=== PATIENT | female | born 1945 | race Caucasian/White ===

== ENCOUNTER → 2016-08-25 | Outpatient (REF) | payer MEDICARE ==
[~2016-08-25] MED LIST: AMLO10TA2 PO; CHLO125TA PO; COUM2.5T11 PO; CYMB60CA3 PO; DRIS50002 PO; GABA-279 PO; GABA300C3 PO; IBUPOTC PO; ISOS60TA2 PO; LEVO150T7 PO; PERC5TAB6 PO; SPIR25TA2 PO; SYNT137T7 PO; SYNT175T2 PO; TRIA37.53 PO
[2016-08-25 13:54] LABS: INR 1.27
== END ==
LOC: M SHH 13:39
PROVIDERS: ATTEND Orthopaedic Surgery
DX: M17.12 Unilateral primary osteoarthritis, left knee (principal); Z79.01 Long term (current) use of anticoagulants

== ENCOUNTER → 2016-08-27 | Outpatient (REF) | payer MEDICARE ==
[2016-08-27 12:31] LABS: INR 1.05
== END ==
LOC: M SHH 11:46
PROVIDERS: ATTEND Orthopaedic Surgery
DX: Z51.81 Encounter for therapeutic drug level monitoring (principal); Z79.01 Long term (current) use of anticoagulants

== ENCOUNTER → 2016-08-31 | Outpatient (REF) | payer MEDICARE ==
[2016-08-31 13:29] LABS: INR 1.42
== END ==
LOC: M SHH 12:36
PROVIDERS: ATTEND Orthopaedic Surgery
DX: M17.12 Unilateral primary osteoarthritis, left knee (principal); Z79.01 Long term (current) use of anticoagulants

== ENCOUNTER → 2016-12-25 | Outpatient (REF) | payer MEDICARE ==
[~2016-12-25] MED LIST changes: +GABA-282 PO; -GABA300C3 PO
== END ==
LOC: M LAB REF 16:25
PROVIDERS: ATTEND Physician Assistant Medical
DX: N39.0 Urinary tract infection, site not specified (principal)

== ENCOUNTER → 2017-01-04 | Outpatient (CLI) | payer MEDICARE ==
[2017-01-04 13:26] LABS: CALCIUM LEVEL 9.5 MG/DL (8.8-10.2); CREATININE FOR GFR 1.1 MG/DL (0.55-1.02); POTASSIUM SERUM 4.9 MEQ/L (3.5-5.1)
== END ==
LOC: M SMT 10:55
PROVIDERS: ATTEND Family Medicine
DX: N17.8 Other acute kidney failure (principal)

== ENCOUNTER → 2017-01-25 | Outpatient (CLI) | payer MEDICARE ==
[2017-01-25 13:23] LABS: ALBUMIN 3.7 GM/DL (3.2-5.2); ALBUMIN/GLOBULIN RATIO 1.12 (1.00-1.93); BILIRUBIN,TOTAL 0.4 MG/DL (0.2-1.0); CALCIUM LEVEL 9.4 MG/DL (8.8-10.2); CREATININE FOR GFR 1.17 MG/DL (0.55-1.02); FREE T4 1.5 NG/DL (0.76-1.46); GLOMERULAR FILTRATION RATE 48.4 (>39); POTASSIUM SERUM 4.5 MEQ/L (3.5-5.1)
== END ==
LOC: M SMT 09:57
PROVIDERS: ATTEND Internal Medicine Cardiovascular Disease
DX: E03.9 Hypothyroidism, unspecified (principal)

== ENCOUNTER → 2017-02-09 | Outpatient (CLI) | payer MEDICARE ==
[~2017-02-09] MED LIST changes: +CALCTAB97 PO; -COUM2.5T11 PO; +COUM2.5T17 PO; +FAMO1TAB25 PO; +FUSICAP PO; +GABA-283 PO; +LISI10TA4 PO; +PERC5TAB12 PO; -PERC5TAB6 PO; +VITA500T53 PO
[2017-02-09 13:37] LABS: FREE T4 1.17 NG/DL (0.76-1.46)
== END ==
LOC: M SMT 08:54
PROVIDERS: ATTEND Family Medicine
DX: E03.9 Hypothyroidism, unspecified (principal)

== ENCOUNTER → 2017-02-09 | Outpatient (CLI) | payer MEDICARE ==
[2017-02-09 13:13] LABS: ALBUMIN 3.5 GM/DL (3.2-5.2); ALBUMIN/GLOBULIN RATIO 1.17 (1.00-1.93); ALKALINE PHOSPHATASE 78 U/L (45-117); ALT/SGPT 25 U/L (12-78); ANION GAP 8 MEQ/L (8-16); AST/SGOT 20 U/L (15-37); BILIRUBIN,TOTAL 0.5 MG/DL (0.2-1.0); BLOOD UREA NITROGEN 11 MG/DL (7-18); CALCIUM LEVEL 9.3 MG/DL (8.8-10.2); CARBON DIOXIDE LEVEL 28 MEQ/L (21-32); CHLORIDE LEVEL 106 MEQ/L (98-107); CREATININE FOR GFR 0.85 MG/DL (0.55-1.02); FERRITIN 165 NG/ML (8-252); GLOMERULAR FILTRATION RATE > 60.0 (>39); GLUCOSE, FASTING 86 MG/DL (83-110); MAGNESIUM LEVEL 2.1 MG/DL (1.8-2.4); PERCENT SATURATION 21.1 % (13.2-37.4); PHOSPHORUS LEVEL 3.6 MG/DL (2.5-4.9); POTASSIUM SERUM 4.4 MEQ/L (3.5-5.1); SODIUM LEVEL 142 MEQ/L (136-145); TOTAL IRON BINDING CAPACITY 266 UG/DL (250-450); TOTAL PROTEIN 6.5 GM/DL (6.4-8.2)
[2017-02-09 13:21] LABS: BASO % 0.5 % (0.0-1.0); EOS # 0.4 K/mm3 (0.0-0.50); EOS % 7.2 % (0.0-3.0); LARGE UNSTAINED CELL # 0.1 K/mm3 (0.0-0.4); LARGE UNSTAINED CELL % 1.4 % (0.0-4.0); LYMPH # 1.5 K/mm3 (1.5-4.5); LYMPH % 24.9 % (24.0-44.0); MEAN CORPUSCULAR HEMOGLOBIN 31.4 pg (27.0-33.0); MEAN CORPUSCULAR VOLUME 95.1 fl (80.0-96.0); MONO # 0.4 K/mm3 (0.0-0.8); MONO % 7.6 % (0.0-5.0); NEUTROPHILS # 3.3 K/mm3 (1.8-7.7); NEUTROPHILS % 58.4 % (36.0-66.0); PLATELET COUNT, AUTOMATED 252 k/mm3 (150-450); RED CELL DISTRIBUTION WIDTH 13.2 % (11.5-14.5); WHITE BLOOD COUNT 5.6 K/mm3 (4.0-10.0)
[2017-02-09 13:43] LABS: VITAMIN B12 LEVEL 570 PG/ML (247-911)
[2017-02-12 11:02] LABS: PRETREATED FOLATE FOR RBCFOL 11.3 NG/ML
== END ==
LOC: M SMT 08:57
PROVIDERS: ATTEND Surgery
DX: K91.2 Postsurgical malabsorption, not elsewhere classified (principal); Z98.84 Bariatric surgery status; E03.9 Hypothyroidism, unspecified

== ENCOUNTER → 2017-02-19 | Outpatient (CLI) | payer MEDICARE ==
[2017-02-19 16:29] LABS: BASO % 0.4 % (0.0-1.0); EOS # 0.3 K/mm3 (0.0-0.50); EOS % 4.7 % (0.0-3.0); LARGE UNSTAINED CELL # 0.2 K/mm3 (0.0-0.4); LARGE UNSTAINED CELL % 2.4 % (0.0-4.0); LYMPH % 26.6 % (24.0-44.0); MEAN CORPUSCULAR HEMOGLOBIN 31.3 pg (27.0-33.0); MEAN CORPUSCULAR HGB CONC 32.7 g/dl (32.0-36.5); MEAN CORPUSCULAR VOLUME 95.7 fl (80.0-96.0); MONO # 0.5 K/mm3 (0.0-0.8); MONO % 6.8 % (0.0-5.0); NEUTROPHILS # 4.1 K/mm3 (1.8-7.7); NEUTROPHILS % 59.1 % (36.0-66.0); PLATELET COUNT, AUTOMATED 265 k/mm3 (150-450); RED CELL DISTRIBUTION WIDTH 13.5 % (11.5-14.5); WHITE BLOOD COUNT 6.9 K/mm3 (4.0-10.0)
[2017-02-19 17:58] LABS: ERYTHROCYTE SEDIMENTATION RATE 21 mm/hr (0-30)
== END ==
LOC: M SMT 12:53
PROVIDERS: ATTEND Orthopaedic Surgery
DX: Z96.652 Presence of left artificial knee joint (principal)

== ENCOUNTER → 2017-03-31 | Outpatient (CLI) | payer MEDICARE ==
[2017-03-31 15:10] LABS: ALBUMIN 3.5 GM/DL (3.2-5.2); ALBUMIN/GLOBULIN RATIO 1.06 (1.00-1.93); ALKALINE PHOSPHATASE 94 U/L (45-117); ALT/SGPT 18 U/L (12-78); ANION GAP 7 MEQ/L (8-16); AST/SGOT 15 U/L (15-37); BILIRUBIN,TOTAL 0.5 MG/DL (0.2-1.0); BLOOD UREA NITROGEN 14 MG/DL (7-18); CALCIUM LEVEL 9.3 MG/DL (8.8-10.2); CARBON DIOXIDE LEVEL 29 MEQ/L (21-32); CHLORIDE LEVEL 104 MEQ/L (98-107); CREATININE FOR GFR 0.81 MG/DL (0.55-1.02); FREE T4 1.11 NG/DL (0.76-1.46); GLOMERULAR FILTRATION RATE > 60.0 (>39); GLUCOSE, FASTING 83 MG/DL (83-110); POTASSIUM SERUM 4.5 MEQ/L (3.5-5.1); SODIUM LEVEL 140 MEQ/L (136-145); TOTAL PROTEIN 6.8 GM/DL (6.4-8.2)
== END ==
LOC: M SMT 11:46
PROVIDERS: ATTEND Family Medicine
DX: I11.9 Hypertensive heart disease without heart failure (principal); E03.9 Hypothyroidism, unspecified

== ENCOUNTER 2017-05-25 10:18 | Outpatient (CLI) | payer MEDICARE ==
[~2017-05-25] VITALS: Ht 157.5 cm; Wt 102.1 kg
[~2017-05-25 10:18] MED LIST changes: +LIDOCAINE 2% INJ 100 MG/5 ML SDV (FOR ANES.) As Ordered ONE; +PROPOFOL 200 MG/20 ML VIAL As Ordered ONE
[2017-05-25] MEDS ORDERED: NS 1,000 ML IV ONE (10:30)
--- NOTE | 2017-05-25 11:28 | ROOR ---
Patient Name: Jesenia Padilla Procedure Date: 05/25/2017 11:10 AM Date of : 1945 Age: 71 Room: [facility] Gender: Female Note Status: Finalized Procedure: Total Colonoscopy to Cecum Indications: Screening for colorectal malignant neoplasm, Last colonoscopy: 2004 Providers: Chad Lomas MD Referring MD: Sherrell PURCELL DO Requesting Provider: Medicines: Monitored Anesthesia Care Complications: No immediate complications. Procedure: Pre-Anesthesia Assessment: - The heart rate, respiratory rate, oxygen saturations, blood pressure, adequacy of pulmonary ventilation, and response to care were monitored throughout the procedure. The Colonoscope was introduced through the anus and advanced to the cecum, identified by appendiceal orifice and ileocecal valve. The colonoscopy was performed without difficulty. The patient tolerated the procedure well. The quality of the bowel preparation was good. Findings: The perianal and digital rectal examinations were normal. Non-bleeding internal hemorrhoids were found during retroflexion. The hemorrhoids were small and Grade I (internal hemorrhoids that do not prolapse). Scattered small-mouthed diverticula were found in the recto-sigmoid colon, sigmoid colon and descending colon. The exam was otherwise without abnormality on direct and retroflexion views. Impression: - Non-bleeding internal hemorrhoids. - Diverticulosis in the recto-sigmoid colon, in the sigmoid colon and in the descending colon. - The examination was otherwise normal on direct and retroflexion views. - No specimens collected. - The exam was otherwise normal to the cecum. Recommendation: - Patient has a contact number available for emergencies. The signs and symptoms of potential delayed complications were discussed with the patient. Return to normal activities tomorrow. Written discharge instructions were provided to the patient. - High fiber diet. - Discharge patient to home. - Continue present medications. - Repeat colonoscopy in 10 years for screening purposes. - Return to referring physician. - The findings and recommendations were discussed with the patient's family. Chad Lomas MD Chad Lomas MD 05/25/2017 11:27:57 AM This report has been signed electronically. Number of Addenda: 0 Note Initiated On: 05/25/2017 11:10 AM Estimated Blood Loss: Estimated blood loss: none.
[2017-05-25 11:50] VITALS: BP 122/69
== END 2017-05-25 12:14 | disposition home or self-care (01) ==
LOC: M OPP 10:18
PROVIDERS: ATTEND Internal Medicine Gastroenterology
DX: Z12.11 Encounter for screening for malignant neoplasm of colon (principal); K64.0 First degree hemorrhoids; K57.30 Diverticulosis of large intestine without perforation or abscess without bleeding; K75.81 Nonalcoholic steatohepatitis (NASH); I10 Essential (primary) hypertension; E03.9 Hypothyroidism, unspecified; K57.92 Diverticulitis of intestine, part unspecified, without perforation or abscess without bleeding; K59.00 Constipation, unspecified; M19.90 Unspecified osteoarthritis, unspecified site; M54.5 Low back pain; M25.60 Stiffness of unspecified joint, not elsewhere classified; F41.9 Anxiety disorder, unspecified; G35 Multiple sclerosis; Z78.0 Asymptomatic menopausal state; G47.30 Sleep apnea, unspecified; R06.83 Snoring; K76.0 Fatty (change of) liver, not elsewhere classified; Z98.1 Arthrodesis status; Z96.643 Presence of artificial hip joint, bilateral; Z98.84 Bariatric surgery status; Z88.8 Allergy status to other drugs, medicaments and biological substances; Z91.048 Other nonmedicinal substance allergy status; Z79.899 Other long term (current) drug therapy; Z87.891 Personal history of nicotine dependence

== ENCOUNTER → 2017-06-14 | Outpatient (REF) | payer MEDICARE ==
[~2017-06-14] MED LIST changes: -LIDOCAINE 2% INJ 100 MG/5 ML SDV (FOR ANES.) As Ordered ONE; -PROPOFOL 200 MG/20 ML VIAL As Ordered ONE
[2017-06-14 13:45] LABS: FREE T4 1.1 NG/DL (0.76-1.46)
== END ==
LOC: M LABSMT 12:53
PROVIDERS: ATTEND Physician Assistant
DX: E03.9 Hypothyroidism, unspecified (principal)

== ENCOUNTER → 2017-06-14 | Outpatient (REF) | payer MEDICARE ==
[2017-06-14 13:23] LABS: BASO % 0.6 % (0.0-1.0); EOS # 0.3 10^3/uL (0.0-0.50); EOS % 3.6 % (0.0-3.0); IMMATURE GRANULOCYTE % 0.3 % (0-0); LYMPH # 1.7 10^3/uL (1.5-4.5); LYMPH % 24.2 % (24.0-44.0); MEAN CORPUSCULAR HEMOGLOBIN 30.9 pg (27.0-33.0); MEAN CORPUSCULAR HGB CONC 32.4 g/dl (32.0-36.5); MEAN CORPUSCULAR VOLUME 95.2 fl (80.0-96.0); MONO # 0.8 10^3/uL (0.0-0.8); MONO % 11.1 % (0.0-5.0); NEUTROPHILS # 4.1 10^3/uL (1.8-7.7); NEUTROPHILS % 60.2 % (36.0-66.0); PLATELET COUNT, AUTOMATED 267 10^3/uL (150-450); RED CELL DISTRIBUTION WIDTH 13.9 % (11.5-14.5); WHITE BLOOD COUNT 6.9 10^3/uL (4.0-10.0)
[2017-06-14 13:37] LABS: VITAMIN B12 LEVEL 738 PG/ML (247-911)
[2017-06-14 13:41] LABS: ALBUMIN 3.9 GM/DL (3.2-5.2); ALBUMIN/GLOBULIN RATIO 1.15 (1.00-1.93); ALKALINE PHOSPHATASE 125 U/L (45-117); ALT/SGPT 20 U/L (12-78); ANION GAP 6 MEQ/L (8-16); AST/SGOT 20 U/L (15-37); BILIRUBIN,TOTAL 0.7 MG/DL (0.2-1.0); BLOOD UREA NITROGEN 18 MG/DL (7-18); CALCIUM LEVEL 9.4 MG/DL (8.8-10.2); CARBON DIOXIDE LEVEL 31 MEQ/L (21-32); CHLORIDE LEVEL 100 MEQ/L (98-107); CREATININE FOR GFR 0.85 MG/DL (0.55-1.02); FERRITIN 77 NG/ML (8-252); GLOMERULAR FILTRATION RATE > 60.0 (>39); GLUCOSE, FASTING 90 MG/DL (83-110); MAGNESIUM LEVEL 2.1 MG/DL (1.8-2.4); PERCENT SATURATION 26.5 % (13.2-45.0); PHOSPHORUS LEVEL 3.8 MG/DL (2.5-4.9); POTASSIUM SERUM 4.6 MEQ/L (3.5-5.1); SODIUM LEVEL 137 MEQ/L (136-145); TOTAL IRON BINDING CAPACITY 355 UG/DL (250-450); TOTAL PROTEIN 7.3 GM/DL (6.4-8.2)
== END ==
LOC: M LABSMT 12:54
PROVIDERS: ATTEND Surgery
DX: K91.2 Postsurgical malabsorption, not elsewhere classified (principal); Z98.84 Bariatric surgery status; E03.9 Hypothyroidism, unspecified

== ENCOUNTER → 2017-08-25 | Outpatient (CLI) | payer MEDICARE ==
[2017-08-25 20:09] LABS: BASO # 0.1 10^3/uL (0.0-0.2); EOS # 0.4 10^3/uL (0.0-0.50); EOS % 7.2 % (0.0-3.0); HEMATOCRIT 41.2 % (36.0-47.0); HEMOGLOBIN 13.3 g/dl (12.0-16.0); IMMATURE GRANULOCYTE % 0.2 % (0-0); LYMPH # 1.9 10^3/uL (1.5-4.5); LYMPH % 31.6 % (24.0-44.0); MEAN CORPUSCULAR HEMOGLOBIN 30.6 pg (27.0-33.0); MEAN CORPUSCULAR HGB CONC 32.3 g/dl (32.0-36.5); MEAN CORPUSCULAR VOLUME 94.7 fl (80.0-96.0); MONO # 0.8 10^3/uL (0.0-0.8); MONO % 12.8 % (0.0-5.0); NEUTROPHILS # 2.9 10^3/uL (1.8-7.7); NEUTROPHILS % 47.2 % (36.0-66.0); PLATELET COUNT, AUTOMATED 281 10^3/uL (150-450); RED BLOOD COUNT 4.35 10^6/uL (4.00-5.40); RED CELL DISTRIBUTION WIDTH 13.7 % (11.5-14.5); WHITE BLOOD COUNT 6.1 10^3/uL (4.0-10.0)
[2017-08-25 20:10] LABS: HEMATOCRIT 41.2 % (36.0-47.0)
[2017-08-25 20:35] LABS: TOTAL 25(OH) VITAMIN D 54.8 NG/ML (30.0-100.0); VITAMIN B12 LEVEL 687 PG/ML (247-911)
[2017-08-25 20:42] LABS: ESTIMATED AVERAGE GLUCOSE 103 MG/DL (60-110); HEMOGLOBIN A1c 5.2 %
[2017-08-25 20:48] LABS: ALBUMIN 3.5 GM/DL (3.2-5.2); ALBUMIN/GLOBULIN RATIO 1.09 (1.00-1.93); ALKALINE PHOSPHATASE 111 U/L (45-117); ALT/SGPT 17 U/L (12-78); ANION GAP 4 MEQ/L (8-16); AST/SGOT 16 U/L (7-37); BILIRUBIN,TOTAL 0.4 MG/DL (0.2-1.0); BLOOD UREA NITROGEN 17 MG/DL (7-18); CARBON DIOXIDE LEVEL 32 MEQ/L (21-32); CHLORIDE LEVEL 104 MEQ/L (98-107); FERRITIN 87 NG/ML (8-252); GLOMERULAR FILTRATION RATE > 60.0 (>39); GLUCOSE, FASTING 82 MG/DL (83-110); IRON (FE) 71 UG/DL (50-170); MAGNESIUM LEVEL 2.2 MG/DL (1.8-2.4); PERCENT SATURATION 20.7 % (13.2-45.0); PHOSPHORUS LEVEL 3.9 MG/DL (2.5-4.9); POTASSIUM SERUM 4.6 MEQ/L (3.5-5.1); SODIUM LEVEL 140 MEQ/L (136-145); TOTAL IRON BINDING CAPACITY 343 UG/DL (250-450); TOTAL PROTEIN 6.7 GM/DL (6.4-8.2)
[2017-08-27 11:37] LABS: PRETREATED FOLATE FOR RBCFOL 13.6 NG/ML; RBC FOLATE 693.2 NG/ML (280-791)
== END ==
LOC: M SMT 11:35
DX: K91.2 Postsurgical malabsorption, not elsewhere classified (principal); Z98.84 Bariatric surgery status; E55.9 Vitamin D deficiency, unspecified
CPT/HCPCS: 83550

== ENCOUNTER → 2018-03-14 | Outpatient (CLI) | payer MEDICARE ==
[2018-03-14 13:50] LABS: CREATININE FOR GFR 0.91 MG/DL (0.55-1.30); GLOMERULAR FILTRATION RATE > 60.0 (>39)
[2018-03-14 13:50] LABS: BLOOD UREA NITROGEN 16 MG/DL (7-18)
== END ==
LOC: M SMT 09:06
DX: G35 Multiple sclerosis (principal)
CPT/HCPCS: 82565

== ENCOUNTER → 2018-06-01 | Outpatient (CLI) | payer MEDICARE | LOC: M SMT 11:46 | DX: E03.9 Hypothyroidism, unspecified (principal) ==

== ENCOUNTER → 2018-06-01 | Outpatient (CLI) | payer MEDICARE ==
[2018-06-01 13:13] LABS: BASO # 0.1 10^3/uL (0.0-0.2); BASO % 0.8 % (0.0-1.0); EOS # 0.4 10^3/uL (0.0-0.50); EOS % 5.8 % (0.0-3.0); HEMATOCRIT 39.8 % (36.0-47.0); IMMATURE GRANULOCYTE % 0.5 % (0-3.0); LYMPH % 33.2 % (24.0-44.0); MEAN CORPUSCULAR HEMOGLOBIN 31.4 pg (27.0-33.0); MEAN CORPUSCULAR HGB CONC 32.7 g/dl (32.0-36.5); MEAN CORPUSCULAR VOLUME 96.1 fl (80.0-96.0); MONO # 0.7 10^3/uL (0.0-0.8); MONO % 11.6 % (0.0-5.0); NEUTROPHILS # 2.9 10^3/uL (1.8-7.7); NEUTROPHILS % 48.1 % (36.0-66.0); PLATELET COUNT, AUTOMATED 278 10^3/uL (150-450); RED BLOOD COUNT 4.14 10^6/uL (4.00-5.40); RED CELL DISTRIBUTION WIDTH 12.8 % (11.5-14.5)
[2018-06-01 13:14] LABS: HEMATOCRIT 39.8 % (36.0-47.0)
[2018-06-01 13:55] LABS: ALBUMIN 3.4 GM/DL (3.2-5.2); ALKALINE PHOSPHATASE 119 U/L (45-117); ALT/SGPT 21 U/L (12-78); ANION GAP 8 MEQ/L (8-16); AST/SGOT 18 U/L (7-37); BILIRUBIN,TOTAL 0.4 MG/DL (0.2-1.0); BLOOD UREA NITROGEN 13 MG/DL (7-18); CALCIUM LEVEL 8.8 MG/DL (8.8-10.2); CARBON DIOXIDE LEVEL 27 MEQ/L (21-32); CHLORIDE LEVEL 107 MEQ/L (98-107); CREATININE FOR GFR 0.92 MG/DL (0.55-1.30); FERRITIN 110 NG/ML (8-252); GLOMERULAR FILTRATION RATE > 60.0 (>39); GLUCOSE, FASTING 86 MG/DL (70-100); IRON (FE) 48 UG/DL (50-170); PHOSPHORUS LEVEL 3.7 MG/DL (2.5-4.9); POTASSIUM SERUM 5.3 MEQ/L (3.5-5.1); SODIUM LEVEL 142 MEQ/L (136-145); TOTAL PROTEIN 6.8 GM/DL (6.4-8.2)
[2018-06-01 14:01] LABS: TOTAL 25(OH) VITAMIN D 51.2 NG/ML (30.0-100.0)
[2018-06-01 17:53] LABS: ESTIMATED AVERAGE GLUCOSE 117 MG/DL (60-110); HEMOGLOBIN A1c 5.7 %
[2018-06-03 11:29] LABS: RBC FOLATE 791.5 NG/ML (280-791)
== END ==
LOC: M SMT 11:49
DX: K91.2 Postsurgical malabsorption, not elsewhere classified (principal); E55.9 Vitamin D deficiency, unspecified; Z98.84 Bariatric surgery status; E03.9 Hypothyroidism, unspecified
CPT/HCPCS: 83540

== ENCOUNTER → 2019-09-05 | Outpatient (CLI) | payer MEDICARE ==
[~2019-09-05] MED LIST changes: -AMLO10TA2 PO; +AMLO10TA5 PO; +CETI5SOL3 PO; -DRIS50002 PO; +DRIS50003 PO; +FIBE625T22 PO; +GABA-1171 PO; -GABA-279 PO; -GABA-282 PO; -GABA-283 PO; +GABA-843 PO; +GABA-845 PO; +LEVO200T4 PO; +OMEP1CAP73 PO; +SPIR-10 PO; -SPIR25TA2 PO; +TIZA2CAP PO; +VITA500T17 PO; -VITA500T53 PO
[2019-09-05 13:53] LABS: CREATININE FOR GFR 0.99 MG/DL (0.55-1.30); GLOMERULAR FILTRATION RATE 58.4 (>39)
== END ==
LOC: M PLALAB 10:09
PROVIDERS: ATTEND Orthopaedic Surgery Orthopaedic Surgery of the Spine
DX: Z00.00 Encounter for general adult medical examination without abnormal findings (principal); M54.5 Low back pain

== ENCOUNTER → 2019-09-13 | Outpatient (CLI) | payer MEDICARE ==
--- NOTE | 2019-09-30 05:01 | ECWPNPC ---
PATIENT NAME: RUPERTO SUE : 1945 GENDER: FEMALE VISIT DATE: 09/13/2019 DISCHARGE DATE: 09/13/19 1206 VISIT LOCKED DATE TIME: PHYSICIAN: NEREYDA GRIFFIN RESOURCE: NEREYDA GRIFFIN REASON FOR APPOINTMENT 1. CHRONIC LOW BACK PX HISTORY OF PRESENT ILLNESS PAIN SCREENIN-YEAR-OLD FEMALE BEING REFERRED BY [facility], DR. RUTHERFORD TO EVALUATE PERSISTENT LOW BACK PAIN AND BILATERAL LEG PAIN. HISTORY OF LUMBAR SURGERY IN 2014, WHICH PATIENT STATES HELPED HER PAIN DRAMATICALLY IN BOTH HER LOWER BACK AND LEGS. DEVELOPED ONSET OF LOW BACK PAIN AND LEG PAIN AND WEAKNESS ABOUT ONE YEAR AGO. STATES THAT SHE IS HAVING LEFT LEG GREATER THAN RIGHT NUMBNESS. PATIENT FEELS THIS IS GETTING WORSE.HISTORY OF MULTIPLE SCLEROSIS. IS SCHEDULED FOR AN MRI APPOINTMENT IN [place] PER DR. RUTHERFORD ON 09/14/2019. RATING PAIN INTENSITY 6-8/10 VAS. DENIES NIGHTTIME AWAKENINGS DUE TO PAIN. PAIN IS AGGRAVATED BY WALKING. DENIES BOWEL OR BLADDER INCONTINENCE. DENIES RECENT FEVER, ILLNESS OR WEIGHT LOSS. PATIENT HAS A COMPLAINT OF ACUTE OR CHRONIC PAIN :YES FALL RISK SCREENING: SCREENING :NO FALLS REPORTED IN THE LAST YEAR CURRENT MEDICATIONS TAKING LEVOTHYROXINE SODIUM 175 MCG TABLET 1 TABLET ORALLY ONCE A DAY TAKING LISINOPRIL 5 MG TABLET 1 TABLET ORALLY ONCE A DAY TAKING OMEPRAZOLE 40 MG CAPSULE DELAYED RELEASE 1 CAPSULE 30 MINUTES BEFORE MORNING MEAL ORALLY ONCE A DAY TAKING TIZANIDINE HCL 2 MG TABLET 1 TABLET NEEDED ORALLY BID TAKING TYLENOL ARTHRITIS PAIN 1-2 TABLETS NEEDED ORALLY DIRECTED TAKING VITAMIN D (ERGOCALCIFEROL) 1.25 MG (41599 UT) CAPSULE 1 CAPSULE ORALLY WEEKLY TAKING FUSION PLUS - CAPSULE 2 CAPSULES ORALLY BID TAKING DULOXETINE HCL 60 MG CAPSULE DELAYED RELEASE PARTICLES 1 CAPSULE ORALLY ONCE A DAY TAKING FIBER - CAPSULE DIRECTED ORALLY DAILY NOT-TAKING D3-50 [id number] UNIT CAPSULE 1 CAP(S) ORALLY WEEKLY NOT-TAKING TRIAMTERENE-HCTZ 37.5-25 MG TABLET 1 TABLET IN THE MORNING ORALLY ONCE A DAY NOT-TAKING VITAMIN D-3 25 MCG (1000 UT) CAPSULE 1 CAPSULE ORALLY ONCE A DAY MEDICATION LIST REVIEWED AND RECONCILED WITH THE PATIENT PAST MEDICAL HISTORY SPONDYLTHESIS SPINAL STENOSIS HYPERTENSION ANXIETY GENERALIZED OSTEOARTHRITIS INFECTION IN BACK - POST SURGERY - MRSA? NEHEMIAH PRIMARY HYPOTHYROIDISM MS ALLERGIES MARCAINE: RASH/LOSS OF CONSCIOUSNESS - ALLERGY ADHESIVE TAPE: RASH - ALLERGY NICKEL: RASH/ITCHY - ALLERGY SURGICAL HISTORY LAMINECTOMY L4-5 WITH FUSION L4-5 01/15/15 TONSILS REMOVED 5 APPENDIX REMOVED L-ARGENIS 2011? R-ARGENIS 2004? REEXPLORATION I&D FOR POSSIBLE INFECTION GRAM STAIN MANY WHITE CELLS CULTURE NEGATIVE WHITE COUNT 10.8 01/31/15 LEFT KNEE REPLACEMENT 2016 GALLBLADDER REMOVAL 2016 GASTRIC BYPASS 2016 FAMILY HISTORY FATHER: 87 YRS, LUNG CANCER, CHF MOTHER: 92 YRS, HIGH BLOOD PRESSURE, ANERSYUM, PULMONARY EMBOLISM 1 BROTHER(S) , 1 SISTER(S) . 2DAUGHTER(S) - HEALTHY. 1 BROTHER - BLADDER/LUNG CANCERYOUNGER DAUGHTER - A. FIB, LUNG CANCER S/P LOBECTOMY. SOCIAL HISTORY GENERAL: TOBACCO USE ARE YOU A:FORMER SMOKER HOW LONG HAS IT BEEN SINCE YOU LAST SMOKED?> 10 YEARS ADDITIONAL FINDINGS: TOBACCO USERMODERATE CIGARETTE SMOKER (10-19 CIGS/DAY) OTHERS AT HOME: SPOUSE. HOUSING: OWNS HOME. EDUCATION LEVEL OF EDUCATION:COLLEGE DIET: REGULAR. LANGUAGE BULGARIAN. DOMESTIC VIOLENCE NONE. RECREATIONAL DRUG USE DENIES. EXERCISE: NO REGULAR EXERCISE. LEARNING BARRIERS / SPECIAL NEEDS BARRIERS TO LEARNING?NO HEARING IMPAIRED?YES STATES A LITTLE BIT OF HEARING DIFFICULTY - NO HEARING AIDS. VISION IMPAIRED?YES :CORRECTIVE LENSES COGNITIVELY IMPAIRED?NO READINESS TO LEARN?YES LEARNING PREFERENCES?NO LEARNING CAPABILITIES PRESENT?YES EMOTIONAL BARRIERS?NO SPECIAL DEVICES?YES :WALKER IF TRAVELING LONG DISTANCES. BATTERY ASSEMBLER PLASTIC NEEDED?YES PAIN CLINIC PFS, CLERGY, PUBLIC HEALTH REFERRALS HAS THE PATIENT BEEN EDUCATED REGARDING HIS/HER PLAN OF CARE?YES HAS THE PATIENT BEEN EDUCATED REGARDING PAIN, THE RISK FOR PAIN, THE IMPORTANCE OF EFFECTIVE PAIN MANAGEMENT, AND THE PAIN ASSESSMENT PROCESS?YES LATEX QUESTIONNAIRE LATEX ALLERGY : HAVE YOU EVER DEVELOPED ANY TYPE OF REACTION AFTER HANDLING LATEX PRODUCTS SUCH RUBBER GLOVES, CONDOMS, DIAPHRAGMS, BALLOONS, SOCKS, OR UNDERWEAR?NO LATEX ALLERGY : HAVE YOU EVER DEVELOPED ANY TYPE OF REACTION DURING OR AFTER DENTAL APPOINTMENT, VAGINAL/RECTAL EXAMINATION, SURGICAL PROCEDURE, OR ANY OTHER EXPOSURE?NO LATEX RISK : HAVE YOU EVER HAD ANY DIFFICULTY BREATHING OR HIVES AFTER EATING OR HANDLING ANY FRUITS, OR VEGETABLES; SUCH KIWI, BANANAS, STONE FRUITS, OR CHESTNUTSNO LATEX RISK : DO YOU HAVE A PREVIOUS PERSONAL HISTORY OF MORE THAN NINE SURGERIES, SPINA BIFIDA, OR REPEATED CATHERIZATIONS? YES - PLEASE INDICATE : > 9 SURGERIES LATEX RISK : ARE YOU FREQUENTLY EXPOSED TO LATEX PRODUCTS IN YOUR OCCUPATION?NO DATE ASKED : 09/13/2019 CAFFEINE CAFFEINE USE?YES 2 CUP DAILY OF COFFEE ADVANCE DIRECTIVE ADVANCE DIRECTIVE DISCUSSED WITH PATIENT:YES HCP - SKYLER (); ALSO HAS LIVING WILL, DNR, MOLST PROTESTANT [id number] [place] MARITAL STATUS: . ALCOHOL SCREENING DID YOU HAVE A DRINK CONTAINING ALCOHOL IN THE PAST YEAR?YES HOW OFTEN DID YOU HAVE A DRINK CONTAINING ALCOHOL IN THE PAST YEAR?FOUR OR MORE TIMES A WEEK (4 POINTS) HOW MANY DRINKS DID YOU HAVE ON A TYPICAL DAY WHEN YOU WERE DRINKING IN THE PAST YEAR?1 OR 2 (0 POINTS) HOW OFTEN DID YOU HAVE SIX OR MORE DRINKS ON ONE OCCASION IN THE PAST YEAR?NEVER (0 POINTS) POINTS4 INTERPRETATIONPOSITIVE OCCUPATION: RETIRED. REVIEWED WITH PATIENT 09/13/2019 1143 JS. HOSPITALIZATION/MAJOR DIAGNOSTIC PROCEDURE RELATED TO SURGERY INFECTION FROM BACK SURGERY 01/2015 REVIEW OF SYSTEMS REVIEWED BY: PROVIDER: NEREYDA BEATTY . CONSTITUTIONAL: ANY CHANGE IN YOUR MEDICAL CONDITION? NO . CHILLS NO . FEVER NO . INFECTION: DO YOU HAVE NEW INFECTIONS? NO . DO YOU HAVE HISTORY OF MRSA? NO . MUSCULOSKELETAL: ANY NEW PATTERNS OF PAIN OR NUMBNESS? YES, STATES PAIN WORSENING AND AT A DIFFERENT LEVEL THAN HER PAST SURGERY . SYTEMIC LUPUS NO . GASTROENTEROLOGY: ANY NEW CHANGE IN BOWEL CONTROL? NO . BARRETTS ESOPHAGUS NO . CIRRHOSIS NO . HEPATITIS NO . LIVER FAILURE NO . ACID REFLUX NO . UNEXPLAINED WEIGHT LOSS NO . GENITOURINARY: ANY NEW CHANGE IN BLADDER CONTROL? NO . IS THERE A CHANCE YOU COULD BE ? NO . HEMATOLOGY/LYMPH: DO YOU TAKE ANY BLOOD THINNERS? (FOR EXAMPLE- COUMADIN, PLAVIX, AGGRENOX, PLATEL, PRADAXA, OR XARELTO) NO . WHEN WAS YOUR LAST DOSE? DATE: TIME: . LOW PLATELET COUNT NO . SICKLE CELL DISEASE NO . VON WILLIEBRANDS NO . FACTOR V LEIDEN NO . THALLASEMIA NO . ANEMIA NO . EASY BRUISING NO . NEUROLOGY: HAVE YOU FALLEN IN THE PAST 12 MONTHS? NO . ANY NEW EXTREMITY NUMBNESS OR WEAKNESS? NO . HEAD INJURY NO . DEMENTIA NO . CEREBRAL PALSY NO . MULTIPLE SCLEROSIS YES . DIZZINESS NO . HEADACHE NO . STROKES NO . VERTIGO NO . CARDIOLOGY: DO YOU HAVE A PACEMAKER OR DEFIBRILLATOR? NO . ANGINA NO . HEART ATTACK NO . HEART SURGERY NO . CONGESTIVE HEART FAILURE/FLUID OVERLOAD NO . CHEST PAIN NO . HIGH BLOOD PRESSURE ON MEDICATION(S) . IRREGULAR HEART BEAT NO . RESPIRATORY: HAVE YOU BEEN SICK IN THE PAST WEEK? NO . FEVER NO . FLU LIKE SYMPTOMS? NO . CPAP YES . BYPAP NO . ASTHMA NO . EMPHYSEMA NO . CHRONIC LUNG DISEASES NO . SHORTNESS OF BREATH ON EXERTION NO . COUGH NO . SNORING NO . INTEGUMENTARY: DO YOU HAVE ANY RASHES OR OPEN SORES? NO . ALLERGIC/IMMUNO: ARE YOU ALLERGIC TO IV DYE? NO . ANY NEW ALLERGIES? NO . PSYCHIATRIC: DO YOU HAVE THOUGHTS OF HURTING YOURSELF OR SOMEONE ELSE? NO . ARE YOU ABUSED, NEGLECTED, OR IN AN UNSAFE ENVIRONMENT? NO . ENDOCRINOLOGY: ARE YOU DIABETIC? NO . THYROID DISORDER HYPOTHYROID . OTHER: DO YOU NEED ANY PRESCRIPTIONS? NO . IF YES, PLEASE LIST: ____ . ANY NEW PROBLEMS WITH YOUR MEDICATIONS? NO . WHEN DID YOU LAST EAT? ____ . WHEN DID YOU LAST DRINK? ____ . WHAT DID YOU LAST DRINK? ____ . NAME OF PERSON DRIVING YOU HOME? ____ . DO YOU HAVE ANY OTHER QUESTIONS OR CONCERNS NO . VITAL SIGNS WT 234 LBS, HT 5'2", BMI 42.79 INDEX, BP 138/86 MM HG, HR 63 /MIN, RR 20 /MIN, TEMP 97.2 F, OXYGEN SAT % 97%, SAFE IN ENV? (Y/N) YES, NA INITIALS AW 1117, REVIEWED BY: BRANDAN. EXAMINATION GENERAL EXAMINATION: GENERAL AWAKE,ALERT, PLEASANT. PSYCH AFFECT NORMAL . LUNGS: LUNG CADE ARE CLEAR TO AUSCULTATION BILATERALLY. GOOD MOVEMENT OF AIR . HEART: S1, S2 IN A REGULAR RATE AND RHYTHM. NO SIGNIFICANT MURMURS, RUBS OR GALLOPS NOTED . LUMBAR: PALPATION: + FOR PAIN OVER L/S SPINE. + FOR PAIN OVER L/S PARASPINALS .SPECIFIC POINT TENDERNESS OVER BILAT L3/4-L4/5 LUMBAR FACETS WITH FACET LOADING. NEUROLOGIC EXAM: NORMAL SENSATION LIGHT TOUCH BILAT. LOWER EXTREMITIES . DIAGNOSTIC TESTS REVIEWED MRI L/S SPINE-09/15/2019. ASSESSMENTS LUMBOSACRAL SPONDYLOSIS WITHOUT MYELOPATHY - M47.817 (PRIMARY) TREATMENT LUMBOSACRAL SPONDYLOSIS WITHOUT MYELOPATHY NOTES: BILATERAL L3-4, L4-5. LUMBAR FACET THERAPEUTIC BLOCKREVIEWED RECENT MRI OF THE LS-SPINE DONE ON 09/15/2019. DISCUSSED TREATMENT OPTIONS. PROCEDURE CODES FA211 ESTABILISHED PATIENT [facility] FACILITY CHARGE DISPOSITION & COMMUNICATION FOLLOW UP POST (REASON: BILAT L3/4-L4/5 THERAPEUTIC BLOCK) ELECTRONICALLY SIGNED BY ROGERIO MCGUIRE ON 09/29/2019 AT 09:47 AM EST DISCLAIMER : THIS IS A VISIT SUMMARY EXTRACTED FROM THE [facility] CHART. IT IS NOT A COPY OF THE [facility] PROGRESS NOTE. JAMIED
== END ==
LOC: M PAIN 11:00
PROVIDERS: ATTEND Nurse Practitioner Family
DX: M47.817 Spondylosis without myelopathy or radiculopathy, lumbosacral region (principal); I10 Essential (primary) hypertension; Z86.59 Personal history of other mental and behavioral disorders; G47.33 Obstructive sleep apnea (adult) (pediatric); G35 Multiple sclerosis; E03.9 Hypothyroidism, unspecified; Z96.652 Presence of left artificial knee joint; Z98.84 Bariatric surgery status; F17.210 Nicotine dependence, cigarettes, uncomplicated; Z88.6 Allergy status to analgesic agent; Z91.09 Other allergy status, other than to drugs and biological substances; E66.01 Morbid (severe) obesity due to excess calories; Z68.41 Body mass index [BMI] 40.0-44.9, adult; Z79.899 Other long term (current) drug therapy

== ENCOUNTER → 2019-09-21 | Outpatient (CLI) | payer MEDICARE ==
--- NOTE | 2019-10-04 01:20 | ECWPNPC ---
PATIENT NAME: RUPERTO SUE : 1945 GENDER: FEMALE VISIT DATE: 09/21/2019 DISCHARGE DATE: 09/21/19 1209 VISIT LOCKED DATE TIME: PHYSICIAN: NEREYDA GRIFFIN RESOURCE: NEREYDA GRIFFIN REASON FOR APPOINTMENT 1. REVIEW MRI HISTORY OF PRESENT ILLNESS GENERAL: HERE FOR FOLLOW-UP OF CHRONIC LOW BACK PAIN. MRI OF THE LS SPINE WITH AND WITHOUT CONTRAST DONE ON 09/15/2019 IS REVIEWED WITH PATIENT. THIS IS SHOWING MODERATE CENTRAL SPINAL CANAL STENOSIS AT L2-3. SHE IS STATUS POST LAMINECTOMY AT L4-5 AND L5-S1 WITH INSTRUMENTATION FUSION AT L4-5. REPORTING EPISODES OF 9/10 VAS. PAIN AND ACHING. PAIN IS MAINLY IN THE AFTERNOON AND EVENING. DISCUSSED TREATMENT OPTIONS. -. FALL RISK SCREENING: SCREENING :NO FALLS REPORTED IN THE LAST YEAR PAIN SCREENING: PATIENT HAS A COMPLAINT OF ACUTE OR CHRONIC PAIN :YES LOCATION OF PAIN:LOW BACK INTENSITY OF PAIN (SCALE OF 1 TO 10):3 PT DOES HAVE A COPY OF THE MRI REPORT IN OFFICE TODAY. NURSING NOTE: -. HISTORY OF PRESENT ILLNESS: PAIN THE PATIENT DESCRIBES THE PAIN... CURRENT MEDICATIONS TAKING LEVOTHYROXINE SODIUM 175 MCG TABLET 1 TABLET ORALLY ONCE A DAY TAKING LISINOPRIL 5 MG TABLET 1 TABLET ORALLY ONCE A DAY TAKING OMEPRAZOLE 40 MG CAPSULE DELAYED RELEASE 1 CAPSULE 30 MINUTES BEFORE MORNING MEAL ORALLY ONCE A DAY TAKING TIZANIDINE HCL 2 MG TABLET 1 TABLET NEEDED ORALLY BID TAKING TYLENOL ARTHRITIS PAIN 1-2 TABLETS NEEDED ORALLY DIRECTED TAKING VITAMIN D (ERGOCALCIFEROL) 1.25 MG (67655 UT) CAPSULE 1 CAPSULE ORALLY WEEKLY TAKING FUSION PLUS - CAPSULE 2 CAPSULES ORALLY BID TAKING DULOXETINE HCL 60 MG CAPSULE DELAYED RELEASE PARTICLES 1 CAPSULE ORALLY ONCE A DAY TAKING FIBER - CAPSULE DIRECTED ORALLY DAILY NOT-TAKING D3-50 62066 UNIT CAPSULE 1 CAP(S) ORALLY WEEKLY NOT-TAKING TRIAMTERENE-HCTZ 37.5-25 MG TABLET 1 TABLET IN THE MORNING ORALLY ONCE A DAY NOT-TAKING VITAMIN D-3 25 MCG (1000 UT) CAPSULE 1 CAPSULE ORALLY ONCE A DAY MEDICATION LIST REVIEWED AND RECONCILED WITH THE PATIENT PAST MEDICAL HISTORY SPONDYLTHESIS SPINAL STENOSIS HYPERTENSION ANXIETY GENERALIZED OSTEOARTHRITIS INFECTION IN BACK - POST SURGERY - MRSA? NEHEMIAH PRIMARY HYPOTHYROIDISM MS ALLERGIES MARCAINE: RASH/LOSS OF CONSCIOUSNESS - ALLERGY ADHESIVE TAPE: RASH - ALLERGY NICKEL: RASH/ITCHY - ALLERGY SURGICAL HISTORY LAMINECTOMY L4-5 WITH FUSION L4-5 01/15/15 TONSILS REMOVED 1949'5 APPENDIX REMOVED L-ARGENIS 2011? R-ARGENIS 2004? REEXPLORATION I&D FOR POSSIBLE INFECTION GRAM STAIN MANY WHITE CELLS CULTURE NEGATIVE WHITE COUNT 10.8 01/31/15 LEFT KNEE REPLACEMENT 2016 GALLBLADDER REMOVAL 2016 GASTRIC BYPASS 2016 FAMILY HISTORY FATHER: 87 YRS, LUNG CANCER, CHF MOTHER: 92 YRS, HIGH BLOOD PRESSURE, ANERSYUM, PULMONARY EMBOLISM 1 BROTHER(S) , 1 SISTER(S) . 2DAUGHTER(S) - HEALTHY. 1 BROTHER - BLADDER/LUNG CANCERYOUNGER DAUGHTER - A. FIB, LUNG CANCER S/P LOBECTOMY. SOCIAL HISTORY GENERAL: TOBACCO USE ARE YOU A:FORMER SMOKER HOW LONG HAS IT BEEN SINCE YOU LAST SMOKED?> 10 YEARS ADDITIONAL FINDINGS: TOBACCO USERMODERATE CIGARETTE SMOKER (10-19 CIGS/DAY) OTHERS AT HOME: SPOUSE. HOUSING: OWNS HOME. EDUCATION LEVEL OF EDUCATION:COLLEGE DIET: REGULAR. LANGUAGE TRINIDADIAN. DOMESTIC VIOLENCE NONE. RECREATIONAL DRUG USE DENIES. EXERCISE: NO REGULAR EXERCISE. LEARNING BARRIERS / SPECIAL NEEDS BARRIERS TO LEARNING?NO HEARING IMPAIRED?YES STATES A LITTLE BIT OF HEARING DIFFICULTY - NO HEARING AIDS. VISION IMPAIRED?YES COGNITIVELY IMPAIRED?NO :CORRECTIVE LENSES READINESS TO LEARN?YES LEARNING PREFERENCES?NO LEARNING CAPABILITIES PRESENT?YES EMOTIONAL BARRIERS?NO SPECIAL DEVICES?YES :WALKER IF TRAVELING LONG DISTANCES. STUDENT SERVICES DIRECTOR NEEDED?YES PAIN CLINIC PFS, CLERGY, PUBLIC HEALTH REFERRALS HAS THE PATIENT BEEN EDUCATED REGARDING HIS/HER PLAN OF CARE?YES HAS THE PATIENT BEEN EDUCATED REGARDING PAIN, THE RISK FOR PAIN, THE IMPORTANCE OF EFFECTIVE PAIN MANAGEMENT, AND THE PAIN ASSESSMENT PROCESS?YES LATEX QUESTIONNAIRE LATEX ALLERGY : HAVE YOU EVER DEVELOPED ANY TYPE OF REACTION AFTER HANDLING LATEX PRODUCTS SUCH RUBBER GLOVES, CONDOMS, DIAPHRAGMS, BALLOONS, SOCKS, OR UNDERWEAR?NO LATEX ALLERGY : HAVE YOU EVER DEVELOPED ANY TYPE OF REACTION DURING OR AFTER DENTAL APPOINTMENT, VAGINAL/RECTAL EXAMINATION, SURGICAL PROCEDURE, OR ANY OTHER EXPOSURE?NO DATE ASKED : 09/13/2019 LATEX RISK : HAVE YOU EVER HAD ANY DIFFICULTY BREATHING OR HIVES AFTER EATING OR HANDLING ANY FRUITS, OR VEGETABLES; SUCH KIWI, BANANAS, STONE FRUITS, OR CHESTNUTSNO LATEX RISK : DO YOU HAVE A PREVIOUS PERSONAL HISTORY OF MORE THAN NINE SURGERIES, SPINA BIFIDA, OR REPEATED CATHERIZATIONS? YES - PLEASE INDICATE : > 9 SURGERIES LATEX RISK : ARE YOU FREQUENTLY EXPOSED TO LATEX PRODUCTS IN YOUR OCCUPATION?NO CAFFEINE CAFFEINE USE?YES 2 CUP DAILY OF COFFEE ADVANCE DIRECTIVE ADVANCE DIRECTIVE DISCUSSED WITH PATIENT:YES HCP - SKYLER (); ALSO HAS LIVING WILL, DNR, MOLST CHEONDOISM [id number] [place]INTO MARITAL STATUS: . ALCOHOL SCREENING DID YOU HAVE A DRINK CONTAINING ALCOHOL IN THE PAST YEAR?YES HOW OFTEN DID YOU HAVE SIX OR MORE DRINKS ON ONE OCCASION IN THE PAST YEAR?NEVER (0 POINTS) HOW MANY DRINKS DID YOU HAVE ON A TYPICAL DAY WHEN YOU WERE DRINKING IN THE PAST YEAR?1 OR 2 (0 POINTS) HOW OFTEN DID YOU HAVE A DRINK CONTAINING ALCOHOL IN THE PAST YEAR?FOUR OR MORE TIMES A WEEK (4 POINTS) POINTS4 INTERPRETATIONPOSITIVE OCCUPATION: RETIRED. REVIEWED WITH PATIENT 09/13/2019 1143 JS. HOSPITALIZATION/MAJOR DIAGNOSTIC PROCEDURE RELATED TO SURGERY INFECTION FROM BACK SURGERY 01/2015 REVIEW OF SYSTEMS REVIEWED BY: PROVIDER: NEREYDA BEATTY . CONSTITUTIONAL: ANY CHANGE IN YOUR MEDICAL CONDITION? NO . CHILLS NO . FEVER NO . INFECTION: DO YOU HAVE NEW INFECTIONS? NO . DO YOU HAVE HISTORY OF MRSA? NO . MUSCULOSKELETAL: ANY NEW PATTERNS OF PAIN OR NUMBNESS? NO . GASTROENTEROLOGY: ANY NEW CHANGE IN BOWEL CONTROL? NO . GENITOURINARY: ANY NEW CHANGE IN BLADDER CONTROL? NO . IS THERE A CHANCE YOU COULD BE ? NO . HEMATOLOGY/LYMPH: DO YOU TAKE ANY BLOOD THINNERS? (FOR EXAMPLE- COUMADIN, PLAVIX, AGGRENOX, PLATEL, PRADAXA, OR XARELTO) NO . WHEN WAS YOUR LAST DOSE? DATE: TIME: . NEUROLOGY: HAVE YOU FALLEN IN THE PAST 12 MONTHS? NO . ANY NEW EXTREMITY NUMBNESS OR WEAKNESS? NO . CARDIOLOGY: DO YOU HAVE A PACEMAKER OR DEFIBRILLATOR? NO . RESPIRATORY: HAVE YOU BEEN SICK IN THE PAST WEEK? YES, SLIGHT COLD RESOLVING . FEVER NO . FLU LIKE SYMPTOMS? NO . COUGH NO . INTEGUMENTARY: DO YOU HAVE ANY RASHES OR OPEN SORES? NO . ALLERGIC/IMMUNO: ARE YOU ALLERGIC TO IV DYE? NO . ANY NEW ALLERGIES? NO . PSYCHIATRIC: DO YOU HAVE THOUGHTS OF HURTING YOURSELF OR SOMEONE ELSE? NO . ARE YOU ABUSED, NEGLECTED, OR IN AN UNSAFE ENVIRONMENT? NO . ENDOCRINOLOGY: ARE YOU DIABETIC? NO . OTHER: DO YOU NEED ANY PRESCRIPTIONS? NO . IF YES, PLEASE LIST: ____ . ANY NEW PROBLEMS WITH YOUR MEDICATIONS? NO . WHEN DID YOU LAST EAT? ____ . WHEN DID YOU LAST DRINK? ____ . WHAT DID YOU LAST DRINK? ____ . NAME OF PERSON DRIVING YOU HOME? ____ . DO YOU HAVE ANY OTHER QUESTIONS OR CONCERNS YES, LEG SPASMS AT NIGHT FROM BACK? . VITAL SIGNS WT 232.6 LBS, HT 5'2", BMI 42.54 INDEX, BP 143/70 MM HG, HR 65 /MIN, RR 20 /MIN, TEMP 98.2 F, OXYGEN SAT % 98, SAFE IN ENV? (Y/N) YES, PAIN SCALE 3A. DODIE ALCALA. EXAMINATION GENERAL EXAMINATION: GENERAL AWAKE,ALERT, PLEASANT. PSYCH AFFECT NORMAL . LUNGS: LUNG CADE ARE CLEAR TO AUSCULTATION BILATERALLY. GOOD MOVEMENT OF AIR . HEART: S1, S2 IN A REGULAR RATE AND RHYTHM. NO SIGNIFICANT MURMURS, RUBS OR GALLOPS NOTED . LUMBAR: PALPATION: + FOR PAIN OVER L/S SPINE. + FOR PAIN OVER L/S PARASPINALS .SPECIFIC POINT TENDERNESS OVER BILAT L3/4-L4/5 LUMBAR FACETS WITH FACET LOADING. NEUROLOGIC EXAM: NORMAL SENSATION LIGHT TOUCH BILAT. LOWER EXTREMITIES . DIAGNOSTIC TESTS REVIEWED MRI L/S SPINE-09/15/2019. ASSESSMENTS LUMBOSACRAL SPONDYLOSIS WITHOUT MYELOPATHY - M47.817 (PRIMARY) TREATMENT OTHERS NOTES: FACET JOINT INJECTION MATERIAL WAS PRINTEDBILATERAL L3-4, L4-5 LUMBAR FACET BLOCK, THERAPEUTIC. PROCEDURE CODES FA211 ESTABILISHED PATIENT [facility] CHARGE DISPOSITION & COMMUNICATION FOLLOW UP POST (REASON: BILATERAL L3-4, L4-5 LUMBAR FACET BLOCK, THERAPEUTIC) ELECTRONICALLY SIGNED BY ROGERIO MCGUIRE ON 10/03/2019 AT 12:53 PM EST DISCLAIMER : THIS IS A VISIT SUMMARY EXTRACTED FROM THE [facility] CHART. IT IS NOT A COPY OF THE [facility] PROGRESS NOTE. HERMILA
== END ==
LOC: M PAIN 10:45
PROVIDERS: ATTEND Nurse Practitioner Family
DX: M47.817 Spondylosis without myelopathy or radiculopathy, lumbosacral region (principal); G89.29 Other chronic pain; I10 Essential (primary) hypertension; Z86.59 Personal history of other mental and behavioral disorders; G47.33 Obstructive sleep apnea (adult) (pediatric); E03.9 Hypothyroidism, unspecified; G35 Multiple sclerosis; Z96.652 Presence of left artificial knee joint; F17.210 Nicotine dependence, cigarettes, uncomplicated; Z88.4 Allergy status to anesthetic agent; Z91.09 Other allergy status, other than to drugs and biological substances; E66.01 Morbid (severe) obesity due to excess calories; Z68.41 Body mass index [BMI] 40.0-44.9, adult; Z79.899 Other long term (current) drug therapy

== ENCOUNTER → 2019-10-31 | Outpatient (CLI) | payer MEDICARE ==
[~2019-10-31] MED LIST changes: +BUPIVACAINE HCL 0.25% 30 ML VIAL As Ordered ONE; +ISOVUE-M 300 61% 15ML VIAL (Q9967) As Ordered ONE; +LIDOCAINE 1% SDV INJ 30 ML VIAL As Ordered ONE; +TRIAMCINOLONE ACETONIDE SUSP 40 MG/ML VIAL (J3301) As Ordered ONE; +diazePAM 2 MG TAB As Ordered ONE; +diphenhydrAMINE 25 MG CAP As Ordered ONE; +oxyCODONE 5MG TAB As Ordered ONE
--- NOTE | 2019-10-31 13:52 | REP ---
Partial lumbar spine series: Two views . History: Injection procedure for pain. 17 seconds of fluoroscopy time is reported. Findings: A sequence of two fluoroscopically obtained last image hold procedural spot radiographs of the lumbar spine document needle position and contrast injection associated with injection procedure. Electronically Signed by Garcia Alevs MD 10/31/2019 01:44 P
--- NOTE | 2019-11-03 04:22 | ECWPNPC ---
PATIENT NAME: RUPERTO SUE : 1945 GENDER: FEMALE VISIT DATE: 10/31/2019 DISCHARGE DATE: 10/31/19 1123 VISIT LOCKED DATE TIME: PHYSICIAN: HALLEY HARRIS MD RESOURCE: HALLEY HARRIS MD REASON FOR APPOINTMENT 1. BILAT L3-4, L4-5 LUMBAR FACET HISTORY OF PRESENT ILLNESS HISTORY OF PRESENT ILLNESS: PAIN THE PATIENT DESCRIBES THE PAIN... FALL RISK SCREENING: SCREENING :NO FALLS REPORTED IN THE LAST YEAR CURRENT MEDICATIONS TAKING D3-50 85890 UNIT CAPSULE 1 CAP(S) ORALLY WEEKLY, NOTES: 2 WEEKS AGO TAKING TRIAMTERENE-HCTZ 37.5-25 MG TABLET 1 TABLET IN THE MORNING ORALLY ONCE A DAY, NOTES: A WEEKS AGO TAKING VITAMIN D-3 25 MCG (1000 UT) CAPSULE 1 CAPSULE ORALLY ONCE A DAY, NOTES: A WEEJ AGO TAKING LEVOTHYROXINE SODIUM 175 MCG TABLET 1 TABLET ORALLY ONCE A DAY, NOTES: A WEEK AGO TAKING LISINOPRIL 5 MG TABLET 1 TABLET ORALLY ONCE A DAY, NOTES: A WEEK AGO TAKING OMEPRAZOLE 40 MG CAPSULE DELAYED RELEASE 1 CAPSULE 30 MINUTES BEFORE MORNING MEAL ORALLY ONCE A DAY, NOTES: A WEEK AGO TAKING TIZANIDINE HCL 2 MG TABLET 1 TABLET NEEDED ORALLY BID, NOTES: A WEEK AGO TAKING TYLENOL ARTHRITIS PAIN 1-2 TABLETS NEEDED ORALLY DIRECTED, NOTES: A WEEK AGO TAKING VITAMIN D (ERGOCALCIFEROL) 1.25 MG (48447 UT) CAPSULE 1 CAPSULE ORALLY WEEKLY, NOTES: A WEEK AGO TAKING FUSION PLUS - CAPSULE 2 CAPSULES ORALLY BID, NOTES: A WEEK AGO TAKING DULOXETINE HCL 60 MG CAPSULE DELAYED RELEASE PARTICLES 1 CAPSULE ORALLY ONCE A DAY, NOTES: A WEEK AGO TAKING FIBER - CAPSULE DIRECTED ORALLY DAILY MEDICATION LIST REVIEWED AND RECONCILED WITH THE PATIENT PAST MEDICAL HISTORY SPONDYLTHESIS SPINAL STENOSIS HYPERTENSION ANXIETY GENERALIZED OSTEOARTHRITIS INFECTION IN BACK - POST SURGERY - MRSA? NEHEMIAH PRIMARY HYPOTHYROIDISM MS ALLERGIES MARCAINE: RASH/LOSS OF CONSCIOUSNESS - ALLERGY ADHESIVE TAPE: RASH - ALLERGY NICKEL: RASH/ITCHY - ALLERGY SURGICAL HISTORY LAMINECTOMY L4-5 WITH FUSION L4-5 01/15/15 TONSILS REMOVED 1950'5 APPENDIX REMOVED L-ARGNEIS 2011? R-ARGENIS 2004? REEXPLORATION I&D FOR POSSIBLE INFECTION GRAM STAIN MANY WHITE CELLS CULTURE NEGATIVE WHITE COUNT 10.8 01/31/15 LEFT KNEE REPLACEMENT 2016 GALLBLADDER REMOVAL 2017 GASTRIC BYPASS 2017 FAMILY HISTORY FATHER: 87 YRS, LUNG CANCER, CHF MOTHER: 92 YRS, HIGH BLOOD PRESSURE, ANERSYUM, PULMONARY EMBOLISM 1 BROTHER(S) , 1 SISTER(S) . 2DAUGHTER(S) - HEALTHY. 1 BROTHER - BLADDER/LUNG CANCERYOUNGER DAUGHTER - A. FIB, LUNG CANCER S/P LOBECTOMY. SOCIAL HISTORY GENERAL: TOBACCO USE ARE YOU A:FORMER SMOKER HOW LONG HAS IT BEEN SINCE YOU LAST SMOKED?> 10 YEARS ADDITIONAL FINDINGS: TOBACCO USERMODERATE CIGARETTE SMOKER (10-19 CIGS/DAY) OTHERS AT HOME: SPOUSE. HOUSING: OWNS HOME. EDUCATION LEVEL OF EDUCATION:COLLEGE DIET: REGULAR. LANGUAGE TURKISH. DOMESTIC VIOLENCE NONE. RECREATIONAL DRUG USE DENIES. EXERCISE: NO REGULAR EXERCISE. LEARNING BARRIERS / SPECIAL NEEDS BARRIERS TO LEARNING?NO HEARING IMPAIRED?YES STATES A LITTLE BIT OF HEARING DIFFICULTY - NO HEARING AIDS. VISION IMPAIRED?YES COGNITIVELY IMPAIRED?NO :CORRECTIVE LENSES READINESS TO LEARN?YES LEARNING PREFERENCES?NO LEARNING CAPABILITIES PRESENT?YES EMOTIONAL BARRIERS?NO SPECIAL DEVICES?YES :WALKER IF TRAVELING LONG DISTANCES. CCO NEEDED?YES PAIN CLINIC PFS, CLERGY, PUBLIC HEALTH REFERRALS HAS THE PATIENT BEEN EDUCATED REGARDING HIS/HER PLAN OF CARE?YES HAS THE PATIENT BEEN EDUCATED REGARDING PAIN, THE RISK FOR PAIN, THE IMPORTANCE OF EFFECTIVE PAIN MANAGEMENT, AND THE PAIN ASSESSMENT PROCESS?YES LATEX QUESTIONNAIRE LATEX ALLERGY : HAVE YOU EVER DEVELOPED ANY TYPE OF REACTION AFTER HANDLING LATEX PRODUCTS SUCH RUBBER GLOVES, CONDOMS, DIAPHRAGMS, BALLOONS, SOCKS, OR UNDERWEAR?NO LATEX ALLERGY : HAVE YOU EVER DEVELOPED ANY TYPE OF REACTION DURING OR AFTER DENTAL APPOINTMENT, VAGINAL/RECTAL EXAMINATION, SURGICAL PROCEDURE, OR ANY OTHER EXPOSURE?NO DATE ASKED : 09/13/2019 LATEX RISK : HAVE YOU EVER HAD ANY DIFFICULTY BREATHING OR HIVES AFTER EATING OR HANDLING ANY FRUITS, OR VEGETABLES; SUCH KIWI, BANANAS, STONE FRUITS, OR CHESTNUTSNO LATEX RISK : DO YOU HAVE A PREVIOUS PERSONAL HISTORY OF MORE THAN NINE SURGERIES, SPINA BIFIDA, OR REPEATED CATHERIZATIONS? YES - PLEASE INDICATE : > 9 SURGERIES LATEX RISK : ARE YOU FREQUENTLY EXPOSED TO LATEX PRODUCTS IN YOUR OCCUPATION?NO CAFFEINE CAFFEINE USE?YES 2 CUP DAILY OF COFFEE ADVANCE DIRECTIVE ADVANCE DIRECTIVE DISCUSSED WITH PATIENT:YES GAVE PAPERWORK LAST WEEK PENTECOSTALISM [id number] PENTECOSTAL MARITAL STATUS: . ALCOHOL SCREENING DID YOU HAVE A DRINK CONTAINING ALCOHOL IN THE PAST YEAR?YES HOW OFTEN DID YOU HAVE SIX OR MORE DRINKS ON ONE OCCASION IN THE PAST YEAR?NEVER (0 POINTS) HOW MANY DRINKS DID YOU HAVE ON A TYPICAL DAY WHEN YOU WERE DRINKING IN THE PAST YEAR?1 OR 2 (0 POINTS) HOW OFTEN DID YOU HAVE A DRINK CONTAINING ALCOHOL IN THE PAST YEAR?FOUR OR MORE TIMES A WEEK (4 POINTS) POINTS4 INTERPRETATIONPOSITIVE OCCUPATION: RETIRED. REVIEWED WITH PATIENT 09/13/2019 1143 JS. HOSPITALIZATION/MAJOR DIAGNOSTIC PROCEDURE RELATED TO SURGERY INFECTION FROM BACK SURGERY 01/2015 REVIEW OF SYSTEMS REVIEWED BY: PROVIDER: . CONSTITUTIONAL: ANY CHANGE IN YOUR MEDICAL CONDITION? NO . CHILLS NO . FEVER NO . INFECTION: DO YOU HAVE NEW INFECTIONS? NO . DO YOU HAVE HISTORY OF MRSA? NO . MUSCULOSKELETAL: ANY NEW PATTERNS OF PAIN OR NUMBNESS? YES INCREASE . GASTROENTEROLOGY: ANY NEW CHANGE IN BOWEL CONTROL? NO . GENITOURINARY: ANY NEW CHANGE IN BLADDER CONTROL? NO . IS THERE A CHANCE YOU COULD BE ? NO . HEMATOLOGY/LYMPH: DO YOU TAKE ANY BLOOD THINNERS? (FOR EXAMPLE- COUMADIN, PLAVIX, AGGRENOX, PLATEL, PRADAXA, OR XARELTO) NO . WHEN WAS YOUR LAST DOSE? DATE: TIME: . NEUROLOGY: HAVE YOU FALLEN IN THE PAST 12 MONTHS? NO . ANY NEW EXTREMITY NUMBNESS OR WEAKNESS? NO . CARDIOLOGY: DO YOU HAVE A PACEMAKER OR DEFIBRILLATOR? NO . RESPIRATORY: HAVE YOU BEEN SICK IN THE PAST WEEK? NO . FEVER NO . FLU LIKE SYMPTOMS? NO . COUGH NO . INTEGUMENTARY: DO YOU HAVE ANY RASHES OR OPEN SORES? NO . ALLERGIC/IMMUNO: ARE YOU ALLERGIC TO IV DYE? NO . ANY NEW ALLERGIES? NO . PSYCHIATRIC: DO YOU HAVE THOUGHTS OF HURTING YOURSELF OR SOMEONE ELSE? NO . ARE YOU ABUSED, NEGLECTED, OR IN AN UNSAFE ENVIRONMENT? NO . ENDOCRINOLOGY: ARE YOU DIABETIC? NO . OTHER: DO YOU NEED ANY PRESCRIPTIONS? NO . IF YES, PLEASE LIST: ____ . ANY NEW PROBLEMS WITH YOUR MEDICATIONS? NO . WHEN DID YOU LAST EAT? ____6 PM LAST NIGHT . WHEN DID YOU LAST DRINK? ____6 PM LAST NIGHT . WHAT DID YOU LAST DRINK? ____WATER/WINE . NAME OF PERSON DRIVING YOU HOME? _BRUNO SANDS . DO YOU HAVE ANY OTHER QUESTIONS OR CONCERNS NO . VITAL SIGNS WT 232.4 LBS, HT 5'2", BMI 42.50 INDEX, BP 134/70 MM HG, HR 62 /MIN, RR 18 /MIN, TEMP 97.9 F, OXYGEN SAT % 96%, SAFE IN ENV? (Y/N) YES, NA INITIALS TL 0938, REVIEWED BY: KG. ASSESSMENTS SPONDYLOSIS WITHOUT MYELOPATHY OR RADICULOPATHY, LUMBAR REGION - M47.816 (PRIMARY) PROCEDURES PN LUMBAR FACET BLOCK THERAPEUTIC PRE PROCEDURE DIAGNOSIS LUMBAR SPONDYLOSIS POST PROCEDURE DIAGNOSIS LUMBAR SPONDYLOSIS PROCEDURE BILATERAL L3-L4 AND L4-L5 LUMBAR FACET THERAPEUTIC BLOCK SURGEON DR. HALLEY HARRIS SKIP MINER NONE ANESTHESIA LOCAL PRE PROCEDURE NOTE THE PATIENT HAS A HISTORY OF CHRONIC LOW BACK PAIN. I EVALUATED THE PATIENT AND REVIEWED THE CHART. I WENT OVER THE RISKS, ALTERNATIVES, AND BENEFITS ASSOCIATED WITH THIS PROCEDURE. THE PATIENT WOULD LIKE TO PROCEED AND GIVES CONSENT TO PERFORM THE PROCEDURE. THE PATIENT DENIES UNEXPLAINABLE WEIGHT LOSS, FEVER, CHILLS, OR NEW CHANGES IN URINARY OR BOWEL CONTROL DESCRIPTION OF PROCEDURE THE PATIENT WAS BROUGHT TO THE PROCEDURE ROOM AND PLACED IN THE PRONE POSITION. THE LUMBOSACRAL AREA WAS CLEANED WITH CHLORAPREP SOLUTION AND DRAPED ASEPTICALLY. THE PROCEDURE WAS DONE UNDER STERILE CONDITIONS. I CHECKED LATERALITY AND THE LEVEL WHERE THE PROCEDURE WAS GOING TO BE PERFORMED WITH THE PATIENT AND THE SUPPORTING STAFF AT THE MOMENT OF THE TIME OUT IN THE PROCEDURE ROOM. UNDER FLUOROSCOPIC GUIDANCE, THE TARGET POINT WAS SELECTED AT THE RIGHT AND LEFT L3-L4 AND RIGHT AND LEFT L4-L5 FACET JOINTS. TARGET POINT WAS SELECTED AFTER LATERAL ROTATION AND TILT OF THE MAGNIFIER OF THE C-ARM. LIDOCAINE 0.5% WAS USED TO NUMB THE SKIN AND THE SUBCUTANEOUS TISSUE BELOW IT. SPINAL NEEDLES, 22-GAUGE, WERE ADVANCED UNDER FLUOROSCOPIC GUIDANCE AND FOLLOWING PATIENT FEEDBACK UNTIL THE TARGETS WERE TOUCHED. THE POSITION OF THE NEEDLES WAS VERIFIED WITH AP AND LATERAL VIEWS. AFTER PROPER POSITION OF THE NEEDLES WAS ACHIEVED, ISOVUE-M DYE 30% 0.1 ML WAS INJECTED SHOWING ADEQUATE SPREAD OF THE DYE. THEN A SOLUTION OF KENALOG 10 MG WAS INJECTED AT EACH SITE. THERE WAS NO EVIDENCE OF BLOOD, PARESTHESIA OR CEREBROSPINAL FLUID DURING THE PROCEDURE. THE PATIENT WAS SENT TO THE RECOVERY ROOM. THE PATIENT WAS MOVING THE EXTREMITIES AND DOING WELL. THERE WAS NO COMPLICATION DURING THE PROCEDURE. FLUOROSCOPY TIME WAS 17 SECONDS POST PROCEDURE NOTE THE PATIENT WILL BE SEEN IN A FOLLOW UP IN THE NEXT FEW WEEKS. I AM LOOKING FOR LONG LASTING PAIN RELIEF FOR THE PATIENT WITH THIS INTERVENTION. INSTRUCTIONS WERE GIVEN, QUESTIONS WERE ANSWERED, AND THE PATIENT EXPRESSED UNDERSTANDING AND AGREES WITH THE PLAN. I, THEO KAUFMAN, DOCUMENTED THE ABOVE INFORMATION ACTING A SCRIBE FOR DR. HARRIS. I HAVE REVIEWED THE ABOVE DOCUMENT, WRITTEN BY THEO KAUFMAN SCRIBBaldo AND I VERIFY THAT IT IS ACCURATE. DIAGNOSTIC IMAGING [facility] FACET BLOCK (PAIN)[id number] PROCEDURE CODES 29401 INJ PARAVERT F JNT L/S 1 LEV, MODIFIERS: 50 [id number] INJ PARAVERT F JNT L/S 2 LEV, MODIFIERS: 50 [id number] RADXPS IN END [id number] PXD DISPOSITION & COMMUNICATION FOLLOW UP 3 WEEKS ELECTRONICALLY SIGNED BY HALLEY HARRIS MD, MD ON 11/02/2019 AT 05:10 PM EDT DISCLAIMER : THIS IS A VISIT SUMMARY EXTRACTED FROM THE [employer] CHART. IT IS NOT A COPY OF THE [employer] PROGRESS NOTE. MTDD
== END ==
LOC: M PAIN 09:30
PROVIDERS: ATTEND Anesthesiology
DX: M47.816 Spondylosis without myelopathy or radiculopathy, lumbar region (principal); I10 Essential (primary) hypertension; Z79.899 Other long term (current) drug therapy; Z88.8 Allergy status to other drugs, medicaments and biological substances; Z91.048 Other nonmedicinal substance allergy status; Z87.891 Personal history of nicotine dependence
CPT/HCPCS: 64493; 64494; J3301; Q9967

== ENCOUNTER → 2020-01-09 | Outpatient (CLI) | payer MEDICARE ==
[~2020-01-09] MED LIST changes: -BUPIVACAINE HCL 0.25% 30 ML VIAL As Ordered ONE; -ISOVUE-M 300 61% 15ML VIAL (Q9967) As Ordered ONE; -LIDOCAINE 1% SDV INJ 30 ML VIAL As Ordered ONE; -TRIAMCINOLONE ACETONIDE SUSP 40 MG/ML VIAL (J3301) As Ordered ONE; -diazePAM 2 MG TAB As Ordered ONE; -diphenhydrAMINE 25 MG CAP As Ordered ONE; -oxyCODONE 5MG TAB As Ordered ONE
[2020-01-09 13:39] LABS: BASO # 0.1 10^3/uL (0.0-0.2); BASO % 0.9 % (0.0-1.0); EOS # 0.3 10^3/uL (0.0-0.5); EOS % 3.8 % (0.0-3.0); HEMATOCRIT 43.1 % (36.0-47.0); LYMPH # 2.4 10^3/uL (1.5-5.0); MEAN CORPUSCULAR HEMOGLOBIN 31.6 pg (27.0-33.0); MEAN CORPUSCULAR HGB CONC 32.5 g/dl (32.0-36.5); MEAN CORPUSCULAR VOLUME 97.3 fl (80.0-96.0); MONO % 11.6 % (0.0-5.0); NEUTROPHILS # 4.7 10^3/uL (1.5-8.5); NEUTROPHILS % 55.1 % (36.0-66.0); PLATELET COUNT, AUTOMATED 308 10^3/uL (150-450); RED BLOOD COUNT 4.43 10^6/uL (4.00-5.40); WHITE BLOOD COUNT 8.5 10^3/uL (4.0-10.0)
[2020-01-09 15:06] LABS: ALBUMIN 3.7 GM/DL (3.2-5.2); BILIRUBIN,TOTAL 0.5 MG/DL (0.2-1.0); CALCIUM LEVEL 9.4 MG/DL (8.8-10.2); CHOLESTEROL RISK RATIO 2.604 (<5); FREE T4 1.19 NG/DL (0.76-1.46); GLOMERULAR FILTRATION RATE 57.5 (>39); POTASSIUM SERUM 4.8 MEQ/L (3.5-5.1); THYROID STIMULATING HORMONE 4.67 uIU/ML (0.358-3.740); TOTAL PROTEIN 6.8 GM/DL (6.4-8.2)
[2020-01-09 19:55] LABS: HEMOGLOBIN A1c 5.9 %
== END ==
LOC: M PLALAB 12:17
PROVIDERS: ATTEND Family Medicine
DX: R73.01 Impaired fasting glucose (principal); I11.9 Hypertensive heart disease without heart failure; E03.9 Hypothyroidism, unspecified

== ENCOUNTER → 2020-01-19 | Outpatient (CLI) | payer MEDICARE ==
--- NOTE | 2020-01-23 05:36 | ECWPNPC ---
PATIENT NAME: RUPERTO SUE : 1945 GENDER: FEMALE VISIT DATE: 01/19/2020 DISCHARGE DATE: 01/19/20 1100 VISIT LOCKED DATE TIME: PHYSICIAN: NEREYDA GRIFFIN RESOURCE: NEREYDA GRIFFIN REASON FOR APPOINTMENT 1. LBP [email or web address] HISTORY OF PRESENT ILLNESS GENERAL: PATIENT IS AGREEABLE TO TELEMED VISIT VIA ZOOM. PAIN HAS REOCCURRED IN HER LOW BACK OVER THE PAST FEW WEEKS. WAS DOING WELL WITH THERAPEUTIC LUMBAR FACET BLOCK, BUT PAIN HAS RETURNED. RATING PAIN LEVEL AN 8/10 VAS. REPORTS INCREASE IN LOW BACK PAIN AND LEG SYMPTOMS WITH EXTENDED WALKING. DISCUSSED DIAGNOSTIC LUMBAR FACET BLOCK AND RADIOFREQUENCY. PATIENT WOULD LIKE TO PROCEED.-. FALL RISK SCREENING: SCREENING :NO FALLS REPORTED IN THE LAST YEAR PAIN SCREENING: PATIENT HAS A COMPLAINT OF ACUTE OR CHRONIC PAIN :YES LOCATION OF PAIN:LOW BACK INTENSITY OF PAIN (SCALE OF 1 TO 10):8 WHAT DOES YOUR PAIN FEEL LIKE:BURNING, INTERMITTENT, SHARP, TENDER, THROBBING, SHOOTING DURATION:INTERMITTENT PAIN IS INCREASED BY:ACTIVITIES, OTHERS GARDENING, SITTING IN HARD CHAIR, BENDING PAIN IS DECREASED BY:SITTING NURSING NOTE: -. PAIN CENTER INTAKE QUESTIONS: DO YOU HAVE A HISTORY OF MRSA? :NO DO YOU TAKE A BLOOD THINNERS? :NO DO YOU HAVE ANY BLEEDING DISORDERS? :NO ANY NEW NUMBNESS OR WEAKNESS IN YOUR LEGS OR ARMS? :YES NEW WEAKNESS IN LEGS ANY PACEMAKER,DEFIBRILLATOR, OR DORSAL COLUMN STIMULATOR? :NO DO YOU HAVE ANY RASHES OR OPEN SORES? :NO ARE YOU ALLERGIC TO IV DYE? :NO ARE YOU DIABETIC? :NO ANY NEW PROBLEMS WITH YOUR MEDICATIONS? :NO HAVE YOU RECEIVED A VACCINE IN THE PAST 30 DAYS? :NO DO YOU PLAN TO RECEIVE A VACCINE IN THE NEXT 21 DAYS? :NO DO YOU NEED ANY PRESCRIPTION? :NO DO YOU TAKE ANY IMMUNOSUPPRESSIVE MEDICATIONS? :NO CURRENT MEDICATIONS TAKING D3-50 94721 UNIT CAPSULE 1 CAP(S) ORALLY WEEKLY TAKING TRIAMTERENE-HCTZ 37.5-25 MG TABLET 1 TABLET IN THE MORNING ORALLY ONCE A DAY TAKING LEVOTHYROXINE SODIUM 175 MCG TABLET 1 TABLET ORALLY ONCE A DAY TAKING LISINOPRIL 5 MG TABLET 1 TABLET ORALLY ONCE A DAY TAKING OMEPRAZOLE 40 MG CAPSULE DELAYED RELEASE 1 CAPSULE 30 MINUTES BEFORE MORNING MEAL ORALLY ONCE A DAY TAKING TIZANIDINE HCL 2 MG TABLET 1 TABLET NEEDED ORALLY BID TAKING TYLENOL ARTHRITIS PAIN 1-2 TABLETS NEEDED ORALLY DIRECTED TAKING FUSION PLUS - CAPSULE 2 CAPSULES ORALLY BID TAKING DULOXETINE HCL 60 MG CAPSULE DELAYED RELEASE PARTICLES 1 CAPSULE ORALLY ONCE A DAY TAKING FIBER - CAPSULE DIRECTED ORALLY DAILY NOT-TAKING VITAMIN D-3 25 MCG (1000 UT) CAPSULE 1 CAPSULE ORALLY ONCE A DAY NOT-TAKING VITAMIN D (ERGOCALCIFEROL) 1.25 MG (51871 UT) CAPSULE 1 CAPSULE ORALLY WEEKLY MEDICATION LIST REVIEWED AND RECONCILED WITH THE PATIENT PAST MEDICAL HISTORY SPONDYLTHESIS SPINAL STENOSIS HYPERTENSION ANXIETY GENERALIZED OSTEOARTHRITIS INFECTION IN BACK - POST SURGERY - MRSA? NEHEMIAH PRIMARY HYPOTHYROIDISM MS ALLERGIES MARCAINE: RASH/LOSS OF CONSCIOUSNESS - ALLERGY ADHESIVE TAPE: RASH - ALLERGY NICKEL: RASH/ITCHY - ALLERGY SURGICAL HISTORY LAMINECTOMY L4-5 WITH FUSION L4-5 01/15/15 TONSILS REMOVED 5 APPENDIX REMOVED L-ARGENIS 2011? R-ARGENIS 2004? REEXPLORATION I&D FOR POSSIBLE INFECTION GRAM STAIN MANY WHITE CELLS CULTURE NEGATIVE WHITE COUNT 10.8 01/31/15 LEFT KNEE REPLACEMENT 2016 GALLBLADDER REMOVAL 2017 GASTRIC BYPASS 2016 FAMILY HISTORY FATHER: 87 YRS, LUNG CANCER, CHF MOTHER: 92 YRS, HIGH BLOOD PRESSURE, ANERSYUM, PULMONARY EMBOLISM 1 BROTHER(S) , 1 SISTER(S) . 2DAUGHTER(S) - HEALTHY. 1 BROTHER - BLADDER/LUNG CANCERYOUNGER DAUGHTER - A. FIB, LUNG CANCER S/P LOBECTOMY. SOCIAL HISTORY GENERAL: TOBACCO USE ARE YOU A:FORMER SMOKER HOW LONG HAS IT BEEN SINCE YOU LAST SMOKED?> 10 YEARS ADDITIONAL FINDINGS: TOBACCO USERMODERATE CIGARETTE SMOKER (10-19 CIGS/DAY) LATEX QUESTIONNAIRE LATEX ALLERGY : HAVE YOU EVER DEVELOPED ANY TYPE OF REACTION AFTER HANDLING LATEX PRODUCTS SUCH RUBBER GLOVES, CONDOMS, DIAPHRAGMS, BALLOONS, SOCKS, OR UNDERWEAR?NO LATEX ALLERGY : HAVE YOU EVER DEVELOPED ANY TYPE OF REACTION DURING OR AFTER DENTAL APPOINTMENT, VAGINAL/RECTAL EXAMINATION, SURGICAL PROCEDURE, OR ANY OTHER EXPOSURE?NO LATEX RISK : HAVE YOU EVER HAD ANY DIFFICULTY BREATHING OR HIVES AFTER EATING OR HANDLING ANY FRUITS, OR VEGETABLES; SUCH KIWI, BANANAS, STONE FRUITS, OR CHESTNUTSNO LATEX RISK : DO YOU HAVE A PREVIOUS PERSONAL HISTORY OF MORE THAN NINE SURGERIES, SPINA BIFIDA, OR REPEATED CATHERIZATIONS? YES - PLEASE INDICATE : > 9 SURGERIES LATEX RISK : ARE YOU FREQUENTLY EXPOSED TO LATEX PRODUCTS IN YOUR OCCUPATION?NO DATE ASKED : 01/18/2020 ALCOHOL SCREENING DID YOU HAVE A DRINK CONTAINING ALCOHOL IN THE PAST YEAR?YES HOW OFTEN DID YOU HAVE SIX OR MORE DRINKS ON ONE OCCASION IN THE PAST YEAR?NEVER (0 POINTS) HOW MANY DRINKS DID YOU HAVE ON A TYPICAL DAY WHEN YOU WERE DRINKING IN THE PAST YEAR?1 OR 2 (0 POINTS) HOW OFTEN DID YOU HAVE A DRINK CONTAINING ALCOHOL IN THE PAST YEAR?FOUR OR MORE TIMES A WEEK (4 POINTS) POINTS4 INTERPRETATIONPOSITIVE RECREATIONAL DRUG USE DENIES. CAFFEINE CAFFEINE USE?YES 2 CUP DAILY OF COFFEE ANGLICAN [id number] WORSHIP LANGUAGE PARAGUAYAN. EDUCATION LEVEL OF EDUCATION:COLLEGE LEARNING BARRIERS / SPECIAL NEEDS BARRIERS TO LEARNING?NO HEARING IMPAIRED?YES STATES A LITTLE BIT OF HEARING DIFFICULTY - NO HEARING AIDS. VISION IMPAIRED?YES COGNITIVELY IMPAIRED?NO :CORRECTIVE LENSES READINESS TO LEARN?YES LEARNING PREFERENCES?NO LEARNING CAPABILITIES PRESENT?YES EMOTIONAL BARRIERS?NO SPECIAL DEVICES?YES :WALKER IF TRAVELING LONG DISTANCES. 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 OCCUPATION: RETIRED. DIET: REGULAR. EXERCISE: NO REGULAR EXERCISE. MARITAL STATUS: . OTHERS AT HOME: SPOUSE. NEW PATIENT PAIN DIARY PATIENT DESCRIBES PAIN :ACHING, IT COMES AND GOES FROM 0-10, WHAT LEVEL IS YOUR PAIN TODAY?1 PRECIPITATING FACTORS STANDING ALLEVIATING FACTORS REST IMPACT ON FUNCTION YES PAIN CLINIC PFS, CLERGY, PUBLIC HEALTH REFERRALS HAS THE PATIENT BEEN EDUCATED REGARDING HIS/HER PLAN OF CARE?YES HAS THE PATIENT BEEN EDUCATED REGARDING PAIN, THE RISK FOR PAIN, THE IMPORTANCE OF EFFECTIVE PAIN MANAGEMENT, AND THE PAIN ASSESSMENT PROCESS?YES HOUSING: OWNS HOME. ADVANCE DIRECTIVE ADVANCE DIRECTIVE DISCUSSED WITH PATIENT:YES GAVE PAPERWORK LAST WEEK HOSPITALIZATION/MAJOR DIAGNOSTIC PROCEDURE RELATED TO SURGERY INFECTION FROM BACK SURGERY 01/2015 REVIEW OF SYSTEMS CONSTITUTIONAL: ANY RECENT FEVER OR ILLNESS NO . CHILLS NO . GASTROENTEROLOGY: BOWEL INCONTINENCE NO . ANY NEW CHANGE IN BOWEL CONTROL? NO . ABDOMINAL PAIN NO . CONSTIPATION NO . GENITOURINARY: ANY NEW CHANGE IN BLADDER CONTROL? NO . IS THERE A CHANCE YOU COULD BE ? NO . URINARY INCONTINENCE NO . CARDIOLOGY: CHEST PRESSURE NO . CHEST PAIN NO . RESPIRATORY: COUGH NO . SHORTNESS OF BREATH NO . EXAMINATION GENERAL EXAMINATION: GENERALNO ACUTE DISTRESS, WELL NOURISHED AND HYDRATED. PSYCHAPPROPRIATE MOOD AND AFFECT . FACE:UNREMARKABLE. VIRTUAL EXAM IS PERFORMED: PATIENT IS APPLYING PRESSURE OVER LUMBAR FACET REGION APPROXIMATLEY AT L3-4, L4-5 AREA. REPORTS INCREASE IN PAIN WITH EXTENSION OF SPINE. ASSESSMENTS LUMBOSACRAL SPONDYLOSIS WITHOUT MYELOPATHY - M47.817 (PRIMARY) TREATMENT LUMBOSACRAL SPONDYLOSIS WITHOUT MYELOPATHY NOTES: BILATERAL LUMBAR FACET DIAGNOSTIC L3-4, L4-5. PRE-PROCEDURE TEACHING COMPLETED WITH PT. VERBAL CONSENT GIVEN, 01/19/20@10:49AM , NA TIME SPENT DURING VIRTUAL ZOOM VISIT WAS APPROXIMATLEY 12 MINUTES. DISPOSITION & COMMUNICATION FOLLOW UP POST (REASON: BILATERAL LUMBAR FACET DIAGNOSTIC L3-4, L4-5) ELECTRONICALLY SIGNED BY ROGERIO MCGUIRE ON 01/22/2020 AT 04:36 PM EDT DISCLAIMER : THIS IS A VISIT SUMMARY EXTRACTED FROM THE [employer] CHART. IT IS NOT A COPY OF THE [employer] PROGRESS NOTE. HERMILA
== END ==
LOC: M PAIN 10:00
PROVIDERS: ATTEND Nurse Practitioner Family
DX: M47.817 Spondylosis without myelopathy or radiculopathy, lumbosacral region (principal)

== ENCOUNTER → 2020-01-28 | Outpatient (CLI) | payer MEDICARE | LOC: M LABSMTC 08:57 | PROVIDERS: ATTEND Anesthesiology | DX: Z03.818 Encounter for observation for suspected exposure to other biological agents ruled out (principal); Z11.59 Encounter for screening for other viral diseases | CPT/HCPCS: C9803; U0003 ==

== ENCOUNTER → 2020-01-31 | Outpatient (CLI) | payer MEDICARE ==
[~2020-01-31] MED LIST changes: +ISOVUE-M 300 61% 15ML VIAL As Ordered ONE; +LIDOCAINE 1% SDV 30ML VIAL As Ordered ONE
--- NOTE | 2020-01-31 15:02 | REP ---
C-ARM VIEWS LUMBAR SPINE: CLINICAL HISTORY: Pain. Multiple C-arm views lumbar spine performed during facet injection by Dr. Orellana. [place] are seen along the lumbar facet joints. 1 minutes 42 seconds of fluoroscopy time utilized. Electronically Signed by Cristian Key MD 02/01/2020 11:48 A
--- NOTE | 2020-02-01 | ECWPNPC ---
PATIENT NAME: RUPERTO SUE : 1945 GENDER: FEMALE VISIT DATE: 01/31/2020 DISCHARGE DATE: 01/31/20 1410 VISIT LOCKED DATE TIME: PHYSICIAN: HALLEY HARRIS MD RESOURCE: HALLEY HARRIS MD REASON FOR APPOINTMENT 1. BILATERAL LUMBAR FACET DIAGNOSTIC L3-4, L4-5 HISTORY OF PRESENT ILLNESS GENERAL: -. FALL RISK SCREENING: SCREENING :NO FALLS REPORTED IN THE LAST YEAR PAIN SCREENING: PATIENT HAS A COMPLAINT OF ACUTE OR CHRONIC PAIN :YES LOCATION OF PAIN:LOW BACK INTENSITY OF PAIN (SCALE OF 1 TO 10):7 WHAT DOES YOUR PAIN FEEL LIKE:ACHING, INTERMITTENT, SHOOTING DURATION:PERIODIC NURSING NOTE: -. PAIN CENTER INTAKE QUESTIONS: DO YOU HAVE A HISTORY OF MRSA? :NO DO YOU TAKE A BLOOD THINNERS? :NO DO YOU HAVE ANY BLEEDING DISORDERS? :NO ANY NEW NUMBNESS OR WEAKNESS IN YOUR LEGS OR ARMS? :YES LEFT BUTTOCK AND SHOOTING DOWN LEG ANY PACEMAKER,DEFIBRILLATOR, OR DORSAL COLUMN STIMULATOR? :NO DO YOU HAVE ANY RASHES OR OPEN SORES? :NO ARE YOU ALLERGIC TO IV DYE? :NO ARE YOU DIABETIC? :NO ANY NEW PROBLEMS WITH YOUR MEDICATIONS? :NO HAVE YOU RECEIVED A VACCINE IN THE PAST 30 DAYS? :NO DO YOU PLAN TO RECEIVE A VACCINE IN THE NEXT 21 DAYS? :NO DO YOU TAKE ANY IMMUNOSUPPRESSIVE MEDICATIONS? :NO ANY HISTORY OF SEIZURES? :NO ANY HISTORY OF CARDIAC ISSUES OR EVENTS? :NO DO YOU HAVE SLEEP APNEA? YES. ANY RECENT HEAD INJURY? :NO DO YOU HAVE ANY NEW INFECTIONS? :NO IS THERE A CHANCE YOU COULD BE ? :NO ARE YOU BREAST FEEDING? :NO WHEN DID YOU LAST EAT? : -01/30 5AM WHEN DID YOU LAST DRINK? : -01/30 5AM WHAT DID YOU LAST DRINK? : -COFFEE NAME OF PERSON DRIVING YOU HOME? : -DAUGHTER - JASON DO YOU HAVE ANY OTHER QUESTIONS OR CONCERNS? : - CURRENT MEDICATIONS TAKING D3-50 25778 UNIT CAPSULE 1 CAP(S) ORALLY WEEKLY, NOTES: WEDNESDAY TAKING TRIAMTERENE-HCTZ 37.5-25 MG TABLET 1 TABLET IN THE MORNING ORALLY ONCE A DAY, NOTES: 01/30 7AM TAKING LEVOTHYROXINE SODIUM 175 MCG TABLET 1 TABLET ORALLY ONCE A DAY, NOTES: 01/30 7AM TAKING LISINOPRIL 5 MG TABLET 1 TABLET ORALLY ONCE A DAY, NOTES: 01/30 7AM TAKING OMEPRAZOLE 40 MG CAPSULE DELAYED RELEASE 1 CAPSULE 30 MINUTES BEFORE MORNING MEAL ORALLY ONCE A DAY, NOTES: 01/30 7AM TAKING TIZANIDINE HCL 2 MG TABLET 1 TABLET NEEDED ORALLY BID, NOTES: 01/30 7AM TAKING TYLENOL ARTHRITIS PAIN 1-2 TABLETS NEEDED ORALLY DIRECTED, NOTES: 01/29 9AM TAKING FUSION PLUS - CAPSULE 2 CAPSULES ORALLY BID, NOTES: 01/29 9AM TAKING DULOXETINE HCL 60 MG CAPSULE DELAYED RELEASE PARTICLES 1 CAPSULE ORALLY ONCE A DAY, NOTES: 01/29 9P TAKING FIBER - CAPSULE DIRECTED ORALLY DAILY, NOTES: 01/29 9AM NOT-TAKING VITAMIN D-3 25 MCG (1000 UT) CAPSULE 1 CAPSULE ORALLY ONCE A DAY NOT-TAKING VITAMIN D (ERGOCALCIFEROL) 1.25 MG (86021 UT) CAPSULE 1 CAPSULE ORALLY WEEKLY MEDICATION LIST REVIEWED AND RECONCILED WITH THE PATIENT PAST MEDICAL HISTORY SPONDYLTHESIS SPINAL STENOSIS HYPERTENSION ANXIETY GENERALIZED OSTEOARTHRITIS INFECTION IN BACK - POST SURGERY - MRSA? NEHEMIAH PRIMARY HYPOTHYROIDISM MS ALLERGIES MARCAINE: RASH/LOSS OF CONSCIOUSNESS - ALLERGY ADHESIVE TAPE: RASH - ALLERGY NICKEL: RASH/ITCHY - ALLERGY SURGICAL HISTORY LAMINECTOMY L4-5 WITH FUSION L4-5 01/15/15 TONSILS REMOVED APPENDIX REMOVED L-AGRENIS 2011? R-ARGENIS 2004? REEXPLORATION I&D FOR POSSIBLE INFECTION GRAM STAIN MANY WHITE CELLS CULTURE NEGATIVE WHITE COUNT 10.8 01/31/15 LEFT KNEE REPLACEMENT 2016 GALLBLADDER REMOVAL 2017 GASTRIC BYPASS 2016 FAMILY HISTORY FATHER: 87 YRS, LUNG CANCER, CHF MOTHER: 92 YRS, HIGH BLOOD PRESSURE, ANERSYUM, PULMONARY EMBOLISM 1 BROTHER(S) , 1 SISTER(S) . 2DAUGHTER(S) - HEALTHY. 1 BROTHER - BLADDER/LUNG CANCERYOUNGER DAUGHTER - A. FIB, LUNG CANCER S/P LOBECTOMY. SOCIAL HISTORY GENERAL: TOBACCO USE ARE YOU A:FORMER SMOKER HOW LONG HAS IT BEEN SINCE YOU LAST SMOKED?> 10 YEARS ADDITIONAL FINDINGS: TOBACCO USERMODERATE CIGARETTE SMOKER (10-19 CIGS/DAY) LATEX QUESTIONNAIRE LATEX ALLERGY : HAVE YOU EVER DEVELOPED ANY TYPE OF REACTION AFTER HANDLING LATEX PRODUCTS SUCH RUBBER GLOVES, CONDOMS, DIAPHRAGMS, BALLOONS, SOCKS, OR UNDERWEAR?NO LATEX ALLERGY : HAVE YOU EVER DEVELOPED ANY TYPE OF REACTION DURING OR AFTER DENTAL APPOINTMENT, VAGINAL/RECTAL EXAMINATION, SURGICAL PROCEDURE, OR ANY OTHER EXPOSURE?NO LATEX RISK : HAVE YOU EVER HAD ANY DIFFICULTY BREATHING OR HIVES AFTER EATING OR HANDLING ANY FRUITS, OR VEGETABLES; SUCH KIWI, BANANAS, STONE FRUITS, OR CHESTNUTSNO LATEX RISK : DO YOU HAVE A PREVIOUS PERSONAL HISTORY OF MORE THAN NINE SURGERIES, SPINA BIFIDA, OR REPEATED CATHERIZATIONS? YES - PLEASE INDICATE : > 9 SURGERIES LATEX RISK : ARE YOU FREQUENTLY EXPOSED TO LATEX PRODUCTS IN YOUR OCCUPATION?NO DATE ASKED : 01/31/2020 ALCOHOL SCREENING DID YOU HAVE A DRINK CONTAINING ALCOHOL IN THE PAST YEAR?YES HOW OFTEN DID YOU HAVE SIX OR MORE DRINKS ON ONE OCCASION IN THE PAST YEAR?NEVER (0 POINTS) HOW MANY DRINKS DID YOU HAVE ON A TYPICAL DAY WHEN YOU WERE DRINKING IN THE PAST YEAR?1 OR 2 (0 POINTS) HOW OFTEN DID YOU HAVE A DRINK CONTAINING ALCOHOL IN THE PAST YEAR?FOUR OR MORE TIMES A WEEK (4 POINTS) POINTS4 INTERPRETATIONPOSITIVE RECREATIONAL DRUG USE DENIES. CAFFEINE CAFFEINE USE?YES 2 CUP DAILY OF COFFEE WORSHIP [id number] DRUZE LANGUAGE TELUGU. EDUCATION LEVEL OF EDUCATION:COLLEGE LEARNING BARRIERS / SPECIAL NEEDS BARRIERS TO LEARNING?NO HEARING IMPAIRED?YES STATES A LITTLE BIT OF HEARING DIFFICULTY - NO HEARING AIDS. VISION IMPAIRED?YES COGNITIVELY IMPAIRED?NO :CORRECTIVE LENSES READINESS TO LEARN?YES LEARNING PREFERENCES?NO LEARNING CAPABILITIES PRESENT?YES EMOTIONAL BARRIERS?NO SPECIAL DEVICES?YES :WALKER IF TRAVELING LONG DISTANCES. APPLICATIONS CHEMIST NEEDED?YES DOMESTIC VIOLENCE NONE. OCCUPATION: RETIRED. DIET: REGULAR. EXERCISE: NO REGULAR EXERCISE. MARITAL STATUS: . OTHERS AT HOME: SPOUSE. NEW PATIENT PAIN DIARY PATIENT DESCRIBES PAIN :ACHING, IT COMES AND GOES FROM 0-10, WHAT LEVEL IS YOUR PAIN TODAY?1 PRECIPITATING FACTORS STANDING ALLEVIATING FACTORS REST IMPACT ON FUNCTION YES PAIN CLINIC PFS, CLERGY, PUBLIC HEALTH REFERRALS HAS THE PATIENT BEEN EDUCATED REGARDING HIS/HER PLAN OF CARE?YES HAS THE PATIENT BEEN EDUCATED REGARDING PAIN, THE RISK FOR PAIN, THE IMPORTANCE OF EFFECTIVE PAIN MANAGEMENT, AND THE PAIN ASSESSMENT PROCESS?YES HOUSING: OWNS HOME. ADVANCE DIRECTIVE ADVANCE DIRECTIVE DISCUSSED WITH PATIENT:YES PT STATES THAT SHE DOES NOT HAVE HCP AT THIS TIME, DECLINES ASSISTANCE WITH PAPERWORK. HOSPITALIZATION/MAJOR DIAGNOSTIC PROCEDURE RELATED TO SURGERY INFECTION FROM BACK SURGERY 01/2015 VITAL SIGNS WT 224.0 LBS, HT 5'2", BMI 40.97 INDEX, BP 155/70 MM HG, HR 60 /MIN, RR 18 /MIN, TEMP 96.4 F, OXYGEN SAT % 96%, SAFE IN ENV? (Y/N) Y, NA INITIALS AW 1148, REVIEWED BY: DS. EXAMINATION GENERAL EXAMINATION: THE PATIENT IS ALERT, ORIENTED TIMES THREE AND COOPERATIVE. HEART SHOWS REGULAR RHYTHM, NO MURMURS AND NO GALLOPS. LUNGS ARE CLEAR TO AUSCULTATION. ASSESSMENTS SPONDYLOSIS WITHOUT MYELOPATHY OR RADICULOPATHY, LUMBAR REGION - M47.816 (PRIMARY) LUMBOSACRAL SPONDYLOSIS WITHOUT MYELOPATHY - M47.817 POST LAMINECTOMY SYNDROME - M96.1 TREATMENT LUMBOSACRAL SPONDYLOSIS WITHOUT MYELOPATHY SMC FACET BLOCK (PAIN)[id number] PROCEDURES PAIN NURSING RECORD PRE-PROCEDURE IV SITE N/A, PRE-PROCEDURE ORAL MEDICATIONS LUNGS CLEAR BILATERALLY, HEART SOUNDS REGULAR PROCEDURE IN ROOM 1305, PHYSICIAN IN ROOM 1318, START 1326, FINISH 1344, PHYSICIAN OUT OF ROOM 1345, OUT OF ROOM 1355, STEROID N/A, O2 RA, ECG NORMAL SINUS, PATIENT SHIELDED YES, SAFETY STRAP YES, PREP CHLOROPREP, IV INFUSED N/A, DRESSING TEGADERM LOC: 1. ALERT, ORIENTED RESP: 1. REGULAR, NO DYSPNEA COLOR: 1. PINK SKIN: 1. WARM, DRY POSITION: 1. PRONE VITALS: 1310 144/72 85-18 96% 1315 155/70 72-18 96% 1330 145/60 72 18 97% 1355 159/70 73-18 96% DISCHARGE: POST PAIN 0, DRESSING SITE DRY AND INTACT, IV N/A, GAIT STEADY, TEACHING COMPLETED, PATIENT ACKNOWLEDGES UNDERSTANDING YES, PATIENT DISCHARGED AT 1409 PN LUMBAR FACET BLOCK DIAGNOSTIC PRE PROCEDURE DIAGNOSIS LUMBAR SPONDYLOSIS, POST LAMINECTOMY PAIN SYNDROME POST PROCEDURE DIAGNOSIS LUMBAR SPONDYLOSIS, POST LAMINECTOMY PAIN SYNDROME PROCEDURE BILATERAL L3-L4 AND BILATERAL L4-L5 FACET BLOCK DIAGNOSTIC NUMBER [address] HALLEY HARRIS SENIOR PRINCIPAL PROCESS ENGINEER NONE ANESTHESIA LOCAL PRE PROCEDURE NOTE THE PATIENT WITH HISTORY OF CHRONIC LOW BACK PAIN. I EVALUATED THE PATIENT AND REVIEWED THE CHART. I WENT OVER THE RISKS, ALTERNATIVES, AND BENEFITS ASSOCIATED WITH THIS PROCEDURE. THE PATIENT WOULD LIKE TO PROCEED AND GAVE CONSENT TO PERFORM THE PROCEDURE. AGREED WITH THE PATIENT WE ARE DOING THIS PROCEDURE TO DETERMINE IF THE PATIENT IS A CANDIDATE FOR A RADIOFREQUENCY ABLATION OF THE FACETS JOINTS. THE PATIENT DENIES UNEXPLAINABLE WEIGHT LOSS, FEVER, CHILLS, OR NEW CHANGES IN URINARY OR BOWEL CONTROL. THE PATIENT IS COVID-19 NEGATIVE DESCRIPTION OF PROCEDURE THE PATIENT WAS BROUGHT TO THE PROCEDURE ROOM AND PLACED IN THE PRONE POSITION. THE LUMBOSACRAL AREA WAS CLEANED WITH CHLORAPREP SOLUTION AND DRAPED ASEPTICALLY. THE PROCEDURE WAS DONE UNDER STERILE CONDITIONS. I CHECKED LATERALITY AND THE LEVEL WHERE THE PROCEDURE WAS GOING TO BE PERFORMED WITH THE PATIENT AND THE SUPPORTING STAFF AT THE MOMENT OF THE TIME OUT IN THE PROCEDURE ROOM. UNDER FLUOROSCOPIC GUIDANCE, TARGETS WERE SELECTED AT THE INTERSECTION OF THE RIGHT AND LEFT TRANSVERSE PROCESS OF L3, L4 AND L5 WITH ITS RESPECTIVE SUPERIOR ARTICULAR PROCESS. THE LANDMARKS WERE HARD TO LOCATED DUE TO THE PATIENT'S HARDWARE AND THE VERTEBRAL BODY OF L5-S1 BEING COLLAPSED. LIDOCAINE WAS USED TO NUMB THE SKIN AND THE SUBCUTANEOUS TISSUE BELOW IT. SPINAL NEEDLE, 22-GAUGE, WAS ADVANCED UNDER FLUOROSCOPIC GUIDANCE AND FOLLOWING PATIENT FEEDBACK UNTIL THE TARGETS WERE REACHED. POSITION OF THE NEEDLES WAS VERIFIED WITH AP AND LATERAL VIEWS. AFTER PROPER POSITION OF THE NEEDLES WAS ACHIEVED, ISOVUE-M DYE 30%, 0.1 ML, WAS INJECTED AT EACH SITE SHOWING ADEQUATE SPREAD OF THE DYE. LIDOCAINE 1%, 0.5 ML, WAS INJECTED AT EACH SITE. THE PATIENT REPORTS AN ALLERGY TO BUPIVACAINE, SO NO BUPIVACAINE WAS USED. THERE WAS NO EVIDENCE OF BLOOD, PARESTHESIA OR CEREBROSPINAL FLUID DURING THE PROCEDURE. THE PATIENT WAS SENT TO THE RECOVERY ROOM. THE PATIENT WAS MOVING THE EXTREMITIES AND DOING WELL. THERE WERE NO COMPLICATIONS DURING THE PROCEDURE. EBL LESS THAN 5 ML. FLUOROSCOPY TIME WAS 1 MINUTE 42 SECONDS POST PROCEDURE NOTE I CHECKED THE PATIENT UNDER X-RAY, I WANT TO CONSIDER DOING A THERAPEUTIC FACET BLOCK OF THE LEFT SIDE OF L5-S1. THE PATIENT WILL DOCUMENT HIS PAIN LEVEL AND RESPONSE TO THIS PROCEDURE EVERY 30 MINUTES. THE PATIENT WILL BE SEEN IN A FOLLOW UP IN THE NEXT FEW WEEKS. FURTHER DETERMINATION FOR HIS CASE WILL BE DONE AT THE NEXT VISIT. INSTRUCTIONS WERE GIVEN, QUESTIONS WERE ANSWERED, AND THE PATIENT EXPRESSED UNDERSTANDING AND AGREED WITH THE PLAN. I, RAY LUNA, DOCUMENTED THE ABOVE INFORMATION ACTING A SCRIBE FOR DR. HARRIS. I HAVE REVIEWED THE ABOVE DOCUMENT, WRITTEN BY RAY LUNA, DIRECTOR OF OPERATIONS, AND I VERIFY THAT IT IS ACCURATE PROCEDURE CODES 50646 INJ PARAVERT F JNT L/S 1 LEV, MODIFIERS: 50 [id number] INJ PARAVERT F JNT L/S 2 LEV, MODIFIERS: 50 DISPOSITION & COMMUNICATION FOLLOW UP F/UP WITH PRE OWNED SALES MANAGER (REASON: POST THERESE LFBD #1 L3-L4, L4-L5) ELECTRONICALLY SIGNED BY HALLEY HARRIS MD, ON 01/31/2020 AT 04:52 PM EDT DISCLAIMER : THIS IS A VISIT SUMMARY EXTRACTED FROM THE [employer] CHART. IT IS NOT A COPY OF THE [employer] PROGRESS NOTE. MTDD
== END ==
LOC: M PAIN 11:45
PROVIDERS: ATTEND Anesthesiology
DX: M47.816 Spondylosis without myelopathy or radiculopathy, lumbar region (principal); M47.817 Spondylosis without myelopathy or radiculopathy, lumbosacral region; M96.1 Postlaminectomy syndrome, not elsewhere classified
CPT/HCPCS: 64493; 64494; Q9967

== ENCOUNTER → 2020-02-21 | Outpatient (CLI) | payer MEDICARE ==
[~2020-02-21] MED LIST changes: -ISOVUE-M 300 61% 15ML VIAL As Ordered ONE; -LIDOCAINE 1% SDV 30ML VIAL As Ordered ONE
--- NOTE | 2020-03-05 04:15 | ECWPNPC ---
PATIENT NAME: RUPERTO SUE : 1945 GENDER: FEMALE VISIT DATE: 02/21/2020 DISCHARGE DATE: 02/21/20 1130 VISIT LOCKED DATE TIME: PHYSICIAN: NEREYDA GRIFFIN RESOURCE: NEREYDA GRIFFIN REASON FOR APPOINTMENT 1. POST THERESE LFBD #1 L3-L4, L4-L5 HISTORY OF PRESENT ILLNESS GENERAL: PATIENT IS AGREEABLE TO TELEMED VISIT VIA ZOOM. THIS IS A POST PROCEDURE FOLLOW-UP. HAD BILATERAL L3-4, L4-5 DIAGNOSTIC LUMBAR FACET BLOCK USING LIDOCAINE DUE TO PATIENT'S MARCAINE ALLERGY. SHE WAS TOLD THAT SHE MIGHT HAVE A SHORTER RESPONSE TO PAIN IMPROVEMENT DUE TO USE OF LIDOCAINE. PATIENT IS REPORTING APPROXIMATELY 3 HOURS OF GREATER THAN 80% IMPROVEMENT IN PAIN AND THEN PAIN ABRUPTLY RETURNED TO BASELINE. I WILL REVIEW RESPONSE WITH DR. HARRIS TO SEE HOW HE FEELS ABOUT PROCEEDING WITH MORE DIAGNOSTIC TESTING AND RADIOFREQUENCY. -. FALL RISK SCREENING: SCREENING :NO FALLS REPORTED IN THE LAST YEAR NURSING NOTE: -. PAIN CENTER INTAKE QUESTIONS: DO YOU HAVE A HISTORY OF MRSA? :NO DO YOU TAKE A BLOOD THINNERS? :NO DO YOU HAVE ANY BLEEDING DISORDERS? :NO ANY NEW NUMBNESS OR WEAKNESS IN YOUR LEGS OR ARMS? :NO ANY PACEMAKER,DEFIBRILLATOR, OR DORSAL COLUMN STIMULATOR? :NO DO YOU HAVE ANY RASHES OR OPEN SORES? :NO ARE YOU ALLERGIC TO IV DYE? :NO ARE YOU DIABETIC? :NO ANY NEW PROBLEMS WITH YOUR MEDICATIONS? :NO HAVE YOU RECEIVED A VACCINE IN THE PAST 30 DAYS? :NO DO YOU PLAN TO RECEIVE A VACCINE IN THE NEXT 21 DAYS? :NO DO YOU NEED ANY PRESCRIPTION? :NO DO YOU TAKE ANY IMMUNOSUPPRESSIVE MEDICATIONS? :NO IS THERE A CHANCE YOU COULD BE ? :NO ARE YOU BREAST FEEDING? :NO PAIN SCREENING: PATIENT HAS A COMPLAINT OF ACUTE OR CHRONIC PAIN :YES LOCATION OF PAIN:LOW BACK INTENSITY OF PAIN (SCALE OF 1 TO 10):2 WHAT DOES YOUR PAIN FEEL LIKE:ACHING DURATION:CONTINOUS PAIN IS INCREASED BY:ACTIVITIES PAIN IS DECREASED BY:SITTING LAYING DOWN CURRENT MEDICATIONS TAKING D3-50 56789 UNIT CAPSULE 1 CAP(S) ORALLY WEEKLY, NOTES: WEDNESDAY TAKING TRIAMTERENE-HCTZ 37.5-25 MG TABLET 1 TABLET IN THE MORNING ORALLY ONCE A DAY TAKING LEVOTHYROXINE SODIUM 175 MCG TABLET 1 TABLET ORALLY ONCE A DAY TAKING LISINOPRIL 5 MG TABLET 1 TABLET ORALLY ONCE A DAY TAKING TIZANIDINE HCL 2 MG TABLET 1 TABLET NEEDED ORALLY BID TAKING OMEPRAZOLE 40 MG CAPSULE DELAYED RELEASE 1 CAPSULE 30 MINUTES BEFORE MORNING MEAL ORALLY ONCE A DAY TAKING TYLENOL ARTHRITIS PAIN 1-2 TABLETS NEEDED ORALLY DIRECTED TAKING FUSION PLUS - CAPSULE 2 CAPSULES ORALLY BID TAKING DULOXETINE HCL 60 MG CAPSULE DELAYED RELEASE PARTICLES 1 CAPSULE ORALLY ONCE A DAY TAKING FIBER - CAPSULE DIRECTED ORALLY DAILY NOT-TAKING VITAMIN D-3 25 MCG (1000 UT) CAPSULE 1 CAPSULE ORALLY ONCE A DAY NOT-TAKING VITAMIN D (ERGOCALCIFEROL) 1.25 MG (62140 UT) CAPSULE 1 CAPSULE ORALLY WEEKLY MEDICATION LIST REVIEWED AND RECONCILED WITH THE PATIENT PAST MEDICAL HISTORY SPONDYLTHESIS SPINAL STENOSIS HYPERTENSION ANXIETY GENERALIZED OSTEOARTHRITIS INFECTION IN BACK - POST SURGERY - MRSA? NEHEMIAH PRIMARY HYPOTHYROIDISM MS ALLERGIES MARCAINE: RASH/LOSS OF CONSCIOUSNESS - ALLERGY ADHESIVE TAPE: RASH - ALLERGY NICKEL: RASH/ITCHY - ALLERGY SURGICAL HISTORY LAMINECTOMY L4-5 WITH FUSION L4-5 01/15/15 TONSILS REMOVED APPENDIX REMOVED L-ARGENIS 2011? R-ARGENIS 2004? REEXPLORATION I&D FOR POSSIBLE INFECTION GRAM STAIN MANY WHITE CELLS CULTURE NEGATIVE WHITE COUNT 10.8 01/31/15 LEFT KNEE REPLACEMENT 2016 GALLBLADDER REMOVAL 2017 GASTRIC BYPASS 2016 FAMILY HISTORY FATHER: 87 YRS, LUNG CANCER, CHF MOTHER: 92 YRS, HIGH BLOOD PRESSURE, ANERSYUM, PULMONARY EMBOLISM 1 BROTHER(S) , 1 SISTER(S) . 2DAUGHTER(S) - HEALTHY. 1 BROTHER - BLADDER/LUNG CANCERYOUNGER DAUGHTER - A. FIB, LUNG CANCER S/P LOBECTOMY. SOCIAL HISTORY GENERAL: TOBACCO USE ARE YOU A:FORMER SMOKER HOW LONG HAS IT BEEN SINCE YOU LAST SMOKED?> 10 YEARS ADDITIONAL FINDINGS: TOBACCO USERMODERATE CIGARETTE SMOKER (10-19 CIGS/DAY) LATEX QUESTIONNAIRE LATEX ALLERGY : HAVE YOU EVER DEVELOPED ANY TYPE OF REACTION AFTER HANDLING LATEX PRODUCTS SUCH RUBBER GLOVES, CONDOMS, DIAPHRAGMS, BALLOONS, SOCKS, OR UNDERWEAR?NO LATEX ALLERGY : HAVE YOU EVER DEVELOPED ANY TYPE OF REACTION DURING OR AFTER DENTAL APPOINTMENT, VAGINAL/RECTAL EXAMINATION, SURGICAL PROCEDURE, OR ANY OTHER EXPOSURE?NO LATEX RISK : HAVE YOU EVER HAD ANY DIFFICULTY BREATHING OR HIVES AFTER EATING OR HANDLING ANY FRUITS, OR VEGETABLES; SUCH KIWI, BANANAS, STONE FRUITS, OR CHESTNUTSNO LATEX RISK : DO YOU HAVE A PREVIOUS PERSONAL HISTORY OF MORE THAN NINE SURGERIES, SPINA BIFIDA, OR REPEATED CATHERIZATIONS? YES - PLEASE INDICATE : > 9 SURGERIES LATEX RISK : ARE YOU FREQUENTLY EXPOSED TO LATEX PRODUCTS IN YOUR OCCUPATION?NO DATE ASKED : 02/21/2020 ALCOHOL SCREENING DID YOU HAVE A DRINK CONTAINING ALCOHOL IN THE PAST YEAR?YES HOW OFTEN DID YOU HAVE SIX OR MORE DRINKS ON ONE OCCASION IN THE PAST YEAR?NEVER (0 POINTS) HOW MANY DRINKS DID YOU HAVE ON A TYPICAL DAY WHEN YOU WERE DRINKING IN THE PAST YEAR?1 OR 2 (0 POINTS) HOW OFTEN DID YOU HAVE A DRINK CONTAINING ALCOHOL IN THE PAST YEAR?FOUR OR MORE TIMES A WEEK (4 POINTS) POINTS4 INTERPRETATIONPOSITIVE RECREATIONAL DRUG USE DENIES. CAFFEINE CAFFEINE USE?YES 2 CUP DAILY OF COFFEE JUDAISM [id number] CHRISTIAN LANGUAGE GREEK. EDUCATION LEVEL OF EDUCATION:COLLEGE LEARNING BARRIERS / SPECIAL NEEDS BARRIERS TO LEARNING?NO HEARING IMPAIRED?YES STATES A LITTLE BIT OF HEARING DIFFICULTY - NO HEARING AIDS. VISION IMPAIRED?YES COGNITIVELY IMPAIRED?NO :CORRECTIVE LENSES READINESS TO LEARN?YES LEARNING PREFERENCES?NO LEARNING CAPABILITIES PRESENT?YES EMOTIONAL BARRIERS?NO SPECIAL DEVICES?YES :WALKER IF TRAVELING LONG DISTANCES. ECHO TECHNOLOGIST NEEDED?YES DOMESTIC VIOLENCE NONE. OCCUPATION: RETIRED. DIET: REGULAR. EXERCISE: NO REGULAR EXERCISE. MARITAL STATUS: . OTHERS AT HOME: SPOUSE. NEW PATIENT PAIN DIARY PATIENT DESCRIBES PAIN :ACHING, IT COMES AND GOES FROM 0-10, WHAT LEVEL IS YOUR PAIN TODAY?1 PRECIPITATING FACTORS STANDING ALLEVIATING FACTORS REST IMPACT ON FUNCTION YES PAIN CLINIC PFS, CLERGY, PUBLIC HEALTH REFERRALS HAS THE PATIENT BEEN EDUCATED REGARDING HIS/HER PLAN OF CARE?YES HAS THE PATIENT BEEN EDUCATED REGARDING PAIN, THE RISK FOR PAIN, THE IMPORTANCE OF EFFECTIVE PAIN MANAGEMENT, AND THE PAIN ASSESSMENT PROCESS?YES HOUSING: OWNS HOME. ADVANCE DIRECTIVE ADVANCE DIRECTIVE DISCUSSED WITH PATIENT:YES PT STATES THAT SHE DOES NOT HAVE HCP AT THIS TIME, DECLINES ASSISTANCE WITH PAPERWORK. HOSPITALIZATION/MAJOR DIAGNOSTIC PROCEDURE RELATED TO SURGERY INFECTION FROM BACK SURGERY 01/2015 REVIEW OF SYSTEMS CONSTITUTIONAL: ANY RECENT FEVER NO . CHILLS NO . WEIGHT CHANGE OF UNKNOWN REASONS NO . GASTROENTEROLOGY: NEW UNEXPLAINABLE CHANGES IN BOWEL CONTROL NO . CONSTIPATION NO . GENITOURINARY: ANY NEW CHANGE IN BLADDER CONTROL? NO . NEUROLOGY: NEW ONSET DIZZINESS OR NEUROLOGICAL CHANGES NOT MENTIONED NO . NEW NUMBNESS OR PAIN PATTERNS NOT MENTIONED AND PERTINENT TO TODAY'S VISIT NO . CARDIOLOGY: NEW CHEST PRESSURE NO . NEW CHEST PAIN NO . RESPIRATORY: UNEXPLAINABLE COUGH NO . NEW SHORTNESS OF BREATH NO . ASSESSMENTS SPONDYLOSIS WITHOUT MYELOPATHY OR RADICULOPATHY, LUMBAR REGION - M47.816 (PRIMARY) TREATMENT SPONDYLOSIS WITHOUT MYELOPATHY OR RADICULOPATHY, LUMBAR REGION NOTES: I WILL HAVE PATIENT COME INTO CLINIC FOR EXAM AND DEVELOP A TREATMENT PLAN AFTER I SPEAK WITH DR. HARRIS. TOTAL TIME SPENT DURING TELEMED VISIT WAS APPROXIMATELY 12 MINUTES. DISPOSITION & COMMUNICATION FOLLOW UP IN CLINIC VISIT IN 3-4 WEEKS (REASON: DEVELOP TREATMENT PLAN AFTER TALKING WITH DR. HARRIS) ELECTRONICALLY SIGNED BY ROGERIO MCGUIRE ON 03/04/2020 AT 03:26 PM EDT DISCLAIMER : THIS IS A VISIT SUMMARY EXTRACTED FROM THE [employer] CHART. IT IS NOT A COPY OF THE [employer] PROGRESS NOTE. HERMILA
== END ==
LOC: M PAIN 10:00 → M TMPAIN 10:00
PROVIDERS: ATTEND Nurse Practitioner Family
DX: M47.816 Spondylosis without myelopathy or radiculopathy, lumbar region (principal)

== ENCOUNTER → 2020-04-04 | Outpatient (POV) | payer MEDICARE ==
[~2020-04-04] MED LIST changes: +ALPR0.5T7; -AMLO10TA5 PO; +AMLO1TAB25 PO; +DULO1CAP6; +ISOVUE-M 300 61% 15ML VIAL As Ordered ONE; +ISOVUE-M 300 61% 15ML VIAL ONE; +LIDOCAINE 1% SDV 30ML VIAL As Ordered ONE; +LIDOCAINE 1% SDV 30ML VIAL ONE; +LISI-542; +OMEP-221; +TIZA2TA; +VITA50005
--- NOTE | 2020-05-15 09:34 | REP ---
C-ARM VIEWS LOWER LUMBAR SPINE DURING FACET INJECTIONS: HISTORY: Pain. FINDINGS: Multiple C-arm views of the lumbar spine performed during facet injections performed by Dr. Orellana. Lindsay are seen along the lower lumbar facet joints. Fluoroscopy time is 1 minute 21 seconds. MTDD
== END ==
LOC: M PAIN 09:00
PROVIDERS: ATTEND Anesthesiology
DX: M47.816 Spondylosis without myelopathy or radiculopathy, lumbar region (principal)

== ENCOUNTER → 2020-04-11 | Outpatient (CLI) | payer MEDICARE ==
[~2020-04-11] MED LIST changes: -ISOVUE-M 300 61% 15ML VIAL As Ordered ONE; -ISOVUE-M 300 61% 15ML VIAL ONE; -LIDOCAINE 1% SDV 30ML VIAL As Ordered ONE; -LIDOCAINE 1% SDV 30ML VIAL ONE
[2020-04-11 16:02] LABS: ALBUMIN 3.8 GM/DL (3.2-5.2); ALT/SGPT 21 U/L (12-78); BILIRUBIN,TOTAL 0.6 MG/DL (0.2-1.0); BLOOD UREA NITROGEN 11 MG/DL (7-18); CALCIUM LEVEL 9.5 MG/DL (8.8-10.2); CARBON DIOXIDE LEVEL 30 MEQ/L (21-32); CHLORIDE LEVEL 104 MEQ/L (98-107); CHOLESTEROL LEVEL 186 MG/DL (<200); CREATININE FOR GFR 0.96 MG/DL (0.55-1.30); FREE T4 1.38 NG/DL (0.76-1.46); GLOMERULAR FILTRATION RATE > 60.0 (>39); GLUCOSE, FASTING 108 MG/DL (70-100); HDL CHOLESTEROL 62 MG/DL (>40); HEMOGLOBIN A1c 5.6 %; LDL CHOLESTEROL 102 MG/DL (<100); NON-HDL-C 124 MG/DL; POTASSIUM SERUM 4.8 MEQ/L (3.5-5.1); SODIUM LEVEL 140 MEQ/L (136-145); THYROID STIMULATING HORMONE 0.937 uIU/ML (0.358-3.740); TOTAL PROTEIN 7.1 GM/DL (6.4-8.2); TRIGLYCERIDES LEVEL 108 MG/DL (<150)
== END ==
LOC: M PLALAB 07:55
PROVIDERS: ATTEND Family Medicine
DX: R73.01 Impaired fasting glucose (principal); E03.9 Hypothyroidism, unspecified; I11.9 Hypertensive heart disease without heart failure

== ENCOUNTER → 2020-04-30 | Outpatient (CLI) | payer MEDICARE | LOC: M PAIN 11:27 | PROVIDERS: ATTEND Nurse Practitioner Family | DX: M47.816 Spondylosis without myelopathy or radiculopathy, lumbar region (principal) ==

== ENCOUNTER → 2020-05-08 | Outpatient (CLI) | payer MEDICARE | LOC: M LABSMTC 10:30 | PROVIDERS: ATTEND Anesthesiology | DX: Z20.828 Contact with and (suspected) exposure to other viral communicable diseases (principal) | CPT/HCPCS: C9803; U0003 ==

== ENCOUNTER → 2020-05-13 | Outpatient (CLI) | payer MEDICARE ==
[~2020-05-13] MED LIST changes: +LIDOCAINE 1% SDV 30ML VIAL As Ordered ONE; +dexameTHASONE 10MG/1ML VIAL PRES.FREE (J1100 PER 1MG) As Ordered ONE; +diazePAM 5 MG TAB As Ordered ONE; +oxyCODONE 5MG TAB As Ordered ONE
--- NOTE | 2020-05-22 13:48 | REP ---
PARTIAL LUMBAR SPINE SERIES: 6-VIEWS HISTORY: Right-sided radiofrequency lumbar ablation for pain. One minute 56 seconds of fluoroscopy time is reported. FINDINGS: A sequence of six [id number] fluoroscopically obtained spot radiographs of the lumbar spine document various needle positions associated with the injection procedure. HERMILA
== END ==
LOC: M PAIN 09:56
PROVIDERS: ATTEND Anesthesiology
DX: M47.816 Spondylosis without myelopathy or radiculopathy, lumbar region (principal)
CPT/HCPCS: 64635; 64636; 77003; G0463; J1100

== ENCOUNTER 2020-05-14 21:00 | Emergency (ER) | payer MEDICARE ==
[~2020-05-14] VITALS: Ht 157.5 cm; Wt 105.8 kg
[~2020-05-14 21:00] MED LIST changes: -ALPR0.5T7; -DULO1CAP6; -LIDOCAINE 1% SDV 30ML VIAL As Ordered ONE; -LISI-542; -OMEP-221; -TIZA2TA; -VITA50005; -dexameTHASONE 10MG/1ML VIAL PRES.FREE (J1100 PER 1MG) As Ordered ONE; -diazePAM 5 MG TAB As Ordered ONE; -oxyCODONE 5MG TAB As Ordered ONE
[2020-05-14] MEDS ORDERED: OMEP-221 (21:14)
[2020-05-14] MEDS ORDERED: TIZA2TA (21:14)
[2020-05-14] MEDS ORDERED: LISI-542 (21:14)
[2020-05-14] MEDS ORDERED: DULO1CAP6 (21:14)
[2020-05-14] MEDS ORDERED: ALPR0.5T7 (21:14)
[2020-05-14] MEDS ORDERED: VITA50005 (21:14)
[2020-05-14 22:58] VITALS: BP 149/81
== END 2020-05-14 22:58 | disposition home or self-care (01) ==
LOC: M ED 21:00
DX: L27.1 Localized skin eruption due to drugs and medicaments taken internally (principal); T38.0X5A Adverse effect of glucocorticoids and synthetic analogues, initial encounter; Y92.9 Unspecified place or not applicable; Y93.9 Activity, unspecified; I10 Essential (primary) hypertension; E78.5 Hyperlipidemia, unspecified; G89.29 Other chronic pain; M54.9 Dorsalgia, unspecified; Z79.899 Other long term (current) drug therapy; Z91.89 Other specified personal risk factors, not elsewhere classified; Z88.8 Allergy status to other drugs, medicaments and biological substances

== ENCOUNTER → 2020-05-30 | Outpatient (CLI) | payer MEDICARE ==
[~2020-05-30] MED LIST changes: +ALPR0.5T7; +DULO1CAP6; +LISI-542; +OMEP-221; +TIZA2TA; +VITA50005
--- NOTE | 2020-06-04 14:47 | ECWPNPC ---
PATIENT NAME: RUPERTO SUE : 1945 GENDER: FEMALE VISIT DATE: 05/30/2020 DISCHARGE DATE: 05/30/20 1049 VISIT LOCKED DATE TIME: PHYSICIAN: NEREYDA GRIFFIN RESOURCE: NEREYDA GRIFFIN REASON FOR APPOINTMENT 1. POST RIGHT L4,L5-L5-S1 COOL RF HISTORY OF PRESENT ILLNESS GENERAL: RUPERTO IS HERE FOR POST PROCEDURE FOLLOW-UP. HAD RIGHT L3/4- L4-5 COOL RADIOFREQUENCY ON 05/13/2020. REPORTING NO IMPROVEMENT IN PAIN POST PROCEDURE. STATES THAT ONE DAY POST PROCEDURE SHE BEGAN TO HAVE FACIAL SWELLING AND FLUSHING. SHE WAS SEEN IN THE ER AND WAS GIVEN BENADRYL WITH IMPROVEMENT. HISTORY OF MARCAINE AND NICKEL ALLERGY. DISCUSSED REFERRING TO COUNTY ATTORNEY TO EVALUATE FOR POSSIBLE ALLERGY TO DEXAMETHASONE VERSUS LIDOCAINE. -. FALL RISK SCREENING: SCREENING :ONE FALL WITHOUT INJURY IN THE PAST YEAR PAIN SCREENING: PATIENT HAS A COMPLAINT OF ACUTE OR CHRONIC PAIN :YES LOCATION OF PAIN:LOW BACK, OTHER: BUTTOCKS INTENSITY OF PAIN (SCALE OF 1 TO 10):1 WHAT DOES YOUR PAIN FEEL LIKE:ACHING, STABBING DURATION:CONTINOUS, AWAKENS FROM SLEEP PAIN IS INCREASED BY:ACTIVITIES, PROLONGED STANDING PAIN IS DECREASED BY:USE OF PAIN MEDICATIONS, SITTING, OTHERS LAYING, TYLENOL, HEAT NURSING NOTE: -. PAIN CENTER INTAKE QUESTIONS: DO YOU HAVE A HISTORY OF MRSA? :YES AFTER BACK SURGERY DO YOU TAKE A BLOOD THINNERS? :NO DO YOU HAVE ANY BLEEDING DISORDERS? :NO ANY NEW NUMBNESS OR WEAKNESS IN YOUR LEGS OR ARMS? :YES TINGLING IN LEFT THIGH HAS RETURNED OVER THE PAST COUPLE OF WEEKS. ANY PACEMAKER,DEFIBRILLATOR, OR DORSAL COLUMN STIMULATOR? :NO DO YOU HAVE ANY RASHES OR OPEN SORES? :NO ARE YOU ALLERGIC TO IV DYE? :NO ARE YOU DIABETIC? :NO ANY NEW PROBLEMS WITH YOUR MEDICATIONS? :YES REACTION TO DEXAMETHASONE AFTER RADIOFREQUENCY PROCEDURE. HAVE YOU RECEIVED A VACCINE IN THE PAST 30 DAYS? :YES IF SO WHAT VACCINE AND WHEN? FLU AND PNEUMONIA VACCINES PRIOR TO PROCEDURE. DO YOU PLAN TO RECEIVE A VACCINE IN THE NEXT 21 DAYS? :NO DO YOU NEED ANY PRESCRIPTION? :NO DO YOU TAKE ANY IMMUNOSUPPRESSIVE MEDICATIONS? :NO IS THERE A CHANCE YOU COULD BE ? :NO ARE YOU BREAST FEEDING? :NO CURRENT MEDICATIONS TAKING D3-50 [id number] UNIT CAPSULE 1 CAP(S) ORALLY WEEKLY, NOTES: WEDNESDAY TAKING TRIAMTERENE-HCTZ 37.5-25 MG TABLET 1 TABLET IN THE MORNING ORALLY ONCE A DAY TAKING LEVOTHYROXINE SODIUM 175 MCG TABLET 1 TABLET ORALLY ONCE A DAY TAKING LISINOPRIL 5 MG TABLET 1 TABLET ORALLY ONCE A DAY TAKING TIZANIDINE HCL 2 MG TABLET 1 TABLET NEEDED ORALLY BID TAKING OMEPRAZOLE 40 MG CAPSULE DELAYED RELEASE 1 CAPSULE 30 MINUTES BEFORE MORNING MEAL ORALLY ONCE A DAY TAKING TYLENOL ARTHRITIS PAIN 1-2 TABLETS NEEDED ORALLY DIRECTED TAKING FUSION PLUS - CAPSULE 2 CAPSULES ORALLY BID TAKING DULOXETINE HCL 60 MG CAPSULE DELAYED RELEASE PARTICLES 1 CAPSULE ORALLY ONCE A DAY TAKING FIBER - CAPSULE DIRECTED ORALLY DAILY TAKING ALPRAZOLAM 0.5 MG TABLET DISINTEGRATING 1 TABLET ON THE TONGUE AND ALLOW TO DISSOLVE ORALLY TWICE A DAY NEEDED NOT-TAKING VITAMIN D-3 25 MCG (1000 UT) CAPSULE 1 CAPSULE ORALLY ONCE A DAY NOT-TAKING VITAMIN D (ERGOCALCIFEROL) 1.25 MG (00030 UT) CAPSULE 1 CAPSULE ORALLY WEEKLY MEDICATION LIST REVIEWED AND RECONCILED WITH THE PATIENT PAST MEDICAL HISTORY SPONDYLTHESIS SPINAL STENOSIS HYPERTENSION ANXIETY GENERALIZED OSTEOARTHRITIS INFECTION IN BACK - POST SURGERY - MRSA? NEHEMIAH PRIMARY HYPOTHYROIDISM MS ALLERGIES MARCAINE: RASH/LOSS OF CONSCIOUSNESS - ALLERGY ADHESIVE TAPE: RASH - ALLERGY NICKEL: RASH/ITCHY - ALLERGY DEXAMETHASONE: FACIAL FLUSHING AND SWELLING - ALLERGY SURGICAL HISTORY LAMINECTOMY L4-5 WITH FUSION L4-5 01/15/15 TONSILS REMOVED 5 APPENDIX REMOVED L-ARGENIS 2011? R-ARGENIS 2004? REEXPLORATION I&D FOR POSSIBLE INFECTION GRAM STAIN MANY WHITE CELLS CULTURE NEGATIVE WHITE COUNT 10.8 01/31/15 LEFT KNEE REPLACEMENT 2016 GALLBLADDER REMOVAL 2017 GASTRIC BYPASS 2017 FAMILY HISTORY FATHER: 87 YRS, LUNG CANCER, CHF MOTHER: 92 YRS, HIGH BLOOD PRESSURE, ANERSYUM, PULMONARY EMBOLISM 1 BROTHER(S) , 1 SISTER(S) . 2DAUGHTER(S) - HEALTHY. 1 BROTHER - BLADDER/LUNG CANCERYOUNGER DAUGHTER - A. FIB, LUNG CANCER S/P LOBECTOMY. SOCIAL HISTORY GENERAL: TOBACCO USE ARE YOU A:FORMER SMOKER HOW LONG HAS IT BEEN SINCE YOU LAST SMOKED?> 10 YEARS ADDITIONAL FINDINGS: TOBACCO USERMODERATE CIGARETTE SMOKER (10-19 CIGS/DAY) LATEX QUESTIONNAIRE LATEX ALLERGY : HAVE YOU EVER DEVELOPED ANY TYPE OF REACTION AFTER HANDLING LATEX PRODUCTS SUCH RUBBER GLOVES, CONDOMS, DIAPHRAGMS, BALLOONS, SOCKS, OR UNDERWEAR?NO LATEX ALLERGY : HAVE YOU EVER DEVELOPED ANY TYPE OF REACTION DURING OR AFTER DENTAL APPOINTMENT, VAGINAL/RECTAL EXAMINATION, SURGICAL PROCEDURE, OR ANY OTHER EXPOSURE?NO LATEX RISK : HAVE YOU EVER HAD ANY DIFFICULTY BREATHING OR HIVES AFTER EATING OR HANDLING ANY FRUITS, OR VEGETABLES; SUCH KIWI, BANANAS, STONE FRUITS, OR CHESTNUTSNO LATEX RISK : DO YOU HAVE A PREVIOUS PERSONAL HISTORY OF MORE THAN NINE SURGERIES, SPINA BIFIDA, OR REPEATED CATHERIZATIONS? YES - PLEASE INDICATE : > 9 SURGERIES LATEX RISK : ARE YOU FREQUENTLY EXPOSED TO LATEX PRODUCTS IN YOUR OCCUPATION?NO DATE ASKED : 05/30/2020 ALCOHOL SCREENING DID YOU HAVE A DRINK CONTAINING ALCOHOL IN THE PAST YEAR?YES HOW OFTEN DID YOU HAVE SIX OR MORE DRINKS ON ONE OCCASION IN THE PAST YEAR?NEVER (0 POINTS) HOW MANY DRINKS DID YOU HAVE ON A TYPICAL DAY WHEN YOU WERE DRINKING IN THE PAST YEAR?1 OR 2 (0 POINTS) HOW OFTEN DID YOU HAVE A DRINK CONTAINING ALCOHOL IN THE PAST YEAR?FOUR OR MORE TIMES A WEEK (4 POINTS) POINTS4 INTERPRETATIONPOSITIVE RECREATIONAL DRUG USE DENIES. CAFFEINE CAFFEINE USE?YES 2 CUP DAILY OF COFFEE LATTER-DAY [id number] [employer] T[employer] AND [employer]. EDUCATION LEVEL OF EDUCATION:COLLEGE LEARNING BARRIERS / SPECIAL NEEDS CHANGE FROM LAST VISIT?NO BARRIERS TO LEARNING?NO HEARING IMPAIRED?YES STATES A LITTLE BIT OF HEARING DIFFICULTY - NO HEARING AIDS. VISION IMPAIRED?YES :CORRECTIVE LENSES COGNITIVELY IMPAIRED?NO READINESS TO LEARN?YES LEARNING PREFERENCES?NO LEARNING CAPABILITIES PRESENT?YES EMOTIONAL BARRIERS?NO SPECIAL DEVICES?YES :WALKER IF TRAVELING LONG DISTANCES. SUPERVISOR FINE GRADING NEEDED?YES DOMESTIC VIOLENCE NONE. OCCUPATION: RETIRED. DIET: REGULAR. EXERCISE: NO REGULAR EXERCISE. MARITAL STATUS: . OTHERS AT HOME: SPOUSE. NEW PATIENT PAIN DIARY PATIENT DESCRIBES PAIN :ACHING, IT COMES AND GOES FROM 0-10, WHAT LEVEL IS YOUR PAIN TODAY?1 PRECIPITATING FACTORS STANDING ALLEVIATING FACTORS REST IMPACT ON FUNCTION YES PAIN CLINIC PFS, CLERGY, PUBLIC HEALTH REFERRALS HAS THE PATIENT BEEN EDUCATED REGARDING HIS/HER PLAN OF CARE?YES HAS THE PATIENT BEEN EDUCATED REGARDING PAIN, THE RISK FOR PAIN, THE IMPORTANCE OF EFFECTIVE PAIN MANAGEMENT, AND THE PAIN ASSESSMENT PROCESS?YES HOUSING: OWNS HOME. ADVANCE DIRECTIVE ADVANCE DIRECTIVE DISCUSSED WITH PATIENT:YES PATIENT STATES NO ADVANCED DIRECTIVES AT THIS TIME. HCP PAPERWORK GIVEN TO PATIENT, DECLINED ASSISTANCE IN FILLING IT OUT. HOSPITALIZATION/MAJOR DIAGNOSTIC PROCEDURE RELATED TO SURGERY INFECTION FROM BACK SURGERY 01/2015 REVIEW OF SYSTEMS CONSTITUTIONAL: ANY RECENT FEVER NO . CHILLS NO . WEIGHT CHANGE OF UNKNOWN REASONS NO . GASTROENTEROLOGY: NEW UNEXPLAINABLE CHANGES IN BOWEL CONTROL NO . CONSTIPATION NO . GENITOURINARY: ANY NEW CHANGE IN BLADDER CONTROL? NO . NEUROLOGY: NEW ONSET DIZZINESS OR NEUROLOGICAL CHANGES NOT MENTIONED NO . NEW NUMBNESS OR PAIN PATTERNS NOT MENTIONED AND PERTINENT TO TODAY'S VISIT NO . CARDIOLOGY: NEW CHEST PRESSURE NO . NEW CHEST PAIN NO . RESPIRATORY: UNEXPLAINABLE COUGH NO . NEW SHORTNESS OF BREATH NO . VITAL SIGNS WT 238.4 LBS, HT 5'2", BMI 43.60 INDEX, BP 133/60 MM HG, HR 56 /MIN, RR 18 /MIN, TEMP 97.1 F, OXYGEN SAT % 96%, SAFE IN ENV? (Y/N) YES, NA INITIALS [place] 10:09, REVIEWED BY: BRANDAN. EXAMINATION GENERAL EXAMINATION: GENERALAWAKE,ALERT ,PLEASANT . PSYCHAFFECT NORMAL . LUNGS:LUNG CADE ARE CLEAR TO AUSCULTATION BILATERALLY. GOOD MOVEMENT OF AIR . HEART:S1, S2 IN A REGULAR RATE AND RHYTHM. NO SIGNIFICANT MURMURS, RUBS OR GALLOPS NOTED . ASSESSMENTS SPONDYLOSIS WITHOUT MYELOPATHY OR RADICULOPATHY, LUMBAR REGION - M47.816 (PRIMARY) TREATMENT SPONDYLOSIS WITHOUT MYELOPATHY OR RADICULOPATHY, LUMBAR REGION NOTES: PATIENT WILL BE REFERRED TO LOCAL COUNTY ATTORNEY IN [place]. FOLLOW-UP IN 6-8 WEEKS. REFERRAL TO:MEET GLASGOWALLERGY/IMMUNOLOGY REASON:FACIAL SWELLING AND FLUSHING ONE DAY POST PROCEDURE.QUESTION ALLERGY TO DEXAMETHASONE OR LIDOCAINE THAT WAS USED DURING RIGHT L3/4-L4/5 RADIOFREQUENCY PROCEDURE PROCEDURE CODES FA211 ESTABILISHED PATIENT [facility] FACILITY CHARGE DISPOSITION & COMMUNICATION FOLLOW UP 6-8 WEEKS POST COUNTY ATTORNEY VISIT (REASON: RADIOFREQUENCY/COUNTY ATTORNEY VISIT) ELECTRONICALLY SIGNED BY ROGERIO MCGUIRE ON 06/04/2020 AT 01:57 PM EDT DISCLAIMER : THIS IS A VISIT SUMMARY EXTRACTED FROM THE [employer] CHART. IT IS NOT A COPY OF THE [employer] PROGRESS NOTE. HERMILA
== END ==
LOC: M PAIN 10:00
PROVIDERS: ATTEND Nurse Practitioner Family
DX: M47.816 Spondylosis without myelopathy or radiculopathy, lumbar region (principal); I10 Essential (primary) hypertension; G47.33 Obstructive sleep apnea (adult) (pediatric); E03.9 Hypothyroidism, unspecified; G35 Multiple sclerosis; Z86.59 Personal history of other mental and behavioral disorders; Z96.643 Presence of artificial hip joint, bilateral; Z96.652 Presence of left artificial knee joint; Z87.891 Personal history of nicotine dependence; Z88.4 Allergy status to anesthetic agent; Z88.8 Allergy status to other drugs, medicaments and biological substances; Z91.09 Other allergy status, other than to drugs and biological substances; E66.01 Morbid (severe) obesity due to excess calories; Z68.41 Body mass index [BMI] 40.0-44.9, adult; Z79.899 Other long term (current) drug therapy

== ENCOUNTER → 2020-11-04 | Outpatient (CLI) | payer MEDICARE ==
[~2020-11-04] MED LIST changes: +GABA-282 PO; -GABA-843 PO; +ISOS1TAB36 PO; -ISOS60TA2 PO; -LISI-542; +LISI-898; +LISI10TA22 PO; -LISI10TA4 PO
--- NOTE | 2020-11-06 07:04 | ECWPNPC ---
PATIENT NAME: RUPERTO SUE : 1945 GENDER: FEMALE VISIT DATE: 11/04/2020 DISCHARGE DATE: 11/04/20 1033 VISIT LOCKED DATE TIME: PHYSICIAN: NEREYDA GRIFFIN RESOURCE: NEREYDA GRIFFIN REASON FOR APPOINTMENT 1. MEDICATION MANAGEMENT/TRAMADOL FOLLOW-UP HISTORY OF PRESENT ILLNESS DEPRESSION SCREENING: PHQ-2 (2015 EDITION) LITTLE INTEREST OR PLEASURE IN DOING THINGS?NOT AT ALL FEELING DOWN, DEPRESSED, OR HOPELESS?SEVERAL DAYS TOTAL SCORE1 GENERAL: HERE FOR FOLLOW-UP OF CHRONIC LOW BACK PAIN. HISTORY OF POSTLAMINECTOMY PAIN SYNDROME. STARTED ON TRAMADOL AT LAST VISIT. SHE DOES FIND THIS HELPFUL. CURRENTLY USING ONE TABLET MORNING AND NIGHT. DENIES ADVERSE SIDE EFFECTS. REVIEWED MRI OF THE LS-SPINE AND DISCUSSED TREATMENT OPTIONS. STATES RIGHT NOW SHE FEELS SHE IS DOING OKAY. SHE HAS NO PAIN AT REST. REPORTS EPISODES OF SEVERE PAIN IF SHE SITTING TOO LONG. -. FALL RISK SCREENING: SCREENING 1-2 FALLS DID NOT GO ER. PAIN SCREENING: PATIENT HAS A COMPLAINT OF ACUTE OR CHRONIC PAIN :YES LOCATION OF PAIN:LOW BACK LEFT BUTTOCK INTENSITY OF PAIN (SCALE OF 1 TO 10):0 WHAT DOES YOUR PAIN FEEL LIKE:ACHING, SHARP DURATION:INTERMITTENT PAIN IS INCREASED BY:ACTIVITIES PAIN IS DECREASED BY:OTHERS LAYING DOWN NURSING NOTE: -. PAIN CENTER INTAKE QUESTIONS: DO YOU HAVE A HISTORY OF MRSA? :YES 5 YEARS AGO DO YOU TAKE A BLOOD THINNERS? :NO DO YOU HAVE ANY BLEEDING DISORDERS? :NO ANY NEW NUMBNESS OR WEAKNESS IN YOUR LEGS OR ARMS? :NO ANY PACEMAKER,DEFIBRILLATOR, OR DORSAL COLUMN STIMULATOR? :NO DO YOU HAVE ANY RASHES OR OPEN SORES? :NO ARE YOU ALLERGIC TO IV DYE? :NO ARE YOU DIABETIC? :NO ANY NEW PROBLEMS WITH YOUR MEDICATIONS? :NO HAVE YOU RECEIVED A VACCINE IN THE PAST 30 DAYS? :YES IF SO WHAT VACCINE AND WHEN? 2ND COVID 10/04/2020 DO YOU PLAN TO RECEIVE A VACCINE IN THE NEXT 21 DAYS? :NO DO YOU NEED ANY PRESCRIPTION? :YES TRAMADOL DO YOU TAKE ANY IMMUNOSUPPRESSIVE MEDICATIONS? :NO IS THERE A CHANCE YOU COULD BE ? :NO ARE YOU BREAST FEEDING? :NO CURRENT MEDICATIONS TAKING D3-50 [id number] UNIT CAPSULE 1 CAP(S) ORALLY WEEKLY TAKING TRIAMTERENE-HCTZ 37.5-25 MG TABLET 1 TABLET IN THE MORNING ORALLY ONCE A DAY TAKING LEVOTHYROXINE SODIUM 175 MCG TABLET 1 TABLET ORALLY ONCE A DAY TAKING LISINOPRIL 5 MG TABLET 1 TABLET ORALLY ONCE A DAY TAKING TIZANIDINE HCL 2 MG TABLET 1 TABLET NEEDED ORALLY BID TAKING OMEPRAZOLE 40 MG CAPSULE DELAYED RELEASE 1 CAPSULE 30 MINUTES BEFORE MORNING MEAL ORALLY ONCE A DAY TAKING TYLENOL ARTHRITIS PAIN 1-2 TABLETS NEEDED ORALLY DIRECTED TAKING FUSION PLUS - CAPSULE 2 CAPSULES ORALLY BID TAKING DULOXETINE HCL 60 MG CAPSULE DELAYED RELEASE PARTICLES 1 CAPSULE ORALLY ONCE A DAY TAKING FIBER - CAPSULE DIRECTED ORALLY DAILY TAKING ALPRAZOLAM 0.5 MG TABLET DISINTEGRATING 1 TABLET ON THE TONGUE AND ALLOW TO DISSOLVE ORALLY TWICE A DAY NEEDED TAKING TRAMADOL HCL 50 MG TABLET 1 TABLET NEEDED ORALLY Q6H PRN MDD4 NOT-TAKING VITAMIN D-3 25 MCG (1000 UT) CAPSULE 1 CAPSULE ORALLY ONCE A DAY NOT-TAKING VITAMIN D (ERGOCALCIFEROL) 1.25 MG (47962 UT) CAPSULE 1 CAPSULE ORALLY WEEKLY MEDICATION LIST REVIEWED AND RECONCILED WITH THE PATIENT PAST MEDICAL HISTORY SPONDYLTHESIS SPINAL STENOSIS HYPERTENSION ANXIETY GENERALIZED OSTEOARTHRITIS INFECTION IN BACK - POST SURGERY - MRSA? NEHEMIAH PRIMARY HYPOTHYROIDISM MS ALLERGIES MARCAINE: RASH/LOSS OF CONSCIOUSNESS - ALLERGY ADHESIVE TAPE: RASH - ALLERGY NICKEL: RASH/ITCHY - ALLERGY DEXAMETHASONE: FACIAL FLUSHING AND SWELLING - ALLERGY SOCIAL HISTORY GENERAL: TOBACCO USE ARE YOU A:FORMER SMOKER HOW LONG HAS IT BEEN SINCE YOU LAST SMOKED?> 10 YEARS ADDITIONAL FINDINGS: TOBACCO USERMODERATE CIGARETTE SMOKER (10-19 CIGS/DAY) LATEX QUESTIONNAIRE LATEX ALLERGY : HAVE YOU EVER DEVELOPED ANY TYPE OF REACTION AFTER HANDLING LATEX PRODUCTS SUCH RUBBER GLOVES, CONDOMS, DIAPHRAGMS, BALLOONS, SOCKS, OR UNDERWEAR?NO LATEX ALLERGY : HAVE YOU EVER DEVELOPED ANY TYPE OF REACTION DURING OR AFTER DENTAL APPOINTMENT, VAGINAL/RECTAL EXAMINATION, SURGICAL PROCEDURE, OR ANY OTHER EXPOSURE?NO LATEX RISK : HAVE YOU EVER HAD ANY DIFFICULTY BREATHING OR HIVES AFTER EATING OR HANDLING ANY FRUITS, OR VEGETABLES; SUCH KIWI, BANANAS, STONE FRUITS, OR CHESTNUTSNO LATEX RISK : DO YOU HAVE A PREVIOUS PERSONAL HISTORY OF MORE THAN NINE SURGERIES, SPINA BIFIDA, OR REPEATED CATHERIZATIONS? YES - PLEASE INDICATE : > 9 SURGERIES LATEX RISK : ARE YOU FREQUENTLY EXPOSED TO LATEX PRODUCTS IN YOUR OCCUPATION?NO DATE ASKED : 11/04/2020 ALCOHOL USE: YES. ALCOHOL SCREENING DID YOU HAVE A DRINK CONTAINING ALCOHOL IN THE PAST YEAR?YES HOW OFTEN DID YOU HAVE SIX OR MORE DRINKS ON ONE OCCASION IN THE PAST YEAR?NEVER (0 POINTS) HOW MANY DRINKS DID YOU HAVE ON A TYPICAL DAY WHEN YOU WERE DRINKING IN THE PAST YEAR?1 OR 2 (0 POINTS) HOW OFTEN DID YOU HAVE A DRINK CONTAINING ALCOHOL IN THE PAST YEAR?FOUR OR MORE TIMES A WEEK (4 POINTS) POINTS4 INTERPRETATIONPOSITIVE RECREATIONAL DRUG USE DENIES. CAFFEINE CAFFEINE USE?YES 2 CUP DAILY OF COFFEE ISLAM [id number] [employer]. EDUCATION LEVEL OF EDUCATION:COLLEGE LEARNING BARRIERS / SPECIAL NEEDS CHANGE FROM LAST VISIT?YES BARRIERS TO LEARNING?NO HEARING IMPAIRED?YES STATES A LITTLE BIT OF HEARING DIFFICULTY - NO HEARING AIDS. VISION IMPAIRED?YES :CORRECTIVE LENSES COGNITIVELY IMPAIRED?NO READINESS TO LEARN?YES LEARNING PREFERENCES?NO LEARNING CAPABILITIES PRESENT?YES EMOTIONAL BARRIERS?NO SPECIAL DEVICES?YES :CANE, WALKER IF TRAVELING LONG DISTANCES. MILLINERY BLOCKER NEEDED?YES DOMESTIC VIOLENCE NONE. OCCUPATION: RETIRED. DIET: REGULAR. EXERCISE: NO REGULAR EXERCISE. MARITAL STATUS: . OTHERS AT HOME: SPOUSE. PATIENT DESCRIBES PAIN :ACHING, IT COMES AND GOES FROM 0-10, WHAT LEVEL IS YOUR PAIN TODAY?1 PRECIPITATING FACTORS STANDING ALLEVIATING FACTORS REST IMPACT ON FUNCTION YES - HAS THE PATIENT BEEN EDUCATED REGARDING HIS/HER PLAN OF CARE?YES HAS THE PATIENT BEEN EDUCATED REGARDING PAIN, THE RISK FOR PAIN, THE IMPORTANCE OF EFFECTIVE PAIN MANAGEMENT, AND THE PAIN ASSESSMENT PROCESS?YES HOUSING: OWNS HOME. ADVANCE DIRECTIVE ADVANCE DIRECTIVE DISCUSSED WITH PATIENT:YES PATIENT STATES NO ADVANCED DIRECTIVES AT THIS TIME. HCP PAPERWORK GIVEN TO PATIENT, DECLINED ASSISTANCE IN FILLING IT OUT. REVIEW OF SYSTEMS CONSTITUTIONAL: ANY RECENT FEVER NO . CHILLS NO . WEIGHT CHANGE OF UNKNOWN REASONS NO . GASTROENTEROLOGY: NEW UNEXPLAINABLE CHANGES IN BOWEL CONTROL NO . CONSTIPATION NO . GENITOURINARY: ANY NEW CHANGE IN BLADDER CONTROL? NO . NEUROLOGY: NEW ONSET DIZZINESS OR NEUROLOGICAL CHANGES NOT MENTIONED NO . NEW NUMBNESS OR PAIN PATTERNS NOT MENTIONED AND PERTINENT TO TODAY'S VISIT NO . CARDIOLOGY: NEW CHEST PRESSURE NO . PATIENT DENIES NO . RESPIRATORY: UNEXPLAINABLE COUGH NO . NEW SHORTNESS OF BREATH NO . VITAL SIGNS WT 237.2 LBS, HT 5'2", BMI 43.38 INDEX, BP 149/60 MM HG, HR 69 /MIN, RR 18 /MIN, TEMP 97.3 F, OXYGEN SAT % 97.3, SAFE IN ENV? (Y/N) YES, NA INITIALS [place] 09:52T.KARLA GRIJALVA. EXAMINATION GENERAL EXAMINATION: GENERAL ALERT,NO DISTRESS . PSYCH AFFECT NORMAL . LUNGS: LUNG SOUNDS ARE CLEAR . HEART: HEART RATE REGULAR . MUSCULOSKELETAL: MST 5/5 BILAT. LOWER EXTREMITIES . LUMBAR:SPECIFIC POINT TENDERNESS NOTED OVER LEFT SIJ. DIAGNOSTIC TESTS REVIEWEDI L/S SPINE 09/15/2019. ASSESSMENTS LUMBOSACRAL SPONDYLOSIS WITHOUT MYELOPATHY - M47.817 (PRIMARY) SACROILIITIS - M46.1 TREATMENT LUMBOSACRAL SPONDYLOSIS WITHOUT MYELOPATHY CONTINUE TIZANIDINE HCL TABLET, 2 MG, 1 TABLET NEEDED, ORALLY, BID CONTINUE TRAMADOL HCL TABLET, 50 MG, 1 TABLET NEEDED, ORALLY, Q6H PRN MDD4 NOTES: ADVISED PATIENT TO USE MAXIMUM DAILY DOSE OF 4 TRAMADOL PER DAY FOR SEVERE PAIN EPISODES PERIODICALLY. BRING PAIN MEDICATION TO ALL VISITS. PROCEDURE CODES FA211 ESTABILISHED PATIENT [facility] CHARGE DISPOSITION & COMMUNICATION FOLLOW UP 3 MONTHS (REASON: MEDICATION MANAGEMENT/URINE TOXICOLOGY) ELECTRONICALLY SIGNED BY ROGERIO MCGUIRE ON 11/05/2020 AT 11:17 AM EDT DISCLAIMER : THIS IS A VISIT SUMMARY EXTRACTED FROM THE [employer] CHART. IT IS NOT A COPY OF THE [employer] PROGRESS NOTE. MTDD
== END ==
LOC: M PAIN 09:45
PROVIDERS: ATTEND Nurse Practitioner Family
DX: M47.817 Spondylosis without myelopathy or radiculopathy, lumbosacral region (principal); M46.1 Sacroiliitis, not elsewhere classified; G89.29 Other chronic pain; G47.33 Obstructive sleep apnea (adult) (pediatric); G35 Multiple sclerosis; Z86.14 Personal history of Methicillin resistant Staphylococcus aureus infection; Z86.59 Personal history of other mental and behavioral disorders; Z87.891 Personal history of nicotine dependence; Z88.4 Allergy status to anesthetic agent; Z88.8 Allergy status to other drugs, medicaments and biological substances; Z91.09 Other allergy status, other than to drugs and biological substances; E66.01 Morbid (severe) obesity due to excess calories; Z68.41 Body mass index [BMI] 40.0-44.9, adult; Z79.899 Other long term (current) drug therapy

== ENCOUNTER → 2020-11-11 | Outpatient (CLI) | payer MEDICARE ==
[2020-11-11 15:30] LABS: BASO # 0.1 10^3/uL (0.0-0.2); BASO % 0.8 % (0.0-1.0); EOS # 0.4 10^3/uL (0.0-0.5); EOS % 4.7 % (0.0-3.0); HEMATOCRIT 44.7 % (36.0-47.0); LYMPH # 2.5 10^3/uL (1.5-5.0); LYMPH % 33.6 % (24.0-44.0); MEAN CORPUSCULAR HEMOGLOBIN 30.9 pg (27.0-33.0); MEAN CORPUSCULAR HGB CONC 31.3 g/dl (32.0-36.5); MEAN CORPUSCULAR VOLUME 98.7 fl (80.0-96.0); MONO # 0.9 10^3/uL (0.0-0.8); MONO % 12.1 % (2.0-8.0); NEUTROPHILS # 3.6 10^3/uL (1.5-8.5); NEUTROPHILS % 48.5 % (36.0-66.0); PLATELET COUNT, AUTOMATED 260 10^3/uL (150-450); RED BLOOD COUNT 4.53 10^6/uL (4.00-5.40); WHITE BLOOD COUNT 7.5 10^3/uL (4.0-10.0)
[2020-11-11 17:16] LABS: ALBUMIN 3.8 GM/DL (3.2-5.2); BILIRUBIN,TOTAL 0.3 MG/DL (0.2-1.0); CALCIUM LEVEL 9.7 MG/DL (8.8-10.2); CREATININE FOR GFR 1.05 MG/DL (0.55-1.30); FREE T4 0.74 NG/DL (0.76-1.46); GLOMERULAR FILTRATION RATE 54.4 (>39); PERCENT SATURATION 20.9 % (13.2-45.0); THYROID STIMULATING HORMONE 4.08 uIU/ML (0.358-3.740); TOTAL 25(OH) VITAMIN D 40.6 NG/ML (30.0-100.0)
[2020-11-11 18:06] LABS: HEMOGLOBIN A1c 5.4 %
== END ==
LOC: M PLALAB 13:39
PROVIDERS: ATTEND Family Medicine
DX: E03.9 Hypothyroidism, unspecified (principal); I11.9 Hypertensive heart disease without heart failure; R73.01 Impaired fasting glucose; Z98.84 Bariatric surgery status

== ENCOUNTER → 2021-01-06 | Outpatient (CLI) | payer MEDICARE ==
[~2021-01-06] MED LIST changes: +GABA-283 PO; -GABA-845 PO
[2021-01-06 13:35] LABS: BASO # 0.1 10^3/uL (0.0-0.2); BASO % 0.8 % (0.0-1.0); EOS # 0.3 10^3/uL (0.0-0.5); EOS % 4.6 % (0.0-3.0); HEMATOCRIT 42.1 % (36.0-47.0); HEMOGLOBIN 13.3 g/dl (12.0-15.5); LYMPH % 31.2 % (24.0-44.0); MEAN CORPUSCULAR HEMOGLOBIN 30.6 pg (27.0-33.0); MEAN CORPUSCULAR HGB CONC 31.6 g/dl (32.0-36.5); MONO # 0.9 10^3/uL (0.0-0.8); MONO % 13.9 % (2.0-8.0); NEUTROPHILS # 3.1 10^3/uL (1.5-8.5); NEUTROPHILS % 49.2 % (36.0-66.0); PLATELET COUNT, AUTOMATED 246 10^3/uL (150-450); RED BLOOD COUNT 4.34 10^6/uL (4.00-5.40); WHITE BLOOD COUNT 6.3 10^3/uL (4.0-10.0)
[2021-01-06 14:27] LABS: ALBUMIN 3.5 GM/DL (3.2-5.2); ALT/SGPT 18 U/L (12-78); BILIRUBIN,TOTAL 0.6 MG/DL (0.2-1.0); BLOOD UREA NITROGEN 13 MG/DL (7-18); CALCIUM LEVEL 9.3 MG/DL (8.8-10.2); CARBON DIOXIDE LEVEL 28 MEQ/L (21-32); CHLORIDE LEVEL 106 MEQ/L (98-107); CHOLESTEROL LEVEL 171 MG/DL (<200); CHOLESTEROL RISK RATIO 2.714 (<5); CREATININE FOR GFR 0.77 MG/DL (0.55-1.30); FREE T4 1.48 NG/DL (0.76-1.46); GLOMERULAR FILTRATION RATE > 60.0 (>39); GLUCOSE, FASTING 79 MG/DL (70-100); HDL CHOLESTEROL 63 MG/DL (>40); LDL CHOLESTEROL 86 MG/DL (<100); NON-HDL-C 108 MG/DL; POTASSIUM SERUM 4.9 MEQ/L (3.5-5.1); SODIUM LEVEL 140 MEQ/L (136-145); THYROID STIMULATING HORMONE 0.136 uIU/ML (0.358-3.740); TOTAL PROTEIN 6.7 GM/DL (6.4-8.2); TRIGLYCERIDES LEVEL 110 MG/DL (<150)
== END ==
LOC: M PLALAB 11:59
PROVIDERS: ATTEND Family Medicine
DX: I11.9 Hypertensive heart disease without heart failure (principal); E03.9 Hypothyroidism, unspecified

== ENCOUNTER → 2021-02-04 | Outpatient (CLI) | payer MEDICARE ==
--- NOTE | 2021-02-05 04:47 | ECWPNPC ---
PATIENT NAME: RUPERTO SUE : 1945 GENDER: FEMALE VISIT DATE: 02/04/2021 DISCHARGE DATE: 02/04/21 1049 VISIT LOCKED DATE TIME: PHYSICIAN: NEREYDA GRIFFIN RESOURCE: NEREYDA GRIFFIN REASON FOR APPOINTMENT 1. MEDICATION MANAGEMENT/URINE TOXICOLOGY HISTORY OF PRESENT ILLNESS GENERAL: HERE FOR FOLLOW-UP AND MEDICATION MANAGEMENT OF CHRONIC LOW BACK PAIN WITH A HISTORY OF POSTLAMINECTOMY PAIN SYNDROME. ATTENDING PHYSICAL THERAPY FOR LOW BACK PAIN PER PRIMARY CARE AND RECENTLY GOT STARTED WITH THIS. HISTORY OF ADVERSE REACTION WITH STEROID USE IN THE PAST WITH INJECTIONS. 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 FINDS HER MEDICATION SOMEWHAT HELPFUL BUT OVERALL SHE'S BEEN IN INCREASED PAIN THIS PAST SUMMER. DISCUSSED TREATMENT OPTIONS. -. FALL RISK SCREENING: SCREENING : NO FALLS REPORTED IN THE LAST YEAR. PAIN SCREENING: PATIENT HAS A COMPLAINT OF ACUTE OR CHRONIC PAIN :YES LOCATION OF PAIN:LOW BACK, LEFT HIP INTENSITY OF PAIN (SCALE OF 1 TO 10):0 PAIN AVERAGES 7 OR 8, DEPENDING UPON ACTIVITY. PATIENT DENIES PAIN AT THIS TIME. WHAT DOES YOUR PAIN FEEL LIKE:ACHING, SHARP, STABBING DURATION:CONTINOUS, AWAKENS FROM SLEEP PAIN IS INCREASED BY:ACTIVITIES, PROLONGED STANDING PAIN IS DECREASED BY:USE OF PAIN MEDICATIONS, SITTING NURSING NOTE: -. PAIN CENTER INTAKE QUESTIONS: DO YOU HAVE A HISTORY OF MRSA? :YES 5 YEARS AGO DO YOU TAKE A BLOOD THINNERS? :NO DO YOU HAVE ANY BLEEDING DISORDERS? :NO ANY NEW NUMBNESS OR WEAKNESS IN YOUR LEGS OR ARMS? :NO ANY PACEMAKER,DEFIBRILLATOR, OR DORSAL COLUMN STIMULATOR? :NO DO YOU HAVE ANY RASHES OR OPEN SORES? :NO ARE YOU ALLERGIC TO IV DYE? :NO ARE YOU DIABETIC? :NO ANY NEW PROBLEMS WITH YOUR MEDICATIONS? :NO HAVE YOU RECEIVED A VACCINE IN THE PAST 30 DAYS? :NO SECOND COVID VACCINATION 10/04/2020 DO YOU PLAN TO RECEIVE A VACCINE IN THE NEXT 21 DAYS? :NO DO YOU NEED ANY PRESCRIPTION? :YES TRAMADOL DO YOU TAKE ANY IMMUNOSUPPRESSIVE MEDICATIONS? :NO IS THERE A CHANCE YOU COULD BE ? :NO ARE YOU BREAST FEEDING? :NO CURRENT MEDICATIONS TAKING D3-50 [id number] UNIT CAPSULE 1 CAP(S) ORALLY WEEKLY TAKING TRIAMTERENE-HCTZ 37.5-25 MG TABLET 1 TABLET IN THE MORNING ORALLY ONCE A DAY TAKING LEVOTHYROXINE SODIUM 175 MCG TABLET 1 TABLET ORALLY ONCE A DAY TAKING LISINOPRIL 5 MG TABLET 1 TABLET ORALLY ONCE A DAY TAKING OMEPRAZOLE 40 MG CAPSULE DELAYED RELEASE 1 CAPSULE 30 MINUTES BEFORE MORNING MEAL ORALLY ONCE A DAY TAKING TYLENOL ARTHRITIS PAIN 1-2 TABLETS NEEDED ORALLY DIRECTED TAKING FUSION PLUS - CAPSULE 2 CAPSULES ORALLY BID TAKING DULOXETINE HCL 60 MG CAPSULE DELAYED RELEASE PARTICLES 1 CAPSULE ORALLY ONCE A DAY TAKING FIBER - CAPSULE DIRECTED ORALLY DAILY TAKING ALPRAZOLAM 0.5 MG TABLET DISINTEGRATING 1 TABLET ON THE TONGUE AND ALLOW TO DISSOLVE ORALLY TWICE A DAY NEEDED TAKING TIZANIDINE HCL 2 MG TABLET 1 TABLET NEEDED ORALLY BID TAKING TRAMADOL HCL 50 MG TABLET 1 TABLET NEEDED ORALLY Q6H PRN MDD4 NOT-TAKING VITAMIN D-3 25 MCG (1000 UT) CAPSULE 1 CAPSULE ORALLY ONCE A DAY NOT-TAKING VITAMIN D (ERGOCALCIFEROL) 1.25 MG (19313 UT) CAPSULE 1 CAPSULE ORALLY WEEKLY MEDICATION LIST REVIEWED AND RECONCILED WITH THE PATIENT PAST MEDICAL HISTORY SPONDYLTHESIS SPINAL STENOSIS HYPERTENSION ANXIETY GENERALIZED OSTEOARTHRITIS INFECTION IN BACK - POST SURGERY - MRSA? NEHEMIAH PRIMARY HYPOTHYROIDISM MS ALLERGIES MARCAINE: RASH/LOSS OF CONSCIOUSNESS - ALLERGY ADHESIVE TAPE: RASH - ALLERGY NICKEL: RASH/ITCHY - ALLERGY DEXAMETHASONE: FACIAL FLUSHING AND SWELLING - ALLERGY SOCIAL HISTORY GENERAL: TOBACCO USE ARE YOU A:FORMER SMOKER HOW LONG HAS IT BEEN SINCE YOU LAST SMOKED?> 10 YEARS ADDITIONAL FINDINGS: TOBACCO USERMODERATE CIGARETTE SMOKER (10-19 CIGS/DAY) LATEX QUESTIONNAIRE LATEX ALLERGY : HAVE YOU EVER DEVELOPED ANY TYPE OF REACTION AFTER HANDLING LATEX PRODUCTS SUCH RUBBER GLOVES, CONDOMS, DIAPHRAGMS, BALLOONS, SOCKS, OR UNDERWEAR?NO LATEX ALLERGY : HAVE YOU EVER DEVELOPED ANY TYPE OF REACTION DURING OR AFTER DENTAL APPOINTMENT, VAGINAL/RECTAL EXAMINATION, SURGICAL PROCEDURE, OR ANY OTHER EXPOSURE?NO LATEX RISK : HAVE YOU EVER HAD ANY DIFFICULTY BREATHING OR HIVES AFTER EATING OR HANDLING ANY FRUITS, OR VEGETABLES; SUCH KIWI, BANANAS, STONE FRUITS, OR CHESTNUTSNO LATEX RISK : DO YOU HAVE A PREVIOUS PERSONAL HISTORY OF MORE THAN NINE SURGERIES, SPINA BIFIDA, OR REPEATED CATHERIZATIONS? YES - PLEASE INDICATE : > 9 SURGERIES LATEX RISK : ARE YOU FREQUENTLY EXPOSED TO LATEX PRODUCTS IN YOUR OCCUPATION?NO DATE ASKED : 02/04/2021 ALCOHOL USE: YES. 2-3 GLASSES OF WINE A NIGHT.. ALCOHOL SCREENING DID YOU HAVE A DRINK CONTAINING ALCOHOL IN THE PAST YEAR?YES HOW OFTEN DID YOU HAVE SIX OR MORE DRINKS ON ONE OCCASION IN THE PAST YEAR?NEVER (0 POINTS) HOW MANY DRINKS DID YOU HAVE ON A TYPICAL DAY WHEN YOU WERE DRINKING IN THE PAST YEAR?1 OR 2 (0 POINTS) HOW OFTEN DID YOU HAVE A DRINK CONTAINING ALCOHOL IN THE PAST YEAR?FOUR OR MORE TIMES A WEEK (4 POINTS) POINTS4 INTERPRETATIONPOSITIVE RECREATIONAL DRUG USE DENIES. CAFFEINE CAFFEINE USE?YES 2 CUP DAILY OF COFFEE FAITH [id number] YAZIDI LANGUAGE ARABIC. EDUCATION LEVEL OF EDUCATION:COLLEGE LEARNING BARRIERS / SPECIAL NEEDS CHANGE FROM LAST VISIT?NO BARRIERS TO LEARNING?NO HEARING IMPAIRED?YES STATES A LITTLE BIT OF HEARING DIFFICULTY - NO HEARING AIDS. VISION IMPAIRED?YES :CORRECTIVE LENSES COGNITIVELY IMPAIRED?NO READINESS TO LEARN?YES LEARNING PREFERENCES?NO LEARNING CAPABILITIES PRESENT?YES EMOTIONAL BARRIERS?NO SPECIAL DEVICES?YES :CANE, WALKER IF TRAVELING LONG DISTANCES. 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 OCCUPATION: RETIRED. DIET: REGULAR. EXERCISE: NO REGULAR EXERCISE. MARITAL STATUS: . OTHERS AT HOME: SPOUSE. PATIENT DESCRIBES PAIN :ACHING, IT COMES AND GOES FROM 0-10, WHAT LEVEL IS YOUR PAIN TODAY?1 PRECIPITATING FACTORS STANDING ALLEVIATING FACTORS REST IMPACT ON FUNCTION YES - HAS THE PATIENT BEEN EDUCATED REGARDING HIS/HER PLAN OF CARE?YES HAS THE PATIENT BEEN EDUCATED REGARDING PAIN, THE RISK FOR PAIN, THE IMPORTANCE OF EFFECTIVE PAIN MANAGEMENT, AND THE PAIN ASSESSMENT PROCESS?YES HOUSING: OWNS HOME. ADVANCE DIRECTIVE ADVANCE DIRECTIVE DISCUSSED WITH PATIENT:YES PATIENT STATES NO ADVANCED DIRECTIVES AT THIS TIME. HCP PAPERWORK GIVEN TO PATIENT, DECLINED ASSISTANCE IN FILLING IT OUT. REVIEW OF SYSTEMS CONSTITUTIONAL: ANY RECENT FEVER NO . CHILLS NO . WEIGHT CHANGE OF UNKNOWN REASONS NO . GASTROENTEROLOGY: NEW UNEXPLAINABLE CHANGES IN BOWEL CONTROL NO . CONSTIPATION NO . GENITOURINARY: ANY NEW CHANGE IN BLADDER CONTROL? NO . NEUROLOGY: NEW ONSET DIZZINESS OR NEUROLOGICAL CHANGES NOT MENTIONED NO . NEW NUMBNESS OR PAIN PATTERNS NOT MENTIONED AND PERTINENT TO TODAY'S VISIT NO . CARDIOLOGY: NEW CHEST PRESSURE NO . PATIENT DENIES NO . RESPIRATORY: UNEXPLAINABLE COUGH NO . NEW SHORTNESS OF BREATH NO . VITAL SIGNS WT 232.8 LBS, HT 5'2", BMI 42.58 INDEX, BP 151/65 MM HG, HR 54 /MIN, RR 18 /MIN, TEMP 97.5 F, OXYGEN SAT % 97%, SAFE IN ENV? (Y/N) YES, NA INITIALS AW 1001, REVIEWED BY: WILMER ESPINOZA MA. EXAMINATION GENERAL EXAMINATION: GENERAL ALERT,NO DISTRESS . PSYCH AFFECT NORMAL . LUNGS: LUNG SOUNDS ARE CLEAR . HEART: HEART RATE REGULAR . MUSCULOSKELETAL: MST 5/5 BILAT. LOWER EXTREMITIES . LUMBAR:SPECIFIC POINT TENDERNESS NOTED OVER LEFT SIJ. DIAGNOSTIC TESTS REVIEWEDMRI L/S SPINE 09/15/2019. ASSESSMENTS CHRONIC PRESCRIPTION OPIATE USE - Z79.891 (PRIMARY) SACROILIITIS, NOT ELSEWHERE CLASSIFIED - M46.1 TREATMENT CHRONIC PRESCRIPTION OPIATE USE INCREASE TIZANIDINE HCL TABLET, 2 MG, 1 TABLET NEEDED, ORALLY, QID, 30 DAYS, 120 TABLET, REFILLS 2 REFILL TRAMADOL HCL TABLET, 50 MG, 1 TABLET NEEDED, ORALLY, Q6H PRN MDD4, 30 DAYS, 120, REFILLS 2 LAB: URINE TEST GROUP PRICILA MARKS 02/04/2021 10:38:16 AM > LAST DOSE: TRAMADOL 02/03/2021 AT 1900 NOTES: PATIENT WILL CONTINUE PHYSICAL THERAPY FOR CHRONIC LOW BACK PAIN. ADVISED HER TO ASK PHYSICAL THERAPIST ABOUT SPECIFIC EXERCISES FOR LEFT SACROILIITIS. MAY INCREASE TIZANIDINE 2 MG TABLET TO ONE TABLET TO 2 TABLETS EVERY 6-8 HOURS NEEDED FOR PAIN WITH MAXIMUM DAILY DOSE OF 4 TABLETS. RECOMMEND CONTINUING USE OF TRAMADOL 50 MG TABLET 1 EVERY 6 HOURS NEEDED FOR SEVERE PAIN WITH MAXIMUM DAILY DOSE OF 4 TABLETS. FOLLOW-UP IN 2 MONTHS TO EVALUATE FOR PROCEDURES IF NECESSARY. PROCEDURE CODES FA211 ESTABILISHED PATIENT [facility] CHARGE DISPOSITION & COMMUNICATION FOLLOW UP 2 MONTHS (REASON: UTOX REVIEW/MED MGMNT/CONSIDER LEFT SIJ/HX OF ADVERSE REACTION W STEROIDS AND LOCAL ANESTHETICS/SEE ALLERGY EVALUATION) ELECTRONICALLY SIGNED BY ROGERIO MCGUIRE ON 02/04/2021 AT 09:54 PM EDT DISCLAIMER : THIS IS A VISIT SUMMARY EXTRACTED FROM THE [employer] CHART. IT IS NOT A COPY OF THE [employer] PROGRESS NOTE. HERMILA
== END ==
LOC: M PAIN 10:00
PROVIDERS: ATTEND Nurse Practitioner Family
DX: M46.1 Sacroiliitis, not elsewhere classified (principal); I10 Essential (primary) hypertension; F41.9 Anxiety disorder, unspecified; M15.0 Primary generalized (osteo)arthritis; G47.33 Obstructive sleep apnea (adult) (pediatric); E03.9 Hypothyroidism, unspecified; Z87.891 Personal history of nicotine dependence; Z79.891 Long term (current) use of opiate analgesic; Z79.899 Other long term (current) drug therapy; Z88.8 Allergy status to other drugs, medicaments and biological substances; Z88.4 Allergy status to anesthetic agent; Z91.048 Other nonmedicinal substance allergy status

== ENCOUNTER → 2021-03-24 | Outpatient (CLI) | payer MEDICARE ==
[~2021-03-24] MED LIST changes: +ERGO500029; +FAMO10TA50 PO; -FAMO1TAB25 PO; -VITA50005
--- NOTE | 2021-03-25 02:58 | ECWPNPC ---
PATIENT NAME: URPERTO SUE : 1945 GENDER: FEMALE VISIT DATE: 03/24/2021 DISCHARGE DATE: 03/24/21 1037 VISIT LOCKED DATE TIME: PHYSICIAN: NEREYDA GRIFFIN RESOURCE: NEREYDA GRIFFIN REASON FOR APPOINTMENT 1. UTOX REVIEW/MED MGMNT/CONSIDER LEFT SIJ/HX OF ADVERSE REACTION W STEROIDS AND LOCAL ANESTHETICS/SEE ALLERGY EVALUATION HISTORY OF PRESENT ILLNESS GENERAL: HERE FOR FOLLOW-UP OF PERSISTENT LEFT-SIDED LOW BACK PAIN. ATTENDING PHYSICAL THERAPY AND IS DOING WELL. CONTINUES TO HAVE SIGNIFICANT LEFT LOW BACK DISCOMFORT. SHE WOULD LIKE TO HAVE INJECTIONS. HISTORY OF ADVERSE REACTION TO INJECTIONS THAT WAS EVALUATED BY BLIND HOOKER AND DEEMED NOT ASSOCIATED WITH LOCAL OR STEROID MEDICATION. DESPITE KNOWING THAT SHE IS AT INCREASED RISK FOR HAVING ADVERSE REACTIONS WITH THE MEDICATIONS WE USE SHE WOULD LIKE TO PROCEED WITH TRYING INJECTIONS. ALSO HAS A HISTORY OF MULTIPLE SCLEROSIS. DISCUSSED TREATMENT PLAN. -. FALL RISK SCREENING: SCREENING ONE FALLS SNICE THE LAST VISIT IN 02/04/2021 NO MAJOR INJURES, HURT HER LEFT FEET. PAIN SCREENING: PATIENT HAS A COMPLAINT OF ACUTE OR CHRONIC PAIN :YES LOCATION OF PAIN:LOW BACK INTENSITY OF PAIN (SCALE OF 1 TO 10):3 WHAT DOES YOUR PAIN FEEL LIKE:ACHING, CONTINOUS, SHOOTING DURATION:CONTINOUS, CONSTANT, ALL DAY PAIN IS INCREASED BY:ACTIVITIES PAIN IS DECREASED BY:SITTING, OTHERS LAYING DOWN NURSING NOTE: -. PAIN CENTER INTAKE QUESTIONS: DO YOU HAVE A HISTORY OF MRSA? :YES 5 YEARS AGO DO YOU TAKE A BLOOD THINNERS? :NO DO YOU HAVE ANY BLEEDING DISORDERS? :NO ANY NEW NUMBNESS OR WEAKNESS IN YOUR LEGS OR ARMS? :NO ANY PACEMAKER,DEFIBRILLATOR, OR DORSAL COLUMN STIMULATOR? :NO DO YOU HAVE ANY RASHES OR OPEN SORES? :NO ARE YOU ALLERGIC TO IV DYE? :NO ARE YOU DIABETIC? :NO ANY NEW PROBLEMS WITH YOUR MEDICATIONS? :NO HAVE YOU RECEIVED A VACCINE IN THE PAST 30 DAYS? :NO SECOND COVID VACCINATION 10/04/2020 DO YOU PLAN TO RECEIVE A VACCINE IN THE NEXT 21 DAYS? :NO DO YOU NEED ANY PRESCRIPTION? :NO DO YOU TAKE ANY IMMUNOSUPPRESSIVE MEDICATIONS? :NO IS THERE A CHANCE YOU COULD BE ? :NO ARE YOU BREAST FEEDING? :NO CURRENT MEDICATIONS TAKING D3-50 [id number] UNIT CAPSULE 1 CAP(S) ORALLY WEEKLY TAKING TRIAMTERENE-HCTZ 37.5-25 MG TABLET 1 TABLET IN THE MORNING ORALLY ONCE A DAY TAKING LEVOTHYROXINE SODIUM 175 MCG TABLET 1 TABLET ORALLY ONCE A DAY TAKING LISINOPRIL 5 MG TABLET 1 TABLET ORALLY ONCE A DAY TAKING OMEPRAZOLE 40 MG CAPSULE DELAYED RELEASE 1 CAPSULE 30 MINUTES BEFORE MORNING MEAL ORALLY ONCE A DAY TAKING TYLENOL ARTHRITIS PAIN 1-2 TABLETS NEEDED ORALLY DIRECTED TAKING FUSION PLUS - CAPSULE 2 CAPSULES ORALLY BID TAKING DULOXETINE HCL 60 MG CAPSULE DELAYED RELEASE PARTICLES 1 CAPSULE ORALLY ONCE A DAY TAKING FIBER - CAPSULE DIRECTED ORALLY DAILY TAKING ALPRAZOLAM 0.5 MG TABLET DISINTEGRATING 1 TABLET ON THE TONGUE AND ALLOW TO DISSOLVE ORALLY TWICE A DAY NEEDED TAKING TIZANIDINE HCL 2 MG TABLET 1 TABLET NEEDED ORALLY QID TAKING TRAMADOL HCL 50 MG TABLET 1 TABLET NEEDED ORALLY Q6H PRN MDD4 NOT-TAKING VITAMIN D-3 25 MCG (1000 UT) CAPSULE 1 CAPSULE ORALLY ONCE A DAY NOT-TAKING VITAMIN D (ERGOCALCIFEROL) 1.25 MG (06717 UT) CAPSULE 1 CAPSULE ORALLY WEEKLY MEDICATION LIST REVIEWED AND RECONCILED WITH THE PATIENT PAST MEDICAL HISTORY SPONDYLTHESIS SPINAL STENOSIS HYPERTENSION ANXIETY GENERALIZED OSTEOARTHRITIS INFECTION IN BACK - POST SURGERY - MRSA? NEHEMIAH PRIMARY HYPOTHYROIDISM MS ONE FALLS SNICE THE LAST VISIT IN 02/04/2021 NO MAJOR INJURES, HURT HER LEFT FEET SECOND COVID VACCINATION 10/04/2020 ALLERGIES MARCAINE: RASH/LOSS OF CONSCIOUSNESS - ALLERGY ADHESIVE TAPE: RASH - ALLERGY NICKEL: RASH/ITCHY - ALLERGY DEXAMETHASONE: FACIAL FLUSHING AND SWELLING - ALLERGY SURGICAL HISTORY LAMINECTOMY L4-5 WITH FUSION L4-5 01/15/15 TONSILS REMOVED 1949'5 APPENDIX REMOVED L-ARGENIS 2011? R-ARGENIS 2004? REEXPLORATION I&D FOR POSSIBLE INFECTION GRAM STAIN MANY WHITE CELLS CULTURE NEGATIVE WHITE COUNT 10.8 01/31/15 LEFT KNEE REPLACEMENT 2017 GALLBLADDER REMOVAL 2017 GASTRIC BYPASS 2017 FAMILY HISTORY FATHER: 87 YRS, LUNG CANCER, CHF MOTHER: 92 YRS, HIGH BLOOD PRESSURE, ANERSYUM, PULMONARY EMBOLISM 1 BROTHER(S) , 1 SISTER(S) . 2 DAUGHTER(S) - HEALTHY. 1 BROTHER - BLADDER/LUNG CANCERYOUNGER DAUGHTER - A. FIB, LUNG CANCER S/P LOBECTOMY. SOCIAL HISTORY GENERAL: TOBACCO USE ARE YOU A:FORMER SMOKER HOW LONG HAS IT BEEN SINCE YOU LAST SMOKED?> 10 YEARS ADDITIONAL FINDINGS: TOBACCO USERMODERATE CIGARETTE SMOKER (10-19 CIGS/DAY) LATEX QUESTIONNAIRE LATEX ALLERGY : HAVE YOU EVER DEVELOPED ANY TYPE OF REACTION AFTER HANDLING LATEX PRODUCTS SUCH RUBBER GLOVES, CONDOMS, DIAPHRAGMS, BALLOONS, SOCKS, OR UNDERWEAR?NO LATEX ALLERGY : HAVE YOU EVER DEVELOPED ANY TYPE OF REACTION DURING OR AFTER DENTAL APPOINTMENT, VAGINAL/RECTAL EXAMINATION, SURGICAL PROCEDURE, OR ANY OTHER EXPOSURE?NO LATEX RISK : HAVE YOU EVER HAD ANY DIFFICULTY BREATHING OR HIVES AFTER EATING OR HANDLING ANY FRUITS, OR VEGETABLES; SUCH KIWI, BANANAS, STONE FRUITS, OR CHESTNUTSNO LATEX RISK : DO YOU HAVE A PREVIOUS PERSONAL HISTORY OF MORE THAN NINE SURGERIES, SPINA BIFIDA, OR REPEATED CATHERIZATIONS? YES - PLEASE INDICATE : > 9 SURGERIES LATEX RISK : ARE YOU FREQUENTLY EXPOSED TO LATEX PRODUCTS IN YOUR OCCUPATION?NO DATE ASKED : 03/24/2021 ALCOHOL USE: YES. 2-3 GLASSES OF WINE A NIGHT.. ALCOHOL SCREENING DID YOU HAVE A DRINK CONTAINING ALCOHOL IN THE PAST YEAR?YES HOW OFTEN DID YOU HAVE A DRINK CONTAINING ALCOHOL IN THE PAST YEAR?FOUR OR MORE TIMES A WEEK (4 POINTS) HOW MANY DRINKS DID YOU HAVE ON A TYPICAL DAY WHEN YOU WERE DRINKING IN THE PAST YEAR?1 OR 2 (0 POINTS) HOW OFTEN DID YOU HAVE SIX OR MORE DRINKS ON ONE OCCASION IN THE PAST YEAR?NEVER (0 POINTS) POINTS4 INTERPRETATIONPOSITIVE RECREATIONAL DRUG USE DENIES. CAFFEINE CAFFEINE USE?YES 2 CUP DAILY OF COFFEE SCIENTOLOGY [id number] CAODAISM LANGUAGE ISRAELI. EDUCATION LEVEL OF EDUCATION:COLLEGE LEARNING BARRIERS / SPECIAL NEEDS CHANGE FROM LAST VISIT?NO BARRIERS TO LEARNING?NO HEARING IMPAIRED?YES STATES A LITTLE BIT OF HEARING DIFFICULTY - NO HEARING AIDS. VISION IMPAIRED?YES :CORRECTIVE LENSES COGNITIVELY IMPAIRED?YES READINESS TO LEARN?YES LEARNING PREFERENCES?NO LEARNING CAPABILITIES PRESENT?YES EMOTIONAL BARRIERS?NO SPECIAL DEVICES?YES :CANE, WALKER IF TRAVELING LONG DISTANCES. 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 OCCUPATION: RETIRED. DIET: REGULAR. EXERCISE: NO REGULAR EXERCISE. MARITAL STATUS: . OTHERS AT HOME: SPOUSE. PATIENT DESCRIBES PAIN :ACHING, IT COMES AND GOES FROM 0-10, WHAT LEVEL IS YOUR PAIN TODAY?1 PRECIPITATING FACTORS STANDING ALLEVIATING FACTORS REST IMPACT ON FUNCTION YES - HAS THE PATIENT BEEN EDUCATED REGARDING HIS/HER PLAN OF CARE?YES HAS THE PATIENT BEEN EDUCATED REGARDING PAIN, THE RISK FOR PAIN, THE IMPORTANCE OF EFFECTIVE PAIN MANAGEMENT, AND THE PAIN ASSESSMENT PROCESS?YES HOUSING: OWNS HOME. ADVANCE DIRECTIVE ADVANCE DIRECTIVE DISCUSSED WITH PATIENT:YES PATIENT STATES NO ADVANCED DIRECTIVES AT THIS TIME. HCP PAPERWORK GIVEN TO PATIENT, DECLINED ASSISTANCE IN FILLING IT OUT. HOSPITALIZATION/MAJOR DIAGNOSTIC PROCEDURE RELATED TO SURGERY INFECTION FROM BACK SURGERY 01/2015 REVIEW OF SYSTEMS CONSTITUTIONAL: ANY RECENT FEVER NO . CHILLS NO . WEIGHT CHANGE OF UNKNOWN REASONS NO . GASTROENTEROLOGY: NEW UNEXPLAINABLE CHANGES IN BOWEL CONTROL NO . CONSTIPATION NO . GENITOURINARY: ANY NEW CHANGE IN BLADDER CONTROL? NO . NEUROLOGY: NEW ONSET DIZZINESS OR NEUROLOGICAL CHANGES NOT MENTIONED NO . NEW NUMBNESS OR PAIN PATTERNS NOT MENTIONED AND PERTINENT TO TODAY'S VISIT NO . CARDIOLOGY: NEW CHEST PRESSURE NO . PATIENT DENIES NO . RESPIRATORY: UNEXPLAINABLE COUGH NO . NEW SHORTNESS OF BREATH NO . VITAL SIGNS WT 230 LBS, WT-KG 104.33 KG, HT 5'2", BMI 42.06 INDEX, BP 180/72 MM HG, HR 55 /MIN, RR 18 /MIN, TEMP 97.7 F, OXYGEN SAT % 96%, SAFE IN ENV? (Y/N) YES, NA INITIALS 09:52 RODDY.KARLA GRIJALVA, PATIENT STATED THAT SHE JUST TOOK HER BLOOD PRESSURE MEDICATION, AND HAVE NOT TAKEN IT IN 4 DAYS. EXAMINATION GENERAL EXAMINATION: GENERALNO ACUTE DISTRESS, WELL NOURISHED AND HYDRATED. WALKS WITH ASSIST OF A WALKER.. PSYCHAPPROPRIATE MOOD AND AFFECT . NECK:NO LYMPHADENOPATHY, SUPPLE. LUNGS:CLEAR TO AUSCULTATION BILATERALLY, NO WHEEZES, RHONCHI, RALES. HEART:NO MURMURS, REGULAR RATE AND RHYTHM. MUSCULOSKELETAL: TRIGGER POINTS: ELICITED WITH PALPATION OVER LEFT LOW BACK. ELICITED WITH PALPATION OVER LEFT BUTTOCK. RANGE OF JOINT MOTION OF THE SPINE AGGRAVATES PAIN IN THESE REGIONS.. ASSESSMENTS MYALGIA, OTHER SITE - M79.18 (PRIMARY) TREATMENT MYALGIA, OTHER SITE NOTES: TRIGGER POINT INJECTIONS LEFT LOW BACK,LEFT PRIFORMIS PRINTED AND REVIEWED PRE PROCEDURE INFORMATION DALLIN GRIJALVA. PROCEDURE CODES FA211 ESTABILISHED PATIENT [facility] CHARGE DISPOSITION & COMMUNICATION FOLLOW UP POST (REASON: TRIGGER POINT INJECTIONS LEFT LOW BACK,LEFT PRIFORMIS) ELECTRONICALLY SIGNED BY ROGERIO MCGUIRE ON 03/24/2021 AT 11:22 AM EDT DISCLAIMER : THIS IS A VISIT SUMMARY EXTRACTED FROM THE [employer] CHART. IT IS NOT A COPY OF THE [employer] PROGRESS NOTE. HERMILA
== END ==
LOC: M PAIN 09:45
PROVIDERS: ATTEND Nurse Practitioner Family
DX: M79.18 Myalgia, other site (principal); G47.33 Obstructive sleep apnea (adult) (pediatric); E03.8 Other specified hypothyroidism; G35 Multiple sclerosis; Z86.14 Personal history of Methicillin resistant Staphylococcus aureus infection; Z86.59 Personal history of other mental and behavioral disorders; Z87.891 Personal history of nicotine dependence; Z88.4 Allergy status to anesthetic agent; Z88.8 Allergy status to other drugs, medicaments and biological substances; Z91.09 Other allergy status, other than to drugs and biological substances; E66.01 Morbid (severe) obesity due to excess calories; Z68.41 Body mass index [BMI] 40.0-44.9, adult; Z79.899 Other long term (current) drug therapy

== ENCOUNTER → 2021-04-03 | Outpatient (CLI) | payer MEDICARE | LOC: M LABSMTC 12:06 | PROVIDERS: ATTEND Anesthesiology | DX: Z01.812 Encounter for preprocedural laboratory examination (principal); Z20.822 Contact with and (suspected) exposure to COVID-19 ==

== ENCOUNTER → 2021-04-08 | Outpatient (CLI) | payer MEDICARE ==
[~2021-04-08] MED LIST changes: +LIDOCAINE 1% MDV 20ML VIAL As Ordered ONE; +LIDOCAINE 1% SDV 30ML VIAL As Ordered ONE; +diazePAM 5MG TABLET As Ordered ONE; +diphenhydrAMINE 25MG CAP As Ordered ONE
== END ==
LOC: M PAIN 08:30
PROVIDERS: ATTEND Anesthesiology
DX: M79.18 Myalgia, other site (principal); G47.33 Obstructive sleep apnea (adult) (pediatric); E03.8 Other specified hypothyroidism; G35 Multiple sclerosis; F41.9 Anxiety disorder, unspecified; Z86.14 Personal history of Methicillin resistant Staphylococcus aureus infection; Z86.59 Personal history of other mental and behavioral disorders; Z87.891 Personal history of nicotine dependence; Z88.4 Allergy status to anesthetic agent; Z88.8 Allergy status to other drugs, medicaments and biological substances; Z91.09 Other allergy status, other than to drugs and biological substances; Z79.899 Other long term (current) drug therapy

== ENCOUNTER → 2021-04-24 | Outpatient (CLI) | payer MEDICARE ==
[~2021-04-24] MED LIST changes: -LIDOCAINE 1% MDV 20ML VIAL As Ordered ONE; -LIDOCAINE 1% SDV 30ML VIAL As Ordered ONE; -diazePAM 5MG TABLET As Ordered ONE; -diphenhydrAMINE 25MG CAP As Ordered ONE
[2021-04-24 14:01] LABS: BASO # 0.1 10^3/uL (0.0-0.2); BASO % 0.7 % (0.0-1.0); EOS # 0.3 10^3/uL (0.0-0.5); EOS % 3.9 % (0.0-3.0); HEMATOCRIT 44.4 % (36.0-47.0); HEMOGLOBIN 14.2 g/dl (12.0-15.5); LYMPH # 1.6 10^3/uL (1.5-5.0); LYMPH % 22.8 % (24.0-44.0); MEAN CORPUSCULAR HEMOGLOBIN 31.1 pg (27.0-33.0); MEAN CORPUSCULAR VOLUME 97.4 fl (80.0-96.0); MONO # 0.9 10^3/uL (0.0-0.8); MONO % 13.1 % (2.0-8.0); NEUTROPHILS # 4.1 10^3/uL (1.5-8.5); NEUTROPHILS % 59.1 % (36.0-66.0); PLATELET COUNT, AUTOMATED 256 10^3/uL (150-450); RED BLOOD COUNT 4.56 10^6/uL (4.00-5.40)
[2021-04-24 14:35] LABS: BLOOD UREA NITROGEN 16 MG/DL (7-18); CALCIUM LEVEL 9.6 MG/DL (8.8-10.2); CARBON DIOXIDE LEVEL 30 MEQ/L (21-32); CHLORIDE LEVEL 104 MEQ/L (98-107); FREE T4 1.27 NG/DL (0.76-1.46); GLOMERULAR FILTRATION RATE > 60.0 (>39); GLUCOSE, FASTING 81 MG/DL (70-100); POTASSIUM SERUM 5.6 MEQ/L (3.5-5.1); SODIUM LEVEL 138 MEQ/L (136-145); THYROID STIMULATING HORMONE 0.229 uIU/ML (0.358-3.740)
[2021-04-24 14:37] LABS: THYROGLOBULIN ANTIBODY 16.3 U/ML (<60.0); THYROID PEROXIDASE ANTIBODY 37.4 U/ML (<60.0); TOTAL 25(OH) VITAMIN D 39.3 NG/ML (30.0-100.0)
[2021-04-24 14:38] LABS: FOLATE 10.5 NG/ML; VITAMIN B12 LEVEL 380 PG/ML
== END ==
LOC: M PLALAB 11:52
PROVIDERS: ATTEND Family Medicine
DX: E03.9 Hypothyroidism, unspecified (principal); G35 Multiple sclerosis; Z98.84 Bariatric surgery status; Z79.899 Other long term (current) drug therapy

== ENCOUNTER → 2021-04-24 | Outpatient (CLI) | payer MEDICARE ==
[2021-04-24 14:24] LABS: BLOOD UREA NITROGEN 18 MG/DL (7-18); CALCIUM LEVEL 9.3 MG/DL (8.8-10.2); CARBON DIOXIDE LEVEL 29 MEQ/L (21-32); CHLORIDE LEVEL 103 MEQ/L (98-107); CREATININE FOR GFR 0.87 MG/DL (0.55-1.30); GLOMERULAR FILTRATION RATE > 60.0 (>39); GLUCOSE, FASTING 82 MG/DL (70-100); POTASSIUM SERUM 5.1 MEQ/L (3.5-5.1); SODIUM LEVEL 137 MEQ/L (136-145)
== END ==
LOC: M PLALAB 11:49
PROVIDERS: ATTEND Physician Assistant
DX: G35 Multiple sclerosis (principal)

== ENCOUNTER → 2021-04-30 | Outpatient (CLI) | payer MEDICARE ==
[~2021-04-30] MED LIST changes: +PROHANCE 279.3MG/ML 15ML VIAL ONE; +PROHANCE 279.3MG/ML 5ML VIAL ONE
--- NOTE | 2021-04-30 17:45 | REPVR ---
PROCEDURE INFORMATION: Exam: MR Head Without and With Contrast Exam date and time: 04/30/2021 3:18 PM Age: 75 years old Clinical indication: Condition or disease; Multiple sclerosis; Additional info: Checking progression of ms TECHNIQUE: Imaging protocol: MR of the head without and with intravenous contrast. Contrast material: PROHANCE; Contrast volume: 20 ml; Contrast route: INTRAVENOUS (IV); COMPARISON: No relevant prior studies available. FINDINGS: Brain: No evidence of acute infarct or active demyelination on the diffusion-weighted imaging. Mild cerebral volume loss appears age commensurate. The T2 weighted imaging demonstrates numerous white matter lesions, in particular confluent periventricular white matter lesions as well as scattered lesions in the obregon radiata deep white matter. There are some scattered convexity subcortical U fiber lesions, as well. Tiny foci of increased signal intensity in the gypsy as well as thalamocapsular regions on the T2 weighted imaging may reflect prior primary demyelination or chronic small vessel ischemic change. No enhancing lesions identified on the postcontrast imaging. There are choroidal fissural cysts. Cerebral ventricles: The ventricles are mildly enlarged in keeping with volume loss. Bones/joints: Unremarkable. Paranasal sinuses: Normal as visualized. No acute sinusitis. Mastoid air cells: Normal as visualized. No mastoid effusion. Orbital cavity: Unremarkable. Soft tissues: Unremarkable. IMPRESSION: No evidence of active demyelination. Electronically signed by: Moon Wagner On 04/30/2021 17:45:08 PM
--- NOTE | 2021-04-30 17:55 | REPVR ---
PROCEDURE INFORMATION: Exam: MR Cervical Spine Without and With Contrast Exam date and time: 04/30/2021 3:18 PM Age: 75 years old Clinical indication: Condition or disease; Other: Ms; Additional info: Checking progression of ms TECHNIQUE: Imaging protocol: Multiplanar magnetic resonance images of the cervical spine without and with contrast. Contrast material: PROHANCE; Contrast volume: 20 ml; Contrast route: INTRAVENOUS (IV); COMPARISON: MRI-Brain W/O FOLL BY WITH 04/30/2021 1:00 PM FINDINGS: Vertebrae: Trace 1-2 mm of degenerative anterolisthesis of C7 on T1 and T1 on T2. Slight degenerative retrolisthesis of C5 on C6. No acute fracture seen. Spinal cord: No T2 hyperintense plaques identified in the cord. No enhancing cord lesions. Disc desiccation throughout. Disc height loss and spondylosis is severe at C6-C7, moderate elsewhere from C4-C5 through T1-T2, [id number] at C3-C4. C2-C3: Moderate left facet arthropathy. No significant stenoses. C3-C4: Disc osteophyte complex does not contribute to significant central spinal canal stenosis. Uncovertebral and facet arthropathy causing mild bilateral neural foraminal stenoses. C4-C5: Disc osteophyte complex does not contribute to central spinal canal stenosis. Uncovertebral and facet arthropathy causing moderate right neural foraminal stenosis. No significant left neural foraminal narrowing. C5-C6: Slight retrolisthesis. Disc osteophyte complex and ligamentum flavum buckling. Central spinal canal stenosis is mild. Uncovertebral and facet arthropathy causing [id number] bilateral neural foraminal stenoses. C6-C7: Disc osteophyte complex and ligamentum flavum buckling causing mild central spinal canal stenosis. Uncovertebral and facet arthropathy causing severe left and mild right neural foraminal stenoses. C7-T1: Disc osteophyte complex does not contribute to central spinal canal stenosis. Uncovertebral and facet arthropathy causing moderate left neural foraminal stenosis. No significant right neural foraminal narrowing. Soft tissues: Unremarkable. Vertebral arteries: Expected flow voids in the vertebral arteries. IMPRESSION: 1. No evidence of active demyelination. 2. Degenerative changes with stenoses, as above. Electronically signed by: Moon Wagner On 04/30/2021 17:54:44 PM
== END ==
LOC: M PLAIMG 12:51
PROVIDERS: ATTEND Physician Assistant
DX: G35 Multiple sclerosis (principal); M48.02 Spinal stenosis, cervical region
CPT/HCPCS: 70553; 72156; A9576

== ENCOUNTER → 2021-05-23 | Outpatient (CLI) | payer MEDICARE ==
[~2021-05-23] MED LIST changes: -PROHANCE 279.3MG/ML 15ML VIAL ONE; -PROHANCE 279.3MG/ML 5ML VIAL ONE
== END ==
LOC: M PAIN 14:45
PROVIDERS: ATTEND Anesthesiology
DX: G89.29 Other chronic pain (principal); M51.16 Intervertebral disc disorders with radiculopathy, lumbar region; M96.1 Postlaminectomy syndrome, not elsewhere classified; I10 Essential (primary) hypertension; F41.9 Anxiety disorder, unspecified; M15.0 Primary generalized (osteo)arthritis; G47.33 Obstructive sleep apnea (adult) (pediatric); E03.9 Hypothyroidism, unspecified; Z87.891 Personal history of nicotine dependence; Z79.899 Other long term (current) drug therapy; Z88.8 Allergy status to other drugs, medicaments and biological substances; Z91.048 Other nonmedicinal substance allergy status

== ENCOUNTER 2021-07-10 10:31 | Observation (INO) | payer MEDICARE ==
[~2021-07-10] VITALS: Ht 157.5 cm; Wt 107.0 kg
[~2021-07-10 10:31] MED LIST changes: -CYMB60CA3 PO; +CYMB60CA4 PO; -DULO1CAP6; +DULO1CAP6 PO; -ERGO500029; +ERGO500029 PO; -LISI-898; +LISI-898 PO; -OMEP-221; +OMEP-221 PO; -TIZA2TA; +TIZA2TA PO
--- OUTSIDE RECORDS SUMMARY | 2021-07-10 10:39 | CCD | Continuity of Care Document ---
Author Author Jesenia YOST D.O. Organization Unknown Address [address] [place] [address] Phone [phone] Care Team Providers Care Spinning Frame Fixer Name Role Phone Lowell Eddy M.D. AUTM [phone] [facility] AUTM [phone] [facility] AUTM [phone] [facility] AUTM [phone] Problems Active Problems Provider Date Essential hypertension Sherrell Yost D.O. Onset: Hypothyroidism Sherrell Yost D.O. Onset: 2014 Morbid obesity Sherrell Yost D.O. Onset: 2014 Recurrent major depressive episodes Octavio Puentes Onset: 04/10/2015 Vitamin D deficiency Sherrell Yost D.O. Onset: 04/10 Multiple sclerosis Sherrell Yost D.O. Onset: 2014 Disorder of lumbar disc Sherrell Yost D.O. Onset: Muscle, ligament and fascia disorders Sherrell Yost D.O. Onset: 04/10/2015 Localized, primary osteoarthritis Sherrell Yost D.O. Onset: 04/10/2015 Degenerative joint disease involving multiple joints Sherrell Cervantes D.O. Onset: 05/13/2015 Neoplasm of uncertain behavior of skin Sherrell Yost D.O. Onset: 05/13/2015 Actinic keratosis Sherrell Yost D.O. Onset: 2014 Candidiasis of skin and nails Sherrell Yost D.O. Ons et: 07/24/2015 Low back pain Sherrell Yost D.O. Onset: 2015 Cervical somatic dysfunction Sherrell Yost D.O. Onse t: 09/17/2015 Somatic dysfunction of lower limb Sherrell Yost D.O. Onset: 09/17/2015 Somatic dysfunction of sacroiliac joint Sherrell Yost D.O. Onset: 09/17/2015 Somatic dysfunction of pelvic region Francoise Puentes Onset: 09/17/2015 Somatic dysfunction of thoracic region Sherrell Yost D.O. Onset: 09/17/2015 Somatic dysfunction of head region Sheryl Puentes Onset: 09/17/2015 Sacrococcygeal disorders, not elsewhere classified Sherrell Bland D.O. Onset: 09/17/2015 Somatic dysfunction of lumbar region Francoise Puentes Onset: 11/01/2015 Right side sciatica Sherrell Yost D.O. Onset: 2015 Body mass index 40+ - severely obese Francoise Puentes Onset: 02/06/2016 Encounter for other preprocedural examination Sherrell Myers D.O. Onset: 07/22/2016 Screening mammography Sherrell Yost D.O. Onset: 06/25 Generalized abdominal pain Sherrell Yost D.O. Onset: 07/27/2016 History of bypass of stomach Sherrell Yost D.O. Onse t: 02/01/2017 Generalized anxiety disorder Sherrell Yost D.O. Onse t: 01/02/2020 Gastroesophageal reflux disease Sherrell Yost D.O. O nset: 04/12/2020 Obstructive sleep apnea of adult Sherrell Yost D.O. Onset: 04/30/2021 Social History Type Date Description Comments Sex Unknown Tobacco Use Start: Unknown End: Unknown Quit Smoking Status Reviewed: 07/07/21 Quit ETOH Use Drinks 2 Alcoholic Beverages Per Day Tobacco Use Start: Unknown End: Patient is a former smoker Recreational Drug Use Denies Drug Use Exercise Type/Frequency Exercises regularly PT 3 x week Sun Exposure Uses sunscreen Seat Belt/Car Seat Always uses seat belt Allergies and adverse reactions Active Allergies Criticality Reaction | Severity Comments Date Nickel Unable to assess criticality 04/10/2015 Adhesives Unable to assess criticality 04/10/2015 Marcaine Unable to assess criticality 04/10/2015 Medications Active Medications SIG Qnty Indications Ordering Provide r Date Oxybutynin Chloride ER 10mg Tablets ER 24HR 1 by mouth every day 90tabs Octavio PuentesOBrandt 05/15/2021 Vitamin B-12 Natural 500mcg Tablets 1 by mouth every day 90tabs Sherrell Yost D.O. 04/30/2021 Levothyroxine Sodium 112mcg Tablet s take 2 tablets by mouth every morning 180tabs E03.9 Sherrell presley D.O. 11/12/2020 Tizanidine HCL 2mg Tablets take 2 tablets twice daily 360tabs Sherrell Yost D.O. 07/[address] Take One Capsule By Mouth Twice A Day 60caps Octavio MontillaOBrandt 04/12/2020 Walker Auto Glides/5 Adjustment Holes/- 08/30" 1-08/30" Misc rolling walker with seat dispense:1, duration:99 dx: m51.86 M51.86 Sherrell Yost D.O. 02/26/2020 Vitamin D (Ergocalciferol) 1.25mg (67032 Ut) Capsules 1 capsule by mouth weekly 12caps Sherrell kendrick D.O. 10/03/2019 ALL Cpap Supplies and accessories dx: sleep ap ricardo prognosis: fair duration: 99 dispense: 1 1units G47.33 Sherrell Yost D.O. 11/16 Alprazolam 0.5mg Tablets Dispers one tablet by mouth daily as needed [id number] 30tabs Octavio GrossOBrandt 01/07/2017 Cpap Machine Repair/replace Cpap machine with humidifier and supplies Pressure: 10 duration: 99 Prognosis: good 1units G47.33 Octavio MeadeOBrandt 07/13/[address] Part 1 by mouth twice a day 90caps F33.9 Octavio PuentesO. 05/13 Acetaminophen 325mg Tablets take 2 tabs by mouth every 6 hours as needed for pain or fever Unknown Fusion 94-37-17-30mg Capsules 4 capsules daily Unknown Fiber 0.52gm Capsules 1 cap by mouth daily Unknown Lisinopril 5mg Tablets take 1 tablet every day 90tabs Octavio PuentesOBrandt Tramadol HCL 50mg Tablets take one tablet by mouth every 6 hours for pain as needed Unknow n History Medications Fluconazole 150mg Tablets 1 tablet then repeat in 3 days if symptoms not improved 2tabs Octavio GrossOBrandt 05/21/2021 - 07/07/2021 Amoxicillin/Clavulanate Potassium 875-125mg Tablets 1 by mouth twice a day x 10 days 20tabs J01.00 Octavio PuentesOBrandt 05/15/2021 - 07/07/2021 Premarin 0.625mg/GM Cream apply 1/2 gram topically to vagina wednesday, wednesday and wednesday 90gm Octavio PuentesOBrandt 02/03/2021 - 04/17/2021 Medications Administered in Office Medication SIG Qnty Indications Ordering Provider Date Immunization Administration Single Or Co mbination Injection Francoise Puentes 06/22/2016 Immunizations CPT Code Status Date Vaccine Lot # [id number] Given 04/30/2021 Influenza Virus Vaccine, Quadrivalent, Slit Virus, Im Use [id number] 80811 Given 06/29/2019 Influenza Virus Vaccine, Quadrivalent, Split, Preservative Free [id number] Given 06/09/2018 Influenza Vaccin e Quadrivalent Preser/Antibiotic Free Im Use [id number] 04912 Given 05/26/2017 Influenza Vaccin e Quadrivalent Preser/Antibiotic Free Im Use [id number] Given 06/22/2016 Influenza Virus Vaccine, Quadrivalent, Split, Preservative Free [id number] 03056 Given 07/28/2015 Pneumococcal Con jugate Vaccine 13 Valent For Intramuscular Use Vital Signs Date Vital Result Comment 07/07/2021 9:55am BP Systolic 126 mmHg BP Diastolic 76 mmHg Height 62.5 inches 5'2.50" Weight 233.25 lb BMI (Body Mass Index) 42.0 kg/m2 Heart Rate 54 /min Respiratory Rate 18 /min Body Temperature 96.7 F O2 % BldC Oximetry 98 % [place] Body Weight 110 lb 05/15/2021 4:10pm Height 62.5 inches 5'2.50" Heart Rate 48 /min Respiratory Rate 20 /min Body Temperature 98.4 F O2 % BldC Oximetry 97 % [place] Body Weight 110 lb Results Test Acquired Date Facility Test Result H/L Range Note Order 07/07/2021 In House Orders EKG see report FT4&TSH Panel 04/24/2021 [facility] Outpatient Testi ng (Registration) [address] [place] [address] [phone] Thyroid Stimulating Hormone 0.229 uIU/ML Low 0. 358-3.740 Free T4 1.27 ng/dL Normal 0.76-1.46 Laboratory test finding 04/24/2021 [facility] Outpatient T esting (Registration) [address] [place] [address]67 [phone] Thyroglobulin Antibody 16.3 U/ML Normal <60.0 Thyroid Peroxidase Antibody 37.4 U/ML Normal <60.0 Total 25(Oh) Vitamin D 39.3 NG/ML Normal 30.0-100.0 Vitamin B12 & Folate 04/24/2021 [facility] Outpatient Test ing (Registration) [address] [place] [address] [phone] Vitamin B12 Level 380 pg/mL Normal 1 Folate 10.5 NG/ML Normal 2 CBC With Differential 04/24/2021 [facility] Outpatient Zaira ting (Registration) [address] [place] [address] [id number] [phone] White Blood Count 7.0 10 Normal 4.0-10.0 Red Blood Count 4.56 10 Normal 4.00-5.40 Hemoglobin 14.2 g/dL Normal 12.0-15.5 Hematocrit 44.4 % Normal 36.0-47.0 Mean Corpuscular Volume 97.4 fl High 80.0-96.0 Mean Corpuscular Hemoglobin 31.1 pg Normal 27.0-33.0 Mean Corpuscular HGB Conc 32.0 g/dL Normal 32.0-36.5 Red Cell Distribution Width 13.7 % Normal 11.5-14.5 Platelet Count, Automated 256 10 Normal 150-450 Neutrophils % 59.1 % Normal 36.0-66.0 Lymph % 22.8 % Low 24.0-44.0 Weld % 13.1 % High 2.0-8.0 Eos % 3.9 % High 0.0-3.0 Baso % 0.7 % Normal 0.0-1.0 Immature Granulocyte % 0.4 % Normal 0-3.0 Nucleated Red Blood Cell % 0.0 % Normal 0-0 Neutrophils # 4.1 10 Normal 1.5-8.5 Lymph # 1.6 10 Normal 1.5-5.0 Weld # 0.9 10 High 0.0-0.8 Eos # 0.3 10 Normal 0.0-0.5 Baso # 0.1 10 Normal 0.0-0.2 Basic Metabolic Profile 04/24/2021 [facility] Outpatient T esting (Registration) [address] [place] [address] [phone] Glucose, Fasting 81 mg/dL Normal 70-100 Blood Urea Nitrogen 16 mg/dL Normal 7-18 Creatinine For GFR 0.80 mg/dL Normal 0.55-1.30 Glomerular Filtration Rate > 60.0 Normal >39 3 Sodium Level 138 mEq/L Normal 136-145 Potassium Serum 5.6 mEq/L High 3.5-5.1 Chloride Level 104 mEq/L Normal 98-107 Carbon Dioxide Level 30 mEq/L Normal 21-32 Anion Gap 4 mEq/L Low 8-16 Calcium Level 9.6 mg/dL Normal 8.8-10.2 Basic Metabolic Profile 04/24/2021 [facility] Outpatient T esting (Registration) [address] [place] [address] [phone] Glucose, Fasting 82 mg/dL Normal 70-100 Blood Urea Nitrogen 18 mg/dL Normal 7-18 Creatinine For GFR 0.87 mg/dL Normal 0.55-1.30 Glomerular Filtration Rate > 60.0 Normal >39 4 Sodium Level 137 mEq/L Normal 136-145 Potassium Serum 5.1 mEq/L Normal 3.5-5.1 Chloride Level 103 mEq/L Normal 98-107 Carbon Dioxide Level 29 mEq/L Normal 21-32 Anion Gap 5 mEq/L Low 8-16 Calcium Level 9.3 mg/dL Normal 8.8-10.2 Comprehensive Metabolic Profil 01/06/[address] [id number] [phone] Glucose, Fasting 79 mg/dL Normal 70-100 Blood Urea Nitrogen 13 mg/dL Normal 7-18 Creatinine For GFR 0.77 mg/dL Normal 0.55-1.30 Glomerular Filtration Rate > 60.0 Normal >39 5 Sodium Level 140 mEq/L Normal 136-145 Potassium Serum 4.9 mEq/L Normal 3.5-5.1 Chloride Level 106 mEq/L Normal 98-107 Carbon Dioxide Level 28 mEq/L Normal 21-32 Anion Gap 6 mEq/L Low 8-16 Calcium Level 9.3 mg/dL Normal 8.8-10.2 Ast/Sgot 17 U/L Normal 7-37 Alt/SGPT 18 U/L Normal 12-78 Alkaline Phosphatase 110 U/L Normal 45-117 Bilirubin,Total 0.6 mg/dL Normal 0.2-1.0 Total Protein 6.7 GM/DL Normal 6.4-8.2 Albumin 3.5 GM/DL Normal 3.2-5.2 Albumin/Globulin Ratio 1.1 Low 1.2-2.2 Lipid Panel 01/06/2021 [facility] nter [address] [place] [address] [id number] [phone] Triglycerides Level 110 mg/dL Normal <150 Cholesterol Level 171 mg/dL Normal <200 HDL Cholesterol 63 mg/dL Normal >40 LDL Cholesterol 86 mg/dL Normal <100 Non-HDL-C 108 mg/dL Normal Cholesterol Risk Ratio 2.714 Normal <5 FT4&TSH Panel 01/06/2021 [facility] nter [address] [place], [place] [id number] [phone] Thyroid Stimulating Hormone 0.136 uIU/ML Low 0. 358-3.740 Free T4 1.48 ng/dL High 0.76-1.46 CBC With Differential 01/06/2021 [facility] [address] [place], [place] [id number] [phone] White Blood Count 6.3 10 Normal 4.0-10.0 Red Blood Count 4.34 10 Normal 4.00-5.40 Hemoglobin 13.3 g/dL Normal 12.0-15.5 Hematocrit 42.1 % Normal 36.0-47.0 Mean Corpuscular Volume 97.0 fl High 80.0-96.0 Mean Corpuscular Hemoglobin 30.6 pg Normal 27.0-33.0 Mean Corpuscular HGB Conc 31.6 g/dL Low 32.0-36.5 Red Cell Distribution Width 13.1 % Normal 11.5-14.5 Platelet Count, Automated 246 10 Normal 150-450 Neutrophils % 49.2 % Normal 36.0-66.0 Lymph % 31.2 % Normal 24.0-44.0 Weld % 13.9 % High 2.0-8.0 Eos % 4.6 % High 0.0-3.0 Baso % 0.8 % Normal 0.0-1.0 Immature Granulocyte % 0.3 % Normal 0-3.0 Nucleated Red Blood Cell % 0.0 % Normal 0-0 Neutrophils # 3.1 10 Normal 1.5-8.5 Lymph # 2.0 10 Normal 1.5-5.0 Weld # 0.9 10 High 0.0-0.8 Eos # 0.3 10 Normal 0.0-0.5 Baso # 0.1 10 Normal 0.0-0.2 1 VITAMIN B12 NORMAL RANGE NORMAL 247 - 911 PG/ML INDETERMINATE 211 - 246 PG/ML DEFICIENT LESS THAN 211 PG/ML 2 FOLATE NORMAL RANGE NORMAL GREATER THAN 5.4 NG/ML INDETERMINATE 3.4-5.4 NG/ML DEFICIENT LESS THAN 3.4 NG/ML 3 Units are mL/min/1.73 m2 Chronic Kidney Disease Staging per NKF: Stage I & II GFR >=60 Normal to Mildly Decreased Stage III GFR 30-59 Moderately Decreased Stage IV GFR 15-29 Severely Decreased Stage V GFR <15 Very Little GFR Left ESRD GFR <15 on CHILDCARE ADMINISTRATOR 4 Units are mL/min/1.73 m2 Chronic Kidney Disease Staging per NKF: Stage I & II GFR >=60 Normal to Mildly Decreased Stage III GFR 30-59 Moderately Decreased Stage IV GFR 15-29 Severely Decreased Stage V GFR <15 Very Little GFR Left ESRD GFR <15 on CHILDCARE ADMINISTRATOR 5 Units are mL/min/1.73 m2 Chronic Kidney Disease Staging per NKF: Stage I & II GFR >=60 Normal to Mildly Decreased Stage III GFR 30-59 Moderately Decreased Stage IV GFR 15-29 Severely Decreased Stage V GFR <15 Very Little GFR Left ESRD GFR <15 on CHILDCARE ADMINISTRATOR Procedures Date Code Description Status 07/07/2021 85768 Office/Outpatient Established Lo w MDM 20-29 Min Completed 07/07/2021 87456 Electrocardiogram Complete Compl eted 05/15/2021 71069 Office/Outpatient Established Lo w MDM 20-29 Min Completed 04/30/2021 90378 Office/Outpatient Established Mo d MDM 30-39 Min Completed 04/30/2021 94790 Wearable ECG Monitor/Report W/Vi sual Superimposition Scanning Completed 04/21/2021 57543 Office/Outpatient Established Mi nimal Problem(S) Completed 04/17/2021 14830 Office/Outpatient Established Mo d MDM 30-39 Min Completed 03/31/2021 99256 Office/Outpatient Established Lo w MDM 20-29 Min Completed 01/14/2021 40977 Office/Outpatient Established Mo d MDM 30-39 Min Completed 07/30/2016 [id number] Mammogram Completed Medical Devices Description No Information Available Encounters Type Date Location Provider Dx Diagnosis Office Visit 07/07/2021 9:40a Family Medicine [facility] Alex Yost D.O. I49.5 Sick sinus syndrome Office Visit 05/15/2021 4:00p Family Medicine [facility] Sherrell Yost D.O. J01.00 Acute maxillary sinusitis, u nspecified N39.3 Stress incontinence (female) (male) Office Visit 04/30/2021 9:30a Family Medicine [facility] Alex Yost D.O. R00.1 Bradycardia, unspecified I11.9 Hypertensive heart disease w [facility] heart failure E03.9 Hypothyroidism, unspecified G47.33 Obstructive sleep apnea (walker lt) (pediatric) Z23 Encounter for immunization Office Visit 04/21/2021 11:30a [facility] Natalie roblero I11.9 Hypertensive heart disease without heart failure R00.1 Bradycardia, unspecified Office Visit 04/17/2021 10:20a [facility] Francoise Puentes.OBrandt E03.9 Hypothyroidism, unspecified I11.9 Hypertensive heart disease w [facility] heart failure F41.1 Generalized anxiety disorder 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, lumbar region K21.9 Gastro-esophageal reflux dis ease without esophagitis G35 Multiple sclerosis R73.01 Impaired fasting glucose Z98.84 Bariatric surgery status Z91.09 Oth allergy status, oth than to drugs and biolg substances Z91.048 Other nonmedicinal substance allergy status Z79.899 Other terminal carman (current) dr yovany therapy Z88.4 Allergy status to anesthetic agent R00.1 Bradycardia, unspecified Office Visit 03/31/2021 4:00p [facility] CHARY Jose K11.21 Acute sialoadenitis Office Visit 01/14/2021 10:40a [facility] CHARY Marrero E03.9 Hypothyroidism, unspecified I11.9 Hypertensive heart disease w [facility] heart failure F41.1 Generalized anxiety disorder 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, lumbar region K21.9 Gastro-esophageal reflux dis ease without esophagitis G35 Multiple sclerosis R73.01 Impaired fasting glucose Z98.84 Bariatric surgery status Assessments Date Code Description Provider 07/07/2021 I49.5 Sick sinus syndrome Francoise De Jesus.OBrandt 05/15/2021 J01.00 Acute maxillary sinusitis, unspe cified Francoise Puentes.OBrandt 05/15/2021 N39.3 Stress incontinence (female) (pj escobar) Francoise Puentes.OBrandt 04/30/2021 R00.1 Bradycardia, unspecified Francoise Ellis.OBrandt 04/30/2021 I11.9 Hypertensive heart disease witho in heart failure Sherrell Myers, D.O. 04/30/2021 E03.9 Hypothyroidism, unspecified Sherrell Yost, D.O. 04/30/2021 G47.33 Obstructive sleep apnea (adult) (pediatric) Sherrell Myers, D.O. 04/30/2021 Z23 Encounter for immunization Sherrell Yost, D.O. 04/21/2021 I11.9 Hypertensive heart disease witho in heart failure Nurse 04/21/2021 R00.1 Bradycardia, unspecified Nurse 04/17/2021 E03.9 Hypothyroidism, unspecified Sherrell Yost, D.O. 04/17/2021 I11.9 Hypertensive heart disease witho in heart failure Sherrell Myers, D.O. 04/17/2021 F41.1 Generalized anxiety disorder Zoya Yost, D.O. 04/17/2021 M51.86 Other intervertebral disc disord ers, lumbar region Sherrell Yost, D.O. 04/17/2021 K21.9 Gastro-esophageal reflux disease without esophagitis Sherrell Yost, D.O. 04/17/2021 G35 Multiple sclerosis Sherrell Beth, D.O. 04/17/2021 R73.01 Impaired fasting glucose Sherrell Cervantes, D.O. 04/17/2021 Z98.84 Bariatric surgery status Sherrell Cervantes, D.O. 04/17/2021 Z91.09 Other allergy status, other than to drugs and biological sub Sherrell Yost, D.O. 04/17/2021 Z91.048 Other nonmedicinal substance all ergy status Sherrell Myers, D.O. 04/17/2021 Z79.899 Other terminal carman (current) drug t herapy Sherrell Yost, D.O. 04/17/2021 Z88.4 Allergy status to anesthetic age nt Sherrell Yost, D.O. 04/17/2021 R00.1 Bradycardia, unspecified Sherrell Cervantes D.O. 03/31/2021 K11.21 Acute sialoadenitis CHARY Medina 01/14/2021 E03.9 Hypothyroidism, unspecified CHARY Galan 01/14/2021 I11.9 Hypertensive heart disease witho ut heart failure CHARY Marrero 01/14/2021 F41.1 Generalized anxiety disorder CHARY Blackman 01/14/2021 M51.86 Other intervertebral disc disord ers, lumbar region CHARY Marrero 01/14/2021 K21.9 Gastro-esophageal reflux disease without esophagitis CHARY Marrero 01/14/2021 G35 Multiple sclerosis CHARY Pinedo 01/14/2021 R73.01 Impaired fasting glucose CHARY Marrero 01/14/2021 Z98.84 Bariatric surgery status CHARY Marrero Plan of Treatment Future Appointment(s):* 07/31/2021 11:20 am - Sherrell Yost D.O. at [facility] * 07/10/2021 9:20 am - Sherrell Yost D.O. at [facility] Functional Status Description No Information Available Mental Status Description No Information Available Referrals Refer to Reason for Referral Status Appt Date [facility] [place] This is a 75 year old female with hypertensive heart disease, obesity and bradycardia during sleep. Please do nocturnal oximetry to screen for sleep apnea. Without CPAP. Sent [address] [place], [place] [id number] [phone] Lowell Eddy M.D. This is a 75 year old mutual patient who is describing symptomatic bradycardia concerning for sick sinus syndrome. I did a 24 hour holter monitor and she did not have any symptomatic events. She does have a diagnosis of sleep apnea nad wears her CPAP 90% of the time, she reports. Please evaluate and treat. Sent 07/25/2021 [facility] [address] [facility] [address] [phone] [facility] [place] This is a 75 year old female with hypertensive heart disease, obesity and bradycardia during sleep. Please do nocturnal oximetry to screen for sleep apnea. Without CPAP. 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 Please eval and treat. Closed 01/27/[address] [place] [address] [phone]
--- OUTSIDE RECORDS SUMMARY | 2021-07-10 10:39 | CCD ---
Author Author [facility] [employer] Organization [facility] [employer] Address Unknown Phone Unavailable Care Team Providers Care Chief Bank Examiner Name Role Phone Marko Mo Unavailable PROBLEMS Type Condition ICD9-CM Code KWA11-YU Code Onset Dates Condition S tatus W/U Status Risk SNOMED Code Notes Problem Hypothyroidism 244.9 Active confirmed 64638 008 Problem Hypertension 401.9 Active confirmed 4685061 3 Problem Lumbosacral spondylosis without myelopathy M47.817 Active confirmed 12686614 Problem Status post laminectomy V45.89 Active confirmed 45936458 Problem Lumbar Facet arthropathy M47.816 Active confirmed 985210170 Problem Anxiety attack 300.01 Active confirmed 04695 5004 Problem Other chronic pain G89.29 Active confirmed 8 1831152 Problem Postoperative wound infection 998.59 Active confirm ed 34530152 Problem Post laminectomy syndrome M96.1 Active confirmed 44395330 Problem Chronic prescription opiate use Z79.891 Active confirmed 176032470 Problem Sacroiliitis, not elsewhere classified M46.1 A ctive confirmed 305044606 Problem Lumbar post-laminectomy syndrome M96.1 Active conf irmed 803180948 ALLERGIES Allergen (clinical drug ingredient) Drug/Non Drug Allergy do cumented on EMR Reaction Allergy Type Onset Date Status dexamethasone Dexamethasone(NDC Code:[address]-00) Fa cial Flushing and Swelling Drug Allergy Active nickel nickel rash/itchy Non Drug Allergy Active bupivacaine Marcaine(NDC Code:[address]-57) rash/loss of co nsciousness Drug Allergy Active adhesive tape rash Non Drug Allergy Activ e ENCOUNTERS from 1944 to 2021-05-25 Encounter Location Date Provider Diagnosis [facility] [address] Floor [phone] [place] [address] May, Marko Mo Other chronic pain G 89.29 ; Lumbar Facet arthropathy M47.816 ; Intervertebral disc disorders with radiculopathy, lumbar region M51.16 and Lumbar post-laminectomy syndrome M96.1 IMMUNIZATIONS No Information SOCIAL HISTORY Tobacco Use: Social History Observation Description Date Details (start date - stop date) Former Smoker Sex Assigned At : Social History Observation Description Sex Assigned At Unknown Education: Question Answer Notes Level of Education: College Confucianism: Question Answer Notes Confucianism 13 Jewish Alcohol Screening: Question Answer Notes Did you have a drink containing alcohol in the past year? Ye s Points 4 Interpretation Positive How often did you have six or more drinks on one occas ion in the past year? Never (0 points) How many drinks did you have on a typica l day when you were drinking in the past year? 1 or 2 (0 points) How often did you have a drink containing alcohol in t he past year? Four or more times a week (4 points) Tobacco Use: Question Answer Notes Are you a: former smoker Additional Findings: Tobacco User Moderate cigarette smoker (10-19 cigs/day) How long has it been since you last smoked? > 10 years REASON FOR REFERRAL No Information VITAL SIGNS Weight 229.8 lbs May, Weight-kg 104.24 kg May, Height 5'2" in May, BMI 42.03 kg/m2 May, Heart Rate 57 /min May, Respiratory Rate 18 /min May, Temperature 97.8 degrees Fahrenheit May, Oximetry 97% May, Blood pressure systolic 133 mm Hg May, Blood pressure diastolic 73 mm Hg May, MEDICATIONS Medication SIG (Take, Route, Frequency, Duration) Notes Start Da te End Date Status Fusion Plus - 2 capsules Orally bid Active traMADol HCl 50 MG 1 tablet as needed Orally q6h prn mdd4 for 30 Days Jul, Active ALPRAZolam 0.5 MG 1 tablet on the tongue and a llow to dissolve Orally Twice a day as needed Active Colace 100 MG 1 capsule as needed Orally Once a day for 30 day(s) Active tiZANidine HCl 2 MG 1 tablet as needed Orally qid for 30 Days Active Fiber - as directed Orally Daily Active Levothyroxine Sodium 112 MCG 2 tablets Orally Once a day Active Lisinopril 5 MG 1 tablet Orally Once a day for 30 day(s) Active Triamterene-HCTZ 37.5-25 MG 1 tablet in the morning Orally Once a day Not-Taking Tylenol Arthritis Pain 1-2 tablets as needed orally as directed Active D3-50 35940 UNIT 1 cap(s) Orally weekly Active Vitamin D (Ergocalciferol) 1.25 MG (28954 UT) 1 capsule Orally weekly Not-Taking DULoxetine HCl 60 MG 1 capsule Orally for pain bid for 30 days Active Vitamin D-3 25 MCG (1000 UT) 1 capsule Orally Once a day for 30 day(s ) Not-Taking Omeprazole 40 MG 1 capsule 30 minutes before morning meal Orally Once a day for 30 day(s) Active PROCEDURES from 1944 to 2021-05-25 Procedure Date Ordered Result Body Site Pain Procedure Log 2021-05-23 N/A RESULTS No Results REASON FOR VISIT POST Trigger point injections left low back,left priformis MEDICAL (GENERAL) HISTORY Type Description Date Medical History Spondylthesis Medical History Spinal stenosis Medical History Hypertension Medical History Anxiety Medical History Generalized Osteoarthritis Medical History Infection in Back - Post Surgery - MRSA? Medical History NEHEMIAH Medical History Primary Hypothyroidism Medical History MS Medical History One falls snice the last vis it in 02/04/2021 no major injures, hurt her left feet Medical History Second COVID vaccination 10/04/2020 Surgical History Laminectomy L4-5 with fusion L4-5 5 Surgical History tonsils removed 1949'5 Surgical History appendix removed Surgical History L-ARGENIS 2011? Surgical History R-ARGENIS 2004? Surgical History reexploration I&D for possib le infection Gram stain many white cells culture negative white count 10.8 01/31/15 Surgical History Left Knee Replacement 2016 Surgical History Gallbladder Removal 2017 Surgical History Gastric Bypass 2017 Hospitalization History related to surgery Hospitalization History infection from back surgery 01/2015 Goals Section No Information Health Concerns No Information MEDICAL EQUIPMENT No Information MENTAL STATUS No Information FUNCTIONAL STATUS No Information ASSESSMENTS Encounter Date Diagnosis Assessment Notes Treatment Notes Treatm ent Clinical Notes May, Other chronic pain (ICD-10 - G89.29) 05/23/21 REVIEWED INFORMATION ON DIAGNOSTIC FACET BLOCK PROCEDURE WITH PATIENT. ALSO REVIEWED PRE-PROCEDURE INSTRUCTIONS. PATIENT VERBALIZED AN UNDERSTANDING. Sofia HORTON RN I discussed alternatives with Ms. Sue. I will request authorization for a left diagnostic L3-L4, L4-L5, L5-S1 facet block with LIDOCAINE BECAUSE THE PATIENT IS ALLERGIC TO BUPIVACAINE. The patient has done procedures in the past with some reactions and there are some concerns with dexamethasone so we need to clarify if the patient can use dexamethasone or not. After the radiofrequency, she had some redness and had to go to the hospital and she was analyzed for this. We do not have the results from that test at the moment. So after we have those results, if she is not allergic to dexamethasone, we can consider a left L3-L4, L4-L5, L5-S1 transforaminal. I will need a doctor to doctor agreement. I am going to increase the Duloxetine. The patient reports understanding and agrees with the plan. I, Yamileth Pedro, documented the above information acting as a scribe for Dr. Mo. I have reviewed the above document, written by Yamileth Pedro, medical staff services manager, and I verify that it is accurate. May, Lumbar Facet arthropathy (ICD9-CM - M47.816) May, Intervertebral disc disorder s with radiculopathy, lumbar region (ICD-10 - M51.16) May, Lumbar post-laminectomy syndrome (ICD-10 - M96.1 ) PLAN OF TREATMENT Medication Medication Name Sig Start Date Stop Date DULoxetine HCl 60 MG 1 capsule Orally for pain bid for 30 days Treatment Notes Assessment Notes Clinical Notes Other chronic pain 05/23/21 REVIEWED INFORMATION ON DIAGNOSTIC FACET BLOCK PROCEDURE WITH PATIENT. ALSO REVIEWED PRE-PROCEDURE INSTRUCTIONS. PATIENT VERBALIZED AN UNDERSTANDING. Sofia HORTON RN I discussed alternatives with Ms. Sue. I will request authorization for a left diagnostic L3-L4, L4-L5, L5-S1 facet block with LIDOCAINE BECAUSE THE PATIENT IS ALLERGIC TO BUPIVACAINE. The patient has done procedures in the past with some reactions and there are some concerns with dexamethasone so we need to clarify if the patient can use dexamethasone or not. After the radiofrequency, she had some redness and had to go to the hospital and she was analyzed for this. We do not have the results from that test at the moment. So after we have those results, if she is not allergic to dexamethasone, we can consider a left L3-L4, L4-L5, L5-S1 transforaminal. I will need a doctor to doctor agreement. I am going to increase the Duloxetine. The patient reports understanding and agrees with the plan. I, Mikel Pedro, documented the above information acting as a scribe for Dr. Mo. I have reviewed the above document, written by Yamileth Pedro, medical staff services manager, and I verify that it is accurate. Next Appt Details request auth for left diagnostic lumbar facet block L3-L4, L4-L5, L5-S1, ALLERGY TO BUPIVICAINE Reason:request auth for left diagnostic lumbar facet block L3-L4, L4-L5, L5-S1, ALLERGY TO BUPIVICAINE Follow Up:request auth for left diagnostic lumbar facet block L3-L4, L4-L5, L5- S1, ALLERGY TO BUPIVICAINErequest auth for left diagnostic lumbar facet block L3-L4, L4-L5, L5-S1, ALLERGY TO BUPIVICAINE Insurance Providers Payer Name Payer Address Payer Phone Insured Name Patient Relati onship to Insured Coverage Start Date Coverage End Date [employer] [facility] CLAIM DIV [address] [facility] [id number] RUPERTO SUE MEDICARE Part A and B [address] [facility] [address] [phone] RUPERTO SUE
--- OUTSIDE RECORDS SUMMARY | 2021-07-10 10:39 | CCD | Continuity of Care Document ---
Author Author Jesenia YOST D.O. Organization Unknown Address [address] [employer] [address] [place] [address] Phone [phone] Care Team Providers Care Media Sales Representative Name Role Phone Lowell Eddy M.D. AUTM [phone] [facility] AUTM [phone] [facility] AUTM [phone] [employer] AUTM [phone] Problems Active Problems Provider Date Essential hypertension [...] Yost D.O. 02/26/2020 Vitamin D (Ergocalciferol) 1.25mg (05230 Ut) Capsules 1 capsule by mouth weekly 12caps Sherrell kendrick D.O. 10/03/2019 [employer] Cp[employer] Supplies [employer] accessories dx: sleep ap ricardo prognosis: fair duration: 99 dispense: 1 1units G47.33 Sherrell Yost D.O. 11/16 Alprazolam 0.5mg Tablets Dispers one tablet by mouth daily as needed [id number] 30tabs Octavio GrossOBrandt 01/07/2017 Cpap Machine Repair/replace Cpap machine with humidifier and supplies Pressure: 10 duration: 99 Prognosis: good 1units G47.33 Octavio MeadeOBrandt 07/13/[address] Part 1 by mouth twice a day 90caps F33.9 Octavio PuentesO. 05/13 Acetaminophen 325mg Tablets take 2 tabs by mouth every 6 hours as needed for pain or fever Unknown Fusion 99-68-38-30mg Capsules 4 capsules daily Unknown Fiber 0.52gm [...] CPT Code Status Date Vaccine Lot # [id number] Given 04/30/2021 Influenza Virus Vaccine, Quadrivalent, Slit Virus, Im Use [id number] 35585 Given 06/29/2019 Influenza Virus Vaccine, Quadrivalent, Split, Preservative Free [id number] 31117 Given 06/09/2018 Influenza Vaccin e Quadrivalent Preser/Antibiotic Free Im Use [id number] 18403 Given 05/26/2017 Influenza Vaccin e Quadrivalent Preser/Antibiotic Free Im Use [id number] 81039 Given 06/22/2016 Influenza Virus Vaccine, Quadrivalent, Split, Preservative Free [id number] 42922 Given 07/28/2015 Pneumococcal Con jugate Vaccine 13 Valent For Intramuscular Use Vital Signs Date Vital Result Comment 07/07/2021 9:55am BP Systolic 126 mmHg BP Diastolic 76 mmHg Height 62.5 inches 5'2.50" Weight 233.25 lb BMI (Body Mass Index) 42.0 kg/m2 Heart Rate 54 /min Respiratory Rate 18 /min Body Temperature 96.7 F O2 % BldC Oximetry 98 % [place] Body Weight 110 lb 05/15/2021 4:10pm Height 62.5 inches 5'2.50" Heart Rate 48 /min Respiratory Rate 20 /min Body Temperature 98.4 F O2 % BldC Oximetry 97 % [place] Body Weight 110 lb Results Test Acquired Date Facility Test Result H/L Range Note Order 07/07/2021 In House Orders EKG see report FT4&TSH Panel 04/24/2021 [facility] Outpatient Testi ng (Registration) [address] [place] [phone] Thyroid Stimulating Hormone 0.229 uIU/ML Low 0. 358-3.740 Free T4 1.27 ng/dL Normal 0.76-1.46 Laboratory test finding 04/24/2021 [facility] Outpatient T esting (Registration) [address] [place] [address] [phone] Thyroglobulin Antibody 16.3 U/ML Normal <60.0 Thyroid Peroxidase Antibody 37.4 U/ML Normal <60.0 Total 25(Oh) Vitamin D 39.3 NG/ML Normal 30.0-100.0 Vitamin B12 & Folate 04/24/2021 [facility] Outpatient Test ing (Registration) [address] [place] [address] [phone] Vitamin B12 Level 380 pg/mL Normal 1 Folate 10.5 NG/ML Normal 2 CBC With Differential 04/24/2021 [facility] Outpatient Zaira ting (Registration) [address] [place] [address] [phone] White Blood Count 7.0 10 Normal 4.0-10.0 [...] 36.0-66.0 Lymph % 22.8 % Low 24.0-44.0 Gonzales % 13.1 % High 2.0-8.0 Eos % 3.9 % High 0.0-3.0 Baso % 0.7 % Normal 0.0-1.0 Immature Granulocyte % 0.4 % Normal 0-3.0 Nucleated Red Blood Cell % 0.0 % Normal 0-0 Neutrophils # 4.1 10 Normal 1.5-8.5 Lymph # 1.6 10 Normal 1.5-5.0 Gonzales # 0.9 10 High 0.0-0.8 Eos # 0.3 10 Normal 0.0-0.5 Baso # 0.1 10 Normal 0.0-0.2 Basic Metabolic Profile 04/24/2021 [facility] Outpatient T esting (Registration) [address] [place] [address] [phone] Glucose, Fasting 81 mg/dL Normal 70-100 Blood [...] mg/dL Normal 8.8-10.2 Basic Metabolic Profile 04/24/2021 [facility] Outpatient T esting (Registration) [address] [place] [address] [phone] Glucose, Fasting 82 mg/dL Normal 70-100 Blood [...] mg/dL Normal 8.8-10.2 Comprehensive Metabolic Profil 01/06/[address] [id number] [phone] Glucose, Fasting 79 mg/dL Normal 70-100 Blood [...] Ratio 1.1 Low 1.2-2.2 Lipid Panel 01/06/2021 [facility] nter [address] [place] [address] [phone] Triglycerides Level 110 mg/dL Normal <150 Cholesterol Level 171 mg/dL Normal <200 HDL Cholesterol 63 mg/dL Normal >40 LDL Cholesterol 86 mg/dL Normal <100 Non-HDL-C 108 mg/dL Normal Cholesterol Risk Ratio 2.714 Normal <5 FT4&TSH Panel 01/06/2021 [facility] nter [address] [place], [place] [id number] [phone] Thyroid Stimulating Hormone 0.136 uIU/ML Low 0. 358-3.740 Free T4 1.48 ng/dL High 0.76-1.46 CBC With Differential 01/06/2021 [facility] [address] [place], [place] [phone] White Blood Count 6.3 10 Normal 4.0-10.0 [...] 36.0-66.0 Lymph % 31.2 % Normal 24.0-44.0 Gonzales % 13.9 % High 2.0-8.0 Eos % 4.6 % High 0.0-3.0 Baso % 0.8 % Normal 0.0-1.0 Immature Granulocyte % 0.3 % Normal 0-3.0 Nucleated Red Blood Cell % 0.0 % Normal 0-0 Neutrophils # 3.1 10 Normal 1.5-8.5 Lymph # 2.0 10 Normal 1.5-5.0 Gonzales # 0.9 10 High 0.0-0.8 Eos # [...] Little GFR Left ESRD GFR <15 on PROPERTY ECONOMIST 4 Units are mL/min/1.73 m2 Chronic Kidney Disease Staging per NKF: Stage I & II GFR >=60 Normal to Mildly Decreased Stage III GFR 30-59 Moderately Decreased Stage IV GFR 15-29 Severely Decreased Stage V GFR <15 Very Little GFR Left ESRD GFR <15 on PROPERTY ECONOMIST 5 Units are mL/min/1.73 m2 Chronic Kidney Disease Staging per NKF: Stage I & II GFR >=60 Normal to Mildly Decreased Stage III GFR 30-59 Moderately Decreased Stage IV GFR 15-29 Severely Decreased Stage V GFR <15 Very Little GFR Left ESRD GFR <15 on PROPERTY ECONOMIST Procedures Date Code Description Status 07/07/2021 84308 Office/Outpatient Established Lo w MDM 20-29 Min Completed 07/07/2021 60257 Electrocardiogram Complete Compl eted 05/15/2021 70946 Office/Outpatient Established Lo w MDM 20-29 Min Completed 04/30/2021 15848 Office/Outpatient Established Mo d MDM 30-39 Min Completed 04/30/2021 10298 Wearable ECG Monitor/Report W/Vi sual Superimposition Scanning Completed 04/21/2021 92489 Office/Outpatient Established Mi nimal Problem(S) Completed 04/17/2021 13974 Office/Outpatient Established Mo d MDM 30-39 Min Completed 03/31/2021 34148 Office/Outpatient Established Lo w MDM 20-29 Min Completed 01/14/2021 79543 Office/Outpatient Established Mo d MDM 30-39 Min Completed 07/30/2016 93963442 Mammogram Completed Medical Devices Description No Information Available Encounters Type Date Location Provider Dx Diagnosis Office Visit 07/07/2021 9:40a Family Medicine [facility] Alex Yost D.O. I49.5 Sick sinus syndrome Office Visit 05/15/2021 4:00p Family Medicine [facility] Sherrell Yost D.O. J01.00 Acute maxillary sinusitis, u nspecified N39.3 Stress incontinence (female) (male) Office Visit 04/30/2021 9:30a Family Medicine [facility] Alex Yost D.O. R00.1 Bradycardia, unspecified I11.9 Hypertensive heart disease w [facility] heart failure E03.9 Hypothyroidism, unspecified G47.33 Obstructive sleep apnea (walker lt) (pediatric) Z23 Encounter for immunization Office Visit 04/21/2021 11:30a [facility] Natalie roblero I11.9 Hypertensive heart disease without heart failure R00.1 Bradycardia, unspecified Office Visit 04/17/2021 10:20a [facility] Francoise Puentes.OBrandt E03.9 Hypothyroidism, unspecified I11.9 Hypertensive heart disease w [facility] heart failure F41.1 Generalized anxiety disorder 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, lumbar region K21.9 Gastro-esophageal reflux dis ease without esophagitis G35 Multiple sclerosis R73.01 Impaired fasting glucose Z98.84 Bariatric surgery status Z91.09 Oth allergy status, oth than to drugs and biolg substances Z91.048 Other nonmedicinal substance allergy status Z79.899 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 control 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 representative (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) dr yovany therapy Z88.4 Allergy status to anesthetic agent R00.1 Bradycardia, unspecified Office Visit 03/31/2021 4:00p [facility] CHARY Jose K11.21 Acute sialoadenitis Office Visit 01/14/2021 10:40a [facility] CHARY Marrero E03.9 Hypothyroidism, unspecified I11.9 Hypertensive heart disease w [facility] heart failure F41.1 Generalized anxiety disorder 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, lumbar region K21.9 Gastro-esophageal reflux dis ease without esophagitis G35 Multiple sclerosis R73.01 Impaired fasting glucose Z98.84 Bariatric surgery status Assessments Date Code Description Provider 07/07/2021 I49.5 Sick sinus syndrome Francoise De Jesus.OrBandt 05/15/2021 J01.00 Acute maxillary sinusitis, unspe cified Francoise Puentes.OBrandt 05/15/2021 N39.3 Stress incontinence (female) (pj escobar) Francoise Puentes.OBrandt 04/30/2021 R00.1 Bradycardia, unspecified Francoise Ellis.OBrandt 04/30/2021 I11.9 Hypertensive heart disease witho md heart failure Sherrell Myers, D.O. 04/30/2021 E03.9 Hypothyroidism, unspecified Sherrell Yost, D.O. 04/30/2021 G47.33 Obstructive sleep apnea (adult) (pediatric) Sherrell Myers, D.O. 04/30/2021 Z23 Encounter for immunization Sherrell Yost, D.O. 04/21/2021 I11.9 Hypertensive heart disease witho md heart failure Nurse 04/21/2021 R00.1 Bradycardia, unspecified Nurse 04/17/2021 E03.9 Hypothyroidism, unspecified Sherrell Yost, D.O. 04/17/2021 I11.9 Hypertensive heart disease witho md heart failure Sherrell Myers, D.O. 04/17/2021 F41.1 [...] status Sherrell Myers, D.O. 04/17/2021 Z79.899 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 control service representative (current) drug t herapy Sherrell Yost, D.O. [...] 11:20 am - Sherrell Yost D.O. at [facility] Functional Status Description No Information Available Mental Status Description No Information Available Referrals Refer to Reason for Referral Status Appt Date [facility] This is a 75 year old female with hypertensive heart disease, obesity and bradycardia during sleep. Please do nocturnal oximetry to screen for sleep apnea. Without CPAP. Sent [address] [place], [place] [id number] [phone] Lowell Eddy M.D. This is a 75 year old mutual patient who is describing symptomatic bradycardia concerning for sick sinus syndrome. I did a 24 hour holter monitor and she did not have any symptomatic events. She does have a diagnosis of sleep apnea nad wears her CPAP 90% of the time, she reports. Please evaluate and treat. Sent 07/25/2021 [facility] [address] [facility] [address] [place], [place].. [id number] [phone] [facility] This is a 75 year old female with hypertensive heart disease, obesity and bradycardia during sleep. Please do nocturnal oximetry to screen for sleep apnea. Without CPAP. Closed [address] [place] [address] [phone] [facility] 75 year old female with physician president brandie low back pain and MS, in need of therapy for pain management and strengthening. Please eval and treat. Closed 01/27/[address] [place] [address] [phone]
--- OUTSIDE RECORDS SUMMARY | 2021-07-10 10:39 | CCD | Continuity of Care Document ---
Author Author Jesenia YOST D.O. Organization Unknown Address [address] [place] [address] Phone [phone] Care Team Providers Care Air Hole Driller Name Role Phone Lowell Eddy M.D. AUTM [phone] [facility]M [phone] [facility] AUTM [phone] Problems Active Problems Provider Date Essential hypertension [...] Unknown End: Unknown Quit Smoking Status Reviewed: 04/17/21 Quit ETOH Use Drinks 2 Alcoholic Beverages Per Day Tobacco Use Start: Unknown End: Patient is a former smoker Recreational Drug Use Denies Drug Use Exercise Type/Frequency Exercises regularly PT 3 x week Sun Exposure Uses sunscreen Seat Belt/Car Seat Always uses seat belt Allergies, Adverse Reactions, Alerts Active Allergies Criticality Reaction | Severity Comments Date Nickel Unable to assess criticality 04/10/2015 Adhesives Unable to assess criticality 04/10/2015 Marcaine Unable to assess criticality 04/10/2015 Medications Active Medications SIG Qnty Indications Ordering Provide r Date Amoxicillin/Clavulanate Potassium 875-125mg Tablets 1 by mouth twice a day x 10 days 20tabs J01.00 Octavio PuentesOBrandt 05/15/2021 Oxybutynin Chloride ER 10mg Tablets ER 24HR 1 by mouth every day 90tabs Octavio PuentesOBrandt 05/15/2021 Vitamin B-12 Natural 500mcg Tablets 1 by mouth every day 90tabs Octavio PuentesOBrandt 04/30/2021 Levothyroxine Sodium 112mcg Tablet s take 2 tablets by mouth every morning 180tabs E03.9 Octavio GallowayOBrandt 11/12/2020 Tizanidine HCL 2mg Tablets take 2 tablets twice daily 360tabs Octavio PuentesOBrandt 07/[address] Take One Capsule By Mouth Twice A Day 60caps Sherrell reza, DBrandtOBrandt 04/12/2020 Walker Auto Glides/5 Adjustment Holes/- 08/30" -08/30" Misc rolling walker with seat dispense:1, duration:99 dx: m51.86 M51.86 Octavio PuentesOBrandt 02/26/2020 Vitamin D (Ergocalciferol) 1.25mg (61560 Ut) Capsules 1 capsule by mouth weekly 12caps Octavio GamingO. 10/03/2019 ALL Cpap Supplies and accessories dx: sleep ap ricardo prognosis: fair duration: 99 dispense: 1 1units G47.33 Octavio PuentesOBrandt 11/16 Alprazolam 0.5mg Tablets Dispers one tablet by mouth daily as needed [id number] 30tabs Sherrell Thakur D.O. 01/07/2017 Cpap Machine Repair/replace Cpap machine with humidifier and supplies Pressure: 10 duration: 99 Prognosis: good 1units G47.33 Octavio MeadeOBrandt 07/13/[address] Part 1 by mouth every evening 90caps F33.9 Octavio PuentesOBrandt 05/13 Acetaminophen 325mg Tablets take 2 tabs by mouth every 6 hours as needed for pain or fever Unknown Fusion 58-34-20-30mg Capsules 4 capsules daily Unknown Fiber 0.52gm Capsules 1 cap by mouth daily Unknown Lisinopril 5mg Tablets take 1 tablet every day 90tabs Francoise Puentes.O. Tramadol HCL 50mg Tablets take one tablet by mouth every 6 hours for pain as needed Unknow n History Medications Premarin 0.625mg/GM Cream apply 1/2 gram topically to vagina wednesday, wednesday and wednesday 90gm Octavio PuentesOBrandt 02/03/2021 - 04/17/2021 Medications Administered in Office Medication SIG Qnty Indications Ordering Provider Date Immunization Administration Single Or Co mbination Injection Francoise PuentesOBrandt 06/22/2016 Immunizations CPT Code Status Date Vaccine Lot # [id number] Given 04/30/2021 Influenza Virus Vaccine, Quadrivalent, Slit Virus, Im Use [id number] 09831 Given 06/29/2019 Influenza Virus Vaccine, Quadrivalent, Split, Preservative Free [id number] Given 06/09/2018 Influenza Vaccin e Quadrivalent Preser/Antibiotic Free Im Use [id number] 31350 Given 05/26/2017 Influenza Vaccin e Quadrivalent Preser/Antibiotic Free Im Use [id number] 55226 Given 06/22/2016 Influenza Virus Vaccine, Quadrivalent, Split, Preservative Free [id number] 91412 Given 07/28/2015 Pneumococcal Con jugate Vaccine 13 Valent For Intramuscular Use Vital Signs Date Vital Result Comment 05/15/2021 4:10pm Height 62.5 inches 5'2.50" Heart Rate 48 /min Respiratory Rate 20 /min Body Temperature 98.4 F O2 % BldC Oximetry 97 % [place] Body Weight 110 lb 04/30/2021 9:37am BP Systolic 130 mmHg BP Diastolic 82 mmHg Height 62.5 inches 5'2.50" Weight 227.00 lb BMI (Body Mass Index) 40.9 kg/m2 Heart Rate 56 /min Respiratory Rate 18 /min Body Temperature 97.8 F O2 % BldC Oximetry 98 % [place] Body Weight 110 lb Results Test Acquired Date Facility Test Result H/L Range Note FT4&TSH Panel 04/24/2021 [facility] Outpatient Testi ng (Registration) [address] [place] [address] [phone] Thyroid Stimulating Hormone 0.229 uIU/ML Low 0. 358-3.740 Free T4 1.27 ng/dL Normal 0.76-1.46 Laboratory test finding 04/24/2021 [facility] Outpatient T esting (Registration) [address] [place] [address] [phone] Thyroglobulin Antibody 16.3 U/ML Normal <60.0 Thyroid Peroxidase Antibody 37.4 U/ML Normal <60.0 Total 25(Oh) Vitamin D 39.3 NG/ML Normal 30.0-100.0 Vitamin B12 & Folate 04/24/2021 [facility] Outpatient Test ing (Registration) [address] [place] [address] [phone] Vitamin B12 Level 380 pg/mL Normal 1 Folate 10.5 NG/ML Normal 2 CBC With Differential 04/24/2021 [facility] Outpatient Zaira ting (Registration) [address] [place] [address] [phone] White Blood Count 7.0 10 Normal 4.0-10.0 [...] 36.0-66.0 Lymph % 22.8 % Low 24.0-44.0 [place] % 13.1 % High 2.0-8.0 Eos % 3.9 % High 0.0-3.0 Baso % 0.7 % Normal 0.0-1.0 Immature Granulocyte % 0.4 % Normal 0-3.0 Nucleated Red Blood Cell % 0.0 % Normal 0-0 Neutrophils # 4.1 10 Normal 1.5-8.5 Lymph # 1.6 10 Normal 1.5-5.0 Canadian # 0.9 10 High 0.0-0.8 Eos # 0.3 10 Normal 0.0-0.5 Baso # 0.1 10 Normal 0.0-0.2 Basic Metabolic Profile 04/24/2021 [facility] Outpatient T esting (Registration) [address] [place] [address] [phone] Glucose, Fasting 81 mg/dL Normal 70-100 Blood [...] mg/dL Normal 8.8-10.2 Basic Metabolic Profile 04/24/2021 [facility] Outpatient T esting (Registration) [address] [place] [address] [id number] [phone] Glucose, Fasting 82 mg/dL Normal 70-100 Blood [...] mg/dL Normal 8.8-10.2 Comprehensive Metabolic Profil 01/06/[address] [address] [phone] Glucose, Fasting 79 mg/dL Normal 70-100 Blood [...] Ratio 1.1 Low 1.2-2.2 Lipid Panel 01/06/2021 [facility] [address] [address] [phone] Triglycerides Level 110 mg/dL Normal <150 Cholesterol Level 171 mg/dL Normal <200 HDL Cholesterol 63 mg/dL Normal >40 LDL Cholesterol 86 mg/dL Normal <100 Non-HDL-C 108 mg/dL Normal Cholesterol Risk Ratio 2.714 Normal <5 FT4&TSH Panel 01/06/2021 [facility] [address] [address] [phone] Thyroid Stimulating Hormone 0.136 uIU/ML Low 0. 358-3.740 Free T4 1.48 ng/dL High 0.76-1.46 CBC With Differential 01/06/2021 [place] [id number] [phone] White Blood Count 6.3 10 Normal 4.0-10.0 [...] 36.0-66.0 Lymph % 31.2 % Normal 24.0-44.0 Canadian % 13.9 % High 2.0-8.0 Eos % 4.6 % High 0.0-3.0 Baso % 0.8 % Normal 0.0-1.0 Immature Granulocyte % 0.3 % Normal 0-3.0 Nucleated Red Blood Cell % 0.0 % Normal 0-0 Neutrophils # 3.1 10 Normal 1.5-8.5 Lymph # 2.0 10 Normal 1.5-5.0 Canadian # 0.9 10 High 0.0-0.8 Eos # [...] Little GFR Left ESRD GFR <15 on PURCHASING ASSOCIATE 4 Units are mL/min/1.73 m2 Chronic Kidney Disease Staging per NKF: Stage I & II GFR >=60 Normal to Mildly Decreased Stage III GFR 30-59 Moderately Decreased Stage IV GFR 15-29 Severely Decreased Stage V GFR <15 Very Little GFR Left ESRD GFR <15 on PURCHASING ASSOCIATE 5 Units are mL/min/1.73 m2 Chronic Kidney Disease Staging per NKF: Stage I & II GFR >=60 Normal to Mildly Decreased Stage III GFR 30-59 Moderately Decreased Stage IV GFR 15-29 Severely Decreased Stage V GFR <15 Very Little GFR Left ESRD GFR <15 on PURCHASING ASSOCIATE Procedures Date Code Description Status 05/15/2021 19742 Office/Outpatient Established Lo w MDM 20-29 Min Completed 04/30/2021 02925 Office/Outpatient Established Mo d MDM 30-39 Min Completed 04/30/2021 14499 Wearable ECG Monitor/Report W/Vi sual Superimposition Scanning Completed 04/21/2021 75457 Office/Outpatient Established Mi nimal Problem(S) Completed 04/17/2021 16813 Office/Outpatient Established Mo d MDM 30-39 Min Completed 03/31/2021 72808 Office/Outpatient Established Lo w MDM 20-29 Min Completed 01/14/2021 36186 Office/Outpatient Established Mo d MDM 30-39 Min Completed 07/30/2016 [id number] Mammogram Completed Medical Devices Description No Information Available Encounters Type Date Location Provider Dx Diagnosis Office Visit 05/15/2021 4:00p [facility] Alex Yost D.O. J01.00 Acute maxillary sinusitis, u nspecified N39.3 Stress incontinence (female) (male) Office Visit 04/30/2021 9:30a [facility] Alex Yost D.O. R00.1 Bradycardia, unspecified I11.9 Hypertensive heart disease w [facility] heart failure E03.9 Hypothyroidism, unspecified G47.33 Obstructive sleep apnea (walker lt) (pediatric) Z23 Encounter for immunization Office Visit 04/21/2021 11:30a [facility] Natalie roblero I11.9 Hypertensive heart disease without heart failure R00.1 Bradycardia, unspecified Office Visit 04/17/2021 10:20a [facility] Alex Yost D.O. E03.9 Hypothyroidism, unspecified I11.9 Hypertensive heart disease w [facility] heart failure F41.1 Generalized anxiety disorder 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, lumbar region K21.9 Gastro-esophageal reflux dis ease without esophagitis G35 Multiple sclerosis R73.01 Impaired fasting glucose Z98.84 Bariatric surgery status Z91.09 Oth allergy status, oth than to drugs and biolg substances Z91.048 Other nonmedicinal substance allergy status Z79.899 Other group home (current) dr yovany therapy Z88.4 Allergy status to anesthetic agent R00.1 Bradycardia, unspecified Office Visit 03/31/2021 4:00p [facility] CHARY Jose K11.21 Acute sialoadenitis Office Visit 01/14/2021 10:40a [facility] CHARY Marrero E03.9 Hypothyroidism, unspecified I11.9 Hypertensive heart disease w [facility] heart failure F41.1 Generalized anxiety disorder 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, lumbar region K21.9 Gastro-esophageal reflux dis ease without esophagitis G35 Multiple sclerosis R73.01 Impaired fasting glucose Z98.84 Bariatric surgery status Assessments Date Code Description Provider 05/15/2021 J01.00 Acute maxillary sinusitis, unspe cified Sherrell Yost D.O. 05/15/2021 N39.3 Stress incontinence (female) (ma le) Sherrell Yost D.O. 04/30/2021 R00.1 Bradycardia, unspecified Sherrell Cervantes D.O. 04/30/2021 I11.9 Hypertensive heart disease witho vt heart failure Sherrell Myers D.O. 04/30/2021 E03.9 Hypothyroidism, unspecified Sherrell Yost, D.O. 04/30/2021 G47.33 Obstructive sleep apnea (adult) (pediatric) Sherrell Myers D.O. 04/30/2021 Z23 Encounter for immunization Sherrell Yost, D.O. 04/21/2021 I11.9 Hypertensive heart disease witho vt heart failure Nurse 04/21/2021 R00.1 Bradycardia, unspecified Nurse 04/17/2021 E03.9 Hypothyroidism, unspecified Sherrell Yost D.O. 04/17/2021 I11.9 Hypertensive heart disease witho ut heart failure Sherrell Myers, D.O. 04/17/2021 F41.1 Generalized anxiety disorder Zoya perkins Ritika, D.O. 04/17/2021 M51.86 Other intervertebral disc disord ers, lumbar region Sherrell Yost, D.O. 04/17/2021 K21.9 Gastro-esophageal reflux disease without esophagitis Sherrell Yost, D.O. 04/17/2021 G35 Multiple sclerosis Sherrell Beth, D.O. 04/17/2021 R73.01 Impaired fasting glucose Sherrell Cervantes, D.O. 04/17/2021 Z98.84 Bariatric surgery status Sherrell Cervantes D.O. 04/17/2021 Z91.09 Other allergy status, other than to drugs and biological sub Sherrell Yost D.O. 04/17/2021 Z91.048 Other nonmedicinal substance all ergy status Sherrell Myers, D.O. 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 04/17/2021 Z88.4 Allergy status to anesthetic age nt Sherrell Yost, D.O. 04/17/2021 R00.1 Bradycardia, unspecified Sherrell Cervantes, D.O. 03/31/2021 K11.21 Acute sialoadenitis CHARY Medina 01/14/2021 E03.9 Hypothyroidism, unspecified CHARY Galan 01/14/2021 I11.9 Hypertensive heart disease witho vt heart failure CHARY Marrero 01/14/2021 F41.1 Generalized anxiety disorder CHARY Blackman 01/14/2021 M51.86 Other intervertebral disc disord ers, lumbar region CHARY Marrero 01/14/2021 K21.9 Gastro-esophageal reflux disease without esophagitis CHARY Marrero 01/14/2021 G35 Multiple sclerosis CHARY Pinedo 01/14/2021 R73.01 Impaired fasting glucose CHARY Marrero 01/14/2021 Z98.84 Bariatric surgery status CHARY Marrero Plan of Treatment Future Appointment(s):* 07/10/2021 9:20 am - Sherrell Yost D.O. at [facility] Functional Status Description No Information Available Mental Status Description No Information Available Referrals Refer to Reason for Referral Status Appt Date Lowell Eddy M.D. This is a 75 year old mutual patient who is describing symptomatic bradycardia concerning for sick sinus syndrome. I did a 24 hour holter monitor and she did not have any symptomatic events. She does have a diagnosis of sleep apnea nad wears her CPAP 90% of the time, she reports. Please evaluate and treat. Sent [facility] [address] [facility] [address] [phone] [facility] This is a 75 year old female with hypertensive heart disease, obesity and bradycardia during sleep. Please do nocturnal oximetry to screen for sleep apnea. 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 Please eval and treat. Closed 01/27/2021 [place] [facility] [address] [place] [address] [phone]
--- OUTSIDE RECORDS SUMMARY | 2021-07-10 10:39 | CCD | Continuity of Care Document ---
Author Author Jesenia YOST D.O. Organization Unknown Address [address] [place] [address] Phone [phone] Care Team Providers Care Mechanical Expert Name Role Phone Lowell Eddy M.D. AUTM [phone] [facility] AUTM [phone] [facility] AUTM [phone] Problems Active Problems Provider Date Essential hypertension [...] Yost D.O. 02/26/2020 Vitamin D (Ergocalciferol) 1.25mg (81470 Ut) Capsules 1 capsule by mouth weekly 12caps Sherrell kendrick D.O. 10/03/2019 ALL Cpap Supplies and accessories dx: sleep ap ricardo prognosis: fair duration: 99 dispense: 1 1units G47.33 Sherrell Yost D.O. 11/16 Alprazolam 0.5mg Tablets Dispers one tablet by mouth daily as needed [id number] 30tabs Octavio GrossOBrandt 01/07/2017 Cpap Machine Repair/replace Cpap machine with humidifier and supplies Pressure: 10 duration: 99 Prognosis: good 1units G47.33 Octavio MeadeOBrandt 07/13/[address] Part 1 by mouth twice a day 90caps F33.9 Octavio PuentesO. 05/13 Acetaminophen 325mg Tablets take 2 tabs by mouth every 6 hours as needed for pain or fever Unknown Fusion 26-50-79-30mg Capsules 4 capsules daily Unknown Fiber 0.52gm Capsules 1 cap by mouth daily Unknown Lisinopril 5mg Tablets take 1 tablet every day 90tabs Octavio PuentesOBrandt Tramadol HCL 50mg Tablets take one tablet by mouth every 6 hours for pain as needed Unknow n History Medications Fluconazole 150mg Tablets 1 tablet then repeat in 3 days if symptoms not improved 2tabs Octvaio GrossOBrandt 05/21/2021 - 07/07/2021 Amoxicillin/Clavulanate Potassium 875-125mg [...] CPT Code Status Date Vaccine Lot # [id number] Given 04/30/2021 Influenza Virus Vaccine, Quadrivalent, Slit Virus, Im Use [id number] Given 06/29/2019 Influenza Virus Vaccine, Quadrivalent, Split, Preservative Free [id number] Given 06/09/2018 Influenza Vaccin e Quadrivalent Preser/Antibiotic Free Im Use [id number] Given 05/26/2017 Influenza Vaccin e Quadrivalent Preser/Antibiotic Free Im Use [id number] 81581 Given 06/22/2016 Influenza Virus Vaccine, Quadrivalent, Split, Preservative Free [id number] Given 07/28/2015 Pneumococcal Con jugate Vaccine 13 Valent For Intramuscular Use Vital Signs Date Vital Result Comment 07/07/2021 9:55am BP Systolic 126 mmHg BP Diastolic 76 mmHg Height 62.5 inches 5'2.50" Weight 233.25 lb BMI (Body Mass Index) 42.0 kg/m2 Heart Rate 54 /min Respiratory Rate 18 /min Body Temperature 96.7 F O2 % BldC Oximetry 98 % [place] Body Weight 110 lb 05/15/2021 4:10pm Height 62.5 inches 5'2.50" Heart Rate 48 /min Respiratory Rate 20 /min Body Temperature 98.4 F O2 % BldC Oximetry 97 % [place] Body Weight 110 lb Results Test Acquired Date Facility Test Result H/L Range Note Order 07/07/2021 In House Orders EKG see report FT4&TSH Panel 04/24/2021 [facility] Outpatient Testi ng (Registration) [address] [place] [address] [phone] Thyroid Stimulating Hormone 0.229 uIU/ML Low 0. 358-3.740 Free T4 1.27 ng/dL Normal 0.76-1.46 Laboratory test finding 04/24/2021 [facility] Outpatient T esting (Registration) [address] [place] [address] [phone] Thyroglobulin Antibody 16.3 U/ML Normal <60.0 Thyroid Peroxidase Antibody 37.4 U/ML Normal <60.0 Total 25(Oh) Vitamin D 39.3 NG/ML Normal 30.0-100.0 Vitamin B12 & Folate 04/24/2021 [facility] Outpatient Test ing (Registration) [address] [place] [address] [phone] Vitamin B12 Level 380 pg/mL Normal 1 Folate 10.5 NG/ML Normal 2 CBC With Differential 04/24/2021 [facility] Outpatient Zaira ting (Registration) [address] [place] [address] [id number] [phone] White Blood Count 7.0 10 Normal 4.0-10.0 [...] 36.0-66.0 Lymph % 22.8 % Low 24.0-44.0 [place] % 13.1 % High 2.0-8.0 Eos % 3.9 % High 0.0-3.0 Baso % 0.7 % Normal 0.0-1.0 Immature Granulocyte % 0.4 % Normal 0-3.0 Nucleated Red Blood Cell % 0.0 % Normal 0-0 Neutrophils # 4.1 10 Normal 1.5-8.5 Lymph # 1.6 10 Normal 1.5-5.0 [place] # 0.9 10 High 0.0-0.8 Eos # 0.3 10 Normal 0.0-0.5 Baso # 0.1 10 Normal 0.0-0.2 Basic Metabolic Profile 04/24/2021 [facility] Outpatient T esting (Registration) [address] [place] [address] [phone] Glucose, Fasting 81 mg/dL Normal 70-100 Blood [...] Normal 8.8-10.2 Basic Metabolic Profile 04/24/2021 [facility] Outpatient T esting (Registration) [address] [place] [address] [phone] Glucose, Fasting 82 mg/dL Normal 70-100 Blood [...] mg/dL Normal 8.8-10.2 Comprehensive Metabolic Profil 01/06/[address] [id number] [phone] Glucose, Fasting 79 mg/dL Normal 70-100 Blood [...] Ratio 1.1 Low 1.2-2.2 Lipid Panel 01/06/2021 [facility] nter [address] [place] [address] [phone] Triglycerides Level 110 mg/dL Normal <150 Cholesterol Level 171 mg/dL Normal <200 HDL Cholesterol 63 mg/dL Normal >40 LDL Cholesterol 86 mg/dL Normal <100 Non-HDL-C 108 mg/dL Normal Cholesterol Risk Ratio 2.714 Normal <5 FT4&TSH Panel 01/06/2021 [facility] nter [address] [place], [place] [id number] [phone] Thyroid Stimulating Hormone 0.136 uIU/ML Low 0. 358-3.740 Free T4 1.48 ng/dL High 0.76-1.46 CBC With Differential 01/06/2021 [facility] [address] [place], [place] 7372369 [phone] White Blood Count 6.3 10 Normal 4.0-10.0 [...] 36.0-66.0 Lymph % 31.2 % Normal 24.0-44.0 [place] % 13.9 % High 2.0-8.0 Eos % 4.6 % High 0.0-3.0 Baso % 0.8 % Normal 0.0-1.0 Immature Granulocyte % 0.3 % Normal 0-3.0 Nucleated Red Blood Cell % 0.0 % Normal 0-0 Neutrophils # 3.1 10 Normal 1.5-8.5 Lymph # 2.0 10 Normal 1.5-5.0 [place] # 0.9 10 High 0.0-0.8 Eos # [...] Little GFR Left ESRD GFR <15 on UNIVERSITY ADMINISTRATOR 4 Units are mL/min/1.73 m2 Chronic Kidney Disease Staging per NKF: Stage I & II GFR >=60 Normal to Mildly Decreased Stage III GFR 30-59 Moderately Decreased Stage IV GFR 15-29 Severely Decreased Stage V GFR <15 Very Little GFR Left ESRD GFR <15 on UNIVERSITY ADMINISTRATOR 5 Units are mL/min/1.73 m2 Chronic Kidney Disease Staging per NKF: Stage I & II GFR >=60 Normal to Mildly Decreased Stage III GFR 30-59 Moderately Decreased Stage IV GFR 15-29 Severely Decreased Stage V GFR <15 Very Little GFR Left ESRD GFR <15 on UNIVERSITY ADMINISTRATOR Procedures Date Code Description Status 07/07/2021 53050 Office/Outpatient Established Lo w MDM 20-29 Min Completed 07/07/2021 81166 Electrocardiogram Complete Compl eted 05/15/2021 19442 Office/Outpatient Established Lo w MDM 20-29 Min Completed 04/30/2021 40371 Office/Outpatient Established Mo d MDM 30-39 Min Completed 04/30/2021 89174 Wearable ECG Monitor/Report W/Vi sual Superimposition Scanning Completed 04/21/2021 97106 Office/Outpatient Established Mi nimal Problem(S) Completed 04/17/2021 51077 Office/Outpatient Established Mo d MDM 30-39 Min Completed 03/31/2021 23570 Office/Outpatient Established Lo w MDM 20-29 Min Completed 01/14/2021 14959 Office/Outpatient Established Mo d MDM 30-39 Min Completed 07/30/2016 [id number] Mammogram Completed Medical Devices Description No Information Available Encounters Type Date Location Provider Dx Diagnosis Office Visit 07/07/2021 9:40a Family Medicine [facility] Alex Yost D.O. I49.5 Sick sinus syndrome Office Visit 05/15/2021 4:00p Family Medicine [facility] Sherrell Yost D.O. J01.00 Acute maxillary sinusitis, u nspecified N39.3 Stress incontinence (female) (male) Office Visit 04/30/2021 9:30a Family Medicine [facility] Alex Yost D.O. R00.1 Bradycardia, unspecified I11.9 Hypertensive heart disease w [facility] heart failure E03.9 Hypothyroidism, unspecified G47.33 Obstructive sleep apnea (walker lt) (pediatric) Z23 Encounter for immunization Office Visit 04/21/2021 11:30a [facility] Natalie roblero I11.9 Hypertensive heart disease without heart failure R00.1 Bradycardia, unspecified Office Visit 04/17/2021 10:20a [facility] Francoise Puentes.OBrandt E03.9 Hypothyroidism, unspecified I11.9 Hypertensive heart disease w [facility] heart failure F41.1 Generalized anxiety disorder 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, lumbar region K21.9 Gastro-esophageal reflux dis ease without esophagitis G35 Multiple sclerosis R73.01 Impaired fasting glucose Z98.84 Bariatric surgery status Z91.09 Oth allergy status, oth than to drugs and biolg substances Z91.048 Other nonmedicinal substance allergy status Z79.899 Other intermediate frame tender (current) dr yovany therapy Z88.4 Allergy status to anesthetic agent R00.1 Bradycardia, unspecified Office Visit 03/31/2021 4:00p [facility] CHARY Jose K11.21 Acute sialoadenitis Office Visit 01/14/2021 10:40a [facility] CHARY Marrero E03.9 Hypothyroidism, unspecified I11.9 Hypertensive heart disease w [facility] heart failure F41.1 Generalized anxiety disorder 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 04/30/2021 E03.9 Hypothyroidism, unspecified Sherrell Yost, D.O. 04/30/2021 G47.33 Obstructive sleep apnea (adult) (pediatric) Sherrell Myers, D.O. 04/30/2021 Z23 Encounter for immunization Sherrell Yost, D.O. 04/21/2021 I11.9 Hypertensive heart disease witho ms heart failure Nurse 04/21/2021 R00.1 Bradycardia, unspecified Nurse 04/17/2021 E03.9 Hypothyroidism, unspecified Sherrell Yost, D.O. 04/17/2021 I11.9 Hypertensive heart disease witho ms heart failure Sherrell Myers, D.O. 04/17/2021 F41.1 [...] status Sherrell Myers, D.O. 04/17/2021 Z79.899 Other intermediate frame tender (current) drug t herapy Sherrell Yost, D.O. [...] 11:20 am - Sherrell Yost D.O. at [facility] * 07/10/2021 9:20 am - Sherrell Yost D.O. at [facility] Functional Status Description No Information Available Mental Status Description No Information Available Referrals Refer to Reason for Referral Status Appt Date [facility] This is a 75 year old female with hypertensive heart disease, obesity and bradycardia during sleep. Please do nocturnal oximetry to screen for sleep apnea. Without CPAP. Sent [address] [place], [place] [id number] [phone] Lowell Eddy M.D. This is a 75 year old mutual patient who is describing symptomatic bradycardia concerning for sick sinus syndrome. I did a 24 hour holter monitor and she did not have any symptomatic events. She does have a diagnosis of sleep apnea nad wears her CPAP 90% of the time, she reports. Please evaluate and treat. Sent 07/25/2021 [facility] [place] [address] [facility] [address] [phone] [facility] This is a 75 year old female with hypertensive heart disease, obesity and bradycardia during sleep. Please do nocturnal oximetry to screen for sleep apnea. Without CPAP. 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 Please eval and treat. Closed 01/27/[address] [place] [address] [phone]
--- OUTSIDE RECORDS SUMMARY | 2021-07-10 10:40 | CCD ---
Continuity of Care Document (CCD) Created on: 05/15/2021 Jesenia Padilla External Reference #: [id number] : 1945 Sex: Female Author Author Jesenia YOST D.O. Organization Unknown Address [address] [place] [address] Phone [phone] Care Team Providers Care Director Of Community Life Name Role Phone Lowell Eddy M.D. AUTM [phone] [facility] AUTM [facility] AUTM [phone] [facility] AUTM [phone] Problems Active Problems Provider Date Essential hypertension [...] Octavio PuentesOBrandt 02/26/2020 Vitamin D (Ergocalciferol) 1.25mg (81244 Ut) Capsules 1 capsule by mouth weekly 12caps Octavio GamingO. 10/03/2019 ALL Cpap Supplies and accessories dx: sleep ap ricardo prognosis: fair duration: 99 dispense: 1 1units G47.33 Octavio PuentesOBrandt 11/16 Alprazolam 0.5mg Tablets Dispers one tablet by mouth daily as needed [id number] 30tabs Sherrell Thakur D.O. 01/07/2017 Cpap Machine Repair/replace Cpap machine with humidifier and supplies Pressure: 10 duration: 99 Prognosis: good 1units G47.33 Octavio MeadeOBrandt 07/13/[address] Part 1 by mouth every evening 90caps F33.9 Octavio PuentesOBrandt 05/13 Acetaminophen 325mg Tablets take 2 tabs by mouth every 6 hours as needed for pain or fever Unknown Fusion 34-11-21-30mg Capsules 4 capsules daily Unknown Fiber 0.52gm [...] CPT Code Status Date Vaccine Lot # 31183 Given 04/30/2021 Influenza Virus Vaccine, Quadrivalent, Slit Virus, Im Use [id number] 86330 Given 06/29/2019 Influenza Virus Vaccine, Quadrivalent, Split, Preservative Free [id number] Given 06/09/2018 Influenza Vaccin e Quadrivalent Preser/Antibiotic Free Im Use [id number] 60540 Given 05/26/2017 Influenza Vaccin e Quadrivalent Preser/Antibiotic Free Im Use [id number] 63496 Given 06/22/2016 Influenza Virus Vaccine, Quadrivalent, Split, Preservative Free [id number] 84720 Given 07/28/2015 Pneumococcal Con jugate Vaccine 13 Valent For Intramuscular Use Vital Signs Date Vital Result Comment 05/15/2021 4:10pm Height 62.5 inches 5'2.50" Heart Rate 48 /min Respiratory Rate 20 /min Body Temperature 98.4 F O2 % BldC Oximetry 97 % [place] Body Weight 110 lb 04/30/2021 9:37am BP Systolic 130 mmHg BP Diastolic 82 mmHg Height 62.5 inches 5'2.50" Weight 227.00 lb BMI (Body Mass Index) 40.9 kg/m2 Heart Rate 56 /min Respiratory Rate 18 /min Body Temperature 97.8 F O2 % BldC Oximetry 98 % [place] Body Weight 110 lb Results Test Acquired Date Facility Test Result H/L Range Note FT4&TSH Panel 04/24/2021 [facility] Outpatient Testi ng (Registration) [address] [place] [address] [phone] Thyroid Stimulating Hormone 0.229 uIU/ML Low 0. 358-3.740 Free T4 1.27 ng/dL Normal 0.76-1.46 Laboratory test finding 04/24/2021 [facility] Outpatient T esting (Registration) [address] [place] [address] [phone] Thyroglobulin Antibody 16.3 U/ML Normal <60.0 Thyroid Peroxidase Antibody 37.4 U/ML Normal <60.0 Total 25(Oh) Vitamin D 39.3 NG/ML Normal 30.0-100.0 Vitamin B12 & Folate 04/24/2021 [facility] Outpatient Test ing (Registration) [address] [place] [phone] Vitamin B12 Level 380 pg/mL Normal 1 Folate 10.5 NG/ML Normal 2 CBC With Differential 04/24/2021 [facility] Outpatient Zaira ting (Registration) [address] [place] [address] [phone] White Blood Count 7.0 10 Normal 4.0-10.0 [...] 36.0-66.0 Lymph % 22.8 % Low 24.0-44.0 [place] % 13.1 % High 2.0-8.0 Eos % 3.9 % High 0.0-3.0 Baso % 0.7 % Normal 0.0-1.0 Immature Granulocyte % 0.4 % Normal 0-3.0 Nucleated Red Blood Cell % 0.0 % Normal 0-0 Neutrophils # 4.1 10 Normal 1.5-8.5 Lymph # 1.6 10 Normal 1.5-5.0 [place] # 0.9 10 High 0.0-0.8 Eos # 0.3 10 Normal 0.0-0.5 Baso # 0.1 10 Normal 0.0-0.2 Basic Metabolic Profile 04/24/2021 [facility] Outpatient T esting (Registration) [address] [place] [address] [phone] Glucose, Fasting 81 mg/dL Normal 70-100 Blood [...] mg/dL Normal 8.8-10.2 Basic Metabolic Profile 04/24/2021 [facility] Outpatient T esting (Registration) [address] [place] [address] [phone] Glucose, Fasting 82 mg/dL Normal 70-100 Blood [...] mg/dL Normal 8.8-10.2 Comprehensive Metabolic Profil 01/06/[address] [address] [phone] Glucose, Fasting 79 mg/dL Normal 70-100 Blood [...] Ratio 1.1 Low 1.2-2.2 Lipid Panel 01/06/2021 [facility] [address] [address] [phone] Triglycerides Level 110 mg/dL Normal <150 Cholesterol Level 171 mg/dL Normal <200 HDL Cholesterol 63 mg/dL Normal >40 LDL Cholesterol 86 mg/dL Normal <100 Non-HDL-C 108 mg/dL Normal Cholesterol Risk Ratio 2.714 Normal <5 FT4&TSH Panel 01/06/2021 [facility] [address] [address] [phone] Thyroid Stimulating Hormone 0.136 uIU/ML Low 0. 358-3.740 Free T4 1.48 ng/dL High 0.76-1.46 CBC With Differential 01/06/2021 [place] 2745101 [phone] White Blood Count 6.3 10 Normal 4.0-10.0 [...] 36.0-66.0 Lymph % 31.2 % Normal 24.0-44.0 [place] % 13.9 % High 2.0-8.0 Eos % 4.6 % High 0.0-3.0 Baso % 0.8 % Normal 0.0-1.0 Immature Granulocyte % 0.3 % Normal 0-3.0 Nucleated Red Blood Cell % 0.0 % Normal 0-0 Neutrophils # 3.1 10 Normal 1.5-8.5 Lymph # 2.0 10 Normal 1.5-5.0 [place] # 0.9 10 High 0.0-0.8 Eos # [...] Little GFR Left ESRD GFR <15 on TRACTOR DRIVER TEAMSTER 4 Units are mL/min/1.73 m2 Chronic Kidney Disease Staging per NKF: Stage I & II GFR >=60 Normal to Mildly Decreased Stage III GFR 30-59 Moderately Decreased Stage IV GFR 15-29 Severely Decreased Stage V GFR <15 Very Little GFR Left ESRD GFR <15 on TRACTOR DRIVER TEAMSTER 5 Units are mL/min/1.73 m2 Chronic Kidney Disease Staging per NKF: Stage I & II GFR >=60 Normal to Mildly Decreased Stage III GFR 30-59 Moderately Decreased Stage IV GFR 15-29 Severely Decreased Stage V GFR <15 Very Little GFR Left ESRD GFR <15 on TRACTOR DRIVER TEAMSTER Procedures Date Code Description Status 05/15/2021 81951 Office/Outpatient Established Lo w MDM 20-29 Min Completed 04/30/2021 64731 Office/Outpatient Established Mo d MDM 30-39 Min Completed 04/30/2021 45720 Wearable ECG Monitor/Report W/Vi sual Superimposition Scanning Completed 04/21/2021 71829 Office/Outpatient Established Mi nimal Problem(S) Completed 04/17/2021 40847 Office/Outpatient Established Mo d MDM 30-39 Min Completed 03/31/2021 06813 Office/Outpatient Established Lo w MDM 20-29 Min Completed 01/14/2021 58859 Office/Outpatient Established Mo d MDM 30-39 Min Completed 07/30/2016 [id number] Mammogram Completed Medical Devices Description No Information Available Encounters Type Date Location Provider Dx Diagnosis Office Visit 05/15/2021 4:00p [facility] Alex Yost D.O. J01.00 Acute maxillary sinusitis, u nspecified N39.3 Stress incontinence (female) (male) Office Visit 04/30/2021 9:30a [facility] Alex Yost D.O. R00.1 Bradycardia, unspecified I11.9 Hypertensive heart disease w [facility] heart failure E03.9 Hypothyroidism, unspecified G47.33 Obstructive sleep apnea (walker lt) (pediatric) Z23 Encounter for immunization Office Visit 04/21/2021 11:30a [facility] Natalie roblero I11.9 Hypertensive heart disease without heart failure R00.1 Bradycardia, unspecified Office Visit 04/17/2021 10:20a [facility] Alex Yost D.O. E03.9 Hypothyroidism, unspecified I11.9 Hypertensive heart disease w [facility] heart failure F41.1 Generalized anxiety disorder 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, lumbar region K21.9 Gastro-esophageal reflux dis ease without esophagitis G35 Multiple sclerosis R73.01 Impaired fasting glucose Z98.84 Bariatric surgery status Z91.09 Oth allergy status, oth than to drugs and biolg substances Z91.048 Other nonmedicinal substance allergy status Z79.899 Other alf (current) dr yovany therapy Z88.4 Allergy status to anesthetic agent R00.1 Bradycardia, unspecified Office Visit 03/31/2021 4:00p [facility] CHARY Jose K11.21 Acute sialoadenitis Office Visit 01/14/2021 10:40a [facility] CHARY Marrero E03.9 Hypothyroidism, unspecified I11.9 Hypertensive heart disease w [facility] heart failure F41.1 Generalized anxiety [...] D.O. 04/30/2021 I11.9 Hypertensive heart disease witho md heart failure Sherrell Myers D.O. 04/30/2021 E03.9 [...] status Sherrell Myers, D.O. 04/17/2021 Z79.899 Other news production assistant (current) drug t herapy Sherrell Yost, D.O. 04/17/2021 Z88.4 Allergy status to anesthetic age nt Sherrell Yost, D.O. 04/17/2021 R00.1 Bradycardia, unspecified Sherrell Cervantes, D.O. 03/31/2021 K11.21 Acute sialoadenitis CHARY Medina 01/14/2021 E03.9 Hypothyroidism, unspecified CHARY Galan 01/14/2021 I11.9 Hypertensive heart disease witho md heart failure CHARY Marrero 01/14/2021 F41.1 Generalized [...] evaluate and treat. Sent [facility] [address] [facility] [address] [phone] [facility] This is a 75 year old female with hypertensive heart disease, obesity and bradycardia during sleep. Please do nocturnal oximetry to screen for sleep apnea. 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 Please eval and treat. Closed 01/27/2021 [place] [facility] [address] [place] [address] [phone]
--- OUTSIDE RECORDS SUMMARY | 2021-07-10 10:40 | CCD | Continuity of Care Document ---
Author Author Jesenia YOST D.O. Organization Unknown Address [address] [place] [address] Phone [phone] Care Team Providers Care Freight Rate Analyst Name Role Phone Lowell Eddy M.D. AUTM [phone] [facility] AUTM [facility] AUTM [phone] Problems Active Problems Provider Date Essential hypertension [...] Onset: 09/17/2015 Somatic dysfunction of sacroiliac joint Octavio PuentesO. Onset: 09/17/2015 Somatic dysfunction of pelvic region Francoise Puentes Onset: 09/17/2015 Somatic dysfunction of thoracic region Sherrell Yost D.O. Onset: 09/17/2015 Somatic dysfunction of head region Sherrell Yost D.O . Onset: 09/17/2015 Sacrococcygeal disorders, not elsewhere classified Sherrell Bland D.O. Onset: 09/17/2015 Somatic dysfunction of lumbar region Francoise Puentes Onset: 11/01/2015 Right side sciatica Sherrell Yost D.O. Onset: 2015 Body mass index 40+ - severely obese Francoise Puentes Onset: 02/06/2016 Encounter for other preprocedural examination Sherrell Myers D.O. Onset: 07/22/2016 Screening mammography Shrerell Yost D.O. Onset: 06/25 Generalized abdominal pain Sherrell Yost D.O. Onset: 07/27/2016 History of bypass of stomach Sherrell Yost D.O. Onse t: 02/01/2017 Gastroesophageal reflux disease Sherrell Yost D.O. O nset: 04/12/2020 Generalized anxiety disorder Sherrell Yost D.O. Onse t: 01/02/2020 Social History Type Date Description Comments Sex [...] 04/10/2015 Adhesives Unable to assess criticality 04/10/2015 Marctresa Unable to assess criticality 04/10/2015 Medications Active Medications SIG Qnty Indications Ordering Provide r Date Levothyroxine Sodium 112mcg Tablet s take 2 [...] Yost D.O. 02/26/2020 Vitamin D (Ergocalciferol) 1.25mg (86366 Ut) Capsules 1 capsule by mouth weekly 12caps Sherrell kendrick D.O. 10/03/2019 [employer] Cpap Supplies and accessories dx: sleep ap ricardo prognosis: fair duration: 99 dispense: 1 1units G47.33 Octavio PuentesOBrandt 11/16 Alprazolam 0.5mg Tablets Dispers one tablet by mouth daily as needed [id number] 30tabs Sherrell Thakur D.O. 01/07/2017 Cpap Machine Repair/replace Cpap machine with humidifier and supplies Pressure: 10 duration: 99 Prognosis: good 1units G47.33 Sherrell angel D.O. 07/13/[address] Part 1 by mouth every evening 90caps F33.9 Octavio PuentesO. 05/13 Acetaminophen 325mg Tablets take 2 tabs by mouth every 6 hours as needed for pain or fever Unknown Fusion 59-93-78-30mg Capsules 4 capsules daily Unknown Fiber 0.52gm Capsules 1 cap by mouth daily Unknown Lisinopril 5mg Tablets take 1 tablet every day 90tabs Octavio PuentesO. Tramadol HCL 50mg Tablets take one tablet by mouth every 6 hours for pain as needed Unknow n History Medications Premarin 0.625mg/GM Cream apply 1/2 gram topically to vagina wednesday, wednesday and wednesday 90gm Sherrell Yost D.O. 02/03/2021 - 04/17/2021 Medications Administered in Office Medication SIG Qnty Indications Ordering Provider Date Immunization Administration Single Or Co mbination Injection Francoise Puentes 06/22/2016 Immunizations CPT Code Status Date Vaccine Lot # 57087 Given 06/29/2019 Influenza Virus Vaccine, Quadrivalent, Split, Preservative Free [id number] Given 06/09/2018 Influenza Vaccin e Quadrivalent Preser/Antibiotic Free Im Use [id number] Given 05/26/2017 Influenza Vaccin e Quadrivalent Preser/Antibiotic Free Im Use [id number] Given 06/22/2016 Influenza Virus Vaccine, Quadrivalent, Split, Preservative Free [id number] Given 07/28/2015 Pneumococcal Con jugate Vaccine 13 Valent For Intramuscular Use Vital Signs Date Vital Result Comment 04/17/2021 10:26am BP Systolic 128 mmHg BP Diastolic 72 mmHg Height 62.5 inches 5'2.50" Weight 226.12 lb BMI (Body Mass Index) 40.7 kg/m2 Heart Rate 68 /min Respiratory Rate 18 /min Body Temperature 98.7 F O2 % BldC Oximetry 97 % [place] Body Weight 110 lb 03/31/2021 4:20pm BP Systolic 136 mmHg BP Diastolic 84 mmHg Height 62.5 inches 5'2.50" Heart Rate 60 /min Respiratory Rate 20 /min Body Temperature 98.3 F O2 % BldC Oximetry 96 % [place] Body Weight 110 lb Results Test Acquired Date Facility Test Result H/L Range Note FT4&TSH Panel 04/24/2021 [facility] Outpatient Testi ng (Registration) [address] [place] [address] [phone] Thyroid Stimulating Hormone 0.229 uIU/ML Low 0. 358-3.740 Free T4 1.27 ng/dL Normal 0.76-1.46 Laboratory test finding 04/24/2021 [facility] Outpatient T esting (Registration) [address] [place] [address] [phone] Thyroglobulin Antibody 16.3 U/ML Normal <60.0 Thyroid Peroxidase Antibody 37.4 U/ML Normal <60.0 Total 25(Oh) Vitamin D 39.3 NG/ML Normal 30.0-100.0 Vitamin B12 & Folate 04/24/2021 [facility] Outpatient Test ing (Registration) [address] [place] [address] [phone] Vitamin B12 Level 380 pg/mL Normal 1 Folate 10.5 NG/ML Normal 2 CBC With Differential 04/24/2021 [facility] Outpatient Zaira ting (Registration) [address] [place] [address] [phone] White Blood Count 7.0 10 Normal 4.0-10.0 [...] 36.0-66.0 Lymph % 22.8 % Low 24.0-44.0 [place] % 13.1 % High 2.0-8.0 Eos % 3.9 % High 0.0-3.0 Baso % 0.7 % Normal 0.0-1.0 Immature Granulocyte % 0.4 % Normal 0-3.0 Nucleated Red Blood Cell % 0.0 % Normal 0-0 Neutrophils # 4.1 10 Normal 1.5-8.5 Lymph # 1.6 10 Normal 1.5-5.0 [place] # 0.9 10 High 0.0-0.8 Eos # 0.3 10 Normal 0.0-0.5 Baso # 0.1 10 Normal 0.0-0.2 Basic Metabolic Profile 04/24/2021 [facility] Outpatient T esting (Registration) [address] [place] [address] [phone] Glucose, Fasting 81 mg/dL Normal 70-100 Blood [...] [facility] Outpatient T esting (Registration) [address] [place] [address] [phone] Glucose, Fasting 82 mg/dL Normal 70-100 Blood [...] mg/dL Normal 8.8-10.2 Comprehensive Metabolic Profil 01/06/[address] [address] [phone] Glucose, Fasting 79 mg/dL Normal 70-100 Blood [...] Ratio 1.1 Low 1.2-2.2 Lipid Panel 01/06/[address] [id number] [phone] Triglycerides Level 110 mg/dL Normal <150 Cholesterol Level 171 mg/dL Normal <200 HDL Cholesterol 63 mg/dL Normal >40 LDL Cholesterol 86 mg/dL Normal <100 Non-HDL-C 108 mg/dL Normal Cholesterol Risk Ratio 2.714 Normal <5 FT4&TSH Panel 01/06/[address] [address] [phone] Thyroid Stimulating Hormone 0.136 uIU/ML Low 0. 358-3.740 Free T4 1.48 ng/dL High 0.76-1.46 CBC With Differential 01/06/[address] [address] [phone] White Blood Count 6.3 10 Normal 4.0-10.0 [...] 36.0-66.0 Lymph % 31.2 % Normal 24.0-44.0 [place] % 13.9 % High 2.0-8.0 Eos % 4.6 % High 0.0-3.0 Baso % 0.8 % Normal 0.0-1.0 Immature Granulocyte % 0.3 % Normal 0-3.0 Nucleated Red Blood Cell % 0.0 % Normal 0-0 Neutrophils # 3.1 10 Normal 1.5-8.5 Lymph # 2.0 10 Normal 1.5-5.0 [place] # 0.9 10 High 0.0-0.8 Eos # 0.3 10 Normal 0.0-0.5 Baso # 0.1 10 Normal 0.0-0.2 FT4&TSH Panel 11/11/2020 [facility] [address] [place] [address] [phone] Thyroid Stimulating Hormone 4.080 uIU/ML High 0. 358-3.740 Free T4 0.74 ng/dL Low 0.76-1.46 Comprehensive Metabolic Profil 11/11/[address] [address] [phone] Glucose, Fasting 137 mg/dL High 70-100 Blood Urea Nitrogen 15 mg/dL Normal 7-18 Creatinine For GFR 1.05 mg/dL Normal 0.55-1.30 Glomerular Filtration Rate 54.4 Normal >39 6 Sodium Level 138 mEq/L Normal 136-145 Potassium Serum 5.0 mEq/L Normal 3.5-5.1 Chloride Level 104 mEq/L Normal 98-107 Carbon Dioxide Level 30 mEq/L Normal 21-32 Anion Gap 4 mEq/L Low 8-16 Calcium Level 9.7 mg/dL Normal 8.8-10.2 Ast/Sgot 14 U/L Normal 7-37 Alt/SGPT 21 U/L Normal 12-78 Alkaline Phosphatase 141 U/L High 45-117 Bilirubin,Total 0.3 mg/dL Normal 0.2-1.0 Total Protein 7.0 GM/DL Normal 6.4-8.2 Albumin 3.8 GM/DL Normal 3.2-5.2 Albumin/Globulin Ratio 1.2 Normal 1.2-2.2 CBC With Differential 11/11/[address] [place] [address] [phone] White Blood Count 7.5 10 Normal 4.0-10.0 Red Blood Count 4.53 10 Normal 4.00-5.40 Hemoglobin 14.0 g/dL Normal 12.0-15.5 Hematocrit 44.7 % Normal 36.0-47.0 Mean Corpuscular Volume 98.7 fl High 80.0-96.0 Mean Corpuscular Hemoglobin 30.9 pg Normal 27.0-33.0 Mean Corpuscular HGB Conc 31.3 g/dL Low 32.0-36.5 Red Cell Distribution Width 13.0 % Normal 11.5-14.5 Platelet Count, Automated 260 10 Normal 150-450 Neutrophils % 48.5 % Normal 36.0-66.0 Lymph % 33.6 % Normal 24.0-44.0 [place] % 12.1 % High 2.0-8.0 Eos % 4.7 % High 0.0-3.0 Baso % 0.8 % Normal 0.0-1.0 Immature Granulocyte % 0.3 % Normal 0-3.0 Nucleated Red Blood Cell % 0.0 % Normal 0-0 Neutrophils # 3.6 10 Normal 1.5-8.5 Lymph # 2.5 10 Normal 1.5-5.0 [place] # 0.9 10 High 0.0-0.8 Eos # 0.4 10 Normal 0.0-0.5 Baso # 0.1 10 Normal 0.0-0.2 Hemoglobin A1c 11/11/2020 [facility]ter [address] [place] [address] [phone] Hemoglobin A1c 5.4 % Normal 7 Estimated Average Glucose 108 mg/dL Normal 60-110 Total Iron Binding Capacit 11/11/[address] [address] [phone] Iron (Fe) 78 g/dL Normal 50-170 Total Iron Binding Capacity 373 g/dL Normal 250-450 Percent Saturation 20.9 % Normal 13.2-45.0 Laboratory test finding 11/11/[address] [address] [phone] Ferritin 60 NG/ML Normal 8-252 Total 25(Oh) Vitamin D 40.6 NG/ML Normal 30.0-100.0 Vitamin B12 Level 479 pg/mL Normal 247-911 8 1 VITAMIN B12 NORMAL RANGE NORMAL 247 [...] Little GFR Left ESRD GFR <15 on NETWORK CONTR[employer]ORS SUPERVISOR 4 Units are mL/min/1.73 m2 Chronic Kidney Disease Staging per NKF: Stage I & II GFR >=60 Normal to Mildly Decreased Stage III GFR 30-59 Moderately Decreased Stage IV GFR 15-29 Severely Decreased Stage V GFR <15 Very Little GFR Left ESRD GFR <15 on [employer]WORK [employer] SUPERVISOR 5 Units are mL/min/1.73 m2 Chronic Kidney Disease Staging per NKF: Stage I & II GFR >=60 Normal to Mildly Decreased Stage III GFR 30-59 Moderately Decreased Stage IV GFR 15-29 Severely Decreased Stage V GFR <15 Very Little GFR Left ESRD GFR <15 on [employer]WORK [employer] SUPERVISOR 6 Units are mL/min/1.73 m2 Chronic Kidney Disease Staging per NKF: Stage I & II GFR >=60 Normal to Mildly Decreased Stage III GFR 30-59 Moderately Decreased Stage IV GFR 15-29 Severely Decreased Stage V GFR <15 Very Little GFR Left ESRD GFR <15 on [employer] SUPERVISOR 7 REFERENCE RANGES: <=5.6% NORMAL 5.7-6.4% SUGGESTS IMPAIRED GLUCOSE META BOLISM/PREDIABETIC >= 6.5% ABNORMAL 8 VITAMIN B12 NORMAL RANGE NORMAL 247 - 911 PG/ML INDETERMINATE 211 - 246 PG/ML DEFICIENT LESS THAN 211 PG/ML Procedures Date Code Description Status 04/21/2021 69081 Office/Outpatient Established Mi nimal Problem(S) Completed 04/17/2021 84088 Office/Outpatient Established Mo d MDM 30-39 Min Completed 03/31/2021 86001 Office/Outpatient Established Lo w MDM 20-29 Min Completed 01/14/2021 47211 Office/Outpatient Established Mo d MDM 30-39 Min Completed 07/30/2016 [id number] Mammogram Completed Medical Devices Description No Information Available Encounters Type Date Location Provider Dx Diagnosis Office Visit 04/21/2021 11:30a [facility] Natalie brandijaquelin I11.9 Hypertensive heart disease without heart failure R00.1 Bradycardia, unspecified Office Visit 04/17/2021 10:20a [facility] Sherrell Yost D.OBrandt E03.9 Hypothyroidism, unspecified I11.9 Hypertensive heart disease w [facility] heart failure F41.1 Generalized anxiety disorder 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, lumbar region K21.9 Gastro-esophageal reflux dis ease without esophagitis G35 Multiple sclerosis R73.01 Impaired fasting glucose Z98.84 Bariatric surgery status Z91.09 Oth allergy status, oth than to drugs and biolg substances Z91.048 Other nonmedicinal substance allergy status Z79.899 Other rat exterminator (current) dr yovany therapy Z88.4 Allergy status to anesthetic agent R00.1 Bradycardia, unspecified Office Visit 03/31/2021 4:00p [facility] CHARY Yanecy K11.21 Acute sialoadenitis Office Visit 01/14/2021 10:40a [facility] CHARY Marrero E03.9 Hypothyroidism, unspecified I11.9 Hypertensive heart disease w [facility] heart failure F41.1 Generalized anxiety disorder 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, lumbar region K21.9 Gastro-esophageal reflux dis ease without esophagitis G35 Multiple sclerosis R73.01 Impaired fasting glucose Z98.84 Bariatric surgery status Assessments Date Code Description Provider 04/21/2021 I11.9 Hypertensive heart disease witho ma heart failure Nurse 04/21/2021 R00.1 Bradycardia, unspecified Nurse 04/17/2021 E03.9 Hypothyroidism, unspecified Francoise Puentes.OBrandt 04/17/2021 I11.9 Hypertensive heart disease witho ma heart failure Francoise Newberry.OBrandt 04/17/2021 F41.1 Generalized anxiety disorder Francoise Rios.OBrandt 04/17/2021 M51.86 Other intervertebral disc disord ers, lumbar region Sherrell Yost, D.O. 04/17/2021 K21.9 Gastro-esophageal reflux disease without esophagitis Sherrell Yost, D.O. 04/17/2021 G35 Multiple sclerosis Sherrell Beth, D.O. 04/17/2021 R73.01 Impaired fasting glucose Sherrell Cervantes D.O. 04/17/2021 Z98.84 Bariatric surgery status Sherrell Cervantes D.O. 04/17/2021 Z91.09 Other allergy status, other than to drugs and biological sub Sherrell Yost, D.O. 04/17/2021 Z91.048 Other nonmedicinal substance all ergy status Sherrell Myers D.O. 04/17/2021 Z79.899 Other rat exterminator (current) drug t herapy Sherrell Yost D.O. 04/17/2021 Z88.4 Allergy status to anesthetic [...] CHARY Marrero Plan of Treatment Future Appointment(s):* 04/30/2021 9:30 am - Sherrell Yost D.O. 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 Please eval and treat. Closed 01/27/[address] [place] [address] [phone]
--- OUTSIDE RECORDS SUMMARY | 2021-07-10 10:40 | CCD | Continuity of Care Document ---
Author Author Jesenia YOST D.O. Organization Unknown Address [address] [place] [address] Phone [phone] Care Team Providers Care Electron Microscopist Name Role Phone Lowell Eddy M.D. AUTM [phone] [facility] [phone] Problems Active Problems Provider Date Essential hypertension [...] 09/17/2015 Somatic dysfunction of pelvic region Francoise PuentesOBrandt Onset: 09/17/2015 Somatic dysfunction of thoracic region [...] SIG Qnty Indications Ordering Provide r Date Vitamin B-12 Natural 500mcg Tablets 1 by [...] Octavio PuentesOBrandt 02/26/2020 Vitamin D (Ergocalciferol) 1.25mg (08052 Ut) Capsules 1 capsule by mouth weekly 12caps Octavio GamingOBrandt 10/03/2019 [employer] Cpap Supplies and accessories dx: sleep ap ricardo prognosis: fair duration: 99 dispense: 1 1units G47.33 Octavio PuentesOBrandt 11/16 Alprazolam 0.5mg Tablets Dispers one tablet by mouth daily as needed [id number] 30tabs Sherrell Thakur D.O. 01/07/2017 Cpap Machine Repair/replace Cpap machine with humidifier and supplies Pressure: 10 duration: 99 Prognosis: good 1units G47.33 Sherrell angel D.O. 07/13/[address] Radha 1 by mouth every evening 90caps F33.9 Sherrell Yost D.O. 05/13 Acetaminophen 325mg Tablets take 2 tabs by mouth every 6 hours as needed for pain or fever Unknown Fusion 55-28-05-30mg Capsules 4 capsules daily Unknown Fiber 0.52gm Capsules 1 cap by mouth daily Unknown Lisinopril 5mg Tablets take 1 tablet every day 90tabs Sherrell Yost D.O. Tramadol HCL 50mg Tablets take one tablet [...] CPT Code Status Date Vaccine Lot # [id number] Given 04/30/2021 Influenza Virus Vaccine, Quadrivalent, Slit Virus, Im Use [id number] Given 06/29/2019 Influenza Virus Vaccine, Quadrivalent, Split, Preservative Free [id number] Given 06/09/2018 Influenza Vaccin e Quadrivalent Preser/Antibiotic Free Im Use [id number] 66728 Given 05/26/2017 Influenza Vaccin e Quadrivalent Preser/Antibiotic Free Im Use [id number] 06483 Given 06/22/2016 Influenza Virus Vaccine, Quadrivalent, Split, Preservative Free [id number] Given 07/28/2015 Pneumococcal Con jugate Vaccine 13 Valent For Intramuscular Use Vital Signs Date Vital Result Comment 04/30/2021 9:37am BP Systolic 130 mmHg BP Diastolic 82 mmHg Height 62.5 inches 5'2.50" Weight 227.00 lb BMI (Body Mass Index) 40.9 kg/m2 Heart Rate 56 /min Respiratory Rate 18 /min Body Temperature 97.8 F O2 % BldC Oximetry 98 % [place]out Body Weight 110 lb 04/17/2021 10:26am BP Systolic 128 mmHg BP Diastolic 72 mmHg Height 62.5 inches 5'2.50" Weight 226.12 lb BMI (Body Mass Index) 40.7 kg/m2 Heart Rate 68 /min Respiratory Rate 18 /min Body Temperature 98.7 F O2 % BldC Oximetry 97 % [place] Body Weight 110 lb Results Test Acquired Date Facility Test Result H/L Range Note FT4&TSH Panel 04/24/2021 [facility] Outpatient Testi ng (Registration) [address] [place] [address] [phone] Thyroid Stimulating Hormone 0.229 uIU/ML Low 0. 358-3.740 Free T4 1.27 ng/dL Normal 0.76-1.46 Laboratory test finding 04/24/2021 [facility] Outpatient T esting (Registration) [address] [place] [address] [phone] Thyroglobulin Antibody 16.3 U/ML Normal <60.0 Thyroid Peroxidase Antibody 37.4 U/ML Normal <60.0 Total 25(Oh) Vitamin D 39.3 NG/ML Normal 30.0-100.0 Vitamin B12 & Folate 04/24/2021 [facility] Outpatient Test ing (Registration) [address] [place] [address] [phone] Vitamin B12 Level 380 pg/mL Normal 1 Folate 10.5 NG/ML Normal 2 CBC With Differential 04/24/2021 [facility] Outpatient Zaira ting (Registration) [address] [place] [address] [phone] White Blood Count 7.0 10 Normal 4.0-10.0 [...] 36.0-66.0 Lymph % 22.8 % Low 24.0-44.0 Person % 13.1 % High 2.0-8.0 Eos % 3.9 % High 0.0-3.0 Baso % 0.7 % Normal 0.0-1.0 Immature Granulocyte % 0.4 % Normal 0-3.0 Nucleated Red Blood Cell % 0.0 % Normal 0-0 Neutrophils # 4.1 10 Normal 1.5-8.5 Lymph # 1.6 10 Normal 1.5-5.0 Person # 0.9 10 High 0.0-0.8 Eos # 0.3 10 Normal 0.0-0.5 Baso # 0.1 10 Normal 0.0-0.2 Basic Metabolic Profile 04/24/2021 [facility] Outpatient T esting (Registration) [address] [place] [address] [phone] Glucose, Fasting 81 mg/dL Normal 70-100 Blood [...] mg/dL Normal 8.8-10.2 Basic Metabolic Profile 04/24/2021 [facility] Outpatient T esting (Registration) [address] [place] [address] [phone] Glucose, Fasting 82 mg/dL Normal 70-100 Blood [...] mg/dL Normal 8.8-10.2 Comprehensive Metabolic Profil 01/06/[address] [address] [phone] Glucose, Fasting 79 mg/dL Normal 70-100 Blood [...] Ratio 1.1 Low 1.2-2.2 Lipid Panel 01/06/[address] [address] [phone] Triglycerides Level 110 mg/dL Normal <150 Cholesterol Level 171 mg/dL Normal <200 HDL Cholesterol 63 mg/dL Normal >40 LDL Cholesterol 86 mg/dL Normal <100 Non-HDL-C 108 mg/dL Normal Cholesterol Risk Ratio 2.714 Normal <5 FT4&TSH Panel 01/06/2021 [facility] [address] [address] [phone] Thyroid Stimulating Hormone 0.136 uIU/ML Low 0. 358-3.740 Free T4 1.48 ng/dL High 0.76-1.46 CBC With Differential 01/06/[address] [address] [phone] White Blood Count 6.3 10 Normal 4.0-10.0 [...] 36.0-66.0 Lymph % 31.2 % Normal 24.0-44.0 Person % 13.9 % High 2.0-8.0 Eos % 4.6 % High 0.0-3.0 Baso % 0.8 % Normal 0.0-1.0 Immature Granulocyte % 0.3 % Normal 0-3.0 Nucleated Red Blood Cell % 0.0 % Normal 0-0 Neutrophils # 3.1 10 Normal 1.5-8.5 Lymph # 2.0 10 Normal 1.5-5.0 Person # 0.9 10 High 0.0-0.8 Eos # 0.3 10 Normal 0.0-0.5 Baso # 0.1 10 Normal 0.0-0.2 FT4&TSH Panel 11/11/2020 [facility]ter [address] [place] [address] [phone] Thyroid Stimulating Hormone 4.080 uIU/ML High 0. 358-3.740 Free T4 0.74 ng/dL Low 0.76-1.46 Comprehensive Metabolic Profil 11/11/[address] [address] [phone] Glucose, Fasting 137 mg/dL High 70-100 Blood [...] 1.2 Normal 1.2-2.2 CBC With Differential 11/11/2020 [facility] [address] [place] [address] [phone] White Blood Count 7.5 10 Normal 4.0-10.0 [...] 36.0-66.0 Lymph % 33.6 % Normal 24.0-44.0 Person % 12.1 % High 2.0-8.0 Eos % 4.7 % High 0.0-3.0 Baso % 0.8 % Normal 0.0-1.0 Immature Granulocyte % 0.3 % Normal 0-3.0 Nucleated Red Blood Cell % 0.0 % Normal 0-0 Neutrophils # 3.6 10 Normal 1.5-8.5 Lymph # 2.5 10 Normal 1.5-5.0 Person # 0.9 10 High 0.0-0.8 Eos # 0.4 10 Normal 0.0-0.5 Baso # 0.1 10 Normal 0.0-0.2 Hemoglobin A1c 11/11/2020 [facility] [address] [place] [address] [phone] Hemoglobin A1c 5.4 % Normal 7 Estimated Average Glucose 108 mg/dL Normal 60-110 Total Iron Binding Capacit 11/11/2020 [facility] [address] [place] [address] [id number] [phone] Iron (Fe) 78 g/dL Normal 50-170 Total Iron Binding Capacity 373 g/dL Normal 250-450 Percent Saturation 20.9 % Normal 13.2-45.0 Laboratory test finding 11/11/2020 [id number] [place] [address] [phone] Ferritin 60 NG/ML Normal 8-252 Total 25(Oh) [...] Little GFR Left ESRD GFR <15 on GIFT BASKET PACKER 4 Units are mL/min/1.73 m2 Chronic Kidney Disease Staging per NKF: Stage I & II GFR >=60 Normal to Mildly Decreased Stage III GFR 30-59 Moderately Decreased Stage IV GFR 15-29 Severely Decreased Stage V GFR <15 Very Little GFR Left ESRD GFR <15 on GIFT BASKET PACKER 5 Units are mL/min/1.73 m2 Chronic Kidney Disease Staging per NKF: Stage I & II GFR >=60 Normal to Mildly Decreased Stage III GFR 30-59 Moderately Decreased Stage IV GFR 15-29 Severely Decreased Stage V GFR <15 Very Little GFR Left ESRD GFR <15 on GIFT BASKET PACKER 6 Units are mL/min/1.73 m2 Chronic Kidney Disease Staging per NKF: Stage I & II GFR >=60 Normal to Mildly Decreased Stage III GFR 30-59 Moderately Decreased Stage IV GFR 15-29 Severely Decreased Stage V GFR <15 Very Little GFR Left ESRD GFR <15 on GIFT BASKET PACKER 7 REFERENCE RANGES: <=5.6% NORMAL 5.7-6.4% SUGGESTS IMPAIRED GLUCOSE META BOLISM/PREDIABETIC >= 6.5% ABNORMAL 8 VITAMIN B12 NORMAL RANGE NORMAL 247 - 911 PG/ML INDETERMINATE 211 - 246 PG/ML DEFICIENT LESS THAN 211 PG/ML Procedures Date Code Description Status 04/30/2021 91775 Office/Outpatient Established Mo d MDM 30-39 Min Completed 04/30/2021 76411 Wearable ECG Monitor/Report W/Vi sual Superimposition Scanning Completed 04/21/2021 21908 Office/Outpatient Established Mi nimal Problem(S) Completed 04/17/2021 03831 Office/Outpatient Established Mo d MDM 30-39 Min Completed 03/31/2021 04409 Office/Outpatient Established Lo w MDM 20-29 Min Completed 01/14/2021 06906 Office/Outpatient Established Mo d MDM 30-39 Min Completed 07/30/2016 [id number] Mammogram Completed Medical Devices Description No Information Available Encounters Type Date Location Provider Dx Diagnosis Office Visit 04/30/2021 9:30a [facility] Sherrell Yost D.O. R00.1 Bradycardia, unspecified I11.9 Hypertensive heart disease w [facility] heart failure E03.9 Hypothyroidism, unspecified G47.33 Obstructive sleep apnea (walker lt) (pediatric) Z23 Encounter for immunization Office Visit 04/21/2021 11:30a [facility] N urse I11.9 Hypertensive heart disease without heart failure R00.1 Bradycardia, unspecified Office Visit 04/17/2021 10:20a [facility] Sherrell Yost D.O. 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, lumbar region K21.9 Gastro-esophageal reflux dis ease without esophagitis G35 Multiple sclerosis R73.01 Impaired fasting glucose Z98.84 Bariatric surgery status Z91.09 Oth allergy status, oth than to drugs and biolg substances Z91.048 Other nonmedicinal substance allergy status Z79.899 Other oysterman (current) dr pedroza therapy Z88.4 Allergy status to anesthetic agent R00.1 Bradycardia, unspecified Office Visit 03/31/2021 4:00p [facility] CHARY Jose K11.21 Acute sialoadenitis Office Visit 01/14/2021 10:40a [facility] CHARY Marrero E03.9 Hypothyroidism, unspecified I11.[address] [facility] heart failure F41.1 Generalized anxiety disorder 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, lumbar region K21.9 Gastro-esophageal reflux dis ease without esophagitis G35 Multiple sclerosis R73.01 Impaired fasting glucose Z98.84 Bariatric surgery status Assessments Date Code Description Provider 04/30/2021 R00.1 Bradycardia, unspecified Sherrell Cervantes, D.O. 04/30/2021 I11.9 Hypertensive heart disease witho sc heart failure Sherrell Myers, D.O. 04/30/2021 E03.9 Hypothyroidism, unspecified Sherrell Yost, D.O. 04/30/2021 G47.33 Obstructive sleep apnea (adult) (pediatric) Sherrell Myers, D.O. 04/30/2021 Z23 Encounter for immunization Sherrell Yost, D.O. 04/21/2021 I11.9 Hypertensive heart disease witho sc heart failure Nurse 04/21/2021 R00.1 Bradycardia, unspecified Nurse 04/17/2021 E03.9 Hypothyroidism, unspecified Sherrell Yost, D.O. 04/17/2021 I11.9 Hypertensive heart disease witho sc heart failure Sherrell Myers, D.O. 04/17/2021 F41.1 Generalized anxiety disorder Zoyagregorio Yost, D.O. 04/17/2021 M51.86 Other intervertebral disc [...] status Sherrell Myers D.O. 04/17/2021 Z79.899 Other oysterman (current) drug t herapy Sherrell Yost D.O. 04/17/2021 Z88.4 Allergy status to anesthetic age nt Sherrell Yost D.O. 04/17/2021 R00.1 Bradycardia, unspecified Sherrell Cervantes [...] 9:20 am - Sherrell Yost D.O. at [facility] 04/30/2021 - Sherrell Yost D.O.* R00.1 Bradycardia, unspecified* Comments:* holter did not reveal any symptoms or significant arrhythmias. I will refer to Dr. Eddy. I will also screen for sleep apnea. * Referral:* Lowell Eddy M.D., Cardiology/Phys/Osteo * I11.9 Hypertensive heart disease without heart failure* Comments:* well controlled -no changes * Referral:* Kellen, * E03.9 Hypothyroidism, unspecified* Comments:* stable * G47.33 Obstructive sleep apnea (adult) (pediatric)* Comments:* She is benefitting from CPAP * Z23 Encounter for immunization Functional Status Description No Information Available Mental [...] time, she reports. Please evaluate and treat. Created [facility] [address] [place], [facility]. [id number] [phone] [facility] This is a 75 year old female with hypertensive heart disease, obesity and bradycardia during sleep. Please do nocturnal oximetry to screen for sleep apnea. 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 Please eval and treat. Closed 01/27/2021 [facility] [address] [place] [address] [phone]
--- OUTSIDE RECORDS SUMMARY | 2021-07-10 10:40 | CCD | Continuity of Care Document ---
Author Author Jesenia KAN LA Organization Unknown Address [address] [place] [address] 6 [address] [place] [address] Phone [phone] Care Team Providers Care Patrol Sergeant Name Role Phone Lowell Eddy M.D. AUTM [phone] [facility] AUTM [phone] [facility] AUTM [phone] Problems Active Problems Provider Date Essential hypertension [...] Yost D.O. 02/26/2020 Vitamin D (Ergocalciferol) 1.25mg (13124 Ut) Capsules 1 capsule by mouth weekly 12caps Octavio GamingOBrandt 10/03/2019 ALL Cpap Supplies and accessories dx: sleep ap ricardo prognosis: fair duration: 99 dispense: 1 1units G47.33 Octavio PuentesOBrandt 11/16 Alprazolam 0.5mg Tablets Dispers one tablet by mouth daily as needed [id number] 30tabs Sherrell Thakur D.O. 01/07/2017 Cpap Machine Repair/replace Cpap machine with humidifier and supplies Pressure: 10 duration: 99 Prognosis: good 1units G47.33 Sherrell angel D.O. 07/13/[address] Part 1 by mouth every evening 90caps F33.9 Octavio PuentesO. 05/13 Acetaminophen 325mg Tablets take 2 tabs by mouth every 6 hours as needed for pain or fever Unknown Fusion 26-35-63-30mg Capsules 4 capsules daily Unknown Fiber 0.52gm [...] CPT Code Status Date Vaccine Lot # [id number] Given 06/29/2019 Influenza Virus Vaccine, Quadrivalent, Split, Preservative Free [id number] Given 06/09/2018 Influenza Vaccin e Quadrivalent Preser/Antibiotic Free Im Use [id number] Given 05/26/2017 Influenza Vaccin e Quadrivalent Preser/Antibiotic Free Im Use [id number] Given 06/22/2016 Influenza Virus Vaccine, Quadrivalent, Split, Preservative Free [id number] Given 07/28/2015 Pneumococcal Con jugate Vaccine 13 Valent For Intramuscular Use Vital Signs Date Vital Result Comment 04/17/2021 10:26am BP Systolic 128 mmHg BP Diastolic 72 mmHg Height 62.5 inches 5'2.50" Weight 226.12 lb BMI (Body Mass Index) 40.7 kg/m2 Heart Rate 68 /min Respiratory Rate 18 /min Body Temperature 98.7 F O2 % BldC Oximetry 97 % [place] Body Weight 110 lb 03/31/2021 4:20pm BP Systolic 136 mmHg BP Diastolic 84 mmHg Height 62.5 inches 5'2.50" Heart Rate 60 /min Respiratory Rate 20 /min Body Temperature 98.3 F O2 % BldC Oximetry 96 % [place] Body Weight 110 lb Results Test Acquired Date Facility Test Result H/L Range Note FT4&TSH Panel 04/24/2021 [facility] Outpatient Testi ng (Registration) [address] [place] [address] [phone] Thyroid Stimulating Hormone 0.229 uIU/ML Low 0. 358-3.740 Free T4 1.27 ng/dL Normal 0.76-1.46 Laboratory test finding 04/24/2021 [facility] Outpatient T esting (Registration) [address] [place] [address] [phone] Thyroglobulin Antibody 16.3 U/ML Normal <60.0 Thyroid Peroxidase Antibody 37.4 U/ML Normal <60.0 Total 25(Oh) Vitamin D 39.3 NG/ML Normal 30.0-100.0 Vitamin B12 & Folate 04/24/2021 [facility] Outpatient Test ing (Registration) [address] [place] [address] [phone] Vitamin B12 Level 380 pg/mL Normal 1 Folate 10.5 NG/ML Normal 2 CBC With Differential 04/24/2021 [facility] Outpatient Zaira ting (Registration) [address] [place] [address] [phone] White Blood Count 7.0 10 Normal 4.0-10.0 [...] 36.0-66.0 Lymph % 22.8 % Low 24.0-44.0 [place] % 13.1 % High 2.0-8.0 Eos % 3.9 % High 0.0-3.0 Baso % 0.7 % Normal 0.0-1.0 Immature Granulocyte % 0.4 % Normal 0-3.0 Nucleated Red Blood Cell % 0.0 % Normal 0-0 Neutrophils # 4.1 10 Normal 1.5-8.5 Lymph # 1.6 10 Normal 1.5-5.0 [place] # 0.9 10 High 0.0-0.8 Eos # 0.3 10 Normal 0.0-0.5 Baso # 0.1 10 Normal 0.0-0.2 Basic Metabolic Profile 04/24/2021 [facility] Outpatient T esting (Registration) [address] [place] [address] [phone] Glucose, Fasting 81 mg/dL Normal 70-100 Blood [...] mg/dL Normal 8.8-10.2 Basic Metabolic Profile 04/24/2021 [facility] Outpatient T esting (Registration) [address] [place] [address] [phone] Glucose, Fasting 82 mg/dL Normal 70-100 Blood [...] mg/dL Normal 8.8-10.2 Comprehensive Metabolic Profil 01/06/[address] [address] [phone] Glucose, Fasting 79 mg/dL Normal 70-100 Blood [...] Ratio 1.1 Low 1.2-2.2 Lipid Panel 01/06/[address] [address] [phone] Triglycerides Level 110 mg/dL Normal <150 Cholesterol Level 171 mg/dL Normal <200 HDL Cholesterol 63 mg/dL Normal >40 LDL Cholesterol 86 mg/dL Normal <100 Non-HDL-C 108 mg/dL Normal Cholesterol Risk Ratio 2.714 Normal <5 FT4&TSH Panel 01/06/[address] [address] [phone] Thyroid Stimulating Hormone 0.136 uIU/ML Low 0. 358-3.740 Free T4 1.48 ng/dL High 0.76-1.46 CBC With Differential 01/06/[address] [address] [phone] White Blood Count 6.3 10 Normal 4.0-10.0 [...] 36.0-66.0 Lymph % 31.2 % Normal 24.0-44.0 [place] % 13.9 % High 2.0-8.0 Eos % 4.6 % High 0.0-3.0 Baso % 0.8 % Normal 0.0-1.0 Immature Granulocyte % 0.3 % Normal 0-3.0 Nucleated Red Blood Cell % 0.0 % Normal 0-0 Neutrophils # 3.1 10 Normal 1.5-8.5 Lymph # 2.0 10 Normal 1.5-5.0 [place] # 0.9 10 High 0.0-0.8 Eos # 0.3 10 Normal 0.0-0.5 Baso # 0.1 10 Normal 0.0-0.2 FT4&TSH Panel 11/11/2020 [facility] nter [address] [place] [address] [phone] Thyroid Stimulating Hormone 4.080 uIU/ML High 0. 358-3.740 Free T4 0.74 ng/dL Low 0.76-1.46 Comprehensive Metabolic Profil 11/11/[address] [id number] [phone] Glucose, Fasting 137 mg/dL High 70-100 Blood [...] 1.2 Normal 1.2-2.2 CBC With Differential 11/11/[address] [address] [phone] White Blood Count 7.5 10 Normal 4.0-10.0 [...] 36.0-66.0 Lymph % 33.6 % Normal 24.0-44.0 [place] % 12.1 % High 2.0-8.0 Eos % 4.7 % High 0.0-3.0 Baso % 0.8 % Normal 0.0-1.0 Immature Granulocyte % 0.3 % Normal 0-3.0 Nucleated Red Blood Cell % 0.0 % Normal 0-0 Neutrophils # 3.6 10 Normal 1.5-8.5 Lymph # 2.5 10 Normal 1.5-5.0 [place] # 0.9 10 High 0.0-0.8 Eos # 0.4 10 Normal 0.0-0.5 Baso # 0.1 10 Normal 0.0-0.2 Hemoglobin A1c 11/11/2020 [facility] nter [address] [place] [address] [phone] Hemoglobin A1c 5.4 % Normal 7 Estimated Average Glucose 108 mg/dL Normal 60-110 Total Iron Binding Capacit 11/11/2020 [facility] [address] [place] [address] [phone] Iron (Fe) 78 g/dL Normal 50-170 Total Iron Binding Capacity 373 g/dL Normal 250-450 Percent Saturation 20.9 % Normal 13.2-45.0 Laboratory test finding 11/11/2020 [address] [place] [address] [phone] Ferritin 60 NG/ML Normal 8-252 Total 25(Oh) [...] Little GFR Left ESRD GFR <15 on GARAGE DOOR TECHNICIAN 4 Units are mL/min/1.73 m2 Chronic Kidney Disease Staging per NKF: Stage I & II GFR >=60 Normal to Mildly Decreased Stage III GFR 30-59 Moderately Decreased Stage IV GFR 15-29 Severely Decreased Stage V GFR <15 Very Little GFR Left ESRD GFR <15 on GARAGE DOOR TECHNICIAN 5 Units are mL/min/1.73 m2 Chronic Kidney Disease Staging per NKF: Stage I & II GFR >=60 Normal to Mildly Decreased Stage III GFR 30-59 Moderately Decreased Stage IV GFR 15-29 Severely Decreased Stage V GFR <15 Very Little GFR Left ESRD GFR <15 on GARAGE DOOR TECHNICIAN 6 Units are mL/min/1.73 m2 Chronic Kidney Disease Staging per NKF: Stage I & II GFR >=60 Normal to Mildly Decreased Stage III GFR 30-59 Moderately Decreased Stage IV GFR 15-29 Severely Decreased Stage V GFR <15 Very Little GFR Left ESRD GFR <15 on GARAGE DOOR TECHNICIAN 7 REFERENCE RANGES: <=5.6% NORMAL 5.7-6.4% SUGGESTS IMPAIRED GLUCOSE META BOLISM/PREDIABETIC >= 6.5% ABNORMAL 8 VITAMIN B12 NORMAL RANGE NORMAL 247 - 911 PG/ML INDETERMINATE 211 - 246 PG/ML DEFICIENT LESS THAN 211 PG/ML Procedures Date Code Description Status 04/21/2021 01513 Office/Outpatient Established Mi nimal Problem(S) Completed 04/17/2021 37412 Office/Outpatient Established Mo d MDM 30-39 Min Completed 03/31/2021 25321 Office/Outpatient Established Lo w MDM 20-29 Min Completed 01/14/2021 25666 Office/Outpatient Established Mo d MDM 30-39 Min Completed 07/30/2016 [id number] Mammogram Completed Medical Devices Description No Information Available Encounters Type Date Location Provider Dx Diagnosis Office Visit 04/21/2021 11:30a [facility] Natalie brandijaquelin I11.9 Hypertensive heart disease without heart failure R00.1 Bradycardia, unspecified Office Visit 04/17/2021 10:20a [facility] Sherrell Yost D.O. E03.9 Hypothyroidism, unspecified I11.9 Hypertensive heart disease w [facility] heart failure F41.1 Generalized anxiety disorder 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, lumbar region K21.9 Gastro-esophageal reflux dis ease without esophagitis G35 Multiple sclerosis R73.01 Impaired fasting glucose Z98.84 Bariatric surgery status Z91.09 Oth allergy status, oth than to drugs and biolg substances Z91.048 Other nonmedicinal substance allergy status Z79.899 Other buttermaker (current) dr ug therapy Z88.4 Allergy status to anesthetic agent R00.1 Bradycardia, unspecified Office Visit 03/31/2021 4:00p [facility] CHARY Jose K11.21 Acute sialoadenitis Office Visit 01/14/2021 10:40a [facility] CHARY Marrero E03.9 Hypothyroidism, unspecified I11.9 Hypertensive heart disease w [facility] heart failure F41.1 Generalized anxiety disorder 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, lumbar region K21.9 Gastro-esophageal reflux dis ease without esophagitis G35 Multiple sclerosis R73.01 Impaired fasting glucose Z98.84 Bariatric surgery status Assessments Date Code Description Provider 04/21/2021 I11.9 Hypertensive heart disease witho wi heart failure Nurse 04/21/2021 R00.1 Bradycardia, unspecified Nurse 04/17/2021 E03.9 Hypothyroidism, unspecified Francoise Puentes.OBrandt 04/17/2021 I11.9 Hypertensive heart disease witho wi heart failure Francoise Newberry.OBrandt 04/17/2021 F41.1 Generalized anxiety disorder Francoise Rios.OBrandt 04/17/2021 M51.86 Other intervertebral disc disord ers, lumbar region Sherrell Yost D.O. 04/17/2021 K21.9 Gastro-esophageal reflux disease without esophagitis Sherrell Yost D.O. 04/17/2021 G35 Multiple sclerosis Sherrell Beth D.O. 04/17/2021 R73.01 Impaired fasting glucose Sherrell Cervantes D.O. 04/17/2021 Z98.84 Bariatric surgery status Sherrell Cervantes D.O. 04/17/2021 Z91.09 Other allergy status, other than to drugs and biological sub Sherrell Yost D.O. 04/17/2021 Z91.048 Other nonmedicinal substance all ergy status Sherrell Myers D.O. 04/17/2021 Z79.899 Other [facility] (current) drug t herapy Sherrell Yost D.O. [...] CHARY Marrero 01/14/2021 Z98.84 Bariatric surgery status CHRAY Marrero Plan of Treatment Future Appointment(s):* 04/30/2021 9:30 am - Sherrell Yost D.O. 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 Please eval and treat. Closed 01/27/2021 [place] [address] [place] [address] [phone]
--- OUTSIDE RECORDS SUMMARY | 2021-07-10 10:40 | CCD | Continuity of Care Document ---
Author Author Nurse, Jesenia Organization Unknown Address [address] [place] [address] 6 [address] [place] [address] Phone [phone] Care Team Providers Care Battery Hand Name Role Phone Lowell Eddy M.D. AUTM [phone] [facility] AUTM [facility] AUTM [phone] Problems Active Problems Provider Date Essential hypertension [...] 04/10/2015 Adhesives Unable to assess criticality 04/10/2015 Oly Unable to assess criticality 04/10/2015 Medications Active Medications SIG Qnty Indications Ordering Provide r Date Levothyroxine Sodium 112mcg Tablet s take 2 tablets by mouth every morning 180tabs E03.9 Octavio GallowayOBrandt 11/12/2020 Tizanidine HCL 2mg Tablets take 2 tablets twice daily 360tabs Octavio PuentesOBrandt 07/[address] Take One Capsule By Mouth Twice A Day 60caps Sherrell reza DBrandtOBrandt 04/12/2020 Walker Auto Glides/5 Adjustment Holes/- 08/30" -08/30" Misc rolling walker with seat dispense:1, duration:99 dx: m51.86 M51.86 Octavio PuentesOBrandt 02/26/2020 Vitamin D (Ergocalciferol) 1.25mg (75097 Ut) Capsules 1 capsule by mouth weekly 12caps Octavio GamingOBrandt 10/03/2019 ALL Cpap Supplies and accessories dx: sleep ap ricardo prognosis: fair duration: 99 dispense: 1 1units G47.33 Octavio PuentesOBrandt 11/16 Alprazolam 0.5mg Tablets Dispers one tablet by mouth daily as needed [id number] 30tabs Octavio GrossOBrandt 01/07/2017 Cpap Machine Repair/replace Cpap machine with humidifier and supplies Pressure: 10 duration: 99 Prognosis: good 1units G47.33 Octavio MeadeOBrandt 07/13/[address] Part 1 by mouth every evening 90caps F33.9 Octavio PuentesO. 05/13 Acetaminophen 325mg Tablets take 2 tabs by mouth every 6 hours as needed for pain or fever Unknown Fusion 14-98-75-30mg Capsules 4 capsules daily Unknown Fiber 0.52gm [...] CPT Code Status Date Vaccine Lot # 54937 Given 06/29/2019 Influenza Virus Vaccine, Quadrivalent, Split, Preservative Free [id number] Given 06/09/2018 Influenza Vaccin e Quadrivalent Preser/Antibiotic Free Im Use [id number] Given 05/26/2017 Influenza Vaccin e Quadrivalent Preser/Antibiotic Free Im Use [id number] [id number] Given 06/22/2016 Influenza Virus Vaccine, Quadrivalent, Split, Preservative Free [id number] 07417 Given 07/28/2015 Pneumococcal Con jugate Vaccine 13 Valent For Intramuscular Use Vital Signs Date Vital Result Comment 04/17/2021 10:26am BP Systolic 128 mmHg BP Diastolic 72 mmHg Height 62.5 inches 5'2.50" Weight 226.12 lb BMI (Body Mass Index) 40.7 kg/m2 Heart Rate 68 /min Respiratory Rate 18 /min Body Temperature 98.7 F O2 % BldC Oximetry 97 % [place] Body Weight 110 lb 03/31/2021 4:20pm BP Systolic 136 mmHg BP Diastolic 84 mmHg Height 62.5 inches 5'2.50" Heart Rate 60 /min Respiratory Rate 20 /min Body Temperature 98.3 F O2 % BldC Oximetry 96 % [place] Body Weight 110 lb Results Test Acquired Date Facility Test Result H/L Range Note Comprehensive Metabolic Profil 01/06/[address] [address] [phone] Glucose, Fasting 79 mg/dL Normal 70-100 Blood Urea Nitrogen 13 mg/dL Normal 7-18 Creatinine For GFR 0.77 mg/dL Normal 0.55-1.30 Glomerular Filtration Rate > 60.0 Normal >39 1 Sodium Level 140 mEq/L Normal 136-145 Potassium [...] Ratio 1.1 Low 1.2-2.2 Lipid Panel 01/06/2021 [facility] [address] [address] [phone] Triglycerides Level 110 mg/dL Normal <150 Cholesterol Level 171 mg/dL Normal <200 HDL Cholesterol 63 mg/dL Normal >40 LDL Cholesterol 86 mg/dL Normal <100 Non-HDL-C 108 mg/dL Normal Cholesterol Risk Ratio 2.714 Normal <5 FT4&TSH Panel 01/06/2021 [facility] nter [address] [place] [address] [phone] Thyroid Stimulating Hormone 0.136 uIU/ML Low 0. 358-3.740 Free T4 1.48 ng/dL High 0.76-1.46 CBC With Differential 01/06/[address] [address] [phone] White Blood Count 6.3 10 Normal 4.0-10.0 [...] 36.0-66.0 Lymph % 31.2 % Normal 24.0-44.0 [place] % 13.9 % High 2.0-8.0 Eos % 4.6 % High 0.0-3.0 Baso % 0.8 % Normal 0.0-1.0 Immature Granulocyte % 0.3 % Normal 0-3.0 Nucleated Red Blood Cell % 0.0 % Normal 0-0 Neutrophils # 3.1 10 Normal 1.5-8.5 Lymph # 2.0 10 Normal 1.5-5.0 [place] # 0.9 10 High 0.0-0.8 Eos # 0.3 10 Normal 0.0-0.5 Baso # 0.1 10 Normal 0.0-0.2 FT4&TSH Panel 11/11/2020 [facility] nter [address] [place] [address] [phone] Thyroid Stimulating Hormone 4.080 uIU/ML High 0. 358-3.740 Free T4 0.74 ng/dL Low 0.76-1.46 Comprehensive Metabolic Profil 11/11/[address] [address] [phone] Glucose, Fasting 137 mg/dL High 70-100 Blood Urea Nitrogen 15 mg/dL Normal 7-18 Creatinine For GFR 1.05 mg/dL Normal 0.55-1.30 Glomerular Filtration Rate 54.4 Normal >39 2 Sodium Level 138 mEq/L Normal 136-145 Potassium [...] 1.2 Normal 1.2-2.2 CBC With Differential 11/11/2020 [address] [place] [address] [phone] White Blood Count 7.5 10 Normal 4.0-10.0 [...] 36.0-66.0 Lymph % 33.6 % Normal 24.0-44.0 [place] % 12.1 % High 2.0-8.0 Eos % 4.7 % High 0.0-3.0 Baso % 0.8 % Normal 0.0-1.0 Immature Granulocyte % 0.3 % Normal 0-3.0 Nucleated Red Blood Cell % 0.0 % Normal 0-0 Neutrophils # 3.6 10 Normal 1.5-8.5 Lymph # 2.5 10 Normal 1.5-5.0 [place] # 0.9 10 High 0.0-0.8 Eos # 0.4 10 Normal 0.0-0.5 Baso # 0.1 10 Normal 0.0-0.2 Hemoglobin A1c 11/11/2020 [facility] nter [address] [place] [address] [phone] Hemoglobin A1c 5.4 % Normal 3 Estimated Average Glucose 108 mg/dL Normal 60-110 Total Iron Binding Capacit 11/11/2020 [facility] [address] [place], [place] 2459925 [phone] Iron (Fe) 78 g/dL Normal 50-170 Total Iron Binding Capacity 373 g/dL Normal 250-450 Percent Saturation 20.9 % Normal 13.2-45.0 Laboratory test finding 11/11/2020 [facility] [address] [place] [address] [phone] Ferritin 60 NG/ML Normal 8-252 Total 25(Oh) Vitamin D 40.6 NG/ML Normal 30.0-100.0 Vitamin B12 Level 479 pg/mL Normal 247-911 4 1 Units are mL/min/1.73 m2 Chronic Kidney Disease Staging per NKF: Stage I & II GFR >=60 Normal to Mildly Decreased Stage III GFR 30-59 Moderately Decreased Stage IV GFR 15-29 Severely Decreased Stage V GFR <15 Very Little GFR Left ESRD GFR <15 on MANAGER CORPORATE RESPONSIBILITY 2 Units are mL/min/1.73 m2 Chronic Kidney Disease Staging per NKF: Stage I & II GFR >=60 Normal to Mildly Decreased Stage III GFR 30-59 Moderately Decreased Stage IV GFR 15-29 Severely Decreased Stage V GFR <15 Very Little GFR Left ESRD GFR <15 on MANAGER CORPORATE RESPONSIBILITY 3 REFERENCE RANGES: <=5.6% NORMAL 5.7-6.4% SUGGESTS IMPAIRED GLUCOSE META BOLISM/PREDIABETIC >= 6.5% ABNORMAL 4 VITAMIN B12 NORMAL RANGE NORMAL 247 - 911 PG/ML INDETERMINATE 211 - 246 PG/ML DEFICIENT LESS THAN 211 PG/ML Procedures Date Code Description Status 04/21/2021 88144 Office/Outpatient Established Mi nimal Problem(S) Completed 04/17/2021 64262 Office/Outpatient Established Mo d MDM 30-39 Min Completed 03/31/2021 99441 Office/Outpatient Established Lo w MDM 20-29 Min Completed 01/14/2021 54951 Office/Outpatient Established Mo d MDM 30-39 Min Completed 07/30/2016 [id number] Mammogram Completed Medical Devices Description No Information Available Encounters Type Date Location Provider Dx Diagnosis Office Visit 04/21/2021 11:30a [facility] Natalie roblero I11.9 Hypertensive heart disease without heart failure R00.1 Bradycardia, unspecified Office Visit 04/17/2021 10:20a [facility] Sherrell Yost D.O. 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) dr ug therapy Z88.4 Allergy status to anesthetic agent R00.1 Bradycardia, unspecified Office Visit 03/31/2021 4:00p [facility] CHARY Jose K11.21 Acute sialoadenitis Office Visit 01/14/2021 10:40a [facility] CHARY Marrero E03.9 Hypothyroidism, unspecified I11.9 Hypertensive heart disease w [facility] heart failure F41.1 Generalized anxiety disorder 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, lumbar region K21.9 Gastro-esophageal reflux dis ease without esophagitis G35 Multiple sclerosis R73.01 Impaired fasting glucose Z98.84 Bariatric surgery status Assessments Date Code Description Provider 04/21/2021 I11.9 Hypertensive heart disease witho nd heart failure Nurse 04/21/2021 R00.1 Bradycardia, unspecified Nurse 04/17/2021 E03.9 Hypothyroidism, unspecified Sherrell Yost D.O. 04/17/2021 I11.9 Hypertensive heart disease witho nd heart failure Sherrell Myers, D.O. 04/17/2021 F41.1 Generalized anxiety disorder Zoya Yost D.O. 04/17/2021 M51.86 Other intervertebral disc disord ers, lumbar region Sherrell Yost D.O. 04/17/2021 K21.9 Gastro-esophageal reflux disease without esophagitis Sherrell Yost D.O. 04/17/2021 G35 Multiple sclerosis Sherrell Beth, D.O. 04/17/2021 R73.01 Impaired fasting glucose Sherrell Cervantes D.O. 04/17/2021 Z98.84 Bariatric surgery status Sherrell Cervantes D.O. 04/17/2021 Z91.09 Other allergy status, other than to drugs and biological sub Sherrell Yost D.O. 04/17/2021 Z91.048 Other nonmedicinal substance all ergy status Sherrell Myers D.O. 04/17/2021 Z79.899 Other consulting actuary (current) drug t herapy Sherrell Yost D.O. [...] Treatment Future Appointment(s):* 04/30/2021 9:30 am - Sherrlel Yost D.O. 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 Please eval and treat. Closed 01/27/2021 [place] [address] [place] [address] [phone]
--- OUTSIDE RECORDS SUMMARY | 2021-07-10 10:40 | CCD ---
Continuity of Care Document (CCD) Created on: 04/30/2021 Jesenia Padilla External Reference #: [id number] : [id number] Sex: Female Author Author Jesenia YOST D.O. Organization Unknown Address [address] [place] [address] Phone [phone] Care Team Providers Care Retail Merchandiser Name Role Phone Lowell Eddy M.D. AUTM [phone] [facility] AUTM [phone] [facility] AUTM [phone] [facility] AUTM [phone] Problems Active Problems Provider Date Essential hypertension [...] Yost D.O. 02/26/2020 Vitamin D (Ergocalciferol) 1.25mg (98825 Ut) Capsules 1 capsule by mouth weekly 12caps Sherrell kendrick D.O. 10/03/2019 [employer] Cpap Supplies and accessories dx: sleep ap ricardo prognosis: fair duration: 99 dispense: 1 1units G47.33 Octavio PuentesOBrandt 11/16 Alprazolam 0.5mg Tablets Dispers one tablet by mouth daily as needed [id number] 30tabs Sherrell Thakur D.O. 01/07/2017 Cpap Machine Repair/replace Cpap machine with humidifier and supplies Pressure: 10 duration: 99 Prognosis: good 1units G47.33 Sherrell angel D.O. 07/13/[address] Part 1 by mouth every evening 90caps F33.9 Sherrell Yost D.O. 05/13 Acetaminophen 325mg Tablets take 2 tabs by mouth every 6 hours as needed for pain or fever Unknown Fusion [id number] Capsules 4 capsules daily Unknown Fiber 0.52gm [...] CPT Code Status Date Vaccine Lot # [id number] Given 04/30/2021 Influenza Virus Vaccine, Quadrivalent, Slit Virus, Im Use [id number] 88764 Given 06/29/2019 Influenza Virus Vaccine, Quadrivalent, Split, Preservative Free [id number] Given 06/09/2018 Influenza Vaccin e Quadrivalent Preser/Antibiotic Free Im Use [id number] 26143 Given 05/26/2017 Influenza Vaccin e Quadrivalent Preser/Antibiotic Free Im Use [id number] 60822 Given 06/22/2016 Influenza Virus Vaccine, Quadrivalent, Split, Preservative Free [id number] 60959 Given 07/28/2015 Pneumococcal Con jugate Vaccine 13 Valent For Intramuscular Use Vital Signs Date Vital Result Comment 04/30/2021 9:37am BP Systolic 130 mmHg BP Diastolic 82 mmHg Height 62.5 inches 5'2.50" Weight 227.00 lb BMI (Body Mass Index) 40.9 kg/m2 Heart Rate 56 /min Respiratory Rate 18 /min Body Temperature 97.8 F O2 % BldC Oximetry 98 % [place] Body Weight 110 lb 04/17/2021 10:26am BP Systolic 128 mmHg BP Diastolic 72 mmHg Height 62.5 inches 5'2.50" Weight 226.12 lb BMI (Body Mass Index) 40.7 kg/m2 Heart Rate 68 /min Respiratory Rate 18 /min Body Temperature 98.7 F O2 % BldC Oximetry 97 % [place] Body Weight 110 lb Results Test Acquired Date Facility Test Result H/L Range Note FT4&TSH Panel 04/24/2021 [facility] Outpatient Testi ng (Registration) [address] [place] [address] [phone] Thyroid Stimulating Hormone 0.229 uIU/ML Low 0. 358-3.740 Free T4 1.27 ng/dL Normal 0.76-1.46 Laboratory test finding 04/24/2021 [facility] Outpatient T esting (Registration) [address] [place], [place] [address] [phone] Thyroglobulin Antibody 16.3 U/ML Normal <60.0 Thyroid Peroxidase Antibody 37.4 U/ML Normal <60.0 Total 25(Oh) Vitamin D 39.3 NG/ML Normal 30.0-100.0 Vitamin B12 & Folate 04/24/2021 [facility] Outpatient Test ing (Registration) [address] [place] [address] [phone] Vitamin B12 Level 380 pg/mL Normal 1 Folate 10.5 NG/ML Normal 2 CBC With Differential 04/24/2021 [facility] Outpatient Zaira ting (Registration) [address] [place], [place] [address] [phone] White Blood Count 7.0 10 Normal 4.0-10.0 [...] 36.0-66.0 Lymph % 22.8 % Low 24.0-44.0 [place] % 13.1 % High 2.0-8.0 Eos % 3.9 % High 0.0-3.0 Baso % 0.7 % Normal 0.0-1.0 Immature Granulocyte % 0.4 % Normal 0-3.0 Nucleated Red Blood Cell % 0.0 % Normal 0-0 Neutrophils # 4.1 10 Normal 1.5-8.5 Lymph # 1.6 10 Normal 1.5-5.0 [place] # 0.9 10 High 0.0-0.8 Eos # 0.3 10 Normal 0.0-0.5 Baso # 0.1 10 Normal 0.0-0.2 Basic Metabolic Profile 04/24/2021 [facility] Outpatient T esting (Registration) [address] [place] [address] [phone] Glucose, Fasting 81 mg/dL Normal 70-100 Blood [...] mg/dL Normal 8.8-10.2 Basic Metabolic Profile 04/24/2021 [facility] Outpatient T esting (Registration) [address] [place] [address] [phone] Glucose, Fasting 82 mg/dL Normal 70-100 Blood [...] mg/dL Normal 8.8-10.2 Comprehensive Metabolic Profil 01/06/[address] [address] [phone] Glucose, Fasting 79 mg/dL Normal 70-100 Blood [...] Ratio 1.1 Low 1.2-2.2 Lipid Panel 01/06/[address] [address] [phone] Triglycerides Level 110 mg/dL Normal <150 Cholesterol Level 171 mg/dL Normal <200 HDL Cholesterol 63 mg/dL Normal >40 LDL Cholesterol 86 mg/dL Normal <100 Non-HDL-C 108 mg/dL Normal Cholesterol Risk Ratio 2.714 Normal <5 FT4&TSH Panel 01/06/2021 [facility] [address] [place] [address] [phone] Thyroid Stimulating Hormone 0.136 uIU/ML Low 0. 358-3.740 Free T4 1.48 ng/dL High 0.76-1.46 CBC With Differential 01/06/[address] [address] [phone] White Blood Count 6.3 10 Normal 4.0-10.0 [...] 36.0-66.0 Lymph % 31.2 % Normal 24.0-44.0 [place] % 13.9 % High 2.0-8.0 Eos % 4.6 % High 0.0-3.0 Baso % 0.8 % Normal 0.0-1.0 Immature Granulocyte % 0.3 % Normal 0-3.0 Nucleated Red Blood Cell % 0.0 % Normal 0-0 Neutrophils # 3.1 10 Normal 1.5-8.5 Lymph # 2.0 10 Normal 1.5-5.0 [place] # 0.9 10 High 0.0-0.8 Eos # 0.3 10 Normal 0.0-0.5 Baso # 0.1 10 Normal 0.0-0.2 FT4&TSH Panel 11/11/2020 [facility] [address] [place] [address] [phone] Thyroid Stimulating Hormone 4.080 uIU/ML High 0. 358-3.740 Free T4 0.74 ng/dL Low 0.76-1.46 Comprehensive Metabolic Profil 11/11/[address] [address] [phone] Glucose, Fasting 137 mg/dL High 70-100 Blood [...] 1.2 Normal 1.2-2.2 CBC With Differential 11/11/[address] [address] [phone] White Blood Count 7.5 10 Normal 4.0-10.0 [...] 36.0-66.0 Lymph % 33.6 % Normal 24.0-44.0 [place] % 12.1 % High 2.0-8.0 Eos % 4.7 % High 0.0-3.0 Baso % 0.8 % Normal 0.0-1.0 Immature Granulocyte % 0.3 % Normal 0-3.0 Nucleated Red Blood Cell % 0.0 % Normal 0-0 Neutrophils # 3.6 10 Normal 1.5-8.5 Lymph # 2.5 10 Normal 1.5-5.0 [place] # 0.9 10 High 0.0-0.8 Eos # 0.4 10 Normal 0.0-0.5 Baso # 0.1 10 Normal 0.0-0.2 Hemoglobin A1c 11/11/2020 [facility] [address] [place] [address] [phone] Hemoglobin A1c 5.4 % Normal 7 Estimated Average Glucose 108 mg/dL Normal 60-110 Total Iron Binding Capacit 11/11/2020 [facility] [address] [place] [address] [phone] Iron (Fe) 78 g/dL Normal 50-170 Total Iron Binding Capacity 373 g/dL Normal 250-450 Percent Saturation 20.9 % Normal 13.2-45.0 Laboratory test finding 11/11/[address] [address] [phone] Ferritin 60 NG/ML Normal 8-252 Total 25(Oh) [...] Little GFR Left ESRD GFR <15 on ZINC PLATING MACHINE OPERATOR 4 Units are mL/min/1.73 m2 Chronic Kidney Disease Staging per NKF: Stage I & II GFR >=60 Normal to Mildly Decreased Stage III GFR 30-59 Moderately Decreased Stage IV GFR 15-29 Severely Decreased Stage V GFR <15 Very Little GFR Left ESRD GFR <15 on ZINC PLATING MACHINE OPERATOR 5 Units are mL/min/1.73 m2 Chronic Kidney Disease Staging per NKF: Stage I & II GFR >=60 Normal to Mildly Decreased Stage III GFR 30-59 Moderately Decreased Stage IV GFR 15-29 Severely Decreased Stage V GFR <15 Very Little GFR Left ESRD GFR <15 on ZINC PLATING MACHINE OPERATOR 6 Units are mL/min/1.73 m2 Chronic Kidney Disease Staging per NKF: Stage I & II GFR >=60 Normal to Mildly Decreased Stage III GFR 30-59 Moderately Decreased Stage IV GFR 15-29 Severely Decreased Stage V GFR <15 Very Little GFR Left ESRD GFR <15 on ZINC PLATING MACHINE OPERATOR 7 REFERENCE RANGES: <=5.6% NORMAL 5.7-6.4% SUGGESTS IMPAIRED GLUCOSE META BOLISM/PREDIABETIC >= 6.5% ABNORMAL 8 VITAMIN B12 NORMAL RANGE NORMAL 247 - 911 PG/ML INDETERMINATE 211 - 246 PG/ML DEFICIENT LESS THAN 211 PG/ML Procedures Date Code Description Status 04/30/2021 54205 Office/Outpatient Established Mo d MDM 30-39 Min Completed 04/30/2021 76260 Wearable ECG Monitor/Report W/Vi sual Superimposition Scanning Completed 04/21/2021 96375 Office/Outpatient Established Mi nimal Problem(S) Completed 04/17/2021 67586 Office/Outpatient Established Mo d MDM 30-39 Min Completed 03/31/2021 28232 Office/Outpatient Established Lo w MDM 20-29 Min Completed 01/14/2021 38059 Office/Outpatient Established Mo d MDM 30-39 Min Completed 07/30/2016 05847055 Mammogram Completed Medical Devices Description No Information Available Encounters Type Date Location Provider Dx Diagnosis Office Visit 04/30/2021 9:30a [facility] Sherrell Yost D.O. R00.1 Bradycardia, unspecified I11.9 Hypertensive heart disease w [facility] heart failure E03.9 Hypothyroidism, unspecified G47.33 Obstructive sleep apnea (walker lt) (pediatric) Z23 Encounter for immunization Office Visit 04/21/2021 11:30a [facility] Natalie roblero I11.9 Hypertensive heart disease without heart failure R00.1 Bradycardia, unspecified Office Visit 04/17/2021 10:20a [facility] Sherrell Yost D.O. 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) dr pedroza therapy Z88.4 Allergy status to anesthetic agent R00.1 Bradycardia, unspecified Office Visit 03/31/2021 4:00p [facility] CHARY Yancey K11.21 Acute sialoadenitis Office Visit 01/14/2021 10:40a [facility] CHARY Marrero E03.9 Hypothyroidism, unspecified I11.9 Hypertensive heart disease [facility] heart failure F41.1 Generalized anxiety disorder 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, lumbar region K21.9 Gastro-esophageal reflux dis ease without esophagitis G35 Multiple sclerosis R73.01 Impaired fasting glucose Z98.84 Bariatric surgery status Assessments Date Code Description Provider 04/30/2021 R00.1 Bradycardia, unspecified Sherrell Cervantes, D.O. 04/30/2021 I11.9 Hypertensive heart disease witho oh heart failure Sherrell Myers, D.O. 04/30/2021 E03.9 Hypothyroidism, unspecified Sherrell Yost, D.O. 04/30/2021 G47.33 Obstructive sleep apnea (adult) (pediatric) Sherrell Myers, D.O. 04/30/2021 Z23 Encounter for immunization Sherrell Yost, D.O. 04/21/2021 I11.9 Hypertensive heart disease witho oh heart failure Nurse 04/21/2021 R00.1 Bradycardia, unspecified Nurse 04/17/2021 E03.9 Hypothyroidism, unspecified Sherrell Yost, D.O. 04/17/2021 I11.9 Hypertensive heart disease witho oh heart failure Sherrell Myers, D.O. 04/17/2021 F41.1 Generalized anxiety disorder Zoya gregorio Yost, D.O. 04/17/2021 M51.86 Other intervertebral disc disord ers, lumbar region Sherrell Yost, D.O. 04/17/2021 K21.9 Gastro-esophageal reflux disease without esophagitis Sherrell Yost, D.O. 04/17/2021 G35 Multiple sclerosis Sherrell Beth, D.O. 04/17/2021 R73.01 Impaired fasting glucose Sherrell Cervantes, D.O. 04/17/2021 Z98.84 Bariatric surgery status Sherrell Cervantes, D.O. 04/17/2021 Z91.09 Other allergy status, other than to drugs and biological sub Francoise Puentes.OBrandt 04/17/2021 Z91.048 Other nonmedicinal substance all ergy status Sherrell Myers D.O. 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 at [facility] Functional Status Description No Information Available [...] evaluate and treat. Sent [facility] [address] [place], [place] [address] [phone] [facility] This is a 75 year old female with hypertensive heart disease, obesity and bradycardia during sleep. Please do nocturnal oximetry to screen for sleep apnea. 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 Please eval and treat. Closed 01/27/[address] [place], [place] [address] [phone]
--- OUTSIDE RECORDS SUMMARY | 2021-07-10 10:40 | CCD ---
Author Author [facility] Organization [facility] Address Unknown Phone Unavailable Care Team Providers Care Project Intern Name Role Phone Marko Mo Unavailable PROBLEMS Type Condition ICD9-CM Code UVF85-XA Code Onset Dates Condition S tatus W/U Status Risk SNOMED Code Notes Problem Postoperative wound infection 998.59 Active confirm ed 51131308 Problem Anxiety attack 300.01 Active confirmed 28000 5004 Problem Hypothyroidism 244.9 Active confirmed 70137 008 Problem Chronic prescription opiate use Z79.891 Active confirmed 323692199 Problem Status post laminectomy V45.89 Active confirmed 40463793 Problem Sacroiliitis, not elsewhere classified M46.1 A ctive confirmed 737702893 Problem Hypertension 401.9 Active confirmed 2120009 3 Problem Lumbosacral spondylosis without myelopathy M47.817 Active confirmed 61275062 Problem Spondylosis without myelopathy or radiculopathy, lumbar region M47.816 Active confirmed 198000661 Problem Post laminectomy syndrome M96.1 Active confirmed 28813712 ALLERGIES Allergen (clinical drug ingredient) Drug/Non Drug Allergy do cumented on EMR Reaction Allergy Type Onset Date Status dexamethasone Dexamethasone(NDC Code:[address]-93) Fa cial Flushing and Swelling Drug Allergy Active nickel nickel rash/itchy Non Drug Allergy Active bupivacaine Marcaine(NDC Code:[address]-50) rash/loss of co nsciousness Drug Allergy Active adhesive tape rash Non Drug Allergy Activ e ENCOUNTERS from 1945 to 2021-04-20 Encounter Location Date Provider Diagnosis [facility] [address] Floor [phone] [place] [address] Mar, Marko Mo Myalgia, unspecified site M79.10 IMMUNIZATIONS No Information SOCIAL HISTORY Tobacco Use: Social History Observation Description Date Details (start date - stop date) Former Smoker Sex Assigned At : Social History Observation Description Sex Assigned At Unknown Education: Question Answer Notes Level of Education: College Sikhism: Question Answer Notes Sikhism 13 Quaker Alcohol Screening: Question Answer Notes Did you [...] FOR REFERRAL No Information VITAL SIGNS Weight 227 lbs Mar, Weight-kg 102.97 kg Mar, Height 5'2" in Mar, BMI 41.51 kg/m2 Mar, Heart Rate 55 /min Mar, Respiratory Rate 18 /min Mar, Temperature 97.2 degrees Fahrenheit Mar, Oximetry 98% Mar, Blood pressure systolic 148 mm Hg Mar, Blood pressure diastolic 68 mm Hg Mar, MEDICATIONS Medication SIG (Take, Route, Frequency, Duration) Notes Start Da te End Date Status traMADol HCl 50 MG 1 tablet as needed Orally q6h prn mdd4 for 30 Days Jul, Active Fusion Plus - 2 capsules Orally bid Active Omeprazole 40 MG 1 capsule 30 minutes before morning meal Orally Once a day for 30 day(s) Active DULoxetine HCl 60 MG 1 capsule Orally Once a day for 30 day(s) Active Tylenol Arthritis Pain 1-2 tablets as needed orally as directed Active Levothyroxine Sodium 175 MCG 1 tablet Orally Once a day Active Lisinopril 5 MG 1 tablet Orally Once a day for 30 day(s) Active Triamterene-HCTZ 37.5-25 MG 1 tablet in the morning Orally Once a day Active tiZANidine HCl 2 MG 1 tablet as needed Orally qid for 30 Days Active D3-50 40358 UNIT 1 cap(s) Orally weekly Active Vitamin D (Ergocalciferol) 1.25 MG (74625 UT) 1 capsule Orally weekly Not-Taking Fiber - as directed Orally Daily Active Vitamin D-3 25 MCG (1000 UT) 1 capsule Orally Once a day for 30 day(s ) Not-Taking ALPRAZolam 0.5 MG 1 tablet on the tongue and a llow to dissolve Orally Twice a day as needed Active PROCEDURES from 1945 to 2021-04-20 Procedure Date Ordered Result Body Site Completion of procedural visit when meets criteria 2021-04-08 N/A Medication: Pain Valium Tab 5mg Orally (Diazepam) 2021-04-08 N/A Med: Pain Benadryl Tab 25mg Orally Diphenhydramine 2021-04-08 N/A RESULTS No Results REASON FOR VISIT Trigger point injections left low back,left priformis [...] fusion L4-5 5 Surgical History tonsils removed Surgical History appendix removed Surgical History L-ARGENIS 2011? Surgical History R-ARGENIS 2004? Surgical History reexploration I&D for possib le infection Gram stain many white cells culture negative white count 10.8 01/31/15 Surgical History Left Knee Replacement 2016 Surgical History Gallbladder Removal 2016 Surgical History Gastric Bypass 2016 Hospitalization History related to surgery Hospitalization History infection from back surgery 01/2015 Goals Section No Information Health Concerns No Information MEDICAL EQUIPMENT No Information MENTAL STATUS No Information FUNCTIONAL STATUS No Information ASSESSMENTS Encounter Date Diagnosis Assessment Notes Treatment Notes Treatm ent Clinical Notes Mar, Myalgia, unspecified site (ICD-10 - M79.10) Press Tender [employer] 07/12/2020 said that the patient will be tested for steroids, Depo- medrol, dexamethasone. The patient is allergic to bupivacaine. PLAN OF TREATMENT Treatment Notes Assessment Notes Clinical Notes Myalgia, unspecified site Press Tender [employer] 06/24 said that the patient will be tested for steroids, Depo-medrol, dexamethasone. The patient is allergic to bupivacaine. Next Appt Details follow up with STRIPE MARKER Reason:post trigger po int injections left low back Provider Name:Marko Mo, 2021-05-23 02:45:00 PM, [address], , [place], [address], Follow Up:follow up with NPpost trigger point injections left low back Insurance Providers Payer Name Payer Address Payer Phone Insured Name Patient Relati onship to Insured Coverage Start Date Coverage End Date [facility] [employer] [facility] [address] [facility] [id number] [employer] SUE MEDICARE Part A and B [address] [facility] [phone] [employer] SUE
--- OUTSIDE RECORDS SUMMARY | 2021-07-10 10:41 | CCD | Continuity of Care Document ---
Author Author Jesenia YOST D.O. Organization Unknown Address [address] [place] [address] Phone [phone] Care Team Providers Care Ceo Ziff Davis Name Role Phone Lowell Eddy M.D. AUTM [phone] [facility] AUTM [phone] [facility]M [phone] Problems Active Problems Provider Date Essential hypertension [...] Yost D.O. 02/26/2020 Vitamin D (Ergocalciferol) 1.25mg (20231 Ut) Capsules 1 capsule by mouth weekly 12caps Sherrell kendrick D.O. 10/03/2019 [employer] Cpap Supplies and accessories dx: sleep ap ricardo prognosis: fair duration: 99 dispense: 1 1units G47.33 Octavio PuentesOBarndt 11/16 Alprazolam 0.5mg Tablets Dispers one tablet by mouth daily as needed [id number] 30tabs Sherrell Thakur D.O. 01/07/2017 Cpap Machine Repair/replace Cpap machine with humidifier and supplies Pressure: 10 duration: 99 Prognosis: good 1units G47.33 Sherrell angel D.O. 07/13/[address] Part 1 by mouth every evening 90caps F33.9 Octavio PuentesO. 05/13 Acetaminophen 325mg Tablets take 2 tabs by mouth every 6 hours as needed for pain or fever Unknown Fusion 70-55-22-30mg Capsules 4 capsules daily Unknown Fiber 0.52gm [...] CPT Code Status Date Vaccine Lot # [id number] Given 06/29/2019 Influenza Virus Vaccine, Quadrivalent, Split, Preservative Free [id number] Given 06/09/2018 Influenza Vaccin e Quadrivalent Preser/Antibiotic Free Im Use [id number] Given 05/26/2017 Influenza Vaccin e Quadrivalent Preser/Antibiotic Free Im Use [id number] 99125 Given 06/22/2016 Influenza Virus Vaccine, Quadrivalent, Split, Preservative Free [id number] Given 07/28/2015 Pneumococcal Con jugate Vaccine 13 Valent For Intramuscular Use Vital Signs Date Vital Result Comment 04/17/2021 10:26am BP Systolic 128 mmHg BP Diastolic 72 mmHg Height 62.5 inches 5'2.50" Weight 226.12 lb BMI (Body Mass Index) 40.7 kg/m2 Heart Rate 68 /min Respiratory Rate 18 /min Body Temperature 98.7 F O2 % BldC Oximetry 97 % [place] Body Weight 110 lb 03/31/2021 4:20pm BP Systolic 136 mmHg BP Diastolic 84 mmHg Height 62.5 inches 5'2.50" Heart Rate 60 /min Respiratory Rate 20 /min Body Temperature 98.3 F O2 % BldC Oximetry 96 % [place] Body Weight 110 lb Results Test Acquired Date Facility Test Result H/L Range Note Comprehensive Metabolic Profil 01/06/[address] [address] [phone] Glucose, Fasting 79 mg/dL Normal 70-100 Blood [...] Ratio 1.1 Low 1.2-2.2 Lipid Panel 01/06/2021 [facility] [address] [address] [phone] Triglycerides Level 110 mg/dL Normal <150 Cholesterol Level 171 mg/dL Normal <200 HDL Cholesterol 63 mg/dL Normal >40 LDL Cholesterol 86 mg/dL Normal <100 Non-HDL-C 108 mg/dL Normal Cholesterol Risk Ratio 2.714 Normal <5 FT4&TSH Panel 01/06/2021 [facility] [address] [place] [address] [phone] Thyroid Stimulating Hormone 0.136 uIU/ML Low 0. 358-3.740 Free T4 1.48 ng/dL High 0.76-1.46 CBC With Differential 01/06/[address] [address] [phone] White Blood Count 6.3 10 Normal 4.0-10.0 [...] 36.0-66.0 Lymph % 31.2 % Normal 24.0-44.0 [place] % 13.9 % High 2.0-8.0 Eos % 4.6 % High 0.0-3.0 Baso % 0.8 % Normal 0.0-1.0 Immature Granulocyte % 0.3 % Normal 0-3.0 Nucleated Red Blood Cell % 0.0 % Normal 0-0 Neutrophils # 3.1 10 Normal 1.5-8.5 Lymph # 2.0 10 Normal 1.5-5.0 [place] # 0.9 10 High 0.0-0.8 Eos # 0.3 10 Normal 0.0-0.5 Baso # 0.1 10 Normal 0.0-0.2 FT4&TSH Panel 11/11/2020 [facility] [address] [place] [address] [phone] Thyroid Stimulating Hormone 4.080 uIU/ML High 0. 358-3.740 Free T4 0.74 ng/dL Low 0.76-1.46 Comprehensive Metabolic Profil 11/11/[address] [address] [phone] Glucose, Fasting 137 mg/dL High 70-100 Blood [...] 1.2 Normal 1.2-2.2 CBC With Differential 11/11/[address] [address] [phone] White Blood Count 7.5 10 Normal 4.0-10.0 [...] 36.0-66.0 Lymph % 33.6 % Normal 24.0-44.0 [place] % 12.1 % High 2.0-8.0 Eos % 4.7 % High 0.0-3.0 Baso % 0.8 % Normal 0.0-1.0 Immature Granulocyte % 0.3 % Normal 0-3.0 Nucleated Red Blood Cell % 0.0 % Normal 0-0 Neutrophils # 3.6 10 Normal 1.5-8.5 Lymph # 2.5 10 Normal 1.5-5.0 [place] # 0.9 10 High 0.0-0.8 Eos # 0.4 10 Normal 0.0-0.5 Baso # 0.1 10 Normal 0.0-0.2 Hemoglobin A1c 11/11/2020 [facility] [address] [place] [address] [phone] Hemoglobin A1c 5.4 % Normal 3 Estimated Average Glucose 108 mg/dL Normal 60-110 Total Iron Binding Capacit 11/11/2020 [facility] [address] [place] [address] [id number] [phone] Iron (Fe) 78 g/dL Normal 50-170 Total Iron Binding Capacity 373 g/dL Normal 250-450 Percent Saturation 20.9 % Normal 13.2-45.0 Laboratory test finding 11/11/2020 [facility] [address], [place] [id number] [phone] Ferritin 60 NG/ML Normal 8-252 Total 25(Oh) [...] Little GFR Left ESRD GFR <15 on GYNECOLOGIST 2 Units are mL/min/1.73 m2 Chronic Kidney Disease Staging per NKF: Stage I & II GFR >=60 Normal to Mildly Decreased Stage III GFR 30-59 Moderately Decreased Stage IV GFR 15-29 Severely Decreased Stage V GFR <15 Very Little GFR Left ESRD GFR <15 on GYNECOLOGIST 3 REFERENCE RANGES: <=5.6% NORMAL 5.7-6.4% SUGGESTS IMPAIRED GLUCOSE META BOLISM/PREDIABETIC >= 6.5% ABNORMAL 4 VITAMIN B12 NORMAL RANGE NORMAL 247 - 911 PG/ML INDETERMINATE 211 - 246 PG/ML DEFICIENT LESS THAN 211 PG/ML Procedures Date Code Description Status 04/17/2021 55380 Office/Outpatient Established Mo d MDM 30-39 Min Completed 03/31/2021 09681 Office/Outpatient Established Lo w MDM 20-29 Min Completed 01/14/2021 16851 Office/Outpatient Established Mo d MDM 30-39 Min Completed 07/30/2016 [id number] Mammogram Completed Medical Devices Description No Information Available Encounters Type Date Location Provider Dx Diagnosis Office Visit 04/17/2021 10:20a [facility] Alex Yost D.O. 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 CHARY Jose K11.21 Acute sialoadenitis Office Visit 01/14/2021 10:40a [facility] CHARY Marrero E03.9 Hypothyroidism, unspecified I11.9 Hypertensive heart disease w [facility] heart failure F41.1 Generalized anxiety disorder 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, lumbar region K21.9 Gastro-esophageal reflux dis ease without esophagitis G35 Multiple sclerosis R73.01 Impaired fasting glucose Z98.84 Bariatric surgery status Assessments Date Code Description Provider 04/17/2021 E03.9 Hypothyroidism, unspecified Sherrell Yost, D.O. [...] Z91.048 Other nonmedicinal substance all ergy status Francoise Newberry.OBrandt 04/17/2021 Z79.899 Other terminal computer operator (current) drug t herapy Francoise Puentes.OBrandt 04/17/2021 [...] 9:30 am - Sherrell Yost D.O. 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 Please eval and treat. Closed 01/27/[address] [place] [address] [phone]
--- OUTSIDE RECORDS SUMMARY | 2021-07-10 10:42 | CCD ---
Author Author [facility] Organization [facility] Address Unknown Phone Unavailable Care Team Providers Care Inclusion Special Education Teacher Name Role Phone Maring, Jamie PA Unavailable Unavailable Maring, Jamie PA Unavailable Unavailable Maring, Jamie PA Unavailable Unavailable Maring, Jamie PA Unavailable Unavailable Maring, Jamie PA Unavailable Unavailable Maring, Jamie PA Unavailable Unavailable Maring, Jamie PA Unavailable Unavailable Maring, Jamie PA Unavailable Unavailable Maring, Jamie PA Unavailable Unavailable Maring, Jamie PA Unavailable Unavailable Maring, Jamie PA Unavailable Unavailable Maring, Jamie PA Unavailable Unavailable Maring, Jamie PA Unavailable Unavailable Maring, Jamie PA Unavailable Unavailable Maring, Jamie PA Unavailable Unavailable Maring, Jamie PA Unavailable Unavailable MEDENT_806, NA Unavailable Unavailable Pebbles RUTHERFORD MD Unavailable Unavailable Pebbles RUTHERFORD MD Unavailable Unavailable Pebbles RUTHERFORD MD Unavailable Unavailable Pebbles RUTHERFORD MD Unavailable Unavailable Pebbles RUTHERFORD MD Unavailable Unavailable Pebbles RUTHERFORD MD Unavailable Unavailable Pebbles RUTHERFORD MD Unavailable Unavailable Pebbles RUTHERFORD MD Unavailable Unavailable Pebbles RUTHERFORD MD Unavailable Unavailable Pebbles RUTHERFORD MD Unavailable Unavailable Pebbles RUTHERFORD MD Unavailable Unavailable Pebbles RUTHERFORD MD Unavailable Unavailable Pebbles RUTHERFORD MD Unavailable Unavailable Pebbles RUTHERFORD MD Unavailable Unavailable Pebbles RUTHERFORD MD Unavailable Unavailable ePbbles RUTHERFORD MD Unavailable Unavailable Pebbles RUTHERFORD MD Unavailable Unavailable Pebbles RUTHERFORD MD Unavailable Unavailable Pebbles RUTHERFORD MD Unavailable Unavailable Pebbles RUTHERFORD MD Unavailable Unavailable Pebbles RUTHERFORD MD Unavailable Unavailable Pebbles RUTHERFORD MD Unavailable Unavailable Pebbles RUTHERFORD MD Unavailable Unavailable Pebbles RUTHERFORD MD Unavailable Unavailable Pebbles RUTHERFORD MD Unavailable Unavailable Pebbles RUTHERFORD MD Unavailable Unavailable Pebbles RUTHERFORD MD Unavailable Unavailable Pebbles RUTHERFORD MD Unavailable Unavailable Pebbles RUTHERFORD MD Unavailable Unavailable Pebbles RUTHERFORD MD Unavailable Unavailable Pebbles RUTHERFORD MD Unavailable Unavailable Pebbles RUTHERFORD MD Unavailable Unavailable Pebbles RUTHERFORD MD Unavailable Unavailable Pebbles RUTHERFORD MD Unavailable Unavailable Pebbles RUTHERFORD MD Unavailable Unavailable Pebbles RUTHERFORD MD Unavailable Unavailable Pebbles RUTHERFORD MD Unavailable Unavailable Pebbles RUTHERFORD MD Unavailable Unavailable Pebbles RUTHERFORD MD Unavailable Unavailable Pebbles RUTHERFORD MD Unavailable Unavailable Pebbles RUTHERFORD MD Unavailable Unavailable Pebbles RUTHERFORD MD Unavailable Unavailable Pebbles RUTHERFORD MD Unavailable Unavailable Pebbles RUTHERFORD MD Unavailable Unavailable Pebbles RUTHERFORD MD Unavailable Unavailable Pebbles RUTHERFORD MD Unavailable Unavailable Pebbles RUTHERFORD MD Unavailable Unavailable Pebbles RUTHERFORD MD Unavailable Unavailable Pebbles RUTHERFORD MD Unavailable Unavailable Pebbles RUTHERFORD MD Unavailable Unavailable Pebbles RUTHERFORD MD Unavailable Unavailable Pebbles RUTHERFORD MD Unavailable Unavailable Pebbles RUTHERFORD MD Unavailable Unavailable Pebbles RUTHERFORD MD Unavailable Unavailable Pebbles RUTHERFORD MD Unavailable Unavailable Pebbles RUTHERFORD MD Unavailable Unavailable Pebbles RUTHERFORD MD Unavailable Unavailable Pebbles RUTHERFORD MD Unavailable Unavailable Pebbles RUTHERFORD MD Unavailable Unavailable Pebbles RUTHERFORD MD Unavailable Unavailable Pebbles RUTHERFORD MD Unavailable Unavailable Pebbles RUTHERFORD MD Unavailable Unavailable Pebbles RUTHERFORD MD Unavailable Unavailable Pebbles RUTHERFORD MD Unavailable Unavailable Pebbles RUTHERFORD MD Unavailable Unavailable Pebbles RUTHERFORD MD Unavailable Unavailable Pebbles RUTHERFORD MD Unavailable Unavailable Pebbles RUTHERFORD MD Unavailable Unavailable Pebbles RUTHERFORD MD Unavailable Unavailable Pebbles RUTHERFORD MD Unavailable Unavailable Pebbles RUTHERFORD MD Unavailable Unavailable Pebbles RUTHERFORD MD Unavailable Unavailable Pebbles RUTHERFORD MD Unavailable Unavailable Pebbles RUTHERFORD MD Unavailable Unavailable Pebbles RUTHERFORD MD Unavailable Unavailable Pebbles RUTHERFORD MD Unavailable Unavailable Pebbles RUTHERFORD MD Unavailable Unavailable Pebbles RUTHERFORD MD Unavailable Unavailable Pebbles RUTHERFORD MD Unavailable Unavailable Pebbles RUTHERFORD MD Unavailable Unavailable Pebbles RUTHERFROD MD Unavailable Unavailable Pebbles RUTHERFORD MD Unavailable Unavailable Pebbles RUTHERFORD MD Unavailable Unavailable Pebbles RUTHERFORD MD Unavailable Unavailable Pebbles RUTHERFORD MD Unavailable Unavailable Pebbles RUTHERFORD MD Unavailable Unavailable Pebbles RUTHERFORD MD Unavailable Unavailable Pebbles RUTHERFORD MD Unavailable Unavailable Pebbles RUTHERFORD MD Unavailable Unavailable Pebbles RUTHERFORD MD Unavailable Unavailable Pebbles RUTHERFORD MD Unavailable Unavailable Pebbles RUTHERFORD MD Unavailable Unavailable Pebbles RUTHERFORD MD Unavailable Unavailable Pebbles RUTHERFORD MD Unavailable Unavailable Pebbles RUTHERFORD MD Unavailable Unavailable MEET GLASGOW MD Unavailable Unavailable MEET GLASGOW MD Unavailable Unavailable MEET GLASGOW MD Unavailable Unavailable MEET GLASGOW MD Unavailable Unavailable MEET GLASGOW MD Unavailable Unavailable MEET GLASGOW MD Unavailable Unavailable MEET GLASGOW MD Unavailable Unavailable MEET GLASGOW MD Unavailable Unavailable MEET GLASGOW MD Unavailable Unavailable MEET GLASGOW MD Unavailable Unavailable MEET GLASGOW MD Unavailable Unavailable MEET GLASGOW MD Unavailable Unavailable MEET GLASGOW MD Unavailable Unavailable MEET GLASGOW MD Unavailable Unavailable MEET GLASGOW MD Unavailable Unavailable MEET GLASGOW MD Unavailable Unavailable MEET GLASGOW MD Unavailable Unavailable CHRMEET RM MD Unavailable Unavailable MEET GLASGOW MD Unavailable Unavailable MEET GLASGOW MD Unavailable Unavailable MEET GLASGOW MD Unavailable Unavailable MEET GLASGOW MD Unavailable Unavailable MEET GLASGOW MD Unavailable Unavailable MEET GLASGOW MD Unavailable Unavailable CHRMEET RM MD Unavailable Unavailable MEET GLASGOW MD Unavailable Unavailable MEET GLASGOW MD Unavailable Unavailable CHRMEET RM MD Unavailable Unavailable CHROSTOWSKI, MEET MD Unavailable Unavailable CHROSTOWSKI, MEET MD Unavailable Unavailable CHROSTOWSKI, MEET MD Unavailable Unavailable CHROSTOWSKI, MEET MD Unavailable Unavailable CHROSTOWSKI, MEET MD Unavailable Unavailable CHROSTOWSKI, MEET MD Unavailable Unavailable CHROSTOWSKI, MEET MD Unavailable Unavailable CHROSTOWSKI, MEET MD Unavailable Unavailable CHROSTOWSKI, MEET MD Unavailable Unavailable CHROSTOWSKI, MEET MD Unavailable Unavailable CHROSTOWSKI, MEET MD Unavailable Unavailable BRARY-KAELA, SHERRELL DO Unavailable Unavailable BARRY-KAELA, SHERRELL DO Unavailable Unavailable BARRY-KAELA, SHERRELL DO Unavailable Unavailable BARRY-KAELA, SHERRELL DO Unavailable Unavailable BARRY-KAELA, SHERRELL DO Unavailable Unavailable BARRY-KAELA, SHERRELL DO Unavailable Unavailable BARRY-KAELA, SHERRELL DO Unavailable Unavailable BARRY-KAELA, SHERRELL DO Unavailable Unavailable BARRY-KAELA, SHERRELL DO Unavailable Unavailable BARRY-KAELA, SHERRELL DO Unavailable Unavailable BARRY-KAELA, SHERRELL DO Unavailable Unavailable BARRY-KAELA, SHERRELL DO Unavailable Unavailable BARRY-KAELA, SHERRELL DO Unavailable Unavailable BARRY-KAELA, SHERRELL DO Unavailable Unavailable BARRY-KAELA, SHERRELL DO Unavailable Unavailable BARRY-KAELA, SHERRELL DO Unavailable Unavailable BARRY-KAELA, SHERRELL DO Unavailable Unavailable BARRY-KAELA, SHERRELL DO Unavailable Unavailable BARRY-KAELA, SHERRELL DO Unavailable Unavailable BARRY-KAELA, SHERRELL DO Unavailable Unavailable BARRY-KAELA, SHERRELL DO Unavailable Unavailable BARRY-KAELA, SHERRELL DO Unavailable Unavailable BARRY-KAELA, SHERRELL DO Unavailable Unavailable BARRY-KAELA, SHERRELL DO Unavailable Unavailable BARRY-KAELA, SHERRELL DO Unavailable Unavailable BARRY-KAELA, SHERRELL DO Unavailable Unavailable BARRY-KAELA, SHERRELL DO Unavailable Unavailable BARRY-KAELA, SHERRELL DO Unavailable Unavailable BARRY-KAELA, SHERRELL DO Unavailable Unavailable BARRY-KAELA, SHERRELL DO Unavailable Unavailable BARRY-KAELA, SHERRELL DO Unavailable Unavailable BARRY-KAELA, SHERRELL DO Unavailable Unavailable BARRY-KAELA, SHERRELL DO Unavailable Unavailable BARRY-KAELA, SHERRELL DO Unavailable Unavailable BARRY-KAELA, SHERRELL DO Unavailable Unavailable BARRY-KAELA, SHERRELL DO Unavailable Unavailable BARRY-KAELA, SHERRELL DO Unavailable Unavailable BARRY-KAELA, SHERRELL DO Unavailable Unavailable BARRY-KAELA, SHERRELL DO Unavailable Unavailable BARRY-KAELA, SHERRELL DO Unavailable Unavailable BARRY-KAELA, SHERRELL DO Unavailable Unavailable BARRY-KAELA, SHERRELL DO Unavailable Unavailable BARRY-KAELA, SHERRELL DO Unavailable Unavailable BARRY-KAELA, SHERRELL DO Unavailable Unavailable BARRY-KAELA, SHERRELL DO Unavailable Unavailable BARRY-KAELA, SHERRELL DO Unavailable Unavailable BARRY-KAELA, SHERRELL DO Unavailable Unavailable BARRY-KAELA, SHERRELL DO Unavailable Unavailable BARRY-KAELA, SHERRELL DO Unavailable Unavailable BARRY-KAELA, SHERRELL DO Unavailable Unavailable BARRY-KAELA, SHERRELL DO Unavailable Unavailable BARRY-KAELA, SHERRELL DO Unavailable Unavailable BARRY-KAELA, SHERRELL DO Unavailable Unavailable BARRY-KAELA, SHERRELL DO Unavailable Unavailable BARRY-KAELA, SHERRELL DO Unavailable Unavailable BARRY-KAELA, SHERRELL DO Unavailable Unavailable BARRY-KAELA, SHERRELL DO Unavailable Unavailable BARRY-KAELA, SHERRELL DO Unavailable Unavailable BARRY-KAELA, SHERRELL DO Unavailable Unavailable BARRY-KAELA, SHERRELL DO Unavailable Unavailable BARRY-KAELA, SHERRELL DO Unavailable Unavailable BARRY-KAELA, SHERRELL DO Unavailable Unavailable BARRY-KAELA, SHERRELL DO Unavailable Unavailable BARRY-KAELA, SHERRELL DO Unavailable Unavailable BARRY-KAELA, SHERRELL DO Unavailable Unavailable BARRY-KAELA, SHERRELL DO Unavailable Unavailable BARRY-KAELA, SHERRELL DO Unavailable Unavailable BARRY-KAELA, SHERRELL DO Unavailable Unavailable BARRY-KAELA, SHERRELL DO Unavailable Unavailable BARRY-KAELA, SHERRELL DO Unavailable Unavailable BARRY-KAELA, SHERRELL DO Unavailable Unavailable BRARY-KAELA, SHERRELL DO Unavailable Unavailable BARRY-KAELA, SHERRELL DO Unavailable Unavailable BARRY-KAELA, SHERRELL DO Unavailable Unavailable BARRY-KAELA, SHERRELL DO Unavailable Unavailable BARRY-KAELA, SHERRELL DO Unavailable Unavailable BARRY-KAELA, SHERRELL DO Unavailable Unavailable BARRY-KAELA, SHERRELL DO Unavailable Unavailable BARRY-KAELA, SHERRELL DO Unavailable Unavailable BARRY-KAELA, SHERRELL DO Unavailable Unavailable BARRY-KAELA, SHERRELL DO Unavailable Unavailable BARRY-KAELA, SHERRELL DO Unavailable Unavailable BARRY-KAELA, SHERRELL DO Unavailable Unavailable BARRY-KAELA, SHERRELL DO Unavailable Unavailable Lindy, Joce PA Unavailable Unavailable Lindy, Joce PA Unavailable Unavailable Lindy, Joce PA Unavailable Unavailable Lindy, Joce PA Unavailable Unavailable Lindy, Joce PA Unavailable Unavailable Lindy, Joce PA Unavailable Unavailable Lindy, Joce PA Unavailable Unavailable Lindy, Joce PA Unavailable Unavailable Lindy, Joce PA Unavailable Unavailable Lindy, Joce PA Unavailable Unavailable Lindy, Joce PA Unavailable Unavailable Lindy, Joce PA Unavailable Unavailable Lindy, Joce PA Unavailable Unavailable Lindy, Joce PA Unavailable Unavailable Lindy, Joce PA Unavailable Unavailable Lindy, Joce PA Unavailable Unavailable Lindy, Joce PA Unavailable Unavailable Lindy, Joce PA Unavailable Unavailable Lindy, Joce PA Unavailable Unavailable Lindy, Joce PA Unavailable Unavailable Lindy, Joce PA Unavailable Unavailable Lindy, Joce PA Unavailable Unavailable Lindy, Joce PA Unavailable Unavailable Lindy, Joce PA Unavailable Unavailable Lindy, Joce PA Unavailable Unavailable Lindy, Joce PA Unavailable Unavailable Lindy, Joce PA Unavailable Unavailable Lindy, Joce PA Unavailable Unavailable Lindy, Joce PA Unavailable Unavailable Lindy, Joce PA Unavailable Unavailable Lindy, Joce PA Unavailable Unavailable Lindy, Joce PA Unavailable Unavailable Lindy, Joce PA Unavailable Unavailable Lindy, Joce PA Unavailable Unavailable Lindy, Joce PA Unavailable Unavailable Lindy, Joce PA Unavailable Unavailable Lindy, Joce PA Unavailable Unavailable Lindy, Joce PA Unavailable Unavailable Lindy, Joce PA Unavailable Unavailable Lindy, Joce PA Unavailable Unavailable Lindy, Joce PA Unavailable Unavailable Lindy, Joce PA Unavailable Unavailable Lindy, Joce PA Unavailable Unavailable Lindy, Joce PA Unavailable Unavailable Lindy, Joce PA Unavailable Unavailable Lindy, Joce PA Unavailable Unavailable Lindy, Joce PA Unavailable Unavailable Lindy, Joce PA Unavailable Unavailable Lindy, Joce PA Unavailable Unavailable Lindy, Joce PA Unavailable Unavailable Lindy, Joce PA Unavailable Unavailable Lindy, Joce PA Unavailable Unavailable Lindy, Joce PA Unavailable Unavailable Lindy, Joce PA Unavailable Unavailable O'pedrito, A Jase PA Unavailable Unavailable O'pedrito, A Jase PA Unavailable Unavailable O'pedrito, A Jase PA Unavailable Unavailable O'pedrito, A Jase PA Unavailable Unavailable O'pedrito, A Jase PA Unavailable Unavailable O'pedrito, A Jase PA Unavailable Unavailable O'pedrito, A Jase PA Unavailable Unavailable O'pedrito, A Jase PA Unavailable Unavailable O'pedrito, A Jase PA Unavailable Unavailable O'pedrito, A Jase PA Unavailable Unavailable O'pedrito, A Jase PA Unavailable Unavailable O'pedrito, A Jase PA Unavailable Unavailable O'pedrito, A Jase PA Unavailable Unavailable O'pedrito, A Jase PA Unavailable Unavailable O'pedrito, A Jase PA Unavailable Unavailable O'pedrito, A Jase PA Unavailable Unavailable O'pedrito, A Jase PA Unavailable Unavailable O'pedrito, A Jase PA Unavailable Unavailable O'pedrito, A Jase PA Unavailable Unavailable O'pedrito, A Jase PA Unavailable Unavailable O'pedrito, A Jase PA Unavailable Unavailable O'pedrito, A Jase PA Unavailable Unavailable O'pedrito, A Jase PA Unavailable Unavailable O'pedrito, A Jase PA Unavailable Unavailable O'pedrito, A Jase PA Unavailable Unavailable O'pedrito, A Jase PA Unavailable Unavailable O'pedrito, A Jase PA Unavailable Unavailable O'pedrito, A Jase PA Unavailable Unavailable O'pedrito, A Jase PA Unavailable Unavailable O'pedrito, A Jase PA Unavailable Unavailable O'pedrito, A Jase PA Unavailable Unavailable O'pedrito, A Jase PA Unavailable Unavailable O'pedrito, A Jase PA Unavailable Unavailable PARHAM, E Gita PA Unavailable Unavailable PARHAM, E Gita PA Unavailable Unavailable PARHAM, E Gita PA Unavailable Unavailable PARHAM, E Gita PA Unavailable Unavailable PARHAM, E Gita PA Unavailable Unavailable PARHAM, E Gita PA Unavailable Unavailable PARHAM, E Gita PA Unavailable Unavailable PARHAM, E Gita PA Unavailable Unavailable PARHAM, E Gita PA Unavailable Unavailable PARHAM, E Gita PA Unavailable Unavailable PARHAM, E Gita PA Unavailable Unavailable PARHAM, E Gita PA Unavailable Unavailable PARHAM, E Gita PA Unavailable Unavailable PARHAM, E Gita PA Unavailable Unavailable PARHAM, E Gita PA Unavailable Unavailable PARHAM, E Gita PA Unavailable Unavailable PARHAM, E Gita PA Unavailable Unavailable PARHAM, E Gita PA Unavailable Unavailable PARHAM, E Gita PA Unavailable Unavailable PARHAM, E Gita PA Unavailable Unavailable PARHAM, E Gita PA Unavailable Unavailable PARHAM, E Gita PA Unavailable Unavailable PARHAM, E Gita PA Unavailable Unavailable PARHAM, E Gita PA Unavailable Unavailable PARHAM, E Gita PA Unavailable Unavailable PARHAM, E Gita PA Unavailable Unavailable PARHAM, E Gita PA Unavailable Unavailable PARHAM, E Gita PA Unavailable Unavailable PARHAM, E Gita PA Unavailable Unavailable PARHAM, E Gita PA Unavailable Unavailable PARHAM, E Gita PA Unavailable Unavailable PARHAM, E Gita PA Unavailable Unavailable PARHAM, E Gita PA Unavailable Unavailable PARHAM, E Gita PA Unavailable Unavailable PARHAM, E Gita PA Unavailable Unavailable PARHAM, E Gita PA Unavailable Unavailable PARHAM, E Gita PA Unavailable Unavailable PARHAM, E Gita PA Unavailable Unavailable PARHAM, E Gita PA Unavailable Unavailable PARHAM, E Gita PA Unavailable Unavailable PARHAM, E Gita PA Unavailable Unavailable PARHAM, E Gita PA Unavailable Unavailable PARHAM, E Gita PA Unavailable Unavailable PARHAM, E Gita PA Unavailable Unavailable PARHAM, E Gita PA Unavailable Unavailable PARHAM, E Gita PA Unavailable Unavailable PARHAM, E Gita PA Unavailable Unavailable PARHAM, E Gita PA Unavailable Unavailable Re-disclosure Warning The records that you are about to access may contain information from federally-assisted alcohol or drug abuse programs. If such information is present, then the following federally mandated warning applies: This information has been disclosed to you from records protected by federal confidentiality rules (42 CFR part 2). The federal rules prohibit you from making any further disclosure of this information unless further disclosure is expressly permitted by the written consent of the person to whom it pertains or as otherwise permitted by 42 CFR part 2. A general authorization for the release of medical or other information is NOT sufficient for this purpose. The Federal rules restrict any use of the information to criminally investigate or prosecute any alcohol or drug abuse patient.The records that you are about to access may contain highly sensitive health information, the redisclosure of which is protected by Article 27-F of the [facility] Public Health law. If you continue you may have access to information: Regarding HIV / AIDS; Provided by facilities licensed or operated by the [facility] Office of Mental Health; or Provided by the [facility] Office for People With Developmental Disabilities. If such information is present, then the following [facility] mandated warning applies: This information has been disclosed to you from confidential records which are protected by state law. State law prohibits you from making any further disclosure of this information without the specific written consent of the person to whom it pertains, or as otherwise permitted by law. Any unauthorized further disclosure in violation of state law may result in a fine or halfway sentence or both. A general authorization for the release of medical or other information is NOT sufficient authorization for further disc losure. Allergies and Adverse Reactions Type Description Substance Reaction Status Data Source(s ) Propensity to adverse reactions Propensity to adverse reactions NKDA [facility] ([facility]) Family History Family Member Name Family Member Gender Family Member Status Date o f Status Description Data Source(s) Unknown Unknown Problem [facility] ([facility] [employer] [facility]) Encounters Encounter Providers Location Date Indications Data Source(s ) Outpatient Attender: Gita DIEZ 09/19/2021 12:00:00 AM [facility] Outpatient Attender: SHERRELL PURCELL DO [facility] 07/07/2021 08:40:00 AM EST [facility] ([facility]) Outpatient Attender: JUSTINO RUTHERFORD MDReferrer: SHERRELL MORENO DO 07/05/2021 06:29:03 PM EST [facility] Recurring Patient Referrer: SHERRELL PURCELL DO 07/04/2021 01:34:56 PM EST [facility] Recurring Patient Referrer: SHERRELL PURCELL DO 06/23/2021 08:43:16 AM EDT [facility] Out[facility] [address] [facility] [id number] 05/23/2021 12:00:00 AM EDT eCW1 ([facility]) Outpatient Attender: SHERRELL PURCELL [facility] 05/15/2021 04:00:00 PM EDT [facility] ([facility]) Outpatient Attender: Jamie DIEZ 05/06/20 09:09:50 AM EDT - 05/06/2021 11:01:23 AM EDT [facility] ([facility] ) Outpatient Attender: SHERRELL PURCELL DO [facility] 04/30/2021 09:30:00 AM EDT [facility] ([facility]) Outpatient Attender: SOL [id number] [facility] 04/21/2021 11:30:00 AM EDT [facility] ([facility]) Outpatient Attender: SHERRELL PURCELL DO [facility] 04/17/2021 10:20:00 AM EDT [facility] ([facility]) Outpatient [address] [facility] [id number] 04/08/2021 12:00:00 AM EDT eCW1 ([facility]) Outpatient Attender: Jase DIEZ [facility] 03/31/2021 04:00:00 PM EDT [facility] ([facility]) Outpatient [address] [facility], [facility] [id number] 03/24/2021 12:00:00 AM EDT eCW1 ([facility]) Outpatient Attender: Gita DIEZ [id number] 03/17 12:00:00 AM EDT - 03/17/2021 02:11:08 PM [facility] Outpatient [address] [facility], [facility] [id number] 02/04/2021 12:00:00 AM EDT eCW1 ([facility]) Outpatient Attender: Joce DIEZ [facility] 01/14/2021 10:40:00 AM EDT [facility] ([facility]) Outpatient [address] [facility] [address] 11/04/2020 12:00:00 AM EDT eCW1 ([facility]) Outpatient Attender: SHERRELL PURCELL DO [facility] 10/17/2020 09:20:00 AM EST [facility] ([facility]) Outpatient Attender: Gita DIEZ [id number] 09/13 12:00:00 AM EST - 09/13/2020 12:29:41 PM EST [facility] Multiple sclerosis Outpatient Attender: Gita DIEZ 09/02/2020 12:00:00 AM EST [facility] [address] [facility] [id number] 08/06/2020 12:00:00 AM EST eCW1 ([facility]) Outpatient Attender: MEET GLASGOW MD Main Office 08/02/2020 10:00:00 AM EST [facility] ([facility]) Outpatient Attender: MEET GLASGOW MD Main Office 07/31/2020 08:45:00 AM EST [facility] ([facility] Outpatient Attender: MEET GLASGOW MD Main Office 07/29/2020 08:45:00 AM EST [facility] ([facility] Unknown [address] [facility] [id number] 07/20/2020 12:00:00 AM EST eCW1 ([facility]) Office Visit Attender: Joce DIEZ [facility] 07/16/2020 08:20:00 AM EST [facility] ([facility]) Unknown [address] [facility], [facility] [id number] 07/12/2020 12:00:00 AM EST eCW1 ([facility]) Outpatient [address] [facility] [place] [id number] 05/30/2020 12:00:00 AM EDT eCW1 ([facility]) Outpatient 05/20/2020 12:00:00 AM [facility] Immunizations Vaccine Date Status Description Data Source(s) COVID-19 VACCINE Moderna 06/16/2021 12:00:00 AM EDT completed [facility] Vaccine Series Complete: YESThis Data wa s Submitted to [facility] Via [employer]. New in 2013. IIV4 04/30/2021 10:00:00 AM EDT completed [facility] ([facility]) COVID-19 VACCINE Moderna 10/04/2020 12:00:00 AM EST completed [facility] Vaccine Series Complete: YESThis Data wa s Submitted to [facility] Via [employer]. COVID-19 VACCINE, [id number], LNP-S (MODERNA)/PF 10/04/2020 1 2:00:00 AM EST completed [facility] COVID-19 VACCINE, MRNA-[id number], LNP-S (MODERNA)/PF 09/06/2020 1 2:00:00 AM EST completed [facility] COVID-19 VACCINE Moderna 09/06/2020 12:00:00 AM EST completed [facility] Vaccine Series Complete: NOThis Data was Submitted to [facility] Via [employer]. Medications Medication Brand Name Start Date Product Form Dose Route Admi nistrative Instructions Pharmacy Instructions Status Indications Reaction Description Data Source(s) 500 mg 07/02/2021 12:00:00 AM EST capsule 12 TAKE FOUR CAPSULES BY MOUTH 1 HOUR PRIOR TO DENTAL PROCEDURE TAKE FOUR CAPSULES BY MOUTH 1 HOUR PRIOR TO DENTAL PROCEDURE SOLD: 07/02/2021 [facility] 100 mcg/0.5 mL 06/16/2021 12:00:00 AM EDT suspension 0 BOOSTER BOOSTER SOLD: 06/16/2021 [facility] 60 mg 05/24/2021 12:00:00 AM EDT capsule,delayed release (DR/EC) 60 TAKE ONE CAPSULE BY MOUTH TWICE A DAY FOR PAIN TAKE ONE CAPSULE BY MOUTH TWICE A DAY FO R PAIN SOLD: 05/28/2021 [facility] 150 mg 05/21/2021 12:00:00 AM EDT tablet 2 TAKE 1 TABLET BY MOUTH NOW, REPEAT IN 3 DAYS IF SYMPTOMS NOT IMPROVED TAKE 1 TABLET BY MOUTH NOW, REPEAT IN 3 DAYS IF SYMPTOMS NOT IMPROVED SOLD: 05/21/2021 [facility] Fluconazole 150 MG Oral Tablet Fluconazole 05/21/2021 12:00:00 AM EDT completed [facility] ([facility]) 10 mg 05/15/2021 12:00:00 AM EDT tablet extended release 24hr 90 TAKE ONE TABLET BY MOUTH EVERY DAY TAKE ONE TABLET BY MOUTH EVERY DAY SOLD: 05/16/2021 [facility] Amoxicillin 875 MG / Clavulanate 125 MG Oral Tablet 87 5-125 mg AMOXICILLIN/POTASSIUM CLAV 05/15/2021 12:00:00 AM EDT tablet 20 TAKE ONE TABLET BY MOUTH TWICE A DAY FOR 10 DAYS TAKE ONE TABLET BY MOUTH TWICE A DAY FOR 10 DAYS SOLD: 05/16/2021 [facility] 24 HR Oxybutynin chloride 10 MG Extended Release Oral Tablet Oxybutynin Chloride ER 05/15/2021 12:00:00 AM EDT ORAL active MEDENT ([facility]) Amoxicillin 875 MG / Clavulanate 125 MG Oral Tablet Am oxicillin/Clavulanate Potassium 05/15/2021 12:00:00 AM EDT ORAL completed MEDENT ([facility]) 112 mcg 04/30/2021 12:00:00 AM EDT tablet 180 TAKE TWO TABLETS BY MOUTH EVERY MORNING TAKE TWO TABLETS BY MOUTH EVERY MORNING SOLD: 05/06/2021 [facility] Vitamin B 12 0.5 MG Oral Tablet Vitamin B-12 Hortensia ural 04/30/2021 12:00:00 AM EDT ORAL active M EDENT ([facility]) 60 mg 04/18/2021 12:00:00 AM EDT capsule,delayed release (DR/EC) 90 TAKE ONE CAPSULE BY MOUTH EVERY EVENING TAKE ONE CAPSULE BY MOUTH EVERY EVENING SOLD: 04/21/2021 [facility] 5 mg 03/31/2021 12:00:00 AM EDT tablet 90 TAKE ONE TABLET BY MOUTH EVERY DAY TAKE ONE TABLET BY MOUTH EVERY DAY SOLD: 04/03/2021 [facility] Estrogens, Conjugated ([facility]) 0.625 MG/ML Vaginal Cream [Keeley rin] Premarin 02/03/2021 12:00:00 AM EDT completed MED[facility] ([facility]) tizanidine 2 MG Oral Tablet TIZANIDINE HCL 01/03/2021 12:00:00 AM E DT tablet 360 TAKE TWO TABLETS BY MOUTH TWICE A DAY TAKE TWO T ABLETS BY MOUTH TWICE A DAY SOLD: 01/09/2021 [facility] 1,250 mcg (50,000 unit) 01/03/2021 12:00:00 AM EDT capsule 12 TAKE 1 CAPSULE BY MOUTH ONCE A WEEK TAKE 1 CAPSULE BY MOUTH ONCE A WEEK SOLD: 01/09/2021 [facility] 0.5 mg 01/03/2021 12:00:00 AM EDT tablet,disintegrating 3 0 TAKE ONE TABLET BY MOUTH EVERY DAY NEEDED MAXIMUM DAILY DOSE = 1 TABLET TAKE ONE TABLET BY MOUTH EVERY DAY NEEDED MAXIMUM DAILY DOSE = 1 TABLET SOLD: 01/09/2021 [facility] 112 mcg 11/12/2020 12:00:00 AM EDT tablet 180 TAKE TWO TABLETS BY MOUTH EVERY DAY IN THE MORNING TAKE TWO TABLETS BY MOUTH EVERY DAY IN THE MORNING SOLD: 11/14/2020 [facility] 112 mcg 11/12/2020 12:00:00 AM EDT tablet 28 TAKE TWO TABLETS BY MOUTH EVERY DAY IN THE MORNING TAKE TWO TABLETS BY MOUTH EVERY DAY IN THE MORNING [facility] Levothyroxine Sodium 0.112 MG Oral Tablet Levothyroxine Sodi um 11/12/2020 12:00:00 AM EDT ORAL active M EDENT ([facility]) Levothyroxine Sodium 0.112 MG Oral Table t Levothyroxine Sodium 112 MCG Oral Tablet (SYNTHROID) Levothyroxine Sodium 112 MCG Oral Tablet (SYNTHROID) 11/12/2020 12:00:00 AM EDT active TAKE TWO TABLETS BY MOUTH EVERY DAY IN THE MORNING [facility] 50 mg 08/07/2020 12:00:00 AM EST tablet 28 TAKE ONE TABLET BY MOUTH EVERY 6 HOURS NEEDED MAXIMUM DAILY DOSE = 4 TAKE ONE TABLET BY MOUTH EVERY 6 HOURS A S NEEDED MAXIMUM DAILY DOSE = 4 SOLD: 08/30/2020 [facility] 50 mg 08/07/2020 12:00:00 AM EST tablet 120 TAKE ONE TABLET BY MOUTH EVERY 6 HOURS NEEDED MAXIMUM DAILY DOSE = 4 TAKE ONE TABLET BY MOUTH EVERY 6 HOURS NEEDED MAXIMUM DAILY DOSE = 4 SOLD: 10/04/2020 [facility] 50 mg 08/07/2020 12:00:00 AM EST tablet 28 TAKE ONE TABLET BY MOUTH EVERY 6 HOURS NEEDED MAXIMUM DAILY DOSE = 4 TAKE ONE TABLET BY MOUTH EVERY 6 HOURS A S NEEDED MAXIMUM DAILY DOSE = 4 SOLD: 08/07/2020 [facility] 50 mg 08/07/2020 12:00:00 AM EST tablet 120 TAKE ONE TABLET BY MOUTH EVERY 6 HOURS NEEDED MAXIMUM DAILY DOSE = 4 TAKE ONE TABLET BY MOUTH EVERY 6 HOURS NEEDED MAXIMUM DAILY DOSE = 4 SOLD: 01/13/2021 [facility] tramadol hydrochloride 50 MG Oral Tablet traMADol HCl 50 MG traMADol HCl 50 MG 08/06/2020 12:00:00 AM EST 1.0 {tablet_as_needed} active traMADol HCl 50 MG eCW1 ([facility]) tramadol hydrochloride 50 MG Oral Tablet traMADol HCl 50 MG traMADol HCl 50 MG 08/06/2020 12:00:00 AM EST 1.0 {tablet_as_needed} active traMADol HCl 50 MG eCW1 ([facility]) tramadol hydrochloride 50 MG Oral Tablet Tramadol HCl 50 MG Tramadol HCl 50 MG 08/06/2020 12:00:00 AM EST 1.0 {tablet_as_needed} active Tramadol HCl 50 MG eCW1 ([facility]) tramadol hydrochloride 50 MG Oral Tablet traMADol HCl 50 MG traMADol HCl 50 MG 08/06/2020 12:00:00 AM EST 1.0 {tablet_as_needed} ac tive eCW1 ([facility]) tramadol hydrochloride 50 MG Oral Tablet traMADol HCl 50 MG traMADol HCl 50 MG 08/06/2020 12:00:00 AM EST 1.0 {tablet_as_needed} active traMADol HCl 50 MG eCW1 ([facility]) tramadol hydrochloride 50 MG Oral Tablet Tramadol HCl 50 MG Tramadol HCl 50 MG 08/06/2020 12:00:00 AM EST 1.0 {tablet_as_needed} active Tramadol HCl 50 MG eCW1 ([facility]) tizanidine 2 MG Oral Tablet TIZANIDINE HCL 07/19/2020 12:00:[address] tablet 360 TAKE TWO TABLETS BY MOUTH TWICE A DAY TAKE TWO T ABLETS BY MOUTH TWICE A DAY SOLD: 07/20/2020 [facility] 1,250 mcg (50,000 unit) 07/16/2020 12:00:00 AM EST capsule 12 TAKE ONE CAPSULE BY MOUTH ONCE WEEKLY TAKE ONE CAPSULE BY MOUTH ONCE WEEKLY SOLD: 07/20/2020 [facility] tizanidine 2 MG Oral Tablet Tizanidine HCL 07/16/2020 12:00:00 AM EST active [facility] ([facility]) 2 mg 07/03/2020 12:00:00 AM EST tablet 5 BRING FOR TESTING, DON'T USE AT HOME BRING FOR TESTING, DON'T USE AT HOME SOLD: 07/07/2020 [facility] Dexamethasone 2 MG Oral Tablet Dexamethasone 07/03/2020 12:00:00 AM EST active [facility] ([facility] 0.5 mg 06/29/2020 12:00:00 AM EST tablet,disintegrating 3 0 TAKE ONE TABLET BY MOUTH EVERY DAY NEEDED MAXIMUM DAILY DOSE = 1 TABLET TAKE ONE TABLET BY MOUTH EVERY DAY NEEDED MAXIMUM DAILY DOSE = 1 TABLET SOLD: 07/01/2020 [facility] Diphenhydramine Hydrochloride 25 MG Oral Tablet Diphenhydram ine HCL 06/26/2020 12:00:00 AM EST active M [facility] ([facility]) 40 mg 04/12/2020 12:00:00 AM EDT capsule,delayed release (DR/EC) 60 TAKE ONE CAPSULE BY MOUTH TWICE A DAY TAKE ONE CAPSULE BY MOUTH TWICE A DAY SOLD: 08/30/2020 [facility] 40 mg 04/12/2020 12:00:00 AM EDT capsule,delayed release (DR/EC) 60 TAKE ONE CAPSULE BY MOUTH TWICE A DAY TAKE ONE CAPSULE BY MOUTH TWICE A DAY SOLD: 07/07/2020 [facility] 200 mcg 04/12/2020 12:00:00 AM EDT tablet 90 TAKE ONE TABLET BY MOUTH EVERY DAY TAKE ONE TABLET BY MOUTH EVERY DAY SOLD: 11/11/2020 [facility] 40 mg 04/12/2020 12:00:00 AM EDT capsule,delayed release (DR/EC) 60 TAKE ONE CAPSULE BY MOUTH TWICE A DAY TAKE ONE CAPSULE BY MOUTH TWICE A DAY SOLD: 11/11/2020 [facility] 5 mg 04/12/2020 12:00:00 AM EDT tablet 90 TAKE ONE TABLET BY MOUTH EVERY DAY TAKE ONE TABLET BY MOUTH EVERY DAY SOLD: 10/21/2020 [facility] 40 mg 04/12/2020 12:00:00 AM EDT capsule,delayed release (DR/EC) 60 TAKE ONE CAPSULE BY MOUTH TWICE A DAY TAKE ONE CAPSULE BY MOUTH TWICE A DAY SOLD: 01/13/2021 [facility] 40 mg 04/12/2020 12:00:00 AM EDT capsule,delayed release (DR/EC) 60 TAKE ONE CAPSULE BY MOUTH TWICE A DAY TAKE ONE CAPSULE BY MOUTH TWICE A DAY SOLD: 04/03/2021 [facility] Cephalexin 500 MG Oral Capsule CEPHALEXIN 02/27/2020 12:00:00 AM EDT capsule 4 TAKE 4 CAPSULES 1 HOUR PRIOR TO DENTAL PROCEDURE, MAXI MUM DAILY DOSE = 4 TAKE 4 CAPSULES 1 HOUR PRIOR TO DENTAL PROCEDURE, MAXIMUM DAILY DOSE = 4 SOLD: 12/12/2020 [facility] Cephalexin 500 MG Oral Capsule CEPHALEXIN 02/27/2020 12:00:00 AM EDT capsule 4 TAKE 4 CAPSULES 1 HOUR PRIOR TO DENTAL PROCEDURE, MAXI MUM DAILY DOSE = 4 TAKE 4 CAPSULES 1 HOUR PRIOR TO DENTAL PROCEDURE, MAXIMUM DAILY DOSE = 4 SOLD: 01/13/2021 [facility] 60 mg 01/11/2020 12:00:00 AM EDT capsule,delayed release (DR/EC) 90 TAKE ONE CAPSULE BY MOUTH EVERY EVENING TAKE ONE CAPSULE BY MOUTH EVERY EVENING SOLD: 08/30/2020 [facility] 12 HR dalfampridine 10 MG Extended Relea se Oral Tablet Dalfampridine (AMPYRA) 10 MG TB12 Dalfampridine (AMPYRA) 10 MG TB12 11/09/2013 12:00:00 AM EDT 10 mg Oral aborted Multiple sclerosis Take 1 0 mg by mouth every 12 (twelve) hours. [facility] Multiple sclerosis Calcium Carbonate 1250 MG / Cholecalcife rol 0.01 MG Oral Tablet Calcium Carb- Cholecalciferol (CALCIUM-VITAMIN D3) 500-400 MG-UNIT TABS Calcium Carb- Cholecalciferol (CALCIUM-VITAMIN D3) 500-400 MG-UNIT TABS 1 {tbl} Oral aborted Take 1 tablet by mouth daily Ups [facility] Biotin 1 MG Oral Capsule Biotin 1 MG CAPS Biotin 1 MG CAPS 1 {tbl} Oral aborted Take 1 tablet by mouth every mor mason [facility] Ibuprofen 600 MG Oral Tablet ibuprofen (ADVIL,MOTRIN) 600 MG tablet ibuprofen (ADVIL,MOTRIN) 600 MG tablet 600 mg Oral aborted Take 600 mg by mouth every 6 (six) hours as needed. [facility] gabapentin 300 MG Oral Capsule gabapentin (NEURONTIN) 300 MG capsule gabapentin (NEURONTIN) 300 MG capsule 300 mg Oral aborted Take 300 mg by mouth Two Times Daily [facility] Levothyroxine Sodium 0.175 MG Oral Table t levothyroxine (SYNTHROID, LEVOTHROID) 175 MCG tablet levothyroxine (SYNTHROID, LEVOTHROID) 175 MCG tablet 200 ug Oral aborted Take 200 mcg by motodd enriquez daily [facility] Insurance Providers Payer name Policy type / Coverage type Policy ID Covered alliance party ID Covered alliance party's relationship to hammonds Policy Hammonds Plan Information [place] [id number] Self 08 [id number] MEDICARE A [id number] Self [id number] A [place] Primary [id number] Self 08 [id number] [place] [id number] Self Medicare [place] Medicare Primary [id number] Self 08 [id number] [place] Medicare Primary [id number] Self 08 [id number] [place] Medicare Primary [id number] Self 08 [id number] Medicare C [id number] SELF [id number] A [place] Primary [id number] Self 08 [id number] MEDICARE A [id number] Self [id number] [place] Medicare Primary [id number] Self 08 [id number] MEDICARE [id number] SP [id number] A [place] Medicare Primary [id number] Self 08 [id number] MEDICARE [id number] [place] [id number] A [place] Medicare Primary [id number] Self 08 [id number] [place] Primary [id number] Self [id number] MEDICARE [id number] SP [id number] [place] Primary [id number] Self 08 [id number] [place] Medicare Primary [id number] Self 08 [id number] AARP U [id number] Self [id number] Medicare [place] Medicare Primary [id number] Self 0 [id number] [employer] [facility] Medigap Part B [id number] Self [id number] [place] Medicare Primary [id number] [id number] Self [id number] [employer] [facility] Medigap Part B [id number] Self [id number] Medicare [place] Medicare Primary [id number] Self 0 [id number] [facility] [facility] Medigap Part B [id number] Self 3 [id number] [facility] [facility] Medigap Part B [id number] Self Medicare [place] Medicare Primary [id number] Self [facility] [facility] Medigap Part B [id number] Self 3 [id number] Medicare [place] Medicare Primary [id number] Self 0 [id number] AARP U [id number] Self [id number] AARP [facility] Supplemental F [id number] SELF [id number] [facility] AARP Supplemental F [id number] SELF [id number] A[employer] C[employer] OPTIONS [id number] SP [id number] [facility] [id number] Yanet [id number] [facility] [id number] [place] [id number] [id number] Medicare C [id number] SELF [id number] [id number] DME Jurisdiction A NHIC C [id number] SELF [id number] DME Jurisdiction A NHIC C [id number] SELF [id number] Medicare C [id number] SELF [id number] DME A [place] C [id number] SELF [id number] [place] Medicare Part B [id number] Self [id number] [employer] [id number] Self [id number] MEDICARE P UNAVAILABLE S UNAVAILA BLE AARP HE[employer] C[employer] OPTIONS [id number] SP [id number] MEDICARE C [id number] S [id number] AARP O [id number] S [id number] MEDICARE [id number] SP [id number] A MEDICARE C [id number] S [id number] A [employer] [facility] Part B [id number] Self [id number] [employer]arp Commercial [id number]. 0 [id number] [employer] Commercial [id number] 2.16.840.1.551457.3.227.99.806.1116. 0 [id number] [employer] Commercial [id number] 2.16.840.1.622674.3.227.99.806.1116. 0 [id number] [employer] Commercial [id number] 2.16.840.1.591095.3.227.99.806.1116. 0 [id number] [employer] Commercial [id number] 2.16.840.1.086031.3.227.99.806.1116. 0 [id number] [employer] Commercial [id number] 2.16.840.1.851009.3.227.99.806.1116. 0 [id number] [employer] [facility] Part B [id number] Self 3 [id number] Medicare (Part B) Medicare Primary [id number] Self 0 [id number] [facility] PI PI MEDICARE PI PI [employer] Commercial [id number] 2.16.840.1.048842.3.227.99.806.1116. 0 [id number] [employer] Commercial [id number] 2.16.840.1.358774.3.227.99.806.1116. 0 [id number] [employer] Commercial [id number] 2.16.840.1.732412.3.227.99.806.1116. 0 [id number] [employer] Commercial [id number] 2.16.840.1.315459.3.227.99.806.1116. 0 [id number] [facility] Part B [id number] [id number] Self 3 [id number] Medicare [place] Medicare Primary [id number] [id number] Self 0 [id number] [employer] [id number] 2.16.840.1.089355.3.227.99.806.1116. 0 [id number] [facility] [facility] Part B [id number] Self 3 [id number] Medicare (Part B) Medicare Primary [id number] [id number] Self 0 [id number] [employer] [id number] [facility] [facility] Medigap Part B [id number] Self Medicare (Part B) Medicare Primary [id number] Self AARP HE[employer] CARE O [id number] S [id number] MEDICARE PART A M [id number] S [id number] AARP HEALTH CARE O [id number] S 3 [id number] AARP HEALTH CARE O [id number] S [id number] MEDICARE M [id number] S [id number] A MEDICARE OUTPATIENT M [id number] S [id number] AARP O [id number] S [id number] AARP S UNAVAILABLE S UNAVAILA BLE MEDICARE [id number] SP [id number] Problems, Conditions, and Diagnoses Code Display Name Description Problem Type Effective Dates Data Source(s) M47.816 [id number] Lumbar Facet arthropathy Problem 05/23/2021 12:00:00 AM EDT eCW1 ([facility]) M96.1 [id number] Lumbar post-laminectomy syndrome Problem 05/23/2021 12:00:00 AM EDT eCW1 ([facility]) G89.29 [id number] Other chronic pain Problem 05/21/2021 12:00: 00 AM EDT eCW1 ([facility]) [id number] Obstructive sleep apnea of adult Obstructive sle ep apnea of adult Problem 04/30/2021 12:00:00 AM EDT SWAPNIL ([facility]) Z79.891 High risk drug monitoring status Chronic prescri ption opiate use Problem 02/04/2021 12:00:00 AM EDT eCW1 ([facility]) M46.1 Solitary sacroiliitis Sacroiliitis, not elsewhere clas sified Problem 02/04/2021 12:00:00 AM EDT eCW1 ([facility]) M46.1 [id number] Sacroiliitis Problem 11/04/2020 12:00:00 AM EDT eCW1 ([facility]) Adverse effect of glucocorticoids and sy nthetic analogues, initial encounter Adverse effect of glucocorticoids and synthetic analogues, initial encounter Problem 07/03/2020 12:00:00 AM EST MEDENT ([facility] [id number] Essential hypertension Essential hypertension Problem 07/03/2020 12:00:00 AM EST MED[facility] ([facility] ) Surgeries/Procedures Procedure Description Date Indications Data Source(s) Electrocardiogram Complete 07/07/2021 12:00:00 AM EST MEDENT ([facility]) OFFICE OUTPATIENT VISIT 15 MINUTES 07/07/2021 12:00:00 AM EST MED[facility] ([facility]) Pain Procedure Log 05/23/2021 12:00:00 AM EDT eCW1 ([facility]) OFFICE OUTPATIENT VISIT 15 MINUTES 05/15/2021 12:00:00 AM EDT MEDENT ([facility]) XTRNL ECG < 48 HR RECORD SCAN STOR W/PHY R&I 12:00:00 AM EDT MEDENT ([facility]) OFFICE OUTPATIENT VISIT 25 MINUTES 04/30/2021 12:00:00 AM EDT MEDENT ([facility]) OFFICE OUTPATIENT VISIT 5 MINUTES 04/21/2021 12:00:00 AM EDT MEDENT ([facility]) OFFICE OUTPATIENT VISIT 25 MINUTES 04/17/2021 12:00:00 AM EDT MEDENT ([facility]) Unclassified drugs 04/08/2021 12:00:00 AM EDT eCW1 ([facility]) Completion of procedural visit when meets criteria 04/08/2021 12:00:00 AM EDT eCW1 ([facility]) OFFICE OUTPATIENT VISIT 15 MINUTES 03/31/2021 12:00:00 AM EDT MEDENT ([facility]) OFFICE OUTPATIENT VISIT 25 MINUTES 01/14/2021 12:00:00 AM EDT MEDENT ([facility]) OFFICE OUTPATIENT VISIT 25 MINUTES 10/17/2020 12:00:00 AM EST MEDENT ([facility]) X-Ray Hips Bilateral With Pelvis 3-4 Views 09/25/2020 12:00:00 AM EST MEDENT ([facility] ) RADIOLOGIC EXAMINATION KNEE 3 VIEWS 09/25/2020 12:00:0 0 AM EST MEDENT ([facility]) PATCH/APPLICATION TEST SPECIFY NUMBER TESTS 07/29/2020 12:00:00 AM EST MEDENT ([facility]) Brief Emotional/Behav Assessment W/ Scoring Doc Per Standard Inst 07/16/2020 12:00:00 AM EST MEDENT ([facility]) Results ID Date Data Source [id number] 07/07/2021 12:59:00 PM EST MEDENT ([facility]) Name Value Range Interpretation Code Description Data Poly rce(s) Supporting Document(s) EKG Laboratory test result MEDENT ([facility]) ID Date Data Source [id number] 07/05/2021 06:29:03 PM EST [facility], PCName: Ruperto YamilethB: 1945Provider: Fabiola Rutherford: 07/04/2021 Reason For VisitRuperto Sue is here today for Lumbar spine. Ruperto received a Covid booster shot on 05/2021. Ruperto Sue is an established patient here for follow up and Ruperto Sue is here for evaluation of MRI results. Patient would like to discuss treatment options. <OBX.5.1><OBX.5.1.1>Surgery DOS: 01/15/2015 and 01/31/2015. Surgery Description: Wide multilevel dcmp lumbar laminectomy of L3,4,5; dcmp of nerve roots; posterior spinal fusion with instrumentation at L4,L5; posterior lateral fusion of L3,4,5 using autologous bone graft; as well as Vitoss; I </OBX.5.1.1><OBX.5.1.2> D. Patient states she is having gradual increase of pain. NKI. </OBX.5.1.2></OBX.5.1>Patient is retired. History of Present IllnessNo new significant clinical changes compared to last office visitSamaritan pain clinicInjections not helpfulChronic low back painPrevious L3 L5 laminectomy and L4-5 fusion-Dr. Felder 01/15/15<OBX.5.1><OBX.5.1.1>Superficial wound I</OBX.5.1.1><OBX.5.1.2>D, Dr. Felder 01/31/15</OBX.5.1.2></OBX.5.1> The patient complains of pain in the lumbar spine . The pain radiates to the left, lateral, buttock(s) and thigh(s) . The patient denies signs of bladder dysfunction, bowel dysfunction, cancer/metastasis, infection and myelopathy . The pain is achy . The pain severity is rated 0-7 out of 10. Pain is aggravated by standing and walking . She states that the pain is relieved by sitting. There is numbness involving both and anterior thigh(s). The numbness is intermittent. Results/DataXRays were ordered, obtained and interpreted today in the office. Indication: pain/dysfunction. Site: Lumbar Spine Views: 2 Views, AP/Lateral Standing Findings:. Good position of implants and healed fusion. Grade 1 spondylolisthesis at L3-4. Results/Data OtherMRI lumbar SOS 09/15/19: Multilevel DDD. Postop changes. L2-3 moderate stenosis.Reviewed in detail the results of the diagnostic testing. Reviewed the pertinent applicable clinical implications relating to the patient. Also provided a copy of the results for their personal records. Assessment 1. Degenerative spondylolisthesis (738.4) (M43.10) 2. Lower back pain (724.2) (M54.50) 3. Spinal stenosis of lumbar region with neurogenic claudication (724.03) (M48.062) condition: Chronicetiology: age-related spine/joint degenerationlevels: L2-3 Plan BUN ( Blood Urea Nitrogen ); Status:Active; Requested for:04Jul2021; Perform:Outside Facility; Order Comments:Complete 5 days prior to MRI; Due:14Jul2021; Last Updated By:Maricarmen Subramanian; 07/04/2021 2:29:55 PM;Ordered; For:Lower back pain; Ordered By:Justino Rutherford; Creatinine (CREATININE, GFR, GFR ( AMER), GFR INTERPRETATION);Status:Active; Requested for:04Jul2021; Perform:Outside Facility; Due:14Jul2021; Last Updated By:Maricarmen Subramanian; 07/04/2021 2:29:56 PM;Ordered; For:Lower back pain; Ordered By:Justino Rutherford; X-Ray I Lumbosacral - 2 views (XRays were ordered, obtained and interpreted today inthe office. Indication: pain/dysfunction.); Status:Complete; Done: 04Jul2021 Perform:SOS22; Due:18Jul2021; Last Updated By:Sneha Vo; 07/04/2021 2:08:12 PM;Ordered; For:Lower back pain; Ordered By:Justino Rutherford; MRI ([facility]OS) Referral Diagnostic Diagnostic Status: Need Information - FinancialAuthorization Requested for: 04Jul2021 Ordered;For: Lower back pain; Ordered By: Justino Rutherford Performed: Order Comments: SAME DAY FOLLOW UP Due: 18Jul2021; Last Updated By: Maricarmen Subramanian; 07/04/2021 2:35:53 PMWide borePatient will follow up with: : RJDMRI Ordered Contrast : 02: without and with Gado IVLaterality: : _Not Applicable Plan, Assessment and Recommendation(s) Schedule appointment: After further diagnostic testing is completed and available for review. Discussion reviewing the different treatment conservative options(observation, medication(s), physical therapy, care manager cna, acupuncture, pain clinic, home exercise program, etc.)--- with pros and cons, potential risks/potential benefits of each option, as well as the chances of successes/failures of each option.At this time, they wish to proceed with:Additional testing-MRI lumbar spine with gadoliniumMRI lumbar with gadolinium requested to further delineate/clarify the etiology of the patient's complaints and to further assist in delineating future treatment algorithm. This document was dictated and electronically signed using [employer] software. A reasonable attempt at proof reading has been made to minimize errors. Please call with any questions. Chief ComplaintRuperto Sue presents for pain/dysfunction in the lumbar spine. Signatures Electronically signed by : Justino Rutherford M.D.; Jul 05 2021 6:29PM EST (Author) Name Value Range Interpretation Code Description Data Poly rce(s) Supporting Document(s) ID Date Data Source [id number] 05/06/2021 09:45:00 AM EDT [facility] Name Value Range Interpretation Code Description Data Poly rce(s) Supporting Document(s) SARS-CoV-2 RNA Resp Ql CLIFF+probe NOT DETECTED [facility] This lab was ordered by NAOMI mercado and reported by NAOMI Velázquez. ID Date Data Source [id number] 04/24/2021 12:08:00 PM EDT [facility] ([facility]) Name Value Range Interpretation Code Description Data Poly rce(s) Supporting Document(s) Blood Urea Nitrogen 16 mg/dL 7-18 Normal (applies to non-nume aayush results) [facility] ([facility]) Glucose, Fasting 81 mg/dL 70-100 Normal (applies to non-numeric results) [facility] ([facility]) Creatinine For GFR 0.80 mg/dL 0.55-1.30 Normal (applies to non -numeric results) [facility] ([facility]) Glomerular Filtration Rate Laboratory test result Normal (applies to non- numeric results) [facility] ([facility]) <content>Units are mL/min/1.73 m2</content>
<content></content>
<content>Chronic Kidney Disease Staging per NKF:</content>
<content></content>
<content>Stage I & II GFR >=60 Normal to Mildly Decreased</content>
<content>Stage III GFR 30- 59 Moderately Decreased</content>
<content>Stage IV GFR 15-29 Severely Decreased</content>
<content>Stage V GFR <15 Very Little GFR Left</content>
<content>ESRD GFR <15 on FRUIT ROOM HAND</content>
<content></content> Sodium Level 138 meq/L 136-145 Normal (applies to non-numeric res ults) [facility] ([facility]) Potassium Serum 5.6 meq/L 3.5-5.1 Above high normal [facility] ([facility]) Carbon Dioxide Level 30 meq/L 21-32 Normal (applies to non-num jon results) [facility] ([facility]) Chloride Level 104 meq/L 98-107 Normal (applies to non-numeric r esults) [facility] ([facility]) Anion Gap 4 meq/L 8-16 [facility] Calcium Level 9.6 mg/dL 8.8-10.2 Normal (applies to non-numeric re sults) [facility] ([facility]) ID Date Data Source [id number] 04/24/2021 12:08:00 PM EDT [facility] ([facility]) Name Value Range Interpretation Code Description Data Poly rce(s) Supporting Document(s) White Blood Count 7.0 10 4.0-10.0 Normal (applies to non-numeri c results) [facility] ([facility]) Red Blood Count 4.56 10 4.00-5.40 Normal (applies to non-numeric results) [facility] ([facility]) Hemoglobin 14.2 g/dL 12.0-15.5 Normal (applies to non-numeric resul ts) [facility] ([facility]) Hematocrit 44.4 % 36.0-47.0 Normal (applies to non-numeric resul ts) [facility] ([facility]) Mean Corpuscular Hemoglobin 31.1 pg 27.0-33.0 Norm al (applies to non-numeric results) [facility] ([facility]) Mean Corpuscular Volume 97.4 fl 80.0-96.0 Above high normal [facility] ([facility]) Red Cell Distribution Width 13.7 % 11.5-14.5 Norm al (applies to non-numeric results) [facility] ([facility]) Mean Corpuscular HGB Conc 32.0 g/dL 32.0-36.5 Normal (applies to non-numeric results) [facility] ([facility]) Neutrophils % 59.1 % 36.0-66.0 Normal (applies to non-numeric re sults) [facility] ([facility]) Platelet Count, Automated 256 10 150-450 Normal (applies to non-numeric results) [facility] ([facility]) Lymph % 22.8 % 24.0-44.0 Below low normal [facility] ( [facility]) Eos % 3.9 % 0.0-3.0 Above high normal [facility] ([facility]) [place] % 13.1 % 2.0-8.0 Above high normal [facility] ([facility]) Immature Granulocyte % 0.4 % 0-3.0 Normal (applies to non-n umeric results) [facility] ([facility]) Baso % 0.7 % 0.0-1.0 Normal (applies to non-numeric resul ts) [facility] ([facility]) Nucleated Red Blood Cell % 0.0 % 0-0 Normal (applies to n on-numeric results) [facility] ([facility]) Neutrophils # 4.1 10 1.5-8.5 Normal (applies to non-numeric re sults) [facility] ([facility]) Eos # 0.3 10 0.0-0.5 Normal (applies to non-numeric resul ts) [facility] ([facility]) Lymph # 1.6 10 1.5-5.0 Normal (applies to non-numeric resul ts) [facility] ([facility]) [place] # 0.9 10 0.0-0.8 Above high normal [facility] ([facility]) Baso # 0.1 10 0.0-0.2 Normal (applies to non-numeric resul ts) [facility] ([facility]) ID Date Data Source [id number] 04/24/2021 12:08:00 PM EDT [facility] ([facility]) Name Value Range Interpretation Code Description Data Poly rce(s) Supporting Document(s) Vitamin B12 Level 380 pg/mL Normal (applies to non-numeri c results) [facility] ([facility]) VITAMIN B12 NORMAL RANGE NORMAL 247 - 911 PG/ML INDETERMINATE 211 - 246 PG/ML DEFICIENT LESS THAN 211 PG/ML Folate 10.5 ng/mL Normal (applies to non-numeric resul ts) [facility] ([facility]) FOLATE NORMAL RANGE NORMAL GREATER THAN 5.4 NG/ML INDETERMINATE 3.4-5.4 NG/ML DEFICIENT LESS THAN 3.4 NG/ML ID Date Data Source [id number] 04/24/2021 12:08:00 PM EDT [facility] ([facility]) Name Value Range Interpretation Code Description Data Poly rce(s) Supporting Document(s) Thyroglobulin Ab [Units/volume] in Serum or Plasma 16.3 U/ML Normal (applies to non-numeric results) [facility] ([facility]) Calcidiol [Mass/volume] in Serum or Plasma 39.3 ng/mL 30.0- 100.0 Normal (applies to non-numeric results) [facility] ([facility]) Thyroperoxidase Ab [Units/volume] in Serum or Plasma 37.4 U/ML Normal (applies to non-numeric results) [facility] ([facility]) ID Date Data Source [id number] 04/24/2021 12:08:00 PM EDT [facility] ([facility]) Name Value Range Interpretation Code Description Data Poly rce(s) Supporting Document(s) Thyroid Stimulating Hormone 0.229 uIU/ML 0.358-3.740 Below low normal [facility] ([facility]) Free T4 1.27 ng/dL 0.76-1.46 Normal (applies to non-numeric resul ts) [facility] ([facility]) ID Date Data Source [id number] 04/24/2021 12:07:00 PM EDT [facility] ([facility]) Name Value Range Interpretation Code Description Data Poly rce(s) Supporting Document(s) Glucose, Fasting 82 mg/dL 70-100 Normal (applies to non-numeric results) [facility] ([facility]) Blood Urea Nitrogen 18 mg/dL 7-18 Normal (applies to non-nume aayush results) [facility] ([facility]) Creatinine For GFR 0.87 mg/dL 0.55-1.30 Normal (applies to non -numeric results) [facility] ([facility]) Sodium Level 137 meq/L 136-145 Normal (applies to non-numeric res ults) [facility] ([facility]) Glomerular Filtration Rate Laboratory test result Normal (applies to non- numeric results) [facility] ([facility]) <content>Units are mL/min/1.73 m2</content>
<content></content>
<content>Chronic Kidney Disease Staging per NKF:</content>
<content></content>
<content>Stage I & II GFR >=60 Normal to Mildly Decreased</content>
<content>Stage III GFR 30- 59 Moderately Decreased</content>
<content>Stage IV GFR 15-29 Severely Decreased</content>
<content>Stage V GFR <15 Very Little GFR Left</content>
<content>ESRD GFR <15 on FRUIT ROOM HAND</content>
<content></content> Potassium Serum 5.1 meq/L 3.5-5.1 Normal (applies to non-numeric results) [facility] ([facility]) Chloride Level 103 meq/L 98-107 Normal (applies to non-numeric r esults) [facility] ([facility]) Anion Gap 5 meq/L 8-16 Below low normal [facility] ( [facility]) Carbon Dioxide Level 29 meq/L 21-32 Normal (applies to non-num jon results) [facility] ([facility]) Calcium Level 9.3 mg/dL 8.8-10.2 Normal (applies to non-numeric re sults) [facility] ([facility]) ID Date Data Source [id number] 04/03/2021 12:20:00 PM EDT [facility] Name Value Range Interpretation Code Description Data Poly rce(s) Supporting Document(s) SARS-CoV-2 (COVID-19) RNA [Presence] in Respiratory specimen by CLIFF with probe detection Not Detected [facility] This lab was ordered by [facility] and reported by [employer] ID Date Data Source [id number] 03/17/2021 02:12:41 PM EDT [facility] Name Value Range Interpretation Code Description Data Poly rce(s) Supporting Document(s) Progress Note [facility] [id number] [file] [id number] ID Date Data Source [id number] 01/06/2021 01:54:00 PM EDT [facility] ([facility]) Name Value Range Interpretation Code Description Data Poly rce(s) Supporting Document(s) Red Blood Count 4.34 10 4.00-5.40 Normal (applies to non-numeric results) [facility] ([facility]) White Blood Count 6.3 10 4.0-10.0 Normal (applies to non-numeri c results) [facility] ([facility]) Hematocrit 42.1 % 36.0-47.0 Normal (applies to non-numeric resul ts) [facility] ([facility]) Hemoglobin 13.3 g/dL 12.0-15.5 Normal (applies to non-numeric resul ts) [facility] ([facility]) Mean Corpuscular HGB Conc 31.6 g/dL 32.0-36.5 Below low normal [facility] ([facility]) Mean Corpuscular Hemoglobin 30.6 pg 27.0-33.0 Norm al (applies to non-numeric results) [facility] ([facility]) Mean Corpuscular Volume 97.0 fl 80.0-96.0 Above high normal [facility] ([facility]) Red Cell Distribution Width 13.1 % 11.5-14.5 Norm al (applies to non-numeric results) [facility] ([facility]) Platelet Count, Automated 246 10 150-450 Normal (applies to non-numeric results) [facility] ([facility]) Neutrophils % 49.2 % 36.0-66.0 Normal (applies to non-numeric re sults) [facility] ([facility]) Lymph % 31.2 % 24.0-44.0 Normal (applies to non-numeric resul ts) [facility] ([facility]) [place] % 13.9 % 2.0-8.0 Above high normal [facility] ([facility]) Eos % 4.6 % 0.0-3.0 Above high normal [facility] ([facility]) Baso % 0.8 % 0.0-1.0 Normal (applies to non-numeric resul ts) [facility] ([facility]) Immature Granulocyte % 0.3 % 0-3.0 Normal (applies to non-n umeric results) [facility] ([facility]) Nucleated Red Blood Cell % 0.0 % 0-0 Normal (applies to n on-numeric results) [facility] ([facility]) Neutrophils # 3.1 10 1.5-8.5 Normal (applies to non-numeric re sults) [facility] ([facility]) Lymph # 2.0 10 1.5-5.0 Normal (applies to non-numeric resul ts) [facility] ([facility]) [place] # 0.9 10 0.0-0.8 Above high normal [facility] ([facility]) Eos # 0.3 10 0.0-0.5 Normal (applies to non-numeric resul ts) [facility] ([facility]) Baso # 0.1 10 0.0-0.2 Normal (applies to non-numeric resul ts) [facility] ([facility]) ID Date Data Source [id number] 01/06/2021 01:54:00 PM EDT [facility] ([facility]) Name Value Range Interpretation Code Description Data Poly rce(s) Supporting Document(s) Thyroid Stimulating Hormone 0.136 uIU/ML 0.358-3.740 Below low normal [facility] ([facility]) Free T4 1.48 ng/dL 0.76-1.46 Above high normal [facility] ([facility]) ID Date Data Source [id number] 01/06/2021 01:54:00 PM EDT [facility] ([facility]) Name Value Range Interpretation Code Description Data Poly rce(s) Supporting Document(s) Cholesterol Level 171 mg/dL Normal (applies to non-numeri c results) [facility] ([facility]) HDL Cholesterol 63 mg/dL Normal (applies to non-numeric results) [facility] ([facility]) Triglycerides Level 110 mg/dL Normal (applies to non-nume aayush results) [facility] ([facility]) LDL Cholesterol 86 mg/dL Normal (applies to non-numeric results) [facility] ([facility]) Non-HDL-C 108 mg/dL Normal (applies to non-numeric resul ts) [facility] ([facility]) Cholesterol Risk Ratio 2.714 Normal (applies to non-n umeric results) [facility] ([facility]) ID Date Data Source [id number] 01/06/2021 01:54:00 PM EDT [facility] ([facility]) Name Value Range Interpretation Code Description Data Poly rce(s) Supporting Document(s) Blood Urea Nitrogen 13 mg/dL 7-18 Normal (applies to non-nume aayush results) [facility] ([facility]) Glucose, Fasting 79 mg/dL 70-100 Normal (applies to non-numeric results) [facility] ([facility]) Glomerular Filtration Rate Laboratory test result Normal (applies to non- numeric results) [facility] ([facility]) <content>Units are mL/min/1.73 m2</content>
<content></content>
<content>Chronic Kidney Disease Staging per NKF:</content>
<content></content>
<content>Stage I & II GFR >=60 Normal to Mildly Decreased</content>
<content>Stage III GFR 30- 59 Moderately Decreased</content>
<content>Stage IV GFR 15-29 Severely Decreased</content>
<content>Stage V GFR <15 Very Little GFR Left</content>
<content>ESRD GFR <15 on FRUIT ROOM HAND</content>
<content></content> Creatinine For GFR 0.77 mg/dL 0.55-1.30 Normal (applies to non -numeric results) [facility] ([facility]) Potassium Serum 4.9 meq/L 3.5-5.1 Normal (applies to non-numeric results) [facility] ([facility]) Sodium Level 140 meq/L 136-145 Normal (applies to non-numeric res ults) [facility] ([facility]) Carbon Dioxide Level 28 meq/L 21-32 Normal (applies to non-num jon results) [facility] ([facility]) Chloride Level 106 meq/L 98-107 Normal (applies to non-numeric r esults) [facility] ([facility]) Anion Gap 6 meq/L 8-16 Below low normal [facility] Ast/Sgot 17 U/L 7-37 Normal (applies to non-numeric resul ts) [facility] ([facility]) Calcium Level 9.3 mg/dL 8.8-10.2 Normal (applies to non-numeric re sults) [facility] ([facility]) Alt/SGPT 18 U/L 12-78 Normal (applies to non-numeric resul ts) [facility] ([facility]) Alkaline Phosphatase 110 U/L 45-117 Normal (applies to non-num jon results) [facility] ([facility]) Albumin 3.5 GM/DL 3.2-5.2 Normal (applies to non-numeric resul ts) [facility] ([facility]) Bilirubin,Total 0.6 mg/dL 0.2-1.0 Normal (applies to non-numeric results) [facility] ([facility]) Total Protein 6.7 GM/DL 6.4-8.2 Normal (applies to non-numeric re sults) [facility] ([facility]) Albumin/Globulin Ratio 1.1 1.2-2.2 Below low normal [facility] ([facility]) ID Date Data Source [id number] 11/11/2020 01:44:00 PM EDT [facility] ([facility]) Name Value Range Interpretation Code Description Data Poly rce(s) Supporting Document(s) Ferritin [Mass/volume] in Serum or Plasma 60 ng/mL 8-252 Normal (applies to non- numeric results) [facility] ([facility]) Calcidiol [Mass/volume] in Serum or Plasma 40.6 ng/mL 30.0- 100.0 Normal (applies to non-numeric results) [facility] ([facility]) Cobalamin (Vitamin B12) [Mass/volume] in Serum or Plasma 479 pg/ mL 247-911 Normal (applies to non-numeric results) [facility] ([facility]) VITAMIN B12 NORMAL RANGE NORMAL 247 - 911 PG/ML INDETERMINATE 211 - 246 PG/ML DEFICIENT LESS THAN 211 PG/ML ID Date Data Source [id number] 11/11/2020 01:44:00 PM EDT [facility] ([facility]) Name Value Range Interpretation Code Description Data Poly rce(s) Supporting Document(s) Iron (Fe) 78 ug/dL 50-170 Normal (applies to non-numeric resul ts) [facility] ([facility]) Total Iron Binding Capacity 373 ug/dL 250-450 Norm al (applies to non-numeric results) [facility] ([facility]) Percent Saturation 20.9 % 13.2-45.0 Normal (applies to non-numer ic results) [facility] ([facility]) ID Date Data Source [id number] 11/11/2020 01:44:00 PM EDT [facility] ([facility]) Name Value Range Interpretation Code Description Data Poly rce(s) Supporting Document(s) Hemoglobin A1c 5.4 % Normal (applies to non-numeric r esults) [facility] ([facility]) <content>REFERENCE RANGES:</content><br/ ><content></content>
<content><=5.6% NORMAL</content>
<content>5.7-6.4% SUGGESTS IMPAIRED GLUCOSE METABOLISM/PREDIABETIC</content>
<content>>= 6.5% ABNORMAL</content>
<content></content> Estimated Average Glucose 108 mg/dL 60-110 Normal (applies to non-numeric results) [facility] ([facility]) ID Date Data Source [id number] 11/11/2020 01:44:00 PM EDT [facility] ([facility]) Name Value Range Interpretation Code Description Data Poly rce(s) Supporting Document(s) White Blood Count 7.5 10 4.0-10.0 Normal (applies to non-numeri c results) [facility] ([facility]) Red Blood Count 4.53 10 4.00-5.40 Normal (applies to non-numeric results) [facility] ([facility]) Hemoglobin 14.0 g/dL 12.0-15.5 Normal (applies to non-numeric resul ts) [facility] ([facility]) Hematocrit 44.7 % 36.0-47.0 Normal (applies to non-numeric resul ts) [facility] ([facility]) Mean Corpuscular Volume 98.7 fl 80.0-96.0 Above high normal [facility] ([facility]) Mean Corpuscular Hemoglobin 30.9 pg 27.0-33.0 Norm al (applies to non-numeric results) [facility] ([facility]) Red Cell Distribution Width 13.0 % 11.5-14.5 Norm al (applies to non-numeric results) [facility] ([facility]) Mean Corpuscular HGB Conc 31.3 g/dL 32.0-36.5 Below low normal [facility] ([facility]) Platelet Count, Automated 260 10 150-450 Normal (applies to non-numeric results) [facility] ([facility]) Neutrophils % 48.5 % 36.0-66.0 Normal (applies to non-numeric re sults) [facility] ([facility]) Lymph % 33.6 % 24.0-44.0 Normal (applies to non-numeric resul ts) [facility] ([facility]) Eos % 4.7 % 0.0-3.0 Above high normal [facility] ([facility]) [place] % 12.1 % 2.0-8.0 Above high normal [facility] ([facility]) Immature Granulocyte % 0.3 % 0-3.0 Normal (applies to non-n umeric results) [facility] ([facility]) Baso % 0.8 % 0.0-1.0 Normal (applies to non-numeric resul ts) [facility] ([facility]) Neutrophils # 3.6 10 1.5-8.5 Normal (applies to non-numeric re sults) [facility] ([facility]) Lymph # 2.5 10 1.5-5.0 Normal (applies to non-numeric resul ts) [facility] ([facility]) Nucleated Red Blood Cell % 0.0 % 0-0 Normal (applies to n on-numeric results) [facility] ([facility]) [place] # 0.9 10 0.0-0.8 Above high normal [facility] ([facility]) Eos # 0.4 10 0.0-0.5 Normal (applies to non-numeric resul ts) [facility] ([facility]) Baso # 0.1 10 0.0-0.2 Normal (applies to non-numeric resul ts) [facility] ([facility]) ID Date Data Source [id number] 11/11/2020 01:44:00 PM EDT [facility] ([facility]) Name Value Range Interpretation Code Description Data Poly rce(s) Supporting Document(s) Blood Urea Nitrogen 15 mg/dL 7-18 Normal (applies to non-nume aayush results) [facility] ([facility]) Glucose, Fasting 137 mg/dL 70-100 Above high normal [facility] Creatinine For GFR 1.05 mg/dL 0.55-1.30 Normal (applies to non -numeric results) [facility] ([facility]) Glomerular Filtration Rate 54.4 Normal (applies to n on-numeric results) [facility] ([facility]) <content>Units are mL/min/1.73 m2</content>
<content></content>
<content>Chronic Kidney Disease Staging per NKF:</content>
<content></content>
<content>Stage I & II GFR >=60 Normal to Mildly Decreased</content>
<content>Stage III GFR 30- 59 Moderately Decreased</content>
<content>Stage IV GFR 15-29 Severely Decreased</content>
<content>Stage V GFR <15 Very Little GFR Left</content>
<content>ESRD GFR <15 on FRUIT ROOM HAND</content>
<content></content> Potassium Serum 5.0 meq/L 3.5-5.1 Normal (applies to non-numeric results) [facility] ([facility]) Sodium Level 138 meq/L 136-145 Normal (applies to non-numeric res ults) [facility] ([facility]) Carbon Dioxide Level 30 meq/L 21-32 Normal (applies to non-num jon results) [facility] ([facility]) Chloride Level 104 meq/L 98-107 Normal (applies to non-numeric r esults) [facility] ([facility]) Anion Gap 4 meq/L 8-16 Below low normal [facility] ( [facility]) Calcium Level 9.7 mg/dL 8.8-10.2 Normal (applies to non-numeric re sults) [facility] ([facility]) Alt/SGPT 21 U/L 12-78 Normal (applies to non-numeric resul ts) [facility] ([facility]) Ast/Sgot 14 U/L 7-37 Normal (applies to non-numeric resul ts) [facility] ([facility]) Total Protein 7.0 GM/DL 6.4-8.2 Normal (applies to non-numeric re sults) [facility] [facility] Bilirubin,Total 0.3 mg/dL 0.2-1.0 Normal (applies to non-numeric results) [facility] ([facility]) Alkaline Phosphatase 141 U/L 45-117 Above high normal [facility] ([facility]) Albumin 3.8 GM/DL 3.2-5.2 Normal (applies to non-numeric resul ts) [facility] ([facility]) Albumin/Globulin Ratio 1.2 1.2-2.2 Normal (applies to non-n umeric results) [facility] ([facility]) ID Date Data Source [id number] 11/11/2020 01:44:00 PM EDT [facility] ([facility]) Name Value Range Interpretation Code Description Data Poly rce(s) Supporting Document(s) Thyroid Stimulating Hormone 4.080 uIU/ML 0.358-3.740 Above high chay l [facility] ([facility]) Free T4 0.74 ng/dL 0.76-1.46 Below low normal [facility] ( [facility]) ID Date Data Source [id number] 09/13/2020 10:41:42 AM EST [facility] Name Value Range Interpretation Code Description Data Poly rce(s) Supporting Document(s) Progress Note [facility] [id number] [file] [id number] ID Date Data Source [id number] 09/06/2020 12:00:00 AM EST [facility] Sherrell Myers DO Patient Name: MARTHA [id number] Date of : 1945 1 Date of Exam:09/06/2020NAOMI Leon [id number]#: Fax: [phone] EXAM: MAMMO SCREENING WITH CADCLINICAL INFORMATION: Screening.Based on the personal and family history information your patient suppliedat the time of imaging, her lifetime risk of breast cancer estimated by theTyrer-Cuzick model is 4.3%. Given that this patient has less than 20% TCrisk score, no further medical management is currently recommended at thistime.Your patient's personal and/or family history of cancer submitted at thetime of imaging is suggestive of a hereditary cancer syndrome. She meetsthe criteria for genetic testing established by [facility] and [place] [employer] guidelines. She should pursue arisk assessment with a hereditary cancer specialist which may includetesting based on these criteria. The benefits and limitations of genetictesting would be discussed, including potential changes to medicalmanagement based on the results. Your patient declined [facility] genetictesting at this time.Digital screening (2D) mammography was performed bilaterally in the CC andMLO projections. Additionally, breast tomosynthesis (3D mammography) wasperformed bilaterally in the CC and MLO projections. Today's exam wascompared to the prior exam(s).By history, the patient has no complaints of a palpable breast abnormalityor other significant breast complaints.The patient states that a clinical breast exam was not performed.The breasts are unchanged in size and shape. There are no pascale-soft tissuedensities or spiculated masses. There is no internal architecturaldistortion. There are no suspicious pascale-calcific clusters. Skinthickening or nipple retraction is not present.The Volpara volumetric breast density category is B, there are scatteredareas of fibroglandular density.IMPRESSION:BI-RADS Category 1 - Negative Mammogram. Stable mammogram. There is noevidence of malignant al teration of the breasts. Followup examinationrecommended in one year.This mammogram was read with the assistance of [employer], an FDAapproved computer aided detection system for mammography.Negative x-ray reports should not delay surgical consultation if a dominantor clinically suspicious mass is present.Not all breast cancers can be identified by mammography. Therefore, werecommend that you continue to perform regular breast self-examination andphysical examination and then promptly contact your physician of anyconcerns or changes.Adenosis and dense breasts may obscure an underlying neoplasm.TAMMY Mendez/Sam you for referring RUPERTO SUE to our office. Electronically Signed - EDYTA TAYLOR DO 09/09/20 16:54 Name Value Range Interpretation Code Description Data Poly rce(s) Supporting Document(s) Procedure Social History Code Duration Value Status Description Data Source(s ) Smoking 07/07/2021 12:00:00 AM EST Quit completed Quit [facility] ([facility]) Smoking 05/23/2021 12:00:00 AM EDT Former Smoker completed Former Smoker eCW1 ([facility]) Smoking 04/08/2021 12:00:00 AM EDT Former Smoker completed Former Smoker eCW1 ([facility]) Smoking 03/24/2021 12:00:00 AM EDT Former Smoker completed Former Smoker eCW1 ([facility]) Alcohol intake 03/17/2021 12:00:00 AM EDT Current drinker of al cohol (finding) completed Current drinker of alcohol (finding) [facility] Tobacco use and exposure 03/17/2021 12:00:00 AM EDT Never used co mpleted Never used [facility] Smoking 03/17/2021 12:00:00 AM EDT Former smoker completed Former smoker [facility] Smoking 02/04/2021 12:00:00 AM EDT Former Smoker completed Former Smoker eCW1 ([facility]) Smoking 11/04/2020 12:00:00 AM EDT Former Smoker completed Former Smoker eCW1 ([facility]) Smoking 08/06/2020 12:00:00 AM EST Former Smoker completed Former Smoker eCW1 ([facility]) Smoking 07/03/2020 12:00:00 AM EST Patient is a former smoker completed Patient is a former smoker [facility] ([facility] ) Smoking 05/30/2020 12:00:00 AM EDT Former Smoker completed Former Smoker eCW1 ([facility]) Smoking 05/30/2020 12:00:00 AM EDT Former Smoker completed Former Smoker eCW1 ([facility]) Smoking 05/30/2020 12:00:00 AM EDT Former Smoker completed Former Smoker eCW1 ([facility]) Vital Signs ID Date Data Source UNK Name Value Range Interpretation Code Description Data Source(s) Diastolic blood pressure 76 mm[Hg] 76 mm[Hg] [facility] ([facility]) Body height 62.5 [in_i] 62.5 [in_i] [facility] ([facility]) 5'2.50" Heart rate 54 /min 54 /min [facility] ([facility]) Respiratory rate 18 /min 18 /min [facility] ( [facility]) Body temperature 96.7 [degF] 96.7 [degF] [facility] ([facility]) Oxygen saturation in Arterial blood by Pulse oximetry 98 % 98 % [facility] ([facility]) [place] body weight 110 [lb_av] 110 [lb_av] MEDEN T ([facility]) Systolic blood pressure 126 mm[Hg] 126 mm[Hg] M EDENT ([facility]) Body weight 233.25 [lb_av] 233.25 [lb_av] MEDEN T ([facility]) Body mass index (BMI) [Ratio] 42.0 kg/m2 42.0 k g/m2 [facility] Body weight 229.8 [lb_av] 229.8 [lb_av] eCW1 ([facility]) Body weight 104.24 kg 104.24 kg W1 ([facility]) Body height [in_i] eCW1 ([facility]) Body mass index (BMI) [Ratio] 42.03 kg/m2 42.03 kg/m2 W1 ([facility]) Heart rate 57 /min 57 /min eCW1 ([facility]) Respiratory rate 18 /min 18 /min eCW1 ([facility]) Body temperature 97.8 [degF] 97.8 [degF] eCW1 ( [facility]) Systolic blood pressure 133 mm[Hg] 133 mm[Hg] e CW1 ([facility]) Diastolic blood pressure 73 mm[Hg] 73 mm[Hg] eCW1 ([facility]) Heart rate 48 /min 48 /min [facility] [place] body weight 110 [lb_av] 110 [lb_av] MEDEN T ([facility]) Body height 62.5 [in_i] 62.5 [in_i] MED[facility] ([facility]) 5'2.50" Respiratory rate 20 /min 20 /min [facility] Body temperature 98.4 [degF] 98.4 [degF] [facility] Oxygen saturation in Arterial blood by Pulse oximetry 97 % 97 % [facility] ([facility]) Systolic blood pressure 130 mm[Hg] 130 mm[Hg] M EDENT ([facility]) Diastolic blood pressure 82 mm[Hg] 82 mm[Hg] [facility] ([facility]) Body height 62.5 [in_i] 62.5 [in_i] MEDENT ([facility]) 5'2.50" Body weight 227.00 [lb_av] 227.00 [lb_av] MEDEN T ([facility]) Body mass index (BMI) [Ratio] 40.9 kg/m2 40.9 k g/m2 [facility] ([facility]) Heart rate 56 /min 56 /min [facility] ([facility]) Respiratory rate 18 /min 18 /min [facility] ( [facility]) Body temperature 97.8 [degF] 97.8 [degF] [facility] ([facility]) Oxygen saturation in Arterial blood by Pulse oximetry 98 % 98 % [facility] ([facility]) [place] body weight 110 [lb_av] 110 [lb_av] MEDEN T ([facility]) Body temperature 98.7 [degF] 98.7 [degF] [facility] ([facility]) [place] body weight 110 [lb_av] 110 [lb_av] MEDEN T ([facility]) Systolic blood pressure 128 mm[Hg] 128 mm[Hg] M EDENT ([facility]) Diastolic blood pressure 72 mm[Hg] 72 mm[Hg] [facility] ([facility]) Body height 62.5 [in_i] 62.5 [in_i] MED[facility] ([facility]) 5'2.50" Body weight 226.12 [lb_av] 226.12 [lb_av] MEDEN T ([facility]) Body mass index (BMI) [Ratio] 40.7 kg/m2 40.7 k g/m2 [facility] ([facility]) Heart rate 68 /min 68 /min [facility] ([facility]) Respiratory rate 18 /min 18 /min [facility] ( [facility]) Oxygen saturation in Arterial blood by Pulse oximetry 97 % 97 % [facility] ([facility]) Body weight 227 [lb_av] 227 [lb_av] eCW1 ([facility]) Body weight 102.97 kg 102.97 kg eCW1 ([facility]) Body height [in_i] eCW1 ([facility]) Body mass index (BMI) [Ratio] 41.51 kg/m2 41.51 kg/m2 eCW1 ([facility]) Heart rate 55 /min 55 /min eCW1 ([facility]) Respiratory rate 18 /min 18 /min eCW1 ([facility]) Body temperature 97.2 [degF] 97.2 [degF] eCW1 ( [facility]) Systolic blood pressure 148 mm[Hg] 148 mm[Hg] e CW1 ([facility]) Diastolic blood pressure 68 mm[Hg] 68 mm[Hg] eCW1 ([facility]) Systolic blood pressure 136 mm[Hg] 136 mm[Hg] M EDENT ([facility]) Body height 62.5 [in_i] 62.5 [in_i] MEDENT ([facility]) 5'2.50" Diastolic blood pressure 84 mm[Hg] 84 mm[Hg] [facility] ([facility]) Heart rate 60 /min 60 /min [facility] ([facility]) Respiratory rate 20 /min 20 /min MED[facility] ( [facility]) Oxygen saturation in Arterial blood by Pulse oximetry 96 % 96 % [facility] ([facility]) Body temperature 98.3 [degF] 98.3 [degF] [facility] ([facility]) [place] body weight 110 [lb_av] 110 [lb_av] MEDEN T ([facility]) Body weight 230 [lb_av] 230 [lb_av] eCW1 ([facility]) Body weight 104.33 kg 104.33 kg eCW1 ([facility]) Body height [in_i] eCW1 ([facility]) Body mass index (BMI) [Ratio] 42.06 kg/m2 42.06 kg/m2 eCW1 ([facility]) Heart rate 55 /min 55 /min eCW1 ([facility]) Respiratory rate 18 /min 18 /min eCW1 ([facility]) Body temperature 97.7 [degF] 97.7 [degF] eCW1 ( [facility]) Systolic blood pressure 180 mm[Hg] 180 mm[Hg] e CW1 ([facility]) Diastolic blood pressure 72 mm[Hg] 72 mm[Hg] eCW1 ([facility]) Body weight 232.8 [lb_av] 232.8 [lb_av] eCW1 ([facility]) Body height [in_i] eCW1 ([facility]) Body mass index (BMI) [Ratio] 42.58 kg/m2 42.58 kg/m2 eCW1 ([facility]) Heart rate 54 /min 54 /min eCW1 ([facility]) Respiratory rate 18 /min 18 /min eCW1 ([facility]) Body temperature 97.5 [degF] 97.5 [degF] eCW1 ( [facility]) Systolic blood pressure 151 mm[Hg] 151 mm[Hg] e CW1 ([facility]) Diastolic blood pressure 65 mm[Hg] 65 mm[Hg] eCW1 ([facility]) Systolic blood pressure 132 mm[Hg] 132 mm[Hg] M EDENT ([facility]) Diastolic blood pressure 78 mm[Hg] 78 mm[Hg] [facility] ([facility]) Body height 62.5 [in_i] 62.5 [in_i] MEDENT ([facility]) 5'2.50" Body weight 232.00 [lb_av] 232.00 [lb_av] MEDEN T ([facility]) Body mass index (BMI) [Ratio] 41.8 kg/m2 41.8 k g/m2 [facility] ([facility]) Heart rate 86 /min 86 /min [facility] ([facility]) Respiratory rate 18 /min 18 /min [facility] ( [facility]) Body temperature 98.7 [degF] 98.7 [degF] [facility] ([facility]) Oxygen saturation in Arterial blood by Pulse oximetry 97 % 97 % [facility] ([facility]) [place] body weight 110 [lb_av] 110 [lb_av] MEDEN T ([facility]) Body weight 237.2 [lb_av] 237.2 [lb_av] eCW1 ([facility]) Body height [in_i] eCW1 ([facility]) Body mass index (BMI) [Ratio] 43.38 kg/m2 43.38 kg/m2 eCW1 ([facility]) Heart rate 69 /min 69 /min eCW1 ([facility]) Respiratory rate 18 /min 18 /min eCW1 ([facility]) Body temperature 97.3 [degF] 97.3 [degF] eCW1 ( [facility]) Systolic blood pressure 149 mm[Hg] 149 mm[Hg] e CW1 ([facility]) Diastolic blood pressure 60 mm[Hg] 60 mm[Hg] eCW1 ([facility]) Body height 62.5 [in_i] 62.5 [in_i] MEDENT ([facility]) 5'2.50" Body weight 238.00 [lb_av] 238.00 [lb_av] MEDEN T ([facility]) Body mass index (BMI) [Ratio] 42.8 kg/m2 42.8 k g/m2 [facility] ([facility]) Diastolic blood pressure 84 mm[Hg] 84 mm[Hg] [facility] ([facility]) Heart rate 62 /min 62 /min [facility] ([facility]) Respiratory rate 20 /min 20 /min [facility] ( [facility]) Body temperature 97.1 [degF] 97.1 [degF] [facility] ([facility]) Oxygen saturation in Arterial blood by Pulse oximetry 98 % 98 % [facility] ([facility]) [place] body weight 110 [lb_av] 110 [lb_av] MEDEN T ([facility]) Systolic blood pressure 130 mm[Hg] 130 mm[Hg] M EDENT ([facility]) Body weight 240.8 [lb_av] 240.8 [lb_av] eCW1 ([facility]) Body height [in_i] eCW1 ([facility]) Body mass index (BMI) [Ratio] 44.04 kg/m2 44.04 kg/m2 eCW1 ([facility]) Heart rate 61 /min 61 /min eCW1 ([facility]) Respiratory rate 18 /min 18 /min eCW1 ([facility]) Body temperature 97.5 [degF] 97.5 [degF] eCW1 ( [facility]) Systolic blood pressure 145 mm[Hg] 145 mm[Hg] e CW1 ([facility]) Diastolic blood pressure 65 mm[Hg] 65 mm[Hg] eCW1 ([facility]) Body weight 240.00 [lb_av] 240.00 [lb_av] MEDEN T ([facility]) Body height 62 [in_i] 62 [in_i] MEDENT ([facility] 5'2" Heart rate 65 /min 65 /min [facility] ([facility]) Respiratory rate 18 /min 18 /min MED[facility] ( [facility]) Systolic blood pressure 144 mm[Hg] 144 mm[Hg] M EDENT ([facility]) Diastolic blood pressure 81 mm[Hg] 81 mm[Hg] [facility] ([facility]) Body mass index (BMI) [Ratio] 43.9 kg/m2 43.9 k g/m2 [facility] ([facility]) Body weight 242.12 [lb_av] 242.12 [lb_av] MEDEN T ([facility]) Body height 62 [in_i] 62 [in_i] MED[facility] ([facility]) 5'2" Heart rate 50 /min 50 /min [facility] ([facility] Respiratory rate 18 /min 18 /min MED[facility] ( [facility]) Systolic blood pressure 135 mm[Hg] 135 mm[Hg] M EDENT ([facility]) Diastolic blood pressure 61 mm[Hg] 61 mm[Hg] MEDENT ([facility]) Body mass index (BMI) [Ratio] 44.3 kg/m2 44.3 k g/m2 MED[facility] ([facility]) Body weight 240.25 [lb_av] 240.25 [lb_av] MEDEN T ([facility]) Body height 62 [in_i] 62 [in_i] MEDENT ([facility]) 5'2" Heart rate 56 /min 56 /min [facility] ([facility]) Respiratory rate 18 /min 18 /min MED[facility] ( [facility]) Systolic blood pressure 142 mm[Hg] 142 mm[Hg] M EDENT ([facility]) Diastolic blood pressure 84 mm[Hg] 84 mm[Hg] MED[facility] ([facility]) Body mass index (BMI) [Ratio] 43.9 kg/m2 43.9 k g/m2 MED[facility] ([facility]) Body weight 238.00 [lb_av] 238.00 [lb_av] MEDEN T ([facility]) Body temperature 97.1 [degF] 97.1 [degF] [facility] ([facility]) Oxygen saturation in Arterial blood by Pulse oximetry 97 % 97 % [facility] ([facility]) [place] body weight 110 [lb_av] 110 [lb_av] MEDEN T ([facility]) Heart rate 55 /min 55 /min [facility] ([facility]) Systolic blood pressure 144 mm[Hg] 144 mm[Hg] M EDENT ([facility]) Diastolic blood pressure 76 mm[Hg] 76 mm[Hg] [facility] ([facility]) Body height 62.5 [in_i] 62.5 [in_i] MEDENT ([facility]) 5'2.50" Body mass index (BMI) [Ratio] 42.8 kg/m2 42.8 k g/m2 MEDENT ([facility]) Respiratory rate 18 /min 18 /min MED[facility] ( [facility]) Diastolic blood pressure 69 mm[Hg] 69 mm[Hg] MED[facility] ([facility]) Body weight 240.00 [lb_av] 240.00 [lb_av] MEDEN T ([facility]) Body height 62.5 [in_i] 62.5 [in_i] [facility] 5'2.50" Heart rate 55 /min 55 /min [facility] Respiratory rate 18 /min 18 /min [facility] ( [facility]) Systolic blood pressure 137 mm[Hg] 137 mm[Hg] M EDENT ([facility]) Body mass index (BMI) [Ratio] 43.2 kg/m2 43.2 k g/m2 [facility] Body weight 238.4 [lb_av] 238.4 [lb_av] eCW1 ([facility]) Body height [in_i] eCW1 ([facility]) Body mass index (BMI) [Ratio] 43.60 kg/m2 43.60 kg/m2 eCW1 ([facility]) Heart rate 56 /min 56 /min eCW1 ([facility]) Respiratory rate 18 /min 18 /min eCW1 ([facility]) Body temperature 97.1 [degF] 97.1 [degF] eCW1 ( [facility]) Systolic blood pressure 133 mm[Hg] 133 mm[Hg] e CW1 ([facility]) Diastolic blood pressure 60 mm[Hg] 60 mm[Hg] eCW1 ([facility]) ID Date Data Source [id number] 05/20/2021 01:35:[address] [facility] Name Value Range Interpretation Code Description Data Source(s) PREFERRED NAME [facility] ID Date Data Source [id number] 09/13/2020 12:30:[address] [facility] Name Value Range Interpretation Code Description Data Source(s) PREFERRED NAME [facility] PREFERRED NAME [facility] ID Date Data Source [id number] 09/02/2020 07:34:[address] [facility] Name Value Range Interpretation Code Description Data Source(s) PREFERRED NAME [facility] Patient Treatment Plan of Care Planned Activity Planned Date Details Description Data Source (s) Levothyroxine Sodium 0.112 MG Oral Tablet 11/12/2020 12:00:00 AM ED T [facility] tramadol hydrochloride 50 MG Oral Tablet 08/06/2020 12:00:00 AM EST eCW1 ([facility]) tramadol hydrochloride 50 MG Oral Tablet 08/06/2020 12:00:00 AM EST eCW1 ([facility]) tramadol hydrochloride 50 MG Oral Tablet 08/06/2020 12:00:00 AM EST eCW1 ([facility]) 12 HR dalfampridine 10 MG Extended Release Oral Tablet 11/09/2013 12:00:00 AM EDT [facility] ospital Biotin 1 MG Oral Capsule Ups [facility] Calcium Carbonate 1250 MG / Cholecalciferol 0.01 MG Oral Tablet [facility] gabapentin 300 MG Oral Capsule [facility] Ibuprofen 600 MG Oral Tablet [facility] Levothyroxine Sodium 0.175 MG Oral Tablet [facility]
--- NOTE | 2021-07-10 11:18 | REP ---
INDICATION: CHEST PAIN COMPARISON: 07/20/2016 TECHNIQUE: Portable AP view of the chest FINDINGS: The mediastinum and cardiac silhouette are stable and within normal limits for portable technique. The lung bowling are clear without acute consolidation, effusion, or pneumothorax. Skeletal structures are intact. IMPRESSION: No acute cardiopulmonary process appreciated. <Electronically signed by Bulmaro Parker > 07/10/21 [id number]
[2021-07-10 11:21] LABS: VENOUS HCO3 22.2 MEQ/L (23.0-27.0); VENOUS O2 SATURATION 73.2 % (60.0-80.0); VENOUS PARTIAL PRESSURE CO2 44.4 mmHg (38.0-50.0); VENOUS PARTIAL PRESSURE O2 40.4 mmHg (30.0-50.0); VENOUS PH 7.316 UNITS (7.330-7.430); VENOUS STANDARD HCO3 20.6 MEQ/L; VENOUS TOTAL CO2 23.5 MEQ/L (24.0-28.0)
[2021-07-10 11:28] LABS: BASO # 0.1 10^3/uL (0.0-0.2); BASO % 0.7 % (0.0-1.0); EOS # 0.3 10^3/uL (0.0-0.5); EOS % 4.7 % (0.0-3.0); HEMOGLOBIN 14.3 g/dl (12.0-15.5); LYMPH # 1.5 10^3/uL (1.5-5.0); LYMPH % 21.1 % (24.0-44.0); MEAN CORPUSCULAR HEMOGLOBIN 32.1 pg (27.0-33.0); MEAN CORPUSCULAR HGB CONC 32.5 g/dl (32.0-36.5); MEAN CORPUSCULAR VOLUME 98.9 fl (80.0-96.0); MONO # 0.6 10^3/uL (0.0-0.8); MONO % 8.9 % (2.0-8.0); NEUTROPHILS # 4.7 10^3/uL (1.5-8.5); NEUTROPHILS % 64.3 % (36.0-66.0); PLATELET COUNT, AUTOMATED 279 10^3/uL (150-450); RED BLOOD COUNT 4.45 10^6/uL (4.00-5.40); WHITE BLOOD COUNT 7.2 10^3/uL (4.0-10.0)
[2021-07-10] MEDS ORDERED: NS 500 ML IV ONE (11:30)
[2021-07-10 11:48] LABS: INR 0.96; PROTHROMBIN TIME 13.1 SECONDS (12.7-14.5)
--- OUTSIDE RECORDS SUMMARY | 2021-07-10 11:56 | CCD ---
Author Author [facility] Organization [facility] Address Unknown Phone Unavailable Care Team Providers Care Bingo Cashier Name Role Phone Maring, Jamie PA Unavailable [...] Unavailable Unavailable CHROSTOWSKI, MEET MD Unavailable Unavailable BARRY-KAELA, SHERRELL DO Unavailable Unavailable [...] Unavailable PARHAM, E Gita PA Unavailable Unavailable PARAHM, E Gita PA Unavailable Unavailable PARHAM, E [...] Unavailable PARHAM, E Gita PA Unavailable Unavailable BARRY-KAELA, SHERRELL DO Unavailable Unavailable BARRY-KAELA, SHERRELL DO Unavailable Unavailable BARRY-KAELA, SHERRELL DO Unavailable Unavailable BARRY-KAELA, SHERRELL DO Unavailable Unavailable BARRY-KAELA, SHERRELL DO Unavailable Unavailable BARRY-KAELA, SHERRELL DO Unavailable Unavailable BARRY-KAELA, SHERRELL DO Unavailable Unavailable BARYR-KAELA, SHERRELL DO Unavailable Unavailable BARRY-KAELA, SHERRELL DO [...] Unavailable Unavailable BARRY-KAELA, SHERRELL DO Unavailable Unavailable BARRY-AKELA, SHERRELL DO Unavailable Unavailable BARRY-KAELA, SHERRELL DO [...] Unavailable Unavailable BARRY-KAELA, SHERRELL DO Unavailable Unavailable Re-disclosure Warning The records that [...] is protected by Article 27-F of the [facility] Public Health law. If you continue you may have access to information: Regarding HIV / AIDS; Provided by facilities licensed or operated by the [facility] Office of Mental Health; or Provided by the [facility] Office for People With Developmental Disabilities. If such information is present, then the following [facility] mandated warning applies: This information has been [...] law may result in a fine or long term sentence or both. A general authorization for [...] Source(s) Unknown Unknown Problem MEDENT ([facility]) Encounters Encounter Providers Location Date Indications Data Source(s ) Outpatient Attender: Gita DIEZ 09/19/2021 12:00:00 AM [facility] Outpatient Attender: SHERRELL PURCELL DO [facility] 07/07/2021 08:40:00 AM EST [facility] ([facility]) Outpatient Attender: JUSTINO RUTHERFORD MDReferrer: SHERRELL MORENO DO 07/05/2021 06:29:03 PM EST [facility] Recurring Patient Referrer: SHERRELL PURCELL DO 07/04/2021 01:34:56 PM EST [facility] Recurring Patient Referrer: SHERRELL PURCELL DO 06/23/2021 08:43:16 AM EDT [facility] [place] [address] [facility] [facility] [address] 05/23/2021 12:00:00 AM EDT eCW1 ([facility]) Outpatient Attender: SHERRELL PURCELL [facility] 05/15/2021 04:00:00 PM EDT MED[facility] ([facility]) Outpatient Attender: Jamie DIEZ 05/06/20 09:09:50 AM EDT - 05/06/2021 11:01:23 AM EDT [facility] ([facility] ) Outpatient Attender: SHERRELL PURCELL DO [facility] 04/30/2021 09:30:00 AM EDT MED[facility] ([facility]) Outpatient Attender: SOL KRAFT_[address] [facility] 04/21/2021 11:30:00 AM EDT MED[facility] ([facility]) Outpatient Attender: SHERRELL PURCELL DO [facility] 04/17/2021 10:20:00 AM EDT MEDENT ([facility]) Outpatient [address] [facility], [facility] [address] 04/08/2021 12:00:00 AM EDT eCW1 ([facility]) Outpatient Attender: Jase DIEZ [facility] 03/31/2021 04:00:00 PM EDT MEDENT ([facility]) Outpatient [address] [facility], [facility] [address] 03/24/2021 12:00:00 AM EDT eCW1 ([facility]) Outpatient Attender: Gita DIEZ [id number] 03/17 12:00:00 AM EDT - 03/17/2021 02:11:08 PM T [facility] Outpatient [address] [facility], [facility] [address] 02/04/2021 12:00:00 AM EDT eCW1 ([facility]) Outpatient Attender: Joce DEIZ [facility] 01/14/2021 10:40:00 AM EDT MED[facility] ([facility]) Outpatient [address] [facility] [address] 11/04/2020 12:00:00 AM EDT eCW1 ([facility]) Outpatient Attender: SHERRELL PURCELL DO [facility] 10/17/2020 09:20:00 AM EST MEDENT ([facility]) Outpatient Attender: Gita DIEZ [id number] 09/13 12:00:00 AM EST - 09/13/2020 12:29:41 PM EST Multiple sclerosis [facility] Multiple sclerosis Outpatient Attender: Gita DIEZ 09/02/2020 12:00:00 AM EST [facility] [place] [address] [facility] [facility] [address] 08/06/2020 12:00:00 AM EST eCW1 ([facility]) Outpatient Attender: MEET GLASGOW MD Main Office 08/02/2020 10:00:00 AM EST [facility] ([facility] Outpatient Attender: MEET GLASGOW MD Main Office 07/31/2020 08:45:00 AM EST [facility] ([facility]) Outpatient Attender: MEET GLASGOW MD Main Office 07/29/2020 08:45:00 AM EST [facility] ([facility] Unknown [address] [facility] [facility] [address] 07/20/2020 12:00:00 AM EST eCW1 ([facility]) Office Visit Attender: Joce DIEZ [facility] 07/16/2020 08:20:00 AM EST MED[facility] ([facility]) Unknown [address] [facility] [facility] [address] 07/12/2020 12:00:00 AM EST eCW1 ([facility]) Outpatient [address] [facility] [place] [address] 05/30/2020 12:00:00 AM EDT eCW1 ([facility]) Outpatient 05/20/2020 12:00:00 AM T [facility] Immunizations Vaccine Date Status Description Data Source(s) COVID-19 VACCINE Moderna 06/16/2021 12:00:00 AM EDT completed [facility] Vaccine Series Complete: YESThis Data wa s Submitted to [facility] Via [employer]. New in 2013. IIV4 04/30/2021 10:00:00 AM EDT completed MEDENT ([facility]) COVID-19 VACCINE Moderna 10/04/2020 12:00:00 AM EST completed [facility] Vaccine Series Complete: YESThis Data wa s Submitted to [facility] Via [employer]. COVID-19 VACCINE, MRNA-1273, LNP-S (MODERNA)/PF 10/04/2020 1 2:00:00 AM EST completed [facility] COVID-19 VACCINE, MRNA-1273, LNP-S (MODERNA)/PF 09/06/2020 1 2:00:00 AM EST completed [facility] COVID-19 VACCINE Moderna 09/06/2020 12:00:00 AM EST completed [facility] Vaccine Series Complete: NOThis Data was Submitted to [facility] Via [employer]. Medications Medication Brand Name Start Date Product [...] Fluconazole 05/21/2021 12:00:00 AM EDT completed MEDENT ([facility]) 10 mg 05/15/2021 12:00:00 AM EDT tablet extended release 24hr 90 TAKE ONE TABLET BY MOUTH EVERY DAY TAKE ONE TABLET BY MOUTH EVERY DAY SOLD: 05/16/2021 [facility] Amoxicillin 875 MG / Clavulanate 125 MG [...] 05/15/2021 12:00:00 AM EDT ORAL active MEDENT ([facility]) Amoxicillin 875 MG / Clavulanate 125 MG Oral Tablet Am oxicillin/Clavulanate Potassium 05/15/2021 12:00:00 AM EDT ORAL completed MEDENT ([facility]) 112 mcg 04/30/2021 12:00:00 AM EDT tablet 180 TAKE TWO TABLETS BY MOUTH EVERY MORNING TAKE TWO TABLETS BY MOUTH EVERY MORNING SOLD: 05/06/2021 [facility] B 12 0.5 MG Oral Tablet Vitamin B-12 Hortensia ural 04/30/2021 12:00:00 AM EDT ORAL active M EDENT ([facility]) 60 mg 04/18/2021 12:00:00 AM EDT capsule,delayed release (DR/EC) 90 TAKE ONE CAPSULE BY MOUTH EVERY EVENING TAKE ONE CAPSULE BY MOUTH EVERY EVENING SOLD: 04/21/2021 [facility] 5 mg 03/31/2021 12:00:00 AM EDT tablet 90 TAKE ONE TABLET BY MOUTH EVERY DAY TAKE ONE TABLET BY MOUTH EVERY DAY SOLD: 04/03/2021 [facility] Estrogens, Conjugated (PENITENTIARY) 0.625 MG/ML Vaginal Cream [Keeley rin] Premarin 02/03/2021 12:00:00 AM EDT completed MEDENT ([facility]) tizanidine 2 MG Oral Tablet TIZANIDINE [...] um 11/12/2020 12:00:00 AM EDT ORAL active Mitch FOSTER ([facility]) Levothyroxine Sodium 0.112 MG Oral Table t Levothyroxine Sodium 112 MCG Oral Tablet (SYNTHROID) Levothyroxine Sodium 112 MCG Oral Tablet (SYNTHROID) 11/12/2020 12:00:00 AM EDT active TAKE TWO TABLETS BY MOUTH EVERY DAY IN THE MORNING [facility] 50 mg 08/07/2020 12:00:00 AM EST tablet [...] {tablet_as_needed} active traMADol HCl 50 MG eCW1 ([facility]) tramadol hydrochloride 50 MG Oral Tablet traMADol HCl 50 MG traMADol HCl 50 MG 08/06/2020 12:00:00 AM EST 1.0 {tablet_as_needed} active traMADol HCl 50 MG eCW1 ([facility]) tramadol hydrochloride 50 MG Oral Tablet Tramadol HCl 50 MG Tramadol HCl 50 MG 08/06/2020 12:00:00 AM EST 1.0 {tablet_as_needed} active Tramadol HCl 50 MG eCW1 ([facility]) tramadol hydrochloride 50 MG Oral Tablet traMADol HCl 50 MG traMADol HCl 50 MG 08/06/2020 12:00:00 AM EST 1.0 {tablet_as_needed} ac tive eCW1 ([facility]) tramadol hydrochloride 50 MG Oral Tablet traMADol HCl 50 MG traMADol HCl 50 MG 08/06/2020 12:00:00 AM EST 1.0 {tablet_as_needed} active traMADol HCl 50 MG eCW1 ([facility]) tramadol hydrochloride 50 MG Oral Tablet Tramadol HCl 50 MG Tramadol HCl 50 MG 08/06/2020 12:00:00 AM EST 1.0 {tablet_as_needed} active Tramadol HCl 50 MG eCW1 ([facility]) tizanidine 2 MG Oral Tablet TIZANIDINE HCL [...] HCL 07/16/2020 12:00:00 AM EST active [facility] ([facility]) 2 mg 07/03/2020 12:00:00 AM EST tablet 5 BRING FOR TESTING, DON'T USE AT HOME BRING FOR TESTING, DON'T USE AT HOME SOLD: 07/07/2020 [facility] Dexamethasone 2 MG Oral Tablet Dexamethasone 07/03/2020 12:00:00 AM EST active [facility] ([facility] 0.5 mg 06/29/2020 12:00:00 AM EST tablet,disintegrating 3 0 TAKE ONE TABLET BY MOUTH EVERY DAY NEEDED MAXIMUM DAILY DOSE = 1 TABLET TAKE ONE TABLET BY MOUTH EVERY DAY NEEDED MAXIMUM DAILY DOSE = 1 TABLET SOLD: 07/01/2020 [facility] Diphenhydramine Hydrochloride 25 MG Oral Tablet Diphenhydram ine HCL 06/26/2020 12:00:00 AM EST active M EDENT ([facility]) 40 mg 04/12/2020 12:00:00 AM EDT capsule,delayed [...] BY MOUTH TWICE A DAY SOLD: 04/03/2021 [facility] Cephalexin 500 MG Oral Capsule CEPHALEXIN [...] MAXIMUM DAILY DOSE = 4 SOLD: 01/13/2021 [facility] 60 mg 01/11/2020 12:00:00 AM EDT capsule,delayed release (DR/EC) 90 TAKE ONE CAPSULE BY MOUTH EVERY EVENING TAKE ONE CAPSULE BY MOUTH EVERY EVENING SOLD: 08/30/2020 [facility] 12 HR dalfampridine 10 MG Extended Relea se Oral Tablet Dalfampridine (AMPYRA) 10 MG TB12 Dalfampridine (AMPYRA) 10 MG TB12 11/09/2013 12:00:00 AM EDT 10 mg Oral aborted Multiple sclerosis Take 1 0 mg by mouth every 12 (twelve) hours. [facility] Multiple sclerosis Calcium Carbonate 1250 MG / Cholecalcife rol 0.01 MG Oral Tablet Calcium Carb- Cholecalciferol (CALCIUM-VITAMIN D3) 500-400 MG-UNIT TABS Calcium Carb- Cholecalciferol (CALCIUM-VITAMIN D3) 500-400 MG-UNIT TABS 1 {tbl} Oral aborted Take 1 tablet by mouth daily Ups [facility] Biotin 1 MG Oral Capsule Biotin 1 MG CAPS Biotin 1 MG CAPS 1 {tbl} Oral aborted Take 1 tablet by mouth every mor mason [facility] Ibuprofen 600 MG Oral Tablet ibuprofen (ADVIL,MOTRIN) 600 MG tablet ibuprofen (ADVIL,MOTRIN) 600 MG tablet 600 mg Oral aborted Take 600 mg by mouth every 6 (six) hours as needed. [facility] gabapentin 300 MG Oral Capsule gabapentin (NEURONTIN) 300 MG capsule gabapentin (NEURONTIN) 300 MG capsule 300 mg Oral aborted Take 300 mg by mouth Two Times Daily [facility] Levothyroxine Sodium 0.175 MG Oral Table t levothyroxine (SYNTHROID, LEVOTHROID) 175 MCG tablet levothyroxine (SYNTHROID, LEVOTHROID) 175 MCG tablet 200 ug Oral aborted Take 200 mcg by brennan logan [facility] Insurance Providers Payer name Policy type / Coverage type Policy ID Covered democrat ID Covered democrat's relationship to hammonds Policy Hammonds Plan Information [place] [id number] Self 08 [id number] MEDICARE A [id number] Self [id number] A [place] Primary [id number] Self 08 [id number] [place] Primary [id number] Self Medicare [place] Medicare Primary [id number] Self 08 [id number] [place] Medicare Primary [id number] Self 08 [id number] [place] Medicare Primary [id number] Self 08 [id number] Medicare C [id number] SELF [id number] A [place] Medicare Primary [id number] Self 08 [id number] MEDICARE A [id number] Self [id number] Medicare [place] Medicare Primary [id number] Self 08 [id number] MEDICARE [id number] SP [id number] A [place] Medicare Primary [id number] Self 08 [id number] MEDICARE [id number] Yan[place] [id number] A [place] Medicare Primary [id number] [id number] Self 08 [id number] [place] Primary [id number] Self [id number] MEDICARE [id number] SP [id number] Medicare [place] Medicare Primary [id number] Self 08 [id number] [place] Medicare Primary [id number] Self 08 [id number] AARP U [id number] Self [id number] Medicare [place] Medicare Primary [id number] Self 0 [id number] A[employer] Options Medigap Part B [id number] Self 3 [id number] Medicare [place] Medicare Primary [id number] [id number] Self 6 [id number] [employer] Options Medigap Part B [id number] Self 3 [id number] Medicare [place] Medicare Primary [id number] Self 0 [id number] [employer] Options Medigap Part B [id number] Self 3 [id number] [employer] Options Medigap Part B [id number] Self Medicare [place] Medicare Primary [id number] Self [employer] Options Medigap Part B [id number] Self 3 [id number] Medicare [place] Medicare Primary [id number] Self 0 [id number] AARP U [id number] Self [id number] AARP [facility] Supplemental F [id number] SELF [id number] [facility] AAR Supplemental F [id number] SELF [id number] AARP HEALTH CARE OPTIONS [id number] SP [id number] [facility] [id number] Yanet [id number] [id number] [facility] [id number] Yanet [id number] [id number] Medicare C [id number] SELF [id number] DME Jurisdiction A NHIC C [id number] SELF [id number] DME Jurisdiction A NH C [id number] SELF [id number] Medicare C [id number] SELF [id number] K16 DME A [place] C [id number] SELF [id number] [place] Medicare Medicare Part B [id number] Self [id number] AAR Commercial [employer] Co. [id number] Self [id number] MEDICARE P UNAVAILABLE S UNAVAILA BLE AAR HEALTH CARE OPTIONS [id number] SP [id number] MEDICARE C [id number] S [id number] AARP O [id number] S [id number] MEDICARE [id number] SP [id number] A MEDICARE C [id number] S [id number] A [facility] Healthcare Options [facility] Part B [id number] Self [id number] Aarp Commercial [id number]. 0 [id number] Aarp Commercial [id number]. 0 [id number] Aarp Commercial [id number]. 0 [id number] Aarp Commercial [id number] 2.16.840.1.631884.3.227.99.806.1116. 0 [id number] [employer] Commercial [id number] 2.16.840.1.877287.3.227.99.806.1116. 0 [id number] Aarp Commercial [id number] 2.16.840.1.351422.3.227.99.806.1116. 0 [id number] Aarp Healthcare Options [facility] Part B [id number] Self 3 [id number] Medicare (Part B) Medicare Primary [id number] Self 0 [id number] [facility] PI PI MEDICARE PI PI Aarp Commercial [id number] 2.16.840.1.411516.3.227.99.806.1116. 0 [id number] Aarp Commercial [id number] 2.16.840.1.552447.3.227.99.806.1116. 0 [id number] Aarp Commercial [id number] 2.16.840.1.413983.3.227.99.806.1116. 0 [id number] Aarp Commercial [id number] 2.16.840.1.427602.3.227.99.806.1116. 0 [id number] [employer] Health Care Options [facility] Part B [id number] Self 3 [id number] Medicare [place] Medicare Primary [id number] Self 0 [id number] [employer] Commercial [id number]. 0 [id number] [employer] Healthcare Options [facility] Part B [id number] Self 3 [id number] Medicare (Part B) Medicare Primary [id number] Self 0 [id number] [employer] Commercial [id number] [employer] Healthcare Options Medigap Part B [id number] Self Medicare (Part B) Medicare Primary [id number] Self AARP HEALTH CARE O [id number] S [id number] MEDICARE PART A M [id number] S [id number] AARP HEALTH CARE O [id number] S 3 [id number] AARP HEALTH CARE O [id number] S [id number] MEDICARE M [id number] S [id number] A MEDICARE OUTPATIENT M [id number] S [id number] AARP O [id number] S [id number] AARP S UNAVAILABLE S UNAVAILA BLE MEDICARE [id number] SP [id number] Problems, Conditions, and Diagnoses Code Display Name Description Problem Type Effective Dates Data Source(s) M47.816 805843235 Lumbar Facet arthropathy Problem 05/23/2021 12:00:00 AM EDT eCW1 ([facility]) M96.1 487449290 Lumbar post-laminectomy syndrome Problem 05/23/2021 12:00:00 AM EDT eCW1 ([facility]) G89.29 [id number] Other chronic pain Problem 05/21/2021 12:00: 00 AM EDT eCW1 ([facility]) [id number] Obstructive sleep apnea of adult Obstructive sle ep apnea of adult Problem 04/30/2021 12:00:00 AM EDT SWAPNIL ([facility]) Z79.891 High risk drug monitoring status Chronic prescri ption opiate use Problem 02/04/2021 12:00:00 AM EDT eCW1 ([facility]) M46.1 Solitary sacroiliitis Sacroiliitis, not elsewhere clas sified Problem 02/04/2021 12:00:00 AM EDT eCW1 ([facility]) M46.1 67275373 Sacroiliitis Problem 11/04/2020 12:00:00 AM EDT eCW1 ([facility]) Adverse effect of glucocorticoids and sy nthetic analogues, initial encounter Adverse effect of glucocorticoids and synthetic analogues, initial encounter Problem 07/03/2020 12:00:00 AM EST MEDENT ([facility] [id number] Essential hypertension Essential hypertension Problem 07/03/2020 12:00:00 AM EST MEDENT ([facility] ) Surgeries/Procedures Procedure Description Date Indications Data Source(s) Electrocardiogram Complete 07/07/2021 12:00:00 AM EST MEDENT ([facility]) OFFICE OUTPATIENT VISIT 15 MINUTES 07/07/2021 12:00:00 AM EST MEDENT ([facility]) Pain Procedure Log 05/23/2021 12:00:00 AM EDT eCW1 ([facility]) OFFICE OUTPATIENT VISIT 15 MINUTES 05/15/2021 12:00:00 AM EDT MEDENT ([facility]) XTRNL ECG < 48 HR RECORD SCAN STOR W/PHY R&I 12:00:00 AM EDT MEDENT ([facility]) OFFICE OUTPATIENT VISIT 25 MINUTES 04/30/2021 12:00:00 AM EDT MEDENT ([facility]) OFFICE OUTPATIENT VISIT 5 MINUTES 04/21/2021 12:00:00 AM EDT MEDENT ([facility]) OFFICE OUTPATIENT VISIT 25 MINUTES 04/17/2021 12:00:00 AM EDT MEDENT ([facility]) Unclassified drugs 04/08/2021 12:00:00 AM EDT eCW1 ([facility]) Completion of procedural visit when meets criteria 04/08/2021 12:00:00 AM EDT eCW1 ([facility]) OFFICE OUTPATIENT VISIT 15 MINUTES 03/31/2021 12:00:00 AM EDT MEDENT ([facility]) OFFICE OUTPATIENT VISIT 25 MINUTES 01/14/2021 12:00:00 AM EDT MEDENT ([facility]) OFFICE OUTPATIENT VISIT 25 MINUTES 10/17/2020 12:00:00 AM EST MEDENT ([facility]) X-Ray Hips Bilateral With Pelvis 3-4 Views 09/25/2020 12:00:00 AM EST MEDENT ([facility]) RADIOLOGIC EXAMINATION KNEE 3 VIEWS 09/25/2020 12:00:0 0 AM EST MEDENT ([facility]) PATCH/APPLICATION TEST SPECIFY NUMBER TESTS 07/29/2020 12:00:00 AM EST MEDENT ([facility]) Brief Emotional/Behav Assessment W/ Scoring Doc Per Standard Inst 07/16/2020 12:00:00 AM EST MEDENT ([facility]) Results ID Date Data Source [id number] 07/07/2021 12:59:00 PM EST MEDENT ([facility]) Name Value Range Interpretation Code Description Data Poly rce(s) Supporting Document(s) EKG Laboratory test result MEDENT ([facility]) ID Date Data Source [id number] 07/05/2021 06:29:03 PM EST [facility], PCName: Ruperto YamilethB: 1945Provider: Fabiola [...] different treatment conservative options(observation, medication(s), physical therapy, health care consultant, acupuncture, pain clinic, home exercise program, etc.)--- [...] document was dictated and electronically signed using Egenera software. A reasonable attempt at proof reading has been made to minimize errors. Please call with any questions. Chief ComplaintRuperto Sue presents for pain/dysfunction in the lumbar spine. Signatures Electronically signed by : Justino Rutherford M.D.; Jul 05 2021 6:29PM EST (Author) Name Value Range Interpretation Code Description Data Poly rce(s) Supporting Document(s) ID Date Data Source [id number] 05/06/2021 09:45:00 AM EDT [facility] Name Value Range Interpretation Code Description Data Poly rce(s) Supporting Document(s) SARS-CoV-2 RNA Resp Ql CLIFF+probe NOT DETECTED [facility] This lab was ordered by NAOMI mercado and reported by NAOMI Velázquez. ID Date Data Source [id number] 04/24/2021 12:08:00 PM EDT [facility] Name Value Range Interpretation Code Description Data Poly rce(s) Supporting Document(s) Blood Urea Nitrogen 16 mg/dL 7-18 Normal (applies to non-nume aayush results) [facility] Glucose, Fasting 81 mg/dL 70-100 Normal (applies to non-numeric results) [facility] Creatinine For GFR 0.80 mg/dL 0.55-1.30 Normal (applies to non -numeric results) [facility] ([facility]) Glomerular Filtration Rate Laboratory test result Normal (applies to non- numeric results) [facility] ([facility]) <content>Units are mL/min/1.73 m2</content>
<content></content>
<content>Chronic Kidney Disease Staging per NKF:</content>
<content></content>
<content>Stage I & II GFR >=60 Normal to Mildly Decreased</content>
<content>Stage III GFR 30- 59 Moderately Decreased</content>
<content>Stage IV GFR 15-29 Severely Decreased</content>
<content>Stage V GFR <15 Very Little GFR Left</content>
<content>ESRD GFR <15 on COMMUNITY CASE MANAGER</content>
<content></content> Sodium Level 138 meq/L 136-145 Normal (applies to non-numeric res ults) [facility] ([facility]) Potassium Serum 5.6 meq/L 3.5-5.1 Above high normal [facility] ([facility]) Carbon Dioxide Level 30 meq/L 21-32 Normal (applies to non-num jon results) [facility] ([facility]) Chloride Level 104 meq/L 98-107 Normal (applies to non-numeric r esults) [facility] ([facility]) Anion Gap 4 meq/L 8-16 Below low normal [facility] Calcium Level 9.6 mg/dL 8.8-10.2 Normal (applies to non-numeric re sults) [facility] ID Date Data Source [id number] 04/24/2021 12:08:00 PM EDT [facility] Name Value Range Interpretation Code Description Data Poly rce(s) Supporting Document(s) White Blood Count 7.0 10 4.0-10.0 Normal (applies to non-numeri c results) [facility] Red Blood Count 4.56 10 4.00-5.40 Normal (applies to non-numeric results) [facility] Hemoglobin 14.2 g/dL 12.0-15.5 Normal (applies to non-numeric resul ts) [facility] Hematocrit 44.4 % 36.0-47.0 Normal (applies to non-numeric resul ts) [facility] Mean Corpuscular Hemoglobin 31.1 pg 27.0-33.0 Norm al (applies to non-numeric results) [facility] ([facility]) Mean Corpuscular Volume 97.4 fl 80.0-96.0 Above high normal [facility] ([facility]) Red Cell Distribution Width 13.7 % 11.5-14.5 Norm al (applies to non-numeric results) [facility] Mean Corpuscular HGB Conc 32.0 g/dL 32.0-36.5 Normal (applies to non-numeric results) [facility] ([facility]) Neutrophils % 59.1 % 36.0-66.0 Normal (applies to non-numeric re sults) [facility] ([facility]) Platelet Count, Automated 256 10 150-450 Normal (applies to non-numeric results) [facility] ([facility]) Lymph % 22.8 % 24.0-44.0 Below low normal [facility] ( [facility]) Eos % 3.9 % 0.0-3.0 Above high normal [facility] ([facility]) [place] % 13.1 % 2.0-8.0 Above high normal [facility] ([facility]) Immature Granulocyte % 0.4 % 0-3.0 Normal (applies to non-n umeric results) [facility] ([facility]) Baso % 0.7 % 0.0-1.0 Normal (applies to non-numeric resul ts) [facility] ([facility]) Nucleated Red Blood Cell % 0.0 % 0-0 Normal (applies to n on-numeric results) [facility] ([facility]) Neutrophils # 4.1 10 1.5-8.5 Normal (applies to non-numeric re sults) [facility] ([facility]) Eos # 0.3 10 0.0-0.5 Normal (applies to non-numeric resul ts) [facility] ([facility]) Lymph # 1.6 10 1.5-5.0 Normal (applies to non-numeric resul ts) [facility] ([facility]) [place] # 0.9 10 0.0-0.8 Above high normal [facility] ([facility]) Baso # 0.1 10 0.0-0.2 Normal (applies to non-numeric resul ts) [facility] ([facility]) ID Date Data Source [id number] 04/24/2021 12:08:00 PM EDT [facility] ([facility]) Name Value Range Interpretation Code Description Data Poly rce(s) Supporting Document(s) Vitamin B12 Level 380 pg/mL Normal (applies to non-numeri c results) [facility] ([facility]) VITAMIN B12 NORMAL RANGE NORMAL 247 - 911 PG/ML INDETERMINATE 211 - 246 PG/ML DEFICIENT LESS THAN 211 PG/ML Folate 10.5 ng/mL Normal (applies to non-numeric resul ts) [facility] FOLATE NORMAL RANGE NORMAL GREATER THAN 5.4 NG/ML INDETERMINATE 3.4-5.4 NG/ML DEFICIENT LESS THAN 3.4 NG/ML ID Date Data Source [id number] 04/24/2021 12:08:00 PM EDT [facility] Name Value Range Interpretation Code Description Data Poly rce(s) Supporting Document(s) Thyroglobulin Ab [Units/volume] in Serum or Plasma 16.3 U/ML Normal (applies to non-numeric results) [facility] ([facility]) Calcidiol [Mass/volume] in Serum or Plasma 39.3 ng/mL 30.0- 100.0 Normal (applies to non-numeric results) [facility] ([facility]) Thyroperoxidase Ab [Units/volume] in Serum or Plasma 37.4 U/ML Normal (applies to non-numeric results) [facility] ([facility]) ID Date Data Source [id number] 04/24/2021 12:08:00 PM EDT [facility] ([facility]) Name Value Range Interpretation Code Description Data Poly rce(s) Supporting Document(s) Thyroid Stimulating Hormone 0.229 uIU/ML 0.358-3.740 Below low normal [facility] ([facility]) Free T4 1.27 ng/dL 0.76-1.46 Normal (applies to non-numeric resul ts) [facility] ID Date Data Source [id number] 04/24/2021 12:07:00 PM EDT [facility]) Name Value Range Interpretation Code Description Data Poly rce(s) Supporting Document(s) Glucose, Fasting 82 mg/dL 70-100 Normal (applies to non-numeric results) [facility] ([facility]) Blood Urea Nitrogen 18 mg/dL 7-18 Normal (applies to non-nume aayush results) [facility] ([facility]) Creatinine For GFR 0.87 mg/dL 0.55-1.30 Normal (applies to non -numeric results) [facility] ([facility]) Sodium Level 137 meq/L 136-145 Normal (applies to non-numeric res ults) [facility] ([facility]) Glomerular Filtration Rate Laboratory test result Normal (applies to non- numeric results) [facility] ([facility]) <content>Units are mL/min/1.73 m2</content>
<content></content>
<content>Chronic Kidney Disease Staging per NKF:</content>
<content></content>
<content>Stage I & II GFR >=60 Normal to Mildly Decreased</content>
<content>Stage III GFR 30- 59 Moderately Decreased</content>
<content>Stage IV GFR 15-29 Severely Decreased</content>
<content>Stage V GFR <15 Very Little GFR Left</content>
<content>ESRD GFR <15 on COMMUNITY CASE MANAGER</content>
<content></content> Potassium Serum 5.1 meq/L 3.5-5.1 Normal (applies to non-numeric results) [facility] ([facility]) Chloride Level 103 meq/L 98-107 Normal (applies to non-numeric r esults) [facility] ([facility]) Anion Gap 5 meq/L 8-16 Below low normal [facility] ( [facility]) Carbon Dioxide Level 29 meq/L 21-32 Normal (applies to non-num jon results) [facility] ([facility]) Calcium Level 9.3 mg/dL 8.8-10.2 Normal (applies to non-numeric re sults) [facility] ([facility]) ID Date Data Source [id number] 04/03/2021 12:20:00 PM EDT [facility] Name Value Range Interpretation Code Description Data Poly rce(s) Supporting Document(s) SARS-CoV-2 (COVID-19) RNA [Presence] in Respiratory specimen by CLIFF with probe detection Not Detected [facility] This lab was ordered by [facility] and reported by [facility]. ID Date Data Source [id number] 03/17/2021 02:12:[address] [facility] Name Value Range Interpretation Code Description Data Poly rce(s) Supporting Document(s) Progress Note [facility] [id number] lbm [file] [id number] ID Date Data Source [id number] 01/06/2021 01:54:00 PM EDT [facility] ([facility]) Name Value Range Interpretation Code Description Data Poly rce(s) Supporting Document(s) Red Blood Count 4.34 10 4.00-5.40 Normal (applies to non-numeric results) [facility] ([facility]) White Blood Count 6.3 10 4.0-10.0 Normal (applies to non-numeri c results) [facility] ([facility]) Hematocrit 42.1 % 36.0-47.0 Normal (applies to non-numeric resul ts) [facility] ([facility]) Hemoglobin 13.3 g/dL 12.0-15.5 Normal (applies to non-numeric resul ts) [facility] ([facility]) Mean Corpuscular HGB Conc 31.6 g/dL 32.0-36.5 Below low normal [facility] ([facility]) Mean Corpuscular Hemoglobin 30.6 pg 27.0-33.0 Norm al (applies to non-numeric results) [facility] ([facility]) Mean Corpuscular Volume 97.0 fl 80.0-96.0 Above high normal [facility] ([facility]) Red Cell Distribution Width 13.1 % 11.5-14.5 Norm al (applies to non-numeric results) [facility] ([facility]) Platelet Count, Automated 246 10 150-450 Normal (applies to non-numeric results) [facility] ([facility]) Neutrophils % 49.2 % 36.0-66.0 Normal (applies to non-numeric re sults) [facility] ([facility]) Lymph % 31.2 % 24.0-44.0 Normal (applies to non-numeric resul ts) [facility] ([facility]) [place] % 13.9 % 2.0-8.0 Above high normal [facility] ([facility]) Eos % 4.6 % 0.0-3.0 Above high normal [facility] ([facility]) Baso % 0.8 % 0.0-1.0 Normal (applies to non-numeric resul ts) [facility] ([facility]) Immature Granulocyte % 0.3 % 0-3.0 Normal (applies to non-n umeric results) [facility] ([facility]) Nucleated Red Blood Cell % 0.0 % 0-0 Normal (applies to n on-numeric results) [facility] ([facility]) Neutrophils # 3.1 10 1.5-8.5 Normal (applies to non-numeric re sults) [facility] ([facility]) Lymph # 2.0 10 1.5-5.0 Normal (applies to non-numeric resul ts) [facility] ([facility]) [place] # 0.9 10 0.0-0.8 Above high normal [facility] ([facility]) Eos # 0.3 10 0.0-0.5 Normal (applies to non-numeric resul ts) [facility] ([facility]) Baso # 0.1 10 0.0-0.2 Normal (applies to non-numeric resul ts) [facility] ([facility]) ID Date Data Source [id number] 01/06/2021 01:54:00 PM EDT [facility] ([facility]) Name Value Range Interpretation Code Description Data Poly rce(s) Supporting Document(s) Thyroid Stimulating Hormone 0.136 uIU/ML 0.358-3.740 Below low normal [facility] ([facility]) Free T4 1.48 ng/dL 0.76-1.46 Above high normal [facility] ([facility]) ID Date Data Source [id number] 01/06/2021 01:54:00 PM EDT [facility] ([facility]) Name Value Range Interpretation Code Description Data Poly rce(s) Supporting Document(s) Cholesterol Level 171 mg/dL Normal (applies to non-numeri c results) [facility] ([facility]) HDL Cholesterol 63 mg/dL Normal (applies to non-numeric results) [facility] ([facility]) Triglycerides Level 110 mg/dL Normal (applies to non-nume aayush results) [facility] LDL Cholesterol 86 mg/dL Normal (applies to non-numeric results) [facility] Non-HDL-C 108 mg/dL Normal (applies to non-numeric resul ts) [facility] Cholesterol Risk Ratio 2.714 Normal (applies to non-n umeric results) [facility] ([facility]) ID Date Data Source [id number] 01/06/2021 01:54:00 PM EDT [facility] ([facility]) Name Value Range Interpretation Code Description Data Poly rce(s) Supporting Document(s) Blood Urea Nitrogen 13 mg/dL 7-18 Normal (applies to non-nume aaysuh results) [facility] ([facility]) Glucose, Fasting 79 mg/dL 70-100 Normal (applies to non-numeric results) [facility] Glomerular Filtration Rate Laboratory test result Normal (applies to non- numeric results) [facility] ([facility]) <content>Units are mL/min/1.73 m2</content>
<content></content>
<content>Chronic Kidney Disease Staging per NKF:</content>
<content></content>
<content>Stage I & II GFR >=60 Normal to Mildly Decreased</content>
<content>Stage III GFR 30- 59 Moderately Decreased</content>
<content>Stage IV GFR 15-29 Severely Decreased</content>
<content>Stage V GFR <15 Very Little GFR Left</content>
<content>ESRD GFR <15 on COMMUNITY CASE MANAGER</content>
<content></content> Creatinine For GFR 0.77 mg/dL 0.55-1.30 Normal (applies to non -numeric results) [facility] Potassium Serum 4.9 meq/L 3.5-5.1 Normal (applies to non-numeric results) [facility] Sodium Level 140 meq/L 136-145 Normal (applies to non-numeric res ults) [facility] ([facility]) Carbon Dioxide Level 28 meq/L 21-32 Normal (applies to non-num jon results) [facility] ([facility]) Chloride Level 106 meq/L 98-107 Normal (applies to non-numeric r esults) [facility] ([facility]) Anion Gap 6 meq/L 8-16 Below low normal [facility] ( [facility]) Ast/Sgot 17 U/L 7-37 Normal (applies to non-numeric resul ts) [facility] ([facility]) Calcium Level 9.3 mg/dL 8.8-10.2 Normal (applies to non-numeric re sults) [facility] ([facility]) Alt/SGPT 18 U/L 12-78 Normal (applies to non-numeric resul ts) [facility] ([facility]) Alkaline Phosphatase 110 U/L 45-117 Normal (applies to non-num jon results) [facility] Albumin 3.5 GM/DL 3.2-5.2 Normal (applies to non-numeric resul ts) [facility] ([facility]) Bilirubin,Total 0.6 mg/dL 0.2-1.0 Normal (applies to non-numeric results) [facility] ([facility]) Total Protein 6.7 GM/DL 6.4-8.2 Normal (applies to non-numeric re sults) [facility] ([facility]) Albumin/Globulin Ratio 1.1 1.2-2.2 Below low normal [facility] ([facility]) ID Date Data Source [id number] 11/11/2020 01:44:00 PM EDT [facility] ([facility]) Name Value Range Interpretation Code Description Data Poly rce(s) Supporting Document(s) Ferritin [Mass/volume] in Serum or Plasma 60 ng/mL 8-252 Normal (applies to non- numeric results) [facility] ([facility]) Calcidiol [Mass/volume] in Serum or Plasma 40.6 ng/mL 30.0- 100.0 Normal (applies to non-numeric results) [facility] Cobalamin (Vitamin B12) [Mass/volume] in Serum or Plasma 479 pg/ mL 247-911 Normal (applies to non-numeric results) [facility] ([facility]) VITAMIN B12 NORMAL RANGE NORMAL 247 - 911 PG/ML INDETERMINATE 211 - 246 PG/ML DEFICIENT LESS THAN 211 PG/ML ID Date Data Source [id number] 11/11/2020 01:44:00 PM EDT [facility]) Name Value Range Interpretation Code Description Data Poly rce(s) Supporting Document(s) Iron (Fe) 78 ug/dL 50-170 Normal (applies to non-numeric resul ts) [facility] ([facility]) Total Iron Binding Capacity 373 ug/dL 250-450 Norm al (applies to non-numeric results) [facility] ([facility]) Percent Saturation 20.9 % 13.2-45.0 Normal (applies to non-numer ic results) [facility] ID Date Data Source [id number] 11/11/2020 01:44:00 PM EDT [facility] Name Value Range Interpretation Code Description Data Poly rce(s) Supporting Document(s) Hemoglobin A1c 5.4 % Normal (applies to non-numeric r esults) [facility]) <content>REFERENCE RANGES:</content><br/ ><content></content>
<content><=5.6% NORMAL</content>
<content>5.7-6.4% SUGGESTS IMPAIRED GLUCOSE METABOLISM/PREDIABETIC</content>
<content>>= 6.5% ABNORMAL</content>
<content></content> Estimated Average Glucose 108 mg/dL 60-110 Normal (applies to non-numeric results) [facility] ([facility]) ID Date Data Source [id number] 11/11/2020 01:44:00 PM EDT [facility] Name Value Range Interpretation Code Description Data Poly rce(s) Supporting Document(s) White Blood Count 7.5 10 4.0-10.0 Normal (applies to non-numeri c results) [facility] ([facility]) Red Blood Count 4.53 10 4.00-5.40 Normal (applies to non-numeric results) [facility] ([facility]) Hemoglobin 14.0 g/dL 12.0-15.5 Normal (applies to non-numeric resul ts) [facility] ([facility]) Hematocrit 44.7 % 36.0-47.0 Normal (applies to non-numeric resul ts) [facility] ([facility]) Mean Corpuscular Volume 98.7 fl 80.0-96.0 Above high normal [facility] ([facility]) Mean Corpuscular Hemoglobin 30.9 pg 27.0-33.0 Norm al (applies to non-numeric results) [facility] ([facility]) Red Cell Distribution Width 13.0 % 11.5-14.5 Norm al (applies to non-numeric results) [facility] ([facility]) Mean Corpuscular HGB Conc 31.3 g/dL 32.0-36.5 Below low normal [facility] ([facility]) Platelet Count, Automated 260 10 150-450 Normal (applies to non-numeric results) [facility] ([facility]) Neutrophils % 48.5 % 36.0-66.0 Normal (applies to non-numeric re sults) [facility] ([facility]) Lymph % 33.6 % 24.0-44.0 Normal (applies to non-numeric resul ts) [facility] ([facility]) Eos % 4.7 % 0.0-3.0 Above high normal [facility] ([facility]) [place] % 12.1 % 2.0-8.0 Above high normal [facility] ([facility]) Immature Granulocyte % 0.3 % 0-3.0 Normal (applies to non-n umeric results) [facility] ([facility]) Baso % 0.8 % 0.0-1.0 Normal (applies to non-numeric resul ts) [facility] ([facility]) Neutrophils # 3.6 10 1.5-8.5 Normal (applies to non-numeric re sults) [facility] ([facility]) Lymph # 2.5 10 1.5-5.0 Normal (applies to non-numeric resul ts) [facility] ([facility]) Nucleated Red Blood Cell % 0.0 % 0-0 Normal (applies to n on-numeric results) [facility] ([facility]) [place] # 0.9 10 0.0-0.8 Above high normal [facility] ([facility]) Eos # 0.4 10 0.0-0.5 Normal (applies to non-numeric resul ts) [facility] ([facility]) Baso # 0.1 10 0.0-0.2 Normal (applies to non-numeric resul ts) [facility] ([facility]) ID Date Data Source [id number] 11/11/2020 01:44:00 PM EDT [facility] ([facility]) Name Value Range Interpretation Code Description Data Poly rce(s) Supporting Document(s) Blood Urea Nitrogen 15 mg/dL 7-18 Normal (applies to non-nume aayush results) [facility] Glucose, Fasting 137 mg/dL 70-100 Above high normal [facility] ([facility]) Creatinine For GFR 1.05 mg/dL 0.55-1.30 Normal (applies to non -numeric results) [facility] ([facility]) Glomerular Filtration Rate 54.4 Normal (applies to n on-numeric results) [facility] ([facility]) <content>Units are mL/min/1.73 m2</content>
<content></content>
<content>Chronic Kidney Disease Staging per NKF:</content>
<content></content>
<content>Stage I & II GFR >=60 Normal to Mildly Decreased</content>
<content>Stage III GFR 30- 59 Moderately Decreased</content>
<content>Stage IV GFR 15-29 Severely Decreased</content>
<content>Stage V GFR <15 Very Little GFR Left</content>
<content>ESRD GFR <15 on COMMUNITY CASE MANAGER</content>
<content></content> Potassium Serum 5.0 meq/L 3.5-5.1 Normal (applies to non-numeric results) [facility] ([facility]) Sodium Level 138 meq/L 136-145 Normal (applies to non-numeric res ults) [facility] ([facility]) Carbon Dioxide Level 30 meq/L 21-32 Normal (applies to non-num jon results) [facility] ([facility]) Chloride Level 104 meq/L 98-107 Normal (applies to non-numeric r esults) [facility] ([facility]) Anion Gap 4 meq/L 8-16 Below low normal [facility] ( [facility]) Calcium Level 9.7 mg/dL 8.8-10.2 Normal (applies to non-numeric re sults) [facility] ([facility]) Alt/SGPT 21 U/L 12-78 Normal (applies to non-numeric resul ts) [facility] ([facility]) Ast/Sgot 14 U/L 7-37 Normal (applies to non-numeric resul ts) [facility] ([facility]) Total Protein 7.0 GM/DL 6.4-8.2 Normal (applies to non-numeric re sults) [facility] ([facility]) Bilirubin,Total 0.3 mg/dL 0.2-1.0 Normal (applies to non-numeric results) [facility] ([facility]) Alkaline Phosphatase 141 U/L 45-117 Above high normal [facility] ([facility]) Albumin 3.8 GM/DL 3.2-5.2 Normal (applies to non-numeric resul ts) [facility] ([facility]) Albumin/Globulin Ratio 1.2 1.2-2.2 Normal (applies to non-n umeric results) [facility] ID Date Data Source [id number] 11/11/2020 01:44:00 PM EDT [facility] ([facility]) Name Value Range Interpretation Code Description Data Poly rce(s) Supporting Document(s) Thyroid Stimulating Hormone 4.080 uIU/ML 0.358-3.740 Above high chay l [facility] ([facility]) Free T4 0.74 ng/dL 0.76-1.46 Below low normal [facility] ID Date Data Source [id number] 09/13/2020 10:41:[address] [facility] Name Value Range Interpretation Code Description Data Poly rce(s) Supporting Document(s) Progress Note [facility] [id number] lbm [file] [id number] ID Date Data Source [id number] 09/06/2020 12:00:00 AM EST [facility] Sherrell Myers DO Patient Name: MARTHA [id number] Date of : 1945 1 Date of Exam:09/06/2020NAOMI Leon [id number]#: Fax: [phone] EXAM: MAMMO SCREENING WITH CADCLINICAL [...] criteria for genetic testing established by [facility] and [place] [employer] guidelines. She should pursue arisk assessment with a hereditary cancer specialist which may includetesting based on these criteria. The benefits and limitations of genetictesting would be discussed, including potential changes to medicalmanagement based on the results. Your patient declined myRisk genetictesting at this time.Digital screening (2D) mammography [...] mammogram was read with the assistance of [employer], an FDAapproved computer aided detection system for [...] 12:00:00 AM EST Quit completed Quit [facility] ([facility]) Smoking 05/23/2021 12:00:00 AM EDT Former Smoker completed Former Smoker eCW1 ([facility]) Smoking 04/08/2021 12:00:00 AM EDT Former Smoker completed Former Smoker eCW1 ([facility]) Smoking 03/24/2021 12:00:00 AM EDT Former Smoker completed Former Smoker eCW1 ([facility]) Alcohol intake 03/17/2021 12:00:00 AM EDT Current drinker of al cohol (finding) completed Current drinker of alcohol (finding) [facility] Tobacco use and exposure 03/17/2021 12:00:00 AM EDT Never used co mpleted Never used [facility] Smoking 03/17/2021 12:00:00 AM EDT Former smoker completed Former smoker [facility] Smoking 02/04/2021 12:00:00 AM EDT Former Smoker completed Former Smoker eCW1 ([facility]) Smoking 11/04/2020 12:00:00 AM EDT Former Smoker completed Former Smoker eCW1 ([facility]) Smoking 08/06/2020 12:00:00 AM EST Former Smoker completed Former Smoker eCW1 ([facility]) Smoking 07/03/2020 12:00:00 AM EST Patient is a former smoker completed Patient is a former smoker [facility] ([facility] Smoking 05/30/2020 12:00:00 AM EDT Former Smoker completed Former Smoker eCW1 ([facility]) Smoking 05/30/2020 12:00:00 AM EDT Former Smoker completed Former Smoker eCW1 ([facility]) Smoking 05/30/2020 12:00:00 AM EDT Former Smoker completed Former Smoker eCW1 ([facility]) Vital Signs ID Date Data Source [id number] Name Value Range Interpretation Code Description Data Source(s) Diastolic blood pressure 76 mm[Hg] 76 mm[Hg] [facility] ([facility]) Body height 62.5 [in_i] 62.5 [in_i] [facility] ([facility]) 5'2.50" Heart rate 54 /min 54 /min [facility] ([facility]) Respiratory rate 18 /min 18 /min [facility] ( [facility]) Body temperature 96.7 [degF] 96.7 [degF] [facility] ([facility]) Oxygen saturation in Arterial blood by Pulse oximetry 98 % 98 % [facility] ([facility]) [place] body weight 110 [lb_av] 110 [lb_av] [facility] T ([facility]) Systolic blood pressure 126 mm[Hg] 126 mm[Hg] M [facility] ([facility]) Body weight 233.25 [lb_av] 233.25 [lb_av] [facility] T ([facility]) Body mass index (BMI) [Ratio] 42.0 kg/m2 42.0 k g/m2 [facility] ([facility]) Body weight 229.8 [lb_av] 229.8 [lb_av] eCW1 [facility] Body weight 104.24 kg 104.24 kg W1 ([facility]) Body height [in_i] eCW1 ([facility]) Body mass index (BMI) [Ratio] 42.03 kg/m2 42.03 kg/m2 eCW1 ([facility]) Heart rate 57 /min 57 /min eCW1 ([facility]) Respiratory rate 18 /min 18 /min eCW1 ([facility]) Body temperature 97.8 [degF] 97.8 [degF] eCW1 ( [facility]) Systolic blood pressure 133 mm[Hg] 133 mm[Hg] e CW1 ([facility]) Diastolic blood pressure 73 mm[Hg] 73 mm[Hg] eCW1 ([facility]) Heart rate 48 /min 48 /min MEDENT ([facility]) [place] body weight 110 [lb_av] 110 [lb_av] MEDEN T ([facility]) Body height 62.5 [in_i] 62.5 [in_i] MEDENT ([facility]) 5'2.50" Respiratory rate 20 /min 20 /min MEDENT ( [facility]) Body temperature 98.4 [degF] 98.4 [degF] MEDENT ([facility]) Oxygen saturation in Arterial blood by Pulse oximetry 97 % 97 % MEDENT ([facility]) Systolic blood pressure 130 mm[Hg] 130 mm[Hg] M EDENT ([facility]) Diastolic blood pressure 82 mm[Hg] 82 mm[Hg] MEDENT ([facility]) Body height 62.5 [in_i] 62.5 [in_i] MEDENT ([facility]) 5'2.50" Body weight 227.00 [lb_av] 227.00 [lb_av] MEDEN T ([facility]) Body mass index (BMI) [Ratio] 40.9 kg/m2 40.9 k g/m2 MEDENT ([facility]) Heart rate 56 /min 56 /min MEDENT ([facility]) Respiratory rate 18 /min 18 /min MEDENT ( [facility]) Body temperature 97.8 [degF] 97.8 [degF] MEDENT ([facility]) Oxygen saturation in Arterial blood by Pulse oximetry 98 % 98 % MEDENT ([facility]) [place] body weight 110 [lb_av] 110 [lb_av] MEDEN T ([facility]) Body temperature 98.7 [degF] 98.7 [degF] MEDENT ([facility]) [place] body weight 110 [lb_av] 110 [lb_av] MEDEN T ([facility]) Systolic blood pressure 128 mm[Hg] 128 mm[Hg] M EDENT ([facility]) Diastolic blood pressure 72 mm[Hg] 72 mm[Hg] MEDENT ([facility]) Body height 62.5 [in_i] 62.5 [in_i] MEDENT ([facility]) 5'2.50" Body weight 226.12 [lb_av] 226.12 [lb_av] MEDEN T ([facility]) Body mass index (BMI) [Ratio] 40.7 kg/m2 40.7 k g/m2 MEDENT ([facility]) Heart rate 68 /min 68 /min MEDENT ([facility]) Respiratory rate 18 /min 18 /min MEDENT ( [facility]) Oxygen saturation in Arterial blood by Pulse oximetry 97 % 97 % MEDENT ([facility]) Body weight 227 [lb_av] 227 [lb_av] eCW1 ([facility] to [facility]) Body weight 102.97 kg 102.97 kg eCW1 ([facility]) Body height [in_i] eCW1 ([facility]) Body mass index (BMI) [Ratio] 41.51 kg/m2 41.51 kg/m2 eCW1 ([facility]) Heart rate 55 /min 55 /min eCW1 ([facility]) Respiratory rate 18 /min 18 /min eCW1 ([facility]) Body temperature 97.2 [degF] 97.2 [degF] eCW1 ( [facility]) Systolic blood pressure 148 mm[Hg] 148 mm[Hg] e CW1 ([facility]) Diastolic blood pressure 68 mm[Hg] 68 mm[Hg] eCW1 ([facility]) Systolic blood pressure 136 mm[Hg] 136 mm[Hg] M EDENT ([facility]) Body height 62.5 [in_i] 62.5 [in_i] MEDENT ([facility]) 5'2.50" Diastolic blood pressure 84 mm[Hg] 84 mm[Hg] MEDENT ([facility]) Heart rate 60 /min 60 /min MEDENT ([facility]) Respiratory rate 20 /min 20 /min MEDENT ( [facility]) Oxygen saturation in Arterial blood by Pulse oximetry 96 % 96 % MEDENT ([facility]) Body temperature 98.3 [degF] 98.3 [degF] MEDENT ([facility]) [place] body weight 110 [lb_av] 110 [lb_av] MEDEN T ([facility]) Body weight 230 [lb_av] 230 [lb_av] eCW1 (Pending sale to [facility]) Body weight 104.33 kg 104.33 kg eCW1 ([facility]) Body height [in_i] eCW1 ([facility]) Body mass index (BMI) [Ratio] 42.06 kg/m2 42.06 kg/m2 eCW1 ([facility]) Heart rate 55 /min 55 /min eCW1 ([facility]) Respiratory rate 18 /min 18 /min eCW1 ([facility]) Body temperature 97.7 [degF] 97.7 [degF] eCW1 ( [facility]) Systolic blood pressure 180 mm[Hg] 180 mm[Hg] e CW1 ([facility]) Diastolic blood pressure 72 mm[Hg] 72 mm[Hg] eCW1 ([facility]) Body weight 232.8 [lb_av] 232.8 [lb_av] eCW1 ([facility] Body height [in_i] eCW1 ([facility]) Body mass index (BMI) [Ratio] 42.58 kg/m2 42.58 kg/m2 eCW1 ([facility]) Heart rate 54 /min 54 /min eCW1 ([facility]) Respiratory rate 18 /min 18 /min eCW1 ([facility]) Body temperature 97.5 [degF] 97.5 [degF] eCW1 ( [facility]) Systolic blood pressure 151 mm[Hg] 151 mm[Hg] e CW1 ([facility]) Diastolic blood pressure 65 mm[Hg] 65 mm[Hg] eCW1 ([facility]) Systolic blood pressure 132 mm[Hg] 132 mm[Hg] M EDENT ([facility]) Diastolic blood pressure 78 mm[Hg] 78 mm[Hg] MEDENT ([facility]) Body height 62.5 [in_i] 62.5 [in_i] MEDENT ([facility]) 5'2.50" Body weight 232.00 [lb_av] 232.00 [lb_av] MEDEN T ([facility]) Body mass index (BMI) [Ratio] 41.8 kg/m2 41.8 k g/m2 MEDENT ([facility]) Heart rate 86 /min 86 /min MEDENT ([facility]) Respiratory rate 18 /min 18 /min MEDENT ( [facility]) Body temperature 98.7 [degF] 98.7 [degF] MEDENT ([facility]) Oxygen saturation in Arterial blood by Pulse oximetry 97 % 97 % MEDENT ([facility]) [place] body weight 110 [lb_av] 110 [lb_av] MEDEN T ([facility]) Body weight 237.2 [lb_av] 237.2 [lb_av] eCW1 ([facility]) Body height [in_i] eCW1 ([facility]) Body mass index (BMI) [Ratio] 43.38 kg/m2 43.38 kg/m2 eCW1 ([facility]) Heart rate 69 /min 69 /min eCW1 ([facility]) Respiratory rate 18 /min 18 /min eCW1 ([facility]) Body temperature 97.3 [degF] 97.3 [degF] eCW1 ( [facility]) Systolic blood pressure 149 mm[Hg] 149 mm[Hg] e CW1 ([facility]) Diastolic blood pressure 60 mm[Hg] 60 mm[Hg] eCW1 ([facility]) Body height 62.5 [in_i] 62.5 [in_i] MEDENT ([facility]) 5'2.50" Body weight 238.00 [lb_av] 238.00 [lb_av] MEDEN T ([facility]) Body mass index (BMI) [Ratio] 42.8 kg/m2 42.8 k g/m2 MEDENT ([facility]) Diastolic blood pressure 84 mm[Hg] 84 mm[Hg] MEDENT ([facility]) Heart rate 62 /min 62 /min MEDENT ([facility]) Respiratory rate 20 /min 20 /min MEDENT ( [facility]) Body temperature 97.1 [degF] 97.1 [degF] MEDENT ([facility]) Oxygen saturation in Arterial blood by Pulse oximetry 98 % 98 % MEDENT ([facility]) [place] body weight 110 [lb_av] 110 [lb_av] MEDEN T ([facility]) Systolic blood pressure 130 mm[Hg] 130 mm[Hg] M EDENT ([facility]) Body weight 240.8 [lb_av] 240.8 [lb_av] eCW1 ([facility] Body height [in_i] eCW1 ([facility]) Body mass index (BMI) [Ratio] 44.04 kg/m2 44.04 kg/m2 eCW1 ([facility]) Heart rate 61 /min 61 /min eCW1 ([facility]) Respiratory rate 18 /min 18 /min eCW1 ([facility]) Body temperature 97.5 [degF] 97.5 [degF] eCW1 ( [facility]) Systolic blood pressure 145 mm[Hg] 145 mm[Hg] e CW1 ([facility]) Diastolic blood pressure 65 mm[Hg] 65 mm[Hg] eCW1 ([facility]) Body weight 240.00 [lb_av] 240.00 [lb_av] MEDEN [...] MEDENT ( [facility]) Systolic blood pressure 135 mm[Hg] 135 mm[Hg] M EDENT ([facility]) Diastolic blood pressure 61 mm[Hg] 61 mm[Hg] MEDENT ([facility]) Body mass index (BMI) [Ratio] 44.3 kg/m2 44.3 k g/m2 MEDENT ([facility]) Body weight 240.25 [lb_av] 240.25 [lb_av] MEDEN T ([facility]) Body height 62 [in_i] 62 [in_i] MEDENT ([facility] 5'2" Heart rate 56 /min 56 /min MEDENT ([facility] Respiratory rate 18 /min 18 /min MEDENT ( [facility]) Systolic blood pressure 142 mm[Hg] 142 mm[Hg] M EDENT ([facility]) Diastolic blood pressure 84 mm[Hg] 84 mm[Hg] MEDENT ([facility]) Body mass index (BMI) [Ratio] 43.9 kg/m2 43.9 k g/m2 MEDENT ([facility]) Body weight 238.00 [lb_av] 238.00 [lb_av] MEDEN T ([facility]) Body temperature 97.1 [degF] 97.1 [degF] MEDENT ([facility]) Oxygen saturation in Arterial blood by Pulse oximetry 97 % 97 % MEDENT ([facility]) [place] body weight 110 [lb_av] 110 [lb_av] MEDEN T ([facility]) Heart rate 55 /min 55 /min MEDENT ([facility]) Systolic blood pressure 144 mm[Hg] 144 mm[Hg] M EDENT ([facility]) Diastolic blood pressure 76 mm[Hg] 76 mm[Hg] MEDENT ([facility]) Body height 62.5 [in_i] 62.5 [in_i] MEDENT ([facility]) 5'2.50" Body mass index (BMI) [Ratio] 42.8 kg/m2 42.8 k g/m2 MEDENT ([facility]) Respiratory rate 18 /min 18 /min MEDENT ( [facility]) Diastolic blood pressure 69 mm[Hg] 69 [...] MEDENT ( [facility]) Systolic blood pressure 137 mm[Hg] 137 mm[Hg] M EDENT ([facility]) Body mass index (BMI) [Ratio] 43.2 kg/m2 43.2 k g/m2 MEDENT ([facility]) Body weight 238.4 [lb_av] 238.4 [lb_av] eCW1 ([facility]) Body height [in_i] eCW1 ([facility]) Body mass index (BMI) [Ratio] 43.60 kg/m2 43.60 kg/m2 eCW1 ([facility]) Heart rate 56 /min 56 /min eCW1 ([facility]) Respiratory rate 18 /min 18 /min eCW1 ([facility]) Body temperature 97.1 [degF] 97.1 [degF] eCW1 ( [facility]) Systolic blood pressure 133 mm[Hg] 133 mm[Hg] e CW1 ([facility]) Diastolic blood pressure 60 mm[Hg] 60 mm[Hg] eCW1 ([facility]) ID Date Data Source [id number] 05/20/2021 01:35:08 PM [facility] Name Value Range Interpretation Code Description Data Source(s) PREFERRED NAME [facility] ID Date Data Source [id number] 09/13/2020 12:30:[address] [facility] Name Value Range Interpretation Code Description Data Source(s) PREFERRED NAME [facility] PREFERRED NAME [facility] ID Date Data Source [id number] 09/02/2020 07:34:[address] [facility] Name Value Range Interpretation Code Description Data Source(s) PREFERRED NAME [facility] Patient Treatment Plan of Care Planned Activity Planned Date Details Description Data Source (s) Levothyroxine Sodium 0.112 MG Oral Tablet 11/12/2020 12:00:00 AM ED T [facility] tramadol hydrochloride 50 MG Oral Tablet 08/06/2020 12:00:00 AM EST eCW1 ([facility]) tramadol hydrochloride 50 MG Oral Tablet 08/06/2020 12:00:00 AM EST [facility] ([facility]) tramadol hydrochloride 50 MG Oral Tablet 08/06/2020 12:00:00 AM EST [facility] ([facility]) 12 HR dalfampridine 10 MG Extended Release Oral Tablet 11/09/2013 12:00:00 AM EDT [facility] ospital Biotin 1 MG Oral Capsule [facility] Calcium Carbonate 1250 MG / Cholecalciferol 0.01 MG Oral Tablet [facility] gabapentin 300 MG Oral Capsule [facility] Ibuprofen 600 MG Oral Tablet [facility] Levothyroxine Sodium 0.175 MG Oral Tablet [facility]
[2021-07-10 12:02] LABS: CK-MB VALUE MASS 1.8 NG/ML (<3.6); CPK CREATINE PHOSPHOKINASE 143 U/L (26-192); MB/CK RELATIVE INDEX 1.26 (< OR =4); TROPONIN I < 0.02 NG/ML (< 0.10)
[2021-07-10 12:35] LABS: ALBUMIN 3.4 GM/DL (3.2-5.2); BILIRUBIN,DIRECT 0.1 MG/DL (0.0-0.2); BILIRUBIN,TOTAL 0.5 MG/DL (0.2-1.0); CALCIUM LEVEL 9.2 MG/DL (8.8-10.2); CREATININE FOR GFR 1.45 MG/DL (0.55-1.30); GLOMERULAR FILTRATION RATE 37.4 (>39); TOTAL PROTEIN 6.8 GM/DL (6.4-8.2)
[2021-07-10 13:23] LABS: RSV AMPLIFICATION NEGATIVE (NEGATIVE)
[2021-07-10] MEDS ORDERED: MOM 30ML SUSPENSION UDC PO PRN (14:55)
[2021-07-10] MEDS ORDERED: ACETAMINOPHEN TAB 650MG DOSE (2X325MG) PO PRN (14:55)
[2021-07-10] MEDS ORDERED: MULTIVITAMINS/MINERALS THERAP 1 TAB PO ONE (15:00)
--- OUTSIDE RECORDS SUMMARY | 2021-07-10 15:03 | CCD ---
Author Author [facility] Organization [facility] Address Unknown Phone Unavailable Care Team Providers Care Electronic Component Processor Name Role Phone Maring, Jamie PA Unavailable [...] Unavailable Pebbles RUTHERFORD MD Unavailable Unavailable Pebbles RUTEHRFORD MD Unavailable Unavailable Pebbles RUTHERFORD MD Unavailable [...] Unavailable MEET GLASGOW MD Unavailable Unavailable MEET LGASGOW MD Unavailable Unavailable MEET GLASGOW MD Unavailable [...] Unavailable Unavailable CHRMEET RM MD Unavailable Unavailable CHRMEET RM MD Unavailable Unavailable MEET GLASGOW MD Unavailable Unavailable MEET GLASGOW MD Unavailable Unavailable CHRMEET RM MD Unavailable Unavailable CHRMEET RM MD Unavailable Unavailable MEET GLASGOW MD Unavailable Unavailable CHROSTMEET BERMUDEZ MD Unavailable Unavailable CHROSTOWSKI, MEET MD Unavailable [...] is protected by Article 27-F of the [facility] Public Health law. If you continue you may have access to information: Regarding HIV / AIDS; Provided by facilities licensed or operated by the [facility] Office of Mental Health; or Provided by the [facility] Office for People With Developmental Disabilities. If such information is present, then the following [facility] mandated warning applies: This information has been [...] law may result in a fine or half-way sentence or both. A general authorization for [...] Source(s) Unknown Unknown Problem MEDENT ([facility]) Encounters Encounter Providers Location Date Indications Data Source(s ) Outpatient Attender: Gita DIEZ 09/19/2021 12:00:00 AM [facility] Outpatient Attender: SHERRELL PURCELL DO [facility] 07/07/2021 08:40:00 AM EST [facility] ([facility]) Outpatient Attender: JUSTINO RUTHERFORD MDReferrer: SHERRELL MORENO DO 07/05/2021 06:29:03 PM EST [facility] Recurring Patient Referrer: SHERRELL PURCELL DO 07/04/2021 01:34:56 PM EST [facility] Recurring Patient Referrer: SHERRELL PURCELL DO 06/23/2021 08:43:16 AM EDT [facility] Out[place] [address] [address] 05/23/2021 12:00:00 AM EDT eCW1 ([facility]) Outpatient Attender: SHERRELL PURCELL DO [facility] 05/15/2021 04:00:00 PM EDT [facility] ([facility]) Outpatient Attender: Jamie DIEZ 05/06/20 09:09:50 AM EDT - 05/06/2021 11:01:23 AM EDT [facility] ([facility] ) Outpatient Attender: SHERRELL PURCELL DO [facility] 04/30/2021 09:30:00 AM EDT [facility] ([facility]) Outpatient Attender: SOL KRAFT_806 [facility] 04/21/2021 11:30:00 AM EDT [facility] ([facility]) Outpatient Attender: SHERRELL PURCELL DO [facility] 04/17/2021 10:20:00 AM EDT [facility] ([facility]) Outpatient [address] [facility], [facility] [address] 04/08/2021 12:00:00 AM EDT eCW1 ([facility]) Outpatient Attender: Jase DIEZ [facility] 03/31/2021 04:00:00 PM EDT MED[facility] ([facility]) Outpatient [address] [address] 03/24/2021 12:00:00 AM EDT eCW1 ([facility]) Outpatient Attender: Gita DIEZ [id number] 03/17 12:00:00 AM EDT - 03/17/2021 02:11:08 PM [facility]patient [address] [facility] [facility] [address] 02/04/2021 12:00:00 AM EDT eCW1 ([facility]) Outpatient Attender: Joce DIEZ [facility] 01/14/2021 10:40:00 AM EDT MED[facility] ([facility]) Outpatient [address], [facility] [address] 11/04/2020 12:00:00 AM EDT eCW1 ([facility]) Outpatient Attender: SHERRELL PURCELL DO [facility] 10/17/2020 09:20:00 AM EST MEDENT ([facility]) Outpatient Attender: Gita DIEZ [id number] 09/13 12:00:00 AM EST - 09/13/2020 12:29:41 PM EST [facility] sclerosis [facility] Multiple sclerosis Outpatient Attender: Gita DIEZ 09/02/2020 12:00:00 AM EST [facility] Outpatient [address] [address] 08/06/2020 12:00:00 AM EST eCW1 ([facility]) Outpatient Attender: MEET GLASGOW MD Main Office 08/02/2020 10:00:00 AM EST [facility] ([facility] Outpatient Attender: MEET GLASGOW MD Main Office 07/31/2020 08:45:00 AM EST [facility] ([facility]) Outpatient Attender: MEET GLASGOW MD Main Office 07/29/2020 08:45:00 AM EST [facility] ([facility] Unknown [address] [address] 07/20/2020 12:00:00 AM EST eCW1 ([facility]) Office Visit Attender: Joec DIEZ [facility] 07/16/2020 08:20:00 AM EST [facility] ([facility]) Unknown [address] [address] 07/12/2020 12:00:00 AM EST eCW1 ([facility]) Outpatient [address] [address] 05/30/2020 12:00:00 AM EDT eCW1 ([facility]) Outpatient 05/20/2020 12:00:00 AM [facility] Immunizations Vaccine Date Status Description Data Source(s) COVID-19 VACCINE Moderna 06/16/2021 12:00:00 AM EDT completed [facility] Vaccine Series Complete: YESThis Data wa s Submitted to [facility] [employer]. New in 2013. IIV4 04/30/2021 10:00:00 AM EDT completed MEDENT ([facility]) COVID-19 VACCINE Moderna 10/04/2020 12:00:00 AM EST completed [facility] Vaccine Series Complete: YESThis Data wa s Submitted to [facility] [employer]. COVID-19 VACCINE, MRNA-1273, LNP-S (MODERNA)/PF 10/04/2020 1 2:00:00 AM EST completed [facility] COVID-19 VACCINE, MRNA-1273, LNP-S (MODERNA)/PF 09/06/2020 1 2:00:00 AM EST completed [facility] COVID-19 VACCINE Moderna 09/06/2020 12:00:00 AM EST completed [facility] Vaccine Series Complete: NOThis Data was Submitted to [facility] [employer]. Medications Medication Brand Name Start Date Product [...] Fluconazole 05/21/2021 12:00:00 AM EDT completed MEDENT ([facility]) 10 mg 05/15/2021 12:00:00 AM EDT tablet [...] 05/15/2021 12:00:00 AM EDT ORAL active MEDENT ([facility]) Amoxicillin 875 MG / Clavulanate 125 MG Oral Tablet Am oxicillin/Clavulanate Potassium 05/15/2021 12:00:00 AM EDT ORAL completed MEDENT ([facility]) 112 mcg 04/30/2021 12:00:00 AM EDT tablet 180 TAKE TWO TABLETS BY MOUTH EVERY MORNING TAKE TWO TABLETS BY MOUTH EVERY MORNING SOLD: 05/06/2021 [facility] Vitamin B 12 0.5 MG Oral Tablet Vitamin B-12 Hortensia ural 04/30/2021 12:00:00 AM EDT ORAL active M EDENT ([facility]) 60 mg 04/18/2021 12:00:00 AM EDT capsule,delayed release (DR/EC) 90 TAKE ONE CAPSULE BY MOUTH EVERY EVENING TAKE ONE CAPSULE BY MOUTH EVERY EVENING SOLD: 04/21/2021 [facility] 5 mg 03/31/2021 12:00:00 AM EDT tablet 90 TAKE ONE TABLET BY MOUTH EVERY DAY TAKE ONE TABLET BY MOUTH EVERY DAY SOLD: 04/03/2021 [facility] Estrogens, Conjugated (NURSING HOME) 0.625 MG/ML Vaginal Cream [Keeley rin] Premarin 02/03/2021 12:00:00 AM EDT completed MEDENT ([facility]) tizanidine 2 MG Oral Tablet TIZANIDINE HCL [...] 11/12/2020 12:00:00 AM EDT ORAL active M KRISTIN ([facility]) Levothyroxine Sodium 0.112 MG Oral Table t Levothyroxine Sodium 112 MCG Oral Tablet (SYNTHROID) Levothyroxine Sodium 112 MCG Oral Tablet (SYNTHROID) 11/12/2020 12:00:00 AM EDT active TAKE TWO TABLETS BY MOUTH EVERY DAY IN THE MORNING [facility] 50 mg 08/07/2020 12:00:00 AM [...] {tablet_as_needed} active traMADol HCl 50 MG eCW1 ([facility]) tramadol hydrochloride 50 MG Oral Tablet traMADol HCl 50 MG traMADol HCl 50 MG 08/06/2020 12:00:00 AM EST 1.0 {tablet_as_needed} active traMADol HCl 50 MG eCW1 ([facility]) tramadol hydrochloride 50 MG Oral Tablet Tramadol HCl 50 MG Tramadol HCl 50 MG 08/06/2020 12:00:00 AM EST 1.0 {tablet_as_needed} active Tramadol HCl 50 MG eCW1 ([facility]) tramadol hydrochloride 50 MG Oral Tablet traMADol HCl 50 MG traMADol HCl 50 MG 08/06/2020 12:00:00 AM EST 1.0 {tablet_as_needed} ac tive eCW1 ([facility]) tramadol hydrochloride 50 MG Oral Tablet traMADol HCl 50 MG traMADol HCl 50 MG 08/06/2020 12:00:00 AM EST 1.0 {tablet_as_needed} active traMADol HCl 50 MG eCW1 ([facility]) tramadol hydrochloride 50 MG Oral Tablet Tramadol HCl 50 MG Tramadol HCl 50 MG 08/06/2020 12:00:00 AM EST 1.0 {tablet_as_needed} active Tramadol HCl 50 MG eCW1 ([facility]) tizanidine 2 MG Oral Tablet TIZANIDINE [...] HCL 07/16/2020 12:00:00 AM EST active [facility] ([facility]) 2 mg 07/03/2020 12:00:00 AM EST tablet 5 BRING FOR TESTING, DON'T USE AT HOME BRING FOR TESTING, DON'T USE AT HOME SOLD: 07/07/2020 [facility] Dexamethasone 2 MG Oral Tablet Dexamethasone 07/03/2020 12:00:00 AM EST active [facility] ([facility] 0.5 mg 06/29/2020 12:00:00 AM EST tablet,disintegrating 3 0 TAKE ONE TABLET BY MOUTH EVERY DAY NEEDED MAXIMUM DAILY DOSE = 1 TABLET TAKE ONE TABLET BY MOUTH EVERY DAY NEEDED MAXIMUM DAILY DOSE = 1 TABLET SOLD: 07/01/2020 [facility] Diphenhydramine Hydrochloride 25 MG Oral Tablet Diphenhydram ine HCL 06/26/2020 12:00:00 AM EST active M EDENT ([facility]) 40 mg 04/12/2020 12:00:00 AM EDT capsule,delayed [...] BY MOUTH TWICE A DAY SOLD: 04/03/2021 [facility] Cephalexin 500 MG Oral Capsule [...] CAPSULE BY MOUTH EVERY EVENING SOLD: 08/30/2020 [facility] 12 HR dalfampridine 10 MG Extended Relea se Oral Tablet Dalfampridine (AMPYRA) 10 MG TB12 Dalfampridine (AMPYRA) 10 MG TB12 11/09/2013 12:00:00 AM EDT 10 mg Oral aborted Multiple sclerosis Take 1 0 mg by mouth every 12 (twelve) hours. [facility] Multiple sclerosis Calcium Carbonate 1250 MG / Cholecalcife rol 0.01 MG Oral Tablet Calcium Carb- Cholecalciferol (CALCIUM-VITAMIN D3) 500-400 MG-UNIT TABS Calcium Carb- Cholecalciferol (CALCIUM-VITAMIN D3) 500-400 MG-UNIT TABS 1 {tbl} Oral aborted Take 1 tablet by mouth daily [facility] Biotin 1 MG Oral Capsule Biotin 1 MG CAPS Biotin 1 MG CAPS 1 {tbl} Oral aborted Take 1 tablet [facility] 600 MG Oral Tablet ibuprofen (ADVIL,MOTRIN) 600 MG tablet ibuprofen (ADVIL,MOTRIN) 600 MG tablet 600 mg Oral aborted Take 600 mg by mouth every 6 (six) hours as needed. [facility] gabapentin 300 MG Oral Capsule gabapentin (NEURONTIN) 300 MG capsule gabapentin (NEURONTIN) 300 MG capsule 300 mg Oral aborted Take 300 mg by mouth Two Times Daily [facility] Levothyroxine Sodium 0.175 MG Oral Table t levothyroxine (SYNTHROID, LEVOTHROID) 175 MCG tablet levothyroxine (SYNTHROID, LEVOTHROID) 175 MCG tablet 200 ug Oral aborted Take 200 mcg by mout h daily [facility] Insurance Providers Payer name Policy type / Coverage type Policy ID Covered green party ID Covered green party's relationship to hammonds Policy Hammonds Plan Information [place] [id number] Self 08 [id number] MEDICARE A [id number] Self [id number] A [place] Medicare Primary [id number] Self 08 [id number] [place] Medicare Primary [id number] Self Medicare [place] Medicare Primary [id number] Self 08 [id number] [place] Medicare Primary [id number] Self 08 [id number] [place] Medicare Primary [id number] Self 08 [id number] Medicare C [id number] SELF [id number] A Medicare [place] Medicare Primary [id number] Self 08 [id number] MEDICARE A [id number] Self [id number] Medicare [place] Medicare Primary [id number] Self 08 [id number] MEDICARE [id number] SP [id number] A Medicare [place] Medicare Primary [id number] Self 08 [id number] MEDICARE [id number] Yanet [id number] A Medicare [place] Medicare Primary [id number] Self 08 [id number] [place] Primary [id number] Self [id number] MEDICARE [id number] SP [id number] Medicare [place] Medicare Primary [id number] Self 08 [id number] [place] Medicare Primary [id number] Self 08 [id number] AARP U [id number] Self [id number] Medicare [place] Medicare Primary [id number] Self 0 [id number] [employer] Options Medigap Part B [id number] Self 3 [id number] Medicare [place] Medicare Primary [id number] Self 6 [id number] [employer] Medigap Part B [id number] Self 3 [id number] Medicare [place] Medicare Primary [id number] Self 0 [id number] [employer] Medigap Part B [id number] Self [id number] [employer] Medigap Part B [id number] Self Medicare [place] Medicare Primary [id number] Self [employer] Medigap Part B [id number] Self 3 [id number] Medicare [place] Medicare Primary [id number] Self 0 [id number] AARP U [id number] Self [id number] AARP [facility] Supplemental F [id number] SELF [id number] [facility] AAR Supplemental F [id number] SELF [id number] AARP [facility] CARE OPTIONS [id number] SP [id number] [facility] [id number] Yanet [id number] [facility] [id number] Yanet [id number] [id number] Medicare C [id number] SELF [id number] DME Jurisdiction A NHIC C [id number] SELF [id number] DME Jurisdiction A NHIC C [id number] SELF [id number] Medicare C [id number] SELF [id number] DME A Noridan C [id number] SELF [id number] [place] Medicare Medicare Part B [id number] Self [id number] AAR [employer] [id number] Self [id number] MEDICARE P UNAVAILABLE S UNAVAILA BLE AARP HEALTH CARE OPTIONS [id number] SP [id number] MEDICARE C [id number] S [id number] AARP O [id number] S [id number] MEDICARE [id number] SP [id number] A MEDICARE C [id number] S [id number] A Aar [facility] Part B [id number] Self [id number] Aarp Commercial [id number]. 0 [id number] Aarp Commercial [id number]. 0 [id number] [employer] Commercial [id number] [id number]. 0 [id number] [employer]arp Commercial [id number] 2.16.840.1.126214.3.227.99.806.1116. 0 [id number] [employer] Commercial [id number] 2.16.840.1.689195.3.227.99.806.1116. 0 [id number] [employer] Commercial [id number] [id number]06.1116. 0 [id number] [facility] Part B [id number] Self 3 [id number] Medicare (Part B) Medicare Primary [id number] Self 0 [id number] [facility] PI PI MEDICARE PI PI [employer] Commercial [id number] [id number]06.1116. 0 [id number] Aarp Commercial [id number] 2.16.840.1.026977.3.227.99.806.1116. 0 [id number] [employer] Commercial [id number] 2.16.840.1.751762.3.227.99.806.1116. 0 [id number] Aarp Commercial [id number] 2.16.840.1.984461.3.227.99.806.1116. 0 [id number] [facility] Part B [id number] Self 3 [id number] Medicare [place] Medicare Primary [id number] Self 0 [id number] [employer] Commercial [id number] [id number]. 0 [id number] [facility] Part B [id number] Self 3 [id number] Medicare (Part B) Medicare Primary [id number] Self 0 [id number] [employer] [id number] [employer] [facility] Options Medigap Part B [id number] Self Medicare (Part B) Medicare Primary [id number] Self AARP HEALTH CARE O [id number] S [id number] MEDICARE PART A M [id number] S [id number] AARP HEALTH CARE O [id number] S [id number] AARP HEALTH CARE O [id number] S [id number] MEDICARE M [id number] S [id number] A MEDICARE OUTPATIENT M [id number] S [id number] AARP O [id number] S [id number] AARP S UNAVAILABLE S UNAVAILA BLE MEDICARE [id number] SP [id number] Problems, Conditions, and Diagnoses Code Display Name Description Problem Type Effective Dates Data Source(s) M47.816 169947912 Lumbar Facet arthropathy Problem 05/23/2021 12:00:00 AM EDT eCW1 ([facility]) M96.1 937769765 Lumbar post-laminectomy syndrome Problem 05/23/2021 12:00:00 AM EDT eCW1 ([facility]) G89.29 56239092 Other chronic pain Problem 05/21/2021 12:00: 00 AM EDT eCW1 ([facility]) [id number] Obstructive sleep apnea of adult Obstructive sle ep apnea of adult Problem 04/30/2021 12:00:00 AM EDT SWAPNIL ([facility]) Z79.891 High risk drug monitoring status Chronic prescri ption opiate use Problem 02/04/2021 12:00:00 AM EDT eCW1 ([facility]) M46.1 Solitary sacroiliitis Sacroiliitis, not elsewhere clas sified Problem 02/04/2021 12:00:00 AM EDT eCW1 ([facility]) M46.1 [id number] Sacroiliitis Problem 11/04/2020 12:00:00 AM EDT eCW1 ([facility]) Adverse effect of glucocorticoids and sy nthetic analogues, initial encounter Adverse effect of glucocorticoids and synthetic analogues, initial encounter Problem 07/03/2020 12:00:00 AM EST MEDENT ([facility] 52833803 Essential hypertension Essential hypertension Problem 07/03/2020 12:00:00 AM EST MEDENT ([facility] ) Surgeries/Procedures Procedure Description Date Indications Data Source(s) Electrocardiogram Complete 07/07/2021 12:00:00 AM EST MEDENT ([facility]) OFFICE OUTPATIENT VISIT 15 MINUTES 07/07/2021 12:00:00 AM EST MEDENT ([facility]) Pain Procedure Log 05/23/2021 12:00:00 AM EDT eCW1 ([facility]) OFFICE OUTPATIENT VISIT 15 MINUTES 05/15/2021 12:00:00 AM EDT MEDENT ([facility]) XTRNL ECG < 48 HR RECORD SCAN STOR W/PHY R&I 12:00:00 AM EDT MEDENT ([facility]) OFFICE OUTPATIENT VISIT 25 MINUTES 04/30/2021 12:00:00 AM EDT MEDENT ([facility]) OFFICE OUTPATIENT VISIT 5 MINUTES 04/21/2021 12:00:00 AM EDT MEDENT ([facility]) OFFICE OUTPATIENT VISIT 25 MINUTES 04/17/2021 12:00:00 AM EDT MEDENT ([facility]) Unclassified drugs 04/08/2021 12:00:00 AM EDT eCW1 ([facility]) Completion of procedural visit when meets criteria 04/08/2021 12:00:00 AM EDT eCW1 ([facility]) OFFICE OUTPATIENT VISIT 15 MINUTES 03/31/2021 12:00:00 AM EDT MEDENT ([facility]) OFFICE OUTPATIENT VISIT 25 MINUTES 01/14/2021 12:00:00 AM EDT MEDENT ([facility]) OFFICE OUTPATIENT VISIT 25 MINUTES 10/17/2020 12:00:00 AM EST MEDENT ([facility]) X-Ray Hips Bilateral With Pelvis 3-4 Views 09/25/2020 12:00:00 AM EST MEDENT ([facility] ) RADIOLOGIC EXAMINATION KNEE 3 VIEWS 09/25/2020 12:00:0 0 AM EST MEDENT ([facility]) PATCH/APPLICATION TEST SPECIFY NUMBER TESTS 07/29/2020 12:00:00 AM EST MEDENT ([facility]) Brief Emotional/Behav Assessment W/ Scoring Doc Per Standard Inst 07/16/2020 12:00:00 AM EST MEDENT ([facility]) Results ID Date Data Source [id number] 07/07/2021 12:59:00 PM EST MEDENT ([facility]) Name Value Range Interpretation Code Description Data Poly rce(s) Supporting Document(s) EKG Laboratory test result MEDENT ([facility]) ID Date Data Source [id number] 07/05/2021 06:29:03 PM EST [facility], PCName: Ruperto CarsonB: 1945Provider: Fabiola Rutherford: 07/04/2021 Reason For VisitRuperto [...] PMWide borePatient will follow up with: : CUONG Ordered Contrast : 02: without and with Gado IVLaterality: : _Not Applicable Plan, Assessment and Recommendation(s) Schedule appointment: After further diagnostic testing is completed and available for review. Discussion reviewing the different treatment conservative options(observation, medication(s), physical therapy, customer care coordinator, acupuncture, pain clinic, home exercise program, etc.)--- [...] document was dictated and electronically signed using Runscope software. A reasonable attempt at proof reading has been made to minimize errors. Please call with any questions. Chief ComplaintRuperto Seu presents for pain/dysfunction in the lumbar spine. Signatures Electronically signed by : Justino Rutherford M.D.; Jul 05 2021 6:29PM EST (Author) Name Value Range Interpretation Code Description Data Poly rce(s) Supporting Document(s) ID Date Data Source [id number] 05/06/2021 09:45:00 AM EDT [facility] Name Value Range Interpretation Code Description Data Poly rce(s) Supporting Document(s) SARS-CoV-2 RNA Resp Ql CLIFF+probe NOT DETECTED [facility] This lab was ordered by NAOMI mercado and reported by NAOMI Velázquez. ID Date Data Source [id number] 04/24/2021 12:08:00 PM EDT [facility] ([facility]) Name Value Range Interpretation Code Description Data Poly rce(s) Supporting Document(s) Blood Urea Nitrogen 16 mg/dL 7-18 Normal (applies to non-nume ayaush results) [facility] ([facility]) Glucose, Fasting 81 mg/dL 70-100 Normal (applies to non-numeric results) [facility] ([facility]) Creatinine For GFR 0.80 mg/dL 0.55-1.30 Normal (applies to non -numeric results) [facility] ([facility]) Glomerular Filtration Rate Laboratory test result Normal (applies to non- numeric results) [facility] ([facility]) <content>Units are mL/min/1.73 m2</content>
<content></content>
<content>Chronic Kidney Disease Staging per NKF:</content>
<content></content>
<content>Stage I & II GFR >=60 Normal to Mildly Decreased</content>
<content>Stage III GFR 30- 59 Moderately Decreased</content>
<content>Stage IV GFR 15-29 Severely Decreased</content>
<content>Stage V GFR <15 Very Little GFR Left</content>
<content>ESRD GFR <15 on LEACH RUNNER</content>
<content></content> Sodium Level 138 meq/L 136-145 Normal (applies to non-numeric res ults) [facility] ([facility]) Potassium Serum 5.6 meq/L 3.5-5.1 Above high normal [facility] ([facility]) Carbon Dioxide Level 30 meq/L 21-32 Normal (applies to non-num jon results) [facility] ([facility]) Chloride Level 104 meq/L 98-107 Normal (applies to non-numeric r esults) [facility] ([facility]) Anion Gap 4 meq/L 8-16 Below low normal [facility] ( [facility]) Calcium Level 9.6 mg/dL 8.8-10.2 Normal (applies to non-numeric re sults) [facility] ([facility]) ID Date Data Source [id number] 04/24/2021 12:08:00 PM EDT [facility] ([facility]) Name Value Range Interpretation Code Description Data Poly rce(s) Supporting Document(s) White Blood Count 7.0 10 4.0-10.0 Normal (applies to non-numeri c results) [facility] [facility] Red Blood Count 4.56 10 4.00-5.40 Normal (applies to non-numeric results) [facility] ([facility]) Hemoglobin 14.2 g/dL 12.0-15.5 Normal (applies to non-numeric resul ts) [facility] ([facility]) Hematocrit 44.4 % 36.0-47.0 Normal (applies to non-numeric resul ts) [facility] ([facility]) Mean Corpuscular Hemoglobin 31.1 pg 27.0-33.0 Norm al (applies to non-numeric results) [facility] ([facility]) Mean Corpuscular Volume 97.4 fl 80.0-96.0 Above high normal [facility] ([facility]) Red Cell Distribution Width 13.7 % 11.5-14.5 Norm al (applies to non-numeric results) [facility] ([facility]) Mean Corpuscular HGB Conc 32.0 g/dL 32.0-36.5 Normal (applies to non-numeric results) [facility] ([facility]) Neutrophils % 59.1 % 36.0-66.0 Normal (applies to non-numeric re sults) [facility] ([facility]) Platelet Count, Automated 256 10 150-450 Normal (applies to non-numeric results) [facility] ([facility]) Lymph % 22.8 % 24.0-44.0 Below low normal [facility] ( [facility]) Eos % 3.9 % 0.0-3.0 Above high normal [facility] ([facility]) [place] % 13.1 % 2.0-8.0 Above high normal [facility] ([facility]) Immature Granulocyte % 0.4 % 0-3.0 Normal (applies to non-n umeric results) [facility] ([facility]) Baso % 0.7 % 0.0-1.0 Normal (applies to non-numeric resul ts) [facility] ([facility]) Nucleated Red Blood Cell % 0.0 % 0-0 Normal (applies to n on-numeric results) [facility] ([facility]) Neutrophils # 4.1 10 1.5-8.5 Normal (applies to non-numeric re sults) [facility] ([facility]) Eos # 0.3 10 0.0-0.5 Normal (applies to non-numeric resul ts) [facility] ([facility]) Lymph # 1.6 10 1.5-5.0 Normal (applies to non-numeric resul ts) [facility] ([facility]) [place] # 0.9 10 0.0-0.8 Above high normal [facility] ([facility]) Baso # 0.1 10 0.0-0.2 Normal (applies to non-numeric resul ts) [facility] ([facility]) ID Date Data Source [id number] 04/24/2021 12:08:00 PM EDT [facility] ([facility]) Name Value Range Interpretation Code Description Data Poly rce(s) Supporting Document(s) Vitamin B12 Level 380 pg/mL Normal (applies to non-numeri c results) [facility] ([facility]) VITAMIN B12 NORMAL RANGE NORMAL 247 - 911 PG/ML INDETERMINATE 211 - 246 PG/ML DEFICIENT LESS THAN 211 PG/ML Folate 10.5 ng/mL Normal (applies to non-numeric resul ts) [facility] ([facility]) FOLATE NORMAL RANGE NORMAL GREATER THAN 5.4 NG/ML INDETERMINATE 3.4-5.4 NG/ML DEFICIENT LESS THAN 3.4 NG/ML ID Date Data Source [id number] 04/24/2021 12:08:00 PM EDT [facility] Name Value Range Interpretation Code Description Data Poly rce(s) Supporting Document(s) Thyroglobulin Ab [Units/volume] in Serum or Plasma 16.3 U/ML Normal (applies to non-numeric results) [facility] ([facility]) Calcidiol [Mass/volume] in Serum or Plasma 39.3 ng/mL 30.0- 100.0 Normal (applies to non-numeric results) [facility] ([facility]) Thyroperoxidase Ab [Units/volume] in Serum or Plasma 37.4 U/ML Normal (applies to non-numeric results) [facility] ([facility]) ID Date Data Source [id number] 04/24/2021 12:08:00 PM EDT [facility]) Name Value Range Interpretation Code Description Data Poly rce(s) Supporting Document(s) Thyroid Stimulating Hormone 0.229 uIU/ML 0.358-3.740 Below low normal [facility] ([facility]) Free T4 1.27 ng/dL 0.76-1.46 Normal (applies to non-numeric resul ts) [facility] ([facility]) ID Date Data Source [id number] 04/24/2021 12:07:00 PM EDT [facility] Name Value Range Interpretation Code Description Data Poly rce(s) Supporting Document(s) Glucose, Fasting 82 mg/dL 70-100 Normal (applies to non-numeric results) [facility] ([facility]) Blood Urea Nitrogen 18 mg/dL 7-18 Normal (applies to non-nume aayush results) [facility] ([facility]) Creatinine For GFR 0.87 mg/dL 0.55-1.30 Normal (applies to non -numeric results) [facility] ([facility]) Sodium Level 137 meq/L 136-145 Normal (applies to non-numeric res ults) [facility] ([facility]) Glomerular Filtration Rate Laboratory test result Normal (applies to non- numeric results) [facility] ([facility]) <content>Units are mL/min/1.73 m2</content>
<content></content>
<content>Chronic Kidney Disease Staging per NKF:</content>
<content></content>
<content>Stage I & II GFR >=60 Normal to Mildly Decreased</content>
<content>Stage III GFR 30- 59 Moderately Decreased</content>
<content>Stage IV GFR 15-29 Severely Decreased</content>
<content>Stage V GFR <15 Very Little GFR Left</content>
<content>ESRD GFR <15 on LEACH RUNNER</content>
<content></content> Potassium Serum 5.1 meq/L 3.5-5.1 Normal (applies to non-numeric results) [facility] ([facility]) Chloride Level 103 meq/L 98-107 Normal (applies to non-numeric r esults) [facility] ([facility]) Anion Gap 5 meq/L 8-16 Below low normal [facility] ( [facility]) Carbon Dioxide Level 29 meq/L 21-32 Normal (applies to non-num jon results) [facility] ([facility]) Calcium Level 9.3 mg/dL 8.8-10.2 Normal (applies to non-numeric re sults) [facility] ([facility]) ID Date Data Source [id number] 04/03/2021 12:20:00 PM EDT [facility] Name Value Range Interpretation Code Description Data Poly rce(s) Supporting Document(s) SARS-CoV-2 (COVID-19) RNA [Presence] in Respiratory specimen by [facility]IFF with probe detection Not Detected [facility] This lab was ordered by [facility] and reported by [employer]. ID Date Data Source [id number] 03/17/2021 02:12:41 PM EDT [facility] Name Value Range Interpretation Code Description Data Poly rce(s) Supporting Document(s) Progress Note [facility] [id number] lbm [file] [id number] ID Date Data Source [id number] 01/06/2021 01:54:00 PM EDT [facility] ([facility]) Name Value Range Interpretation Code Description Data Poly rce(s) Supporting Document(s) Red Blood Count 4.34 10 4.00-5.40 Normal (applies to non-numeric results) [facility] ([facility]) White Blood Count 6.3 10 4.0-10.0 Normal (applies to non-numeri c results) [facility] ([facility]) Hematocrit 42.1 % 36.0-47.0 Normal (applies to non-numeric resul ts) [facility] ([facility]) Hemoglobin 13.3 g/dL 12.0-15.5 Normal (applies to non-numeric resul ts) [facility] ([facility]) Mean Corpuscular HGB Conc 31.6 g/dL 32.0-36.5 Below low [facility] Mean Corpuscular Hemoglobin 30.6 pg 27.0-33.0 Norm al (applies to non-numeric results) [facility] ([facility]) Mean Corpuscular Volume 97.0 fl 80.0-96.0 Above high normal [facility] Red Cell Distribution Width 13.1 % 11.5-14.5 Norm al (applies to non-numeric results) [facility] ([facility]) Platelet Count, Automated 246 10 150-450 Normal (applies to non-numeric results) [facility] ([facility]) Neutrophils % 49.2 % 36.0-66.0 Normal (applies to non-numeric re sults) [facility] ([facility]) Lymph % 31.2 % 24.0-44.0 Normal (applies to non-numeric resul ts) [facility] ([facility]) [place] % 13.9 % 2.0-8.0 Above high normal [facility] ([facility]) Eos % 4.6 % 0.0-3.0 Above high normal [facility] ([facility]) Baso % 0.8 % 0.0-1.0 Normal (applies to non-numeric resul ts) [facility] ([facility]) Immature Granulocyte % 0.3 % 0-3.0 Normal (applies to non-n umeric results) [facility] ([facility]) Nucleated Red Blood Cell % 0.0 % 0-0 Normal (applies to n on-numeric results) [facility] ([facility]) Neutrophils # 3.1 10 1.5-8.5 Normal (applies to non-numeric re sults) [facility] ([facility]) Lymph # 2.0 10 1.5-5.0 Normal (applies to non-numeric resul ts) [facility] ([facility]) [place] # 0.9 10 0.0-0.8 Above high normal [facility] ([facility]) Eos # 0.3 10 0.0-0.5 Normal (applies to non-numeric resul ts) [facility] ([facility]) Baso # 0.1 10 0.0-0.2 Normal (applies to non-numeric resul ts) [facility] ([facility]) ID Date Data Source [id number] 01/06/2021 01:54:00 PM EDT [facility] ([facility]) Name Value Range Interpretation Code Description Data Poly rce(s) Supporting Document(s) Thyroid Stimulating Hormone 0.136 uIU/ML 0.358-3.740 Below low normal [facility] ([facility]) Free T4 1.48 ng/dL 0.76-1.46 Above high normal [facility] ([facility]) ID Date Data Source [id number] 01/06/2021 01:54:00 PM EDT [facility] ([facility]) Name Value Range Interpretation Code Description Data Poly rce(s) Supporting Document(s) Cholesterol Level 171 mg/dL Normal (applies to non-numeri c results) [facility] ([facility]) HDL Cholesterol 63 mg/dL Normal (applies to non-numeric results) [facility] ([facility]) Triglycerides Level 110 mg/dL Normal (applies to non-nume aayush results) [facility] ([facility]) LDL Cholesterol 86 mg/dL Normal (applies to non-numeric results) [facility] ([facility]) Non-HDL-C 108 mg/dL Normal (applies to non-numeric resul ts) [facility] ([facility]) Cholesterol Risk Ratio 2.714 Normal (applies to non-n umeric results) [facility] ([facility]) ID Date Data Source [id number] 01/06/2021 01:54:00 PM EDT [facility] ([facility]) Name Value Range Interpretation Code Description Data Poly rce(s) Supporting Document(s) Blood Urea Nitrogen 13 mg/dL 7-18 Normal (applies to non-nume aayush results) [facility] ([facility]) Glucose, Fasting 79 mg/dL 70-100 Normal (applies to non-numeric results) [facility] ([facility]) Glomerular Filtration Rate Laboratory test result Normal (applies to non- numeric results) [facility] ([facility]) <content>Units are mL/min/1.73 m2</content>
<content></content>
<content>Chronic Kidney Disease Staging per NKF:</content>
<content></content>
<content>Stage I & II GFR >=60 Normal to Mildly Decreased</content>
<content>Stage III GFR 30- 59 Moderately Decreased</content>
<content>Stage IV GFR 15-29 Severely Decreased</content>
<content>Stage V GFR <15 Very Little GFR Left</content>
<content>ESRD GFR <15 on LEACH RUNNER</content>
<content></content> Creatinine For GFR 0.77 mg/dL 0.55-1.30 Normal (applies to non -numeric results) [facility] ([facility]) Potassium Serum 4.9 meq/L 3.5-5.1 Normal (applies to non-numeric results) [facility] ([facility]) Sodium Level 140 meq/L 136-145 Normal (applies to non-numeric res ults) [facility] ([facility]) Carbon Dioxide Level 28 meq/L 21-32 Normal (applies to non-num jon results) [facility] ([facility]) Chloride Level 106 meq/L 98-107 Normal (applies to non-numeric r esults) [facility] ([facility]) Anion Gap 6 meq/L 8-16 Below low normal [facility] ( [facility]) Ast/Sgot 17 U/L 7-37 Normal (applies to non-numeric resul ts) [facility] ([facility]) Calcium Level 9.3 mg/dL 8.8-10.2 Normal (applies to non-numeric re sults) [facility] ([facility]) Alt/SGPT 18 U/L 12-78 Normal (applies to non-numeric resul ts) [facility] ([facility]) Alkaline Phosphatase 110 U/L 45-117 Normal (applies to non-num jon results) [facility] ([facility]) Albumin 3.5 GM/DL 3.2-5.2 Normal (applies to non-numeric resul ts) [facility] ([facility]) Bilirubin,Total 0.6 mg/dL 0.2-1.0 Normal (applies to non-numeric results) [facility] ([facility]) Total Protein 6.7 GM/DL 6.4-8.2 Normal (applies to non-numeric re sults) [facility] ([facility]) Albumin/Globulin Ratio 1.1 1.2-2.2 Below low normal [facility] ([facility]) ID Date Data Source [id number] 11/11/2020 01:44:00 PM EDT [facility] ([facility]) Name Value Range Interpretation Code Description Data Poly rce(s) Supporting Document(s) Ferritin [Mass/volume] in Serum or Plasma 60 ng/mL 8-252 Normal (applies to non- numeric results) [facility] ([facility]) Calcidiol [Mass/volume] in Serum or Plasma 40.6 ng/mL 30.0- 100.0 Normal (applies to non-numeric results) [facility] ([facility]) Cobalamin (Vitamin B12) [Mass/volume] in Serum or Plasma 479 pg/ mL 247-911 Normal (applies to non-numeric results) [facility] ([facility]) VITAMIN B12 NORMAL RANGE NORMAL 247 - 911 PG/ML INDETERMINATE 211 - 246 PG/ML DEFICIENT LESS THAN 211 PG/ML ID Date Data Source [id number] 11/11/2020 01:44:00 PM EDT [facility] ([facility]) Name Value Range Interpretation Code Description Data Poly rce(s) Supporting Document(s) Iron (Fe) 78 ug/dL 50-170 Normal (applies to non-numeric resul ts) [facility] ([facility]) Total Iron Binding Capacity 373 ug/dL 250-450 Norm al (applies to non-numeric results) [facility] ([facility]) Percent Saturation 20.9 % 13.2-45.0 Normal (applies to non-numer ic results) [facility] ([facility]) ID Date Data Source [id number] 11/11/2020 01:44:00 PM EDT [facility] ([facility]) Name Value Range Interpretation Code Description Data Poly rce(s) Supporting Document(s) Hemoglobin A1c 5.4 % Normal (applies to non-numeric r esults) [facility] ([facility]) <content>REFERENCE RANGES:</content><br/ ><content></content>
<content><=5.6% NORMAL</content>
<content>5.7-6.4% SUGGESTS IMPAIRED GLUCOSE METABOLISM/PREDIABETIC</content>
<content>>= 6.5% ABNORMAL</content>
<content></content> Estimated Average Glucose 108 mg/dL 60-110 Normal (applies to non-numeric results) [facility] ([facility]) ID Date Data Source [id number] 11/11/2020 01:44:00 PM EDT [facility] ([facility]) Name Value Range Interpretation Code Description Data Poly rce(s) Supporting Document(s) White Blood Count 7.5 10 4.0-10.0 Normal (applies to non-numeri c results) [facility] ([facility]) Red Blood Count 4.53 10 4.00-5.40 Normal (applies to non-numeric results) [facility] ([facility]) Hemoglobin 14.0 g/dL 12.0-15.5 Normal (applies to non-numeric resul ts) [facility] ([facility]) Hematocrit 44.7 % 36.0-47.0 Normal (applies to non-numeric resul ts) [facility] ([facility]) Mean Corpuscular Volume 98.7 fl 80.0-96.0 Above high normal [facility] ([facility]) Mean Corpuscular Hemoglobin 30.9 pg 27.0-33.0 Norm al (applies to non-numeric results) [facility] ([facility]) Red Cell Distribution Width 13.0 % 11.5-14.5 Norm al (applies to non-numeric results) [facility] ([facility]) Mean Corpuscular HGB Conc 31.3 g/dL 32.0-36.5 Below low normal [facility] ([facility]) Platelet Count, Automated 260 10 150-450 Normal (applies to non-numeric results) [facility] ([facility]) Neutrophils % 48.5 % 36.0-66.0 Normal (applies to non-numeric re sults) [facility] ([facility]) Lymph % 33.6 % 24.0-44.0 Normal (applies to non-numeric resul ts) [facility] ([facility]) Eos % 4.7 % 0.0-3.0 Above high normal [facility] ([facility]) [place] % 12.1 % 2.0-8.0 Above high normal [facility] ([facility]) Immature Granulocyte % 0.3 % 0-3.0 Normal (applies to non-n umeric results) [facility] ([facility]) Baso % 0.8 % 0.0-1.0 Normal (applies to non-numeric resul ts) [facility] ([facility]) Neutrophils # 3.6 10 1.5-8.5 Normal (applies to non-numeric re sults) [facility] ([facility]) Lymph # 2.5 10 1.5-5.0 Normal (applies to non-numeric resul ts) [facility] ([facility]) Nucleated Red Blood Cell % 0.0 % 0-0 Normal (applies to n on-numeric results) [facility] ([facility]) [place] # 0.9 10 0.0-0.8 Above high normal [facility] ([facility]) Eos # 0.4 10 0.0-0.5 Normal (applies to non-numeric resul ts) [facility] ([facility]) Baso # 0.1 10 0.0-0.2 Normal (applies to non-numeric resul ts) [facility] ([facility]) ID Date Data Source [id number] 11/11/2020 01:44:00 PM EDT [facility] ([facility]) Name Value Range Interpretation Code Description Data Poly rce(s) Supporting Document(s) Blood Urea Nitrogen 15 mg/dL 7-18 Normal (applies to non-nume aayush results) [facility] ([facility]) Glucose, Fasting 137 mg/dL 70-100 Above high normal [facility] ([facility]) Creatinine For GFR 1.05 mg/dL 0.55-1.30 Normal (applies to non -numeric results) [facility] ([facility]) Glomerular Filtration Rate 54.4 Normal (applies to n on-numeric results) [facility] ([facility]) <content>Units are mL/min/1.73 m2</content>
<content></content>
<content>Chronic Kidney Disease Staging per NKF:</content>
<content></content>
<content>Stage I & II GFR >=60 Normal to Mildly Decreased</content>
<content>Stage III GFR 30- 59 Moderately Decreased</content>
<content>Stage IV GFR 15-29 Severely Decreased</content>
<content>Stage V GFR <15 Very Little GFR Left</content>
<content>ESRD GFR <15 on LEACH RUNNER</content>
<content></content> Potassium Serum 5.0 meq/L 3.5-5.1 Normal (applies to non-numeric results) [facility] ([facility]) Sodium Level 138 meq/L 136-145 Normal (applies to non-numeric res ults) [facility] ([facility]) Carbon Dioxide Level 30 meq/L 21-32 Normal (applies to non-num jon results) [facility] ([facility]) Chloride Level 104 meq/L 98-107 Normal (applies to non-numeric r esults) [facility] ([facility]) Anion Gap 4 meq/L 8-16 Below low normal [facility] ( [facility]) Calcium Level 9.7 mg/dL 8.8-10.2 Normal (applies to non-numeric re sults) [facility] ([facility]) Alt/SGPT 21 U/L 12-78 Normal (applies to non-numeric resul ts) [facility] ([facility]) Ast/Sgot 14 U/L 7-37 Normal (applies to non-numeric resul ts) [facility] ([facility]) Total Protein 7.0 GM/DL 6.4-8.2 Normal (applies to non-numeric re sults) [facility] ([facility]) Bilirubin,Total 0.3 mg/dL 0.2-1.0 Normal (applies to non-numeric results) [facility] ([facility]) Alkaline Phosphatase 141 U/L 45-117 Above high normal [facility] ([facility]) Albumin 3.8 GM/DL 3.2-5.2 Normal (applies to non-numeric resul ts) [facility] ([facility]) Albumin/Globulin Ratio 1.2 1.2-2.2 Normal (applies to non-n umeric results) [facility] ([facility]) ID Date Data Source [id number] 11/11/2020 01:44:00 PM EDT [facility] ([facility]) Name Value Range Interpretation Code Description Data Poly rce(s) Supporting Document(s) Thyroid Stimulating Hormone 4.080 uIU/ML 0.358-3.740 Above high chay l [facility] ([facility]) Free T4 0.74 ng/dL 0.76-1.46 Below low normal [facility] ( [facility]) ID Date Data Source [id number] 09/13/2020 10:41:42 AM EST [facility] Name Value Range Interpretation Code Description Data Poly rce(s) Supporting Document(s) Progress Note [facility] [id number] lbm [file] [id number] ID Date Data Source [id number] 09/06/2020 12:00:00 AM EST [facility] Sherrell Myers DO Patient Name: MARTHA [id number] Date of : 1945 1 Date of Exam:09/06/2020NAOMI [place] [id number]#: Fax: [phone] EXAM: MAMMO SCREENING WITH CADCLINICAL [...] criteria for genetic testing established by [employer] and [employer] guidelines. She should pursue arisk [...] mammogram was read with the assistance of Sammy [employer], an FDAapproved computer aided detection system for [...] 12:00:00 AM EST Quit completed Quit [facility] ([facility]) Smoking 05/23/2021 12:00:00 AM EDT Former Smoker completed Former Smoker [facility]1 ([facility]) Smoking 04/08/2021 12:00:00 AM EDT Former Smoker completed Former Smoker eCW1 ([facility]) Smoking 03/24/2021 12:00:00 AM EDT Former Smoker completed Former Smoker eCW1 ([facility]) Alcohol intake 03/17/2021 12:00:00 AM EDT Current drinker of al cohol (finding) completed Current drinker of alcohol (finding) [facility] Tobacco use and exposure 03/17/2021 12:00:00 AM EDT Never used co mpleted Never used [facility] Smoking 03/17/2021 12:00:00 AM EDT Former smoker completed Former smoker [facility] Smoking 02/04/2021 12:00:00 AM EDT Former Smoker completed Former Smoker eCW1 ([facility]) Smoking 11/04/2020 12:00:00 AM EDT Former Smoker completed Former Smoker [facility]CW1 ([facility]) Smoking 08/06/2020 12:00:00 AM EST Former Smoker completed Former Smoker eCW1 ([facility]) Smoking 07/03/2020 12:00:00 AM EST Patient is a former smoker completed Patient is a former smoker [facility] ) Smoking 05/30/2020 12:00:00 AM EDT Former Smoker completed Former Smoker eCW1 ([facility]) Smoking 05/30/2020 12:00:00 AM EDT Former Smoker completed Former Smoker [facility]CW1 ([facility]) Smoking 05/30/2020 12:00:00 AM EDT Former Smoker completed Former Smoker eCW1 ([facility]) Vital Signs ID Date Data Source [id number] Name Value Range Interpretation Code Description Data Source(s) Diastolic blood pressure 76 mm[Hg] 76 mm[Hg] [facility] ([facility]) Body height 62.5 [in_i] 62.5 [in_i] [facility] ([facility]) 5'2.50" Heart rate 54 /min 54 /min [facility] ([facility]) Respiratory rate 18 /min 18 /min [facility] ( [facility]) Body temperature 96.7 [degF] 96.7 [degF] [facility] ([facility]) Oxygen saturation in Arterial blood by Pulse oximetry 98 % 98 % [facility] ([facility]) [place] body weight 110 [lb_av] 110 [lb_av] [facility] T ([facility]) Systolic blood pressure 126 mm[Hg] 126 mm[Hg] [facility] ([facility]) Body weight 233.25 [lb_av] 233.25 [lb_av] [facility] ([facility]) Body mass index (BMI) [Ratio] 42.0 kg/m2 42.0 k g/m2 [facility] ([facility]) Body weight 229.8 [lb_av] 229.8 [lb_av] eCW1 ([facility]) Body weight 104.24 kg 104.24 kg W1 ([facility]) Body height [in_i] eCW1 ([facility]) Body mass index (BMI) [Ratio] 42.03 kg/m2 42.03 kg/m2 W1 ([facility]) Heart rate 57 /min 57 /min eCW1 ([facility]) Respiratory rate 18 /min 18 /min eCW1 ([facility]) Body temperature 97.8 [degF] 97.8 [degF] eCW1 ( [facility]) Systolic blood pressure 133 mm[Hg] 133 mm[Hg] e CW1 ([facility]) Diastolic blood pressure 73 mm[Hg] 73 mm[Hg] eCW1 ([facility]) Heart rate 48 /min 48 /min [facility] ([facility]) [place] body weight 110 [lb_av] 110 [lb_av] [facility] T ([facility]) Body height 62.5 [in_i] 62.5 [in_i] [facility] ([facility]) 5'2.50" Respiratory rate 20 /min 20 /min [facility] ( [facility]) Body temperature 98.4 [degF] 98.4 [degF] [facility] ([facility]) Oxygen saturation in Arterial blood by Pulse oximetry 97 % 97 % [facility] ([facility]) Systolic blood pressure 130 mm[Hg] 130 mm[Hg] [facility] ([facility]) Diastolic blood pressure 82 mm[Hg] 82 mm[Hg] MEDENT ([facility]) Body height 62.5 [in_i] 62.5 [in_i] MEDENT ([facility]) 5'2.50" Body weight 227.00 [lb_av] 227.00 [lb_av] MEDEN T ([facility]) Body mass index (BMI) [Ratio] 40.9 kg/m2 40.9 k g/m2 MEDENT ([facility]) Heart rate 56 /min 56 /min MEDENT ([facility]) Respiratory rate 18 /min 18 /min MEDENT ( [facility]) Body temperature 97.8 [degF] 97.8 [degF] MEDENT ([facility]) Oxygen saturation in Arterial blood by Pulse oximetry 98 % 98 % MEDENT ([facility]) [place] body weight 110 [lb_av] 110 [lb_av] MEDEN T ([facility]) Body temperature 98.7 [degF] 98.7 [degF] MEDENT ([facility]) [place] body weight 110 [lb_av] 110 [lb_av] MEDEN T ([facility]) Systolic blood pressure 128 mm[Hg] 128 mm[Hg] M EDENT ([facility]) Diastolic blood pressure 72 mm[Hg] 72 mm[Hg] MEDENT ([facility]) Body height 62.5 [in_i] 62.5 [in_i] MEDENT ([facility]) 5'2.50" Body weight 226.12 [lb_av] 226.12 [lb_av] MEDEN T ([facility]) Body mass index (BMI) [Ratio] 40.7 kg/m2 40.7 k g/m2 MEDENT ([facility]) Heart rate 68 /min 68 /min MEDENT ([facility]) Respiratory rate 18 /min 18 /min MEDENT ( [facility]) Oxygen saturation in Arterial blood by Pulse oximetry 97 % 97 % MEDENT ([facility]) Body weight 227 [lb_av] 227 [lb_av] eCW1 ([facility]) Body weight 102.97 kg 102.97 kg eCW1 ([facility]) Body height [in_i] eCW1 ([facility]) Body mass index (BMI) [Ratio] 41.51 kg/m2 41.51 kg/m2 eCW1 ([facility]) Heart rate 55 /min 55 /min eCW1 ([facility]) Respiratory rate 18 /min 18 /min eCW1 ([facility]) Body temperature 97.2 [degF] 97.2 [degF] eCW1 ( [facility]) Systolic blood pressure 148 mm[Hg] 148 mm[Hg] e CW1 ([facility]) Diastolic blood pressure 68 mm[Hg] 68 mm[Hg] eCW1 ([facility]) Systolic blood pressure 136 mm[Hg] 136 mm[Hg] M EDENT ([facility]) Body height 62.5 [in_i] 62.5 [in_i] MEDENT ([facility]) 5'2.50" Diastolic blood pressure 84 mm[Hg] 84 mm[Hg] MEDENT ([facility]) Heart rate 60 /min 60 /min MEDENT ([facility]) Respiratory rate 20 /min 20 /min MEDENT ( [facility]) Oxygen saturation in Arterial blood by Pulse oximetry 96 % 96 % MEDENT ([facility]) Body temperature 98.3 [degF] 98.3 [degF] MEDENT ([facility]) [place] body weight 110 [lb_av] 110 [lb_av] MEDEN T ([facility]) Body weight 230 [lb_av] 230 [lb_av] eCW1 ([facility]) Body weight 104.33 kg 104.33 kg eCW1 ([facility]) Body height [in_i] eCW1 ([facility]) Body mass index (BMI) [Ratio] 42.06 kg/m2 42.06 kg/m2 eCW1 ([facility]) Heart rate 55 /min 55 /min eCW1 ([facility]) Respiratory rate 18 /min 18 /min eCW1 ([facility]) Body temperature 97.7 [degF] 97.7 [degF] eCW1 ( [facility]) Systolic blood pressure 180 mm[Hg] 180 mm[Hg] e CW1 ([facility]) Diastolic blood pressure 72 mm[Hg] 72 mm[Hg] eCW1 ([facility]) Body weight 232.8 [lb_av] 232.8 [lb_av] eCW1 ([facility]) Body height [in_i] eCW1 ([facility]) Body mass index (BMI) [Ratio] 42.58 kg/m2 42.58 kg/m2 eCW1 ([facility]) Heart rate 54 /min 54 /min eCW1 ([facility]) Respiratory rate 18 /min 18 /min eCW1 ([facility]) Body temperature 97.5 [degF] 97.5 [degF] eCW1 ( [facility]) Systolic blood pressure 151 mm[Hg] 151 mm[Hg] e CW1 ([facility]) Diastolic blood pressure 65 mm[Hg] 65 mm[Hg] eCW1 ([facility]) Systolic blood pressure 132 mm[Hg] 132 mm[Hg] M EDENT ([facility]) Diastolic blood pressure 78 mm[Hg] 78 mm[Hg] MEDENT ([facility]) Body height 62.5 [in_i] 62.5 [in_i] MEDENT ([facility]) 5'2.50" Body weight 232.00 [lb_av] 232.00 [lb_av] MEDEN T ([facility]) Body mass index (BMI) [Ratio] 41.8 kg/m2 41.8 k g/m2 MEDENT ([facility]) Heart rate 86 /min 86 /min MEDENT ([facility]) Respiratory rate 18 /min 18 /min MEDENT ( [facility]) Body temperature 98.7 [degF] 98.7 [degF] MEDENT ([facility]) Oxygen saturation in Arterial blood by Pulse oximetry 97 % 97 % MEDENT ([facility]) [place] body weight 110 [lb_av] 110 [lb_av] MEDEN T ([facility]) Body weight 237.2 [lb_av] 237.2 [lb_av] eCW1 ([facility]) Body height [in_i] eCW1 ([facility]) Body mass index (BMI) [Ratio] 43.38 kg/m2 43.38 kg/m2 eCW1 ([facility]) Heart rate 69 /min 69 /min eCW1 ([facility]) Respiratory rate 18 /min 18 /min eCW1 ([facility]) Body temperature 97.3 [degF] 97.3 [degF] eCW1 ( [facility]) Systolic blood pressure 149 mm[Hg] 149 mm[Hg] e CW1 ([facility]) Diastolic blood pressure 60 mm[Hg] 60 mm[Hg] eCW1 ([facility]) Body height 62.5 [in_i] 62.5 [in_i] MEDENT ([facility]) 5'2.50" Body weight 238.00 [lb_av] 238.00 [lb_av] MEDEN T ([facility]) Body mass index (BMI) [Ratio] 42.8 kg/m2 42.8 k g/m2 MEDENT ([facility]) Diastolic blood pressure 84 mm[Hg] 84 mm[Hg] MEDENT ([facility]) Heart rate 62 /min 62 /min MEDENT ([facility]) Respiratory rate 20 /min 20 /min MEDENT ( [facility]) Body temperature 97.1 [degF] 97.1 [degF] MEDENT ([facility]) Oxygen saturation in Arterial blood by Pulse oximetry 98 % 98 % MEDENT ([facility]) [place] body weight 110 [lb_av] 110 [lb_av] MEDEN T ([facility]) Systolic blood pressure 130 mm[Hg] 130 mm[Hg] M EDENT ([facility]) Heart rate 61 /min 61 /min eCW1 ([facility]) Respiratory rate 18 /min 18 /min eCW1 ([facility]) Body temperature 97.5 [degF] 97.5 [degF] eCW1 ( [facility]) Systolic blood pressure 145 mm[Hg] 145 mm[Hg] e CW1 ([facility]) Body weight 240.8 [lb_av] 240.8 [lb_av] eCW1 ([facility]) Body height [in_i] eCW1 ([facility]) Body mass index (BMI) [Ratio] 44.04 kg/m2 44.04 kg/m2 eCW1 ([facility]) Diastolic blood pressure 65 mm[Hg] 65 mm[Hg] eCW1 ([facility]) Systolic blood pressure 144 mm[Hg] 144 mm[Hg] M EDENT ([facility] Body weight 240.00 [lb_av] 240.00 [lb_av] MEDEN T ([facility]) Body height 62 [in_i] 62 [in_i] MEDENT ([facility]) 5'2" Heart rate 65 /min 65 /min MED[facility] ([facility] Respiratory rate 18 /min 18 /min MEDENT ( [facility]) Diastolic blood [...] MEDENT ([facility] Respiratory rate 18 /min 18 /min MEDENT ( [facility]) Systolic blood pressure 135 mm[Hg] 135 mm[Hg] M EDENT ([facility]) Diastolic blood pressure 61 mm[Hg] 61 mm[Hg] MEDENT ([facility]) Body mass index (BMI) [Ratio] 44.3 kg/m2 44.3 k g/m2 MEDENT ([facility]) Body weight 240.25 [lb_av] 240.25 [lb_av] MEDEN T ([facility]) Body height 62 [in_i] 62 [in_i] MEDENT ([facility] 5'2" Heart rate 56 /min 56 /min MEDENT ([facility]) Respiratory rate 18 /min 18 /min MEDENT ( [facility]) Systolic blood pressure 142 mm[Hg] 142 mm[Hg] M EDENT ([facility]) Diastolic blood pressure 84 mm[Hg] 84 mm[Hg] MEDENT ([facility]) Body mass index (BMI) [Ratio] 43.9 kg/m2 43.9 k g/m2 MEDENT ([facility]) Body weight 238.00 [lb_av] 238.00 [lb_av] MEDEN T ([facility]) Body temperature 97.1 [degF] 97.1 [degF] MEDENT ([facility]) Oxygen saturation in Arterial blood by Pulse oximetry 97 % 97 % MEDENT ([facility]) [place] body weight 110 [lb_av] 110 [lb_av] MEDEN T ([facility]) Heart rate 55 /min 55 /min MEDENT ([facility]) Systolic blood pressure 144 mm[Hg] 144 mm[Hg] M EDENT ([facility]) Diastolic blood pressure 76 mm[Hg] 76 mm[Hg] MEDENT ([facility]) Body height 62.5 [in_i] 62.5 [in_i] MEDENT ([facility]) 5'2.50" Body mass index (BMI) [Ratio] 42.8 kg/m2 42.8 k g/m2 MEDENT ([facility]) Respiratory rate 18 /min 18 /min MEDENT ( [facility]) Body weight 240.00 [lb_av] 240.00 [lb_av] MEDEN T ([facility]) Body height 62.5 [in_i] 62.5 [in_i] MEDENT [...] MEDENT ([facility]) Diastolic blood pressure 69 mm[Hg] 69 mm[Hg] MEDENT ([facility]) Body mass index (BMI) [Ratio] 43.60 kg/m2 43.60 kg/m2 eCW1 ([facility]) Heart rate 56 /min 56 /min eCW1 ([facility]) Respiratory rate 18 /min 18 /min eCW1 ([facility]) Body temperature 97.1 [degF] 97.1 [degF] eCW1 ( [facility]) Systolic blood pressure 133 mm[Hg] 133 mm[Hg] e CW1 ([facility]) Diastolic blood pressure 60 mm[Hg] 60 mm[Hg] eCW1 ([facility]) Body weight 238.4 [lb_av] 238.4 [lb_av] eCW1 ([facility]) Body height [in_i] eCW1 ([facility]) ID Date Data Source [id number] 05/20/2021 01:35:08 PM T [facility] Name Value Range Interpretation Code Description Data Source(s) PREFERRED NAME [facility] ID Date Data Source [id number] 09/13/2020 12:30:02 PM EST [facility] Name Value Range Interpretation Code Description Data Source(s) PREFERRED NAME [facility] PREFERRED NAME [facility] ID Date Data Source [id number] 09/02/2020 07:34:39 AM EST [facility] Name Value Range Interpretation Code Description Data Source(s) PREFERRED NAME [facility] Patient Treatment Plan of Care Planned Activity Planned Date Details Description Data Source (s) Levothyroxine Sodium 0.112 MG Oral Tablet 11/12/2020 12:00:00 AM ED T [facility] tramadol hydrochloride 50 MG Oral Tablet 08/06/2020 12:00:00 AM EST eCW1 ([facility]) tramadol hydrochloride 50 MG Oral Tablet 08/06/2020 12:00:00 AM EST eCW1 ([facility]) tramadol hydrochloride 50 MG Oral Tablet 08/06/2020 12:00:00 AM EST eCW1 ([facility]) 12 HR dalfampridine 10 MG Extended Release Oral Tablet 11/09/2013 12:00:00 AM EDT [facility] ospital Biotin 1 MG Oral Capsule [facility] Calcium Carbonate 1250 MG / Cholecalciferol 0.01 MG Oral Tablet [facility] gabapentin 300 MG Oral Capsule [facility] Ibuprofen 600 MG Oral Tablet [facility] Levothyroxine Sodium 0.175 MG Oral Tablet [facility]
[2021-07-10] MEDS ORDERED: LEVO112T2 PO (15:04)
[2021-07-10] MEDS ORDERED: FIBE625T PO (15:04)
[2021-07-10] MEDS ORDERED: COLA100C5 PO (15:04)
[2021-07-10] MEDS ORDERED: HOME MED LIST COMPLETE! XX SCH (15:05)
--- NOTE | 2021-07-10 15:07 | IPNPDOC ---
Subjective Date Seen The patient was seen on 07/10/21. Subjective Chief Complaint/HPI Patient is a very pleasant 75 year old female with PMH of hypertension, hypothyroidism, and multiple sclerosis presented to [facility] ER due to pre-syncopal episode and new-onset hypotension this morning as well as bradycardia since summer. She reported that she woke up this morning feeling lightheaded, cold, and tired. She had a pre-syncope episode and slumped on the sofa. She denies a fall or injury to her body. Her heart rate at home measured to be in the 40s with blood pressure around 80/40. She said her blood pressure is usually normal around 126/80, but her heart rate has been around 42 to 45 since this summer. She is on the process of being set up with a pacemaker with cardiology with upcoming cardiology appointment on 07/25/2021. [facility] Vital Signs Date Time Temp Pulse Resp B/P (MAP) Pulse Ox O2 Delivery O2 Flow Rate FiO2 07/10/21 13:01 41 94 07/10/21 13:00 92/53 (66) Laboratory Data 24H LABS Laboratory Tests 2 07/10/21 11:05: Immature Granulocyte % (Auto) 0.3, Neutrophils (%) (Auto) 64.3, Lymphocytes (%) (Auto) 21.1L, Monocytes (%) (Auto) 8.9H, Eosinophils (%) (Auto) 4.7H, Basophils (%) (Auto) 0.7, Neutrophils # (Auto) 4.7, Lymphocytes # (Auto) 1.5, Monocytes # (Auto) 0.6, Eosinophils # (Auto) 0.3, Basophils # (Auto) 0.1, Nucleated Red Blood Cells % (auto) 0.0, Prothrombin Time 13.1, Prothromb Time International Ratio 0.96, Blood Gas Bicarbonate Standard 20.6, Venous Blood pH 7.316L, Venous Blood Partial Pressure CO2 44.4, Venous Blood Partial Pressure O2 40.4, Venous Blood Total Carbon Dioxide 23.5L, Venous Blood HCO3 22.2L, Venous Blood Oxygen S aturation 73.2, Venous Blood Base Excess -4.0L, Anion Gap 7L, Glomerular Filtration Rate 37.4L, Lactic Acid Level 2.5*H, Calcium Level 9.2, Total Bilirubin 0.5, Direct Bilirubin 0.1, Aspartate Amino Transf (AST/SGOT) 25, Alanine Aminotransferase (ALT/SGPT) 22, Alkaline Phosphatase 95, Total Creatine Kinase 143, Creatine Kinase MB 1.8, Creatine Kinase MB Relative Index 1.26, Troponin I < 0.02, UI-Wig-A-Type Natriuretic Peptide 102, Total Protein 6.8, Albumin 3.4, Albumin/Globulin Ratio 1.0L, Lipase 66L, Thyroid Stimulating Hormone (TSH) 168.000H 07/10/21 11:39: Coronavirus (COVID-19)(PCR) NEGATIVE, Influenza Type A (RT-PCR) NEGATIVE, Influenza Type B (RT-PCR) NEGATIVE, Respiratory Syncytial Virus (PCR) NEGATIVE CBC/BMP Laboratory Tests 07/10/21 11:05 Microbiology Microbiology 07/10/21 Blood Culture, Received Pending 07/10/21 Blood Culture, Received Pending FLORINDA HALL DO Jul 10, 2021 15:07
--- NOTE | 2021-07-10 15:08 | HPEPDOC ---
General Date of Admission Jul 10, 2021 at 10:32 Date of Service: Jul 10, 2021 Chief Complaint Lightheadedness, cold, tired Source: Patient Exam Limitations: No limitations Timing/Duration: This morning Severity: Moderate Associated Symptoms: Hypotension, Dizziness History of Present Illness Patient is a very pleasant 75 year old female with PMH of hypertension, hypothyroidism, and multiple sclerosis presented to [facility] ER due to pre-syncopal episode and new-onset hypotension this morning as well as bradycardia since summer. She reported that she woke up this morning feeling lightheaded, cold, and tired. She had a pre-syncope episode and slumped on the sofa. She denies a fall or in jury to her body. Her heart rate at home measured to be in the 40s with blood pressure around 80/40. She said her blood pressure is usually normal around 126/80, but her heart rate has been around 42 to 45 since this summer. She is on the process of being set up with a pacemaker with cardiology with upcoming cardiology appointment on 07/25/2021. She reported she has been taking medication as prescribed including synthroid 224mcg daily; denies recent medication changes. She denies any chest pain, palpitation, dyspnea, stroke-like symptoms, or constipation. Home Medications Scheduled Calcium Polycarbophil (Fibercon) 625 Mg Tablet, 625 MG PO DAILY, (Reported) Docusate Sodium (Colace) 100 Mg Capsule, 100 MG PO DAILY, (Reported) Duloxetine Hcl (Duloxetine HCl) 60 Mg Capsule.dr, 60 MG PO BID, (Reported) Ergocalciferol (Vitamin D2) (Vitamin D2) 50,000 Units Cap, 50,000 UNIT PO QWEEK, (Reported) SUNDAYS Iron,Fm,Ps/Folic/B,C18/L.casei (Fusion Plus Capsule) 1 Cap Cap, 4 CAP PO DAILY, (Reported) Levothyroxine Sodium (Levothyroxine Sodium) 112 Mcg Tablet, 224 MCG PO DAILY, (R eported) Lisinopril (Lisinopril) 5 Mg Tablet, 5 MG PO DAILY, (Reported) Omeprazole (Omeprazole) 40 Mg Capsule.dr, 40 MG PO BID, (Reported) Tizanidine HCl (Tizanidine HCl) 2 Mg Tablet, 4 MG PO BID, (Reported) Allergies Coded Allergies: bupivacaine (Verified Allergy, Mild, HIVES, 11/18/21) TAPE (Verified Allergy, Unknown, 05/14/20) nickel (Verified Allergy, Unknown, 05/14/20) dexamethasone (Verified Adverse Reaction, Intermediate, "PURPLE/HOT FACE" PER PT, 07/10/21) Past Medical History Medical History 1. Obstructive sleep apnea on CPAP at home 2. Hypertension 3. Hypothyroidism 4. Depression 5. Multiple sclerosis-reported baseline gait/balance issue only 6. Vitamin D deficiency 7. Chronic back pain 8. Neuropathy 9. Degenerative joint disease in multiple joints 10. Morbid obesity 11. Left knee symptomatic osteoarthritis Surgical History Left total knee replacement Gastric bypass Cholecystectomy Tonsillectomy Appendectomy Bilateral total hip arthroplasties Lumbar laminectomy Family History Father-lung cancer, CHF Mother-Hypertension 1 brother had bladder cancer Social History * Smoker: former Smoker (stopped smoking in 1989) Alcohol: occationally (2 alcohol drinks per day) Drugs: denies Lives at home by herself A-FIB/CHADSVASC A-FIB History Current/History of A-Fib/PAF?: No Review of Systems Constitutional: Reports: Chills; Denies: Fever Eyes: Denies: Vision change Pulmonary: Denies: Dyspnea Cardiovascular: Reports: Lt Headedness; Denies: Chest Pain, Palpitations Gastrointestinal: Reports: Abdominal Pain (Chronic right lower quadrant abdominal pain); Denies: Nausea, Vomiting, Diarrhea, Constipation Genitourinary: Reports: Other Symptoms (denies urinary urgency); Denies: Dysuria, Frequency, Hematuria Endocrine: Reports: Other Endocrine Sx (Denies edema) Musculoskeletal: Reports: Back Pain (chronic back pain with left sciatica) Neurological: Reports: Numbness (Chronic numbness and tingling from low back radiating down to left lower extrmeity); Denies: Weakness, Change in speech Other systems 10 point review of systems complete, all negative otherwise stated above Physical Examination General Exam: Positive: Alert, Cooperative, No Acute Distress, Other (mildly pale) Eye Exam: Positive: PERRLA, Conjunctiva & lids normal, EOMI; Negative: Sclera icteric ENT Exam: Positive: Atraumatic, Other ENT (mucous membrane mildly dry) Neck Exam: Positive: Supple Chest Exam: Positive: Clear to auscultation, Normal air movement Heart Exam: Positive: Bradycardic, Regular Rhythm; Negative: Murmurs Telemetry: Positive: Sinus, Bradycardia Abdomen Exam: Positive: Normal bowel sounds, Soft, Tenderness (in right lower quadrant), Other (no guarding or distention) Extremity Exam: Negative: Cyanosis, Edema, Swelling Skin Exam: Positive: Nl turgor and temperature; Negative: Rash Neuro Exam: Positive: Normal Speech, Strength at 5/5 X4 ext, Normal Tone, Sensation Intact, Cranial Nerves 3-12 NL Psych Exam: Positive: Mental status NL, Mood NL, Memory Intact, Oriented x 3 Vital Signs Vital Signs Date Time Temp Pulse Resp B/P (MAP) Pulse Ox O2 Delivery O2 Flow Rate FiO2 07/10/21 13:01 41 94 07/10/21 13:00 92/53 (66) Laboratory Data Labs 24H Laboratory Tests 2 07/10/21 11:05: Immature Granulocyte % (Auto) 0.3, Neutrophils (%) (Auto) 64.3, Lymphocytes (%) (Auto) 21.1L, Monocytes (%) (Auto) 8.9H, Eosinophils (%) (Auto) 4.7H, Basophils (%) (Auto) 0.7, Neutrophils # (Auto) 4.7, Lymphocytes # (Auto) 1.5, Monocytes # (Auto) 0.6, Eosinophils # (Auto) 0.3, Basophils # (Auto) 0.1, Nucleated Red Blood Cells % (auto) 0.0, Prothrombin Time 13.1, Prothromb Time International Ratio 0.96, Blood Gas Bicarbonate Standard 20.6, Venous Blood pH 7.316L, Venous Blood Partial Pressure CO2 44.4, Venous Blood Partial Pressure O2 40.4, Venous Blood Total Carbon Dioxide 23.5L, Venous Blood HCO3 22.2L, Venous Blood Oxygen Saturation 73.2, Venous Blood Base Excess -4.0L, Anion Gap 7L, Glomerular Filtration Rate 37.4L, Lactic Acid Level 2.5*H, Calcium Level 9.2, Total Bilirubin 0.5, Direct Bilirubin 0.1, Aspartate Amino Transf (AST/SGOT) 25, Alanine Aminotransferase (ALT/SGPT) 22, Alkaline Phosphatase 95, Total Creatine Kinase 143, Creatine Kinase MB 1.8, Creatine Kinase MB Relative Index 1.26, Troponin I < 0.02, CJ-Iub-Q-Type Natriuretic Peptide 102, Total Protein 6.8, Albumin 3.4, Albumin/Globulin Ratio 1.0L, Lipase 66L, Thyroid Stimulating Hormone (TSH) 168.000H 07/10/21 11:39: Coronavirus (COVID-19)(PCR) NEGATIVE, Influenza Type A (RT-PCR) NEGATIVE, Influenza Type B (RT-PCR) NEGATIVE, Respiratory Syncytial Virus (PCR) NEGATIVE CBC/BMP Laboratory Tests 07/10/21 11:05 Microbiology Microbiology 07/10/21 Blood Culture, Received Pending 07/10/21 Blood Culture, Received Pending Assessment/Plan Patient is a 75 year old female with PMH of hypothyroidism and hypertension presented to [facility] due to an syncope event this morning as well as 1 day of lightheadedness , fatigue, and hypotension in addition to bradycardia for months # Pre-syncope likely 2/2 hypotension - possibly 2/2 medication vs sinus bradycardia -Pre-syncope event this morning without fall or injury. -Patient is reported chronic bradycardia since the summer -HR 47 with BP 85/51 upon ER arrival, BP stable after IV NS bolus. No chest pain, palpitation, dyspnea, or altered mental status -EKG showed sinus bradycardia without ischemic changes. Initial tro<0.02. Order ed Tele, echo doppler, and trend cardiac marker. -Thyroid panel ordered, vital signs, PT eval, and fall precaution # Sinus bradycardia likely associated with hypothyroidism, r/o intrinsic cardiac abnormality - Bradycardia for months, reported the she and her PCP are in the process of having pacemaker evaluation by cardiology - Resume home levothyroxine 224mcg daily. Order thyroid panel, baseline cortisol level - Initial tro<0.02. Tele, echo doppler, and trend cardiac marker -Continue to monitor vital signs # Hypotension likely associated with medication vs hypothyroidism vs bradycardia, r/o intrinsic cardiac abnormality -Initial BP in ER 85/51, now stable after 500ml NS bolus. Will start NS at 85ml/hr and hold home Lisinopril -Resume levothyroxine 224mcg daily. Order thyroid panel, baseline cortisol level -Initial tro<0.02. Tele, echo doppler, and trend cardiac marker -Continue to monitor vital signs # Hypothyroidism -Resume home levothyroxine 224mcg daily. -Ordered TPO, anti-thyroglobulin antibody, and anti-thyroid microsomal antibody -TSH 168 today, recheck thyroid panel and ordered baseline cortisol level. TSH in 04/2021 was 0.229. -Clinically there is no evidence of any myxedema coma; no confusion, change in mental status or hypothermia #JAMIA likely due to dehydration vs Lisinopril use -Creatinine 1.45 compared to baseline 0.8 -Hold home med Lisinopril. S/p 500ml NS bolus. Start IV NS at 85/ml -Recheck BMP in AM # Multiple sclerosis without MS flare -Reported gait and balance problem only at baseline -Denies vision changes, CN2-12 intact, Strength 5/5 in all 4 extremities. No signs of MS flare -No MS home meds. Continue to monitor for signs of MS flare #. Hypertension -Due to hypotensive episode earlier in the day, will hold home med Lisinopril -Continue vital signs. If blood pressure elevates, will give antihypertensives other than ACEI/ARB/diuretics due to JAMIA #NEHEMIAH on CPAP at home -Patient said her children may be able to bring CPAP to hospital -May use own CPAP ordered #Depression -Continue home med duloxetine #BMI 40 -Patient will need diet and exercise counseling outpatient - Complicating medical management #Degenerative joint disease -Tylenol PRN for pain control DVT prophylaxis: lovenox, SCD, TEDS Dispo: Pending clinical improvement. Anticipate at least 2 nights of stay Plan / VTE VTE Prophylaxis Ordered?: Yes GME ATTESTATION GME ATTESTATION My faculty preceptor for this patient encounter was physically present during the encounter and was fully available. All aspects of the patient interview, examination, medical decision making process, and medical care plan development were reviewed and approved by the faculty preceptor. The faculty preceptor is aware and concurs with the plan as stated in the body of this note and will attest to such by his/her cosignature. ATTENDING NOTE I, Brooklynn Eli, have independently examined this patient and performed my own physical exam, as well as reviewed the documentation and edited where necessary with the resident. For medical students we have performed the physical exam together and discussed medical decision making and I have verified the history. I have discussed in detail with the resident / student the findings and plan of treatment as documented by the resident / student and edited their note. I agree with their findings and treatment plan and have edited their documentation. I will continue to follow the patient during this hospital stay. GME ATTESTATION GME ATTESTATION My faculty preceptor for this patient encounter was physically present during the encounter and was fully available. All aspects of the patient interview, exa mination, medical decision making process, and medical care plan development were reviewed and approved by the faculty preceptor. The faculty preceptor is aware and concurs with the plan as stated in the body of this note and will attest to such by his/her cosignature. ATTENDING NOTE I, Brooklynn Eli, have independently examined this patient and performed my own physical exam, as well as reviewed the documentation and edited where necessary with the resident. For medical students we have performed the physical exam together and discussed medical decision making and I have verified the history. I have discussed in detail with the resident / student the findings and plan of treatment as documented by the resident / student and edited their note. I agree with their findings and treatment plan and have edited their documentation. I will continue to follow the patient during this hospital stay. FLORINDA HALL DO Jul 10, 2021 15:08 BROOKLYNN ELI MD Jul 10, 2021 16:25
[2021-07-10 16:18] LABS: CK-MB VALUE MASS 1.4 NG/ML (<3.6); CPK CREATINE PHOSPHOKINASE 133 U/L (26-192); MB/CK RELATIVE INDEX 1.05 (< OR =4); TROPONIN I < 0.02 NG/ML (< 0.10)
[2021-07-10 17:03] LABS: THYROID PEROXIDASE ANTIBODY 39.7 U/ML (<60.0); THYROXINE (T4) 3.3 UG/DL (4.5-12.0); TOTAL T3 26.2 NG/DL (60.0-181.0)
[2021-07-10 18:00] VITALS: BP 162/74
[2021-07-10] MEDS: NS 1,000 ML IV SCH (18:13)
[2021-07-10 20:00] VITALS: BP 161/74
[2021-07-10] MEDS: DULoxetine 30MG CAPSULE (CYMBALTA) PO SCH (20:24)
[2021-07-10] MEDS: tiZANidine 4 MG TAB PO SCH (20:24)
[2021-07-10] MEDS: OMEPRAZOLE 20 MG CAP PO SCH (20:24)
[2021-07-11 00:16] VITALS: BP 100/59
[2021-07-11 04:10] VITALS: BP 132/61
[2021-07-11] MEDS: NS 1,000 ML IV SCH (05:36)
[2021-07-11] MEDS ORDERED: COSYNTROPIN 0.25 MG/ML VIAL (J0834 PER 0.25MG) IV ONE (06:00)
[2021-07-11] MEDS ORDERED: LEVOTHYROXINE 112MCG TABLET (0.112MG) PO SCH (06:00)
[2021-07-11 08:00] VITALS: BP 119/56
[2021-07-11] MEDS: tiZANidine 4 MG TAB PO SCH (08:06)
[2021-07-11] MEDS: OMEPRAZOLE 20 MG CAP PO SCH (08:06)
[2021-07-11] MEDS: DULoxetine 30MG CAPSULE (CYMBALTA) PO SCH (08:06)
[2021-07-11 08:16] LABS: HEMATOCRIT 43.4 % (36.0-47.0); HEMOGLOBIN 14.2 g/dl (12.0-15.5); MEAN CORPUSCULAR HEMOGLOBIN 31.9 pg (27.0-33.0); MEAN CORPUSCULAR HGB CONC 32.7 g/dl (32.0-36.5); MEAN CORPUSCULAR VOLUME 97.5 fl (80.0-96.0); PLATELET COUNT, AUTOMATED 223 10^3/uL (150-450); RED BLOOD COUNT 4.45 10^6/uL (4.00-5.40); WHITE BLOOD COUNT 6.4 10^3/uL (4.0-10.0)
[2021-07-11 08:41] LABS: CALCIUM LEVEL 8.5 MG/DL (8.8-10.2); CREATININE FOR GFR 1.27 MG/DL (0.55-1.30); GLOMERULAR FILTRATION RATE 43.6 (>39); MAGNESIUM LEVEL 2.1 MG/DL (1.8-2.4); POTASSIUM SERUM 4.2 MEQ/L (3.5-5.1)
[2021-07-11] MEDS ORDERED: DOCUSATE SODIUM 100MG CAPSULE PO SCH (09:00)
[2021-07-11] MEDS ORDERED: ENOXAPARIN 40MG/0.4ML SYRINGE (J1650 PER 10MG) SC SCH (09:00)
--- NOTE | 2021-07-11 11:16 | DS.PDOC ---
Discharge Summary General Date of Admission Jul 10, 2021 at 10:32 Date of Discharge 07/11/2021 Attending Physician: BROOKLYNN ELI MD Discharge Summary PROCEDURES PERFORMED DURING STAY: [None]. ADMITTING DIAGNOSES: 1. Pre-syncope likely 2/2 hypotension - possibly 2/2 medication vs sinus bradycardia 2. Sinus bradycardia likely associated with hypothyroidism, r/o intrinsic cardiac abnormality 3. Hypotension likely associated with medication vs hypothyroidism vs bradycardia, r/o intrinsic cardiac abnormality 4. Hypothyroidism 5. JAMIA likely due to dehydration vs Lisinopril use 6. Multiple sclerosis without MS flare 7. Hypertension 8. NEHEMIAH on CPAP at home 9. Depression 10. BMI 40 11. Degenerative joint disease DISCHARGE DIAGNOSES: 1. Pre-syncope likely 2/2 hypotension, resolved. 2. Sinus bradycardia likely associated with hypothyroidism, resolved 3. Hypotension likely associated with dehydration vs medication use vs hypothyroidism vs bradycardia, resolved 4. Hypothyroidism 5. JAMIA likely due to dehydration vs Lisinopril use, improved 6. Multiple sclerosis without MS flare 7. Hypertension 8. NEHEMIAH on CPAP at home 9. Depression 10. BMI 40 11. Degenerative joint disease COMPLICATIONS/CHIEF COMPLAINT: Bradycardia,Lightheadedness HISTORY OF PRESENT ILLNESS: Ms. Padilla is a very pleasant 75 year old female with PMH of hypertension, hypothyroidism, and multiple sclerosis presented to [facility] ER due to pre-syncopal episode and new-onset hypotension this morning as well as bradycardia since summer. She reported that she woke up the morning of 07/10/2021 feeling lightheaded, cold, and tired. She had a pre-syncope episode and slumped on the sofa. She denied a fall or injury to her body. Her heart rate at home measured to be in the 40s with blood pressure around 80/40. She said her blood pressure is usually normal around 126/80, but her heart rate has been around 42 to 45 since this summer. She reported being on the process of establishing care with a hockey instructor; appointment scheduled for 07/25/2021. She reported she has been taking medication as prescribed including Synthroid 224mcg daily; denied recent medication changes. She denied any chest pain, palpitation, dyspnea, stroke-like symptoms, or constipation. HOSPITAL COURSE: Patient was found to have sinus bradycardia of HR of 47 with BP 85/51 upon ER arrival. Her blood pressure stabilized after IV NS bolus. Her EKG showed sinus bradycardia without ischemic changes. Troponin trend has been negative. She was placed on telemonitor and echocardiogram ordered. Her TSH was 168 with low T3 and T4, and her levothyroxine was resumed. Baseline cortisol level with ACTH stimulation test was also done. Patient was found to have JAMIA with creatinine of 1.45, and her home med Lisinopril was stopped. She was given IV fluid hydration with encouraged oral fluid intake, and her creatinine improved the next day. On the day of discharge, patient reported resolution of her symptoms. She denies lightheadedness or tiredness. Her heart rate on tele monitor was sinus rhythm at rate of 68. Her blood pressure is stable today. She denies chest pain, palpitation, dyspnea, fever, chills, or abdominal pain. Patient has passed HSE home evaluation. Patient is determined to be stable to be discharged home with outpatient follow up with her PCP and hockey instructor. Patient has been instructed to take Synthroid in the morning on an empty stomach prior to using any other medications. DISCHARGE MEDICATIONS: Please see below. ALLERGIES: Please see below. PHYSICAL EXAMINATION ON DISCHARGE: VITAL SIGNS: Please see below. GENERAL: Alert, cooperative. No Acute distress HEENT: Head atraumatic. Pupil equal and round bilaterally. Conjunctiva and lids normal. No scleral icterus CARDIOVASCULAR EXAMINATION: Regular rate and rhythm. No murmur. Normal S1 and S2 RESPIRATORY EXAMINATION: Clear to auscultation bilaterally. No rales or wheezing. Normal air movement EXTREMITIES: No edema in bilateral lower extremities, no tenderness in bilateral calves SKIN: No obvious trauma or lesion NEUROLOGICAL EXAMINATION: Normal Speech, normal Tone. Memory grossly intact. PSYCHIATRIC EXAMINATION: Mood and affect appropriate to situation. LABORATORY DATA: Please see below. IMAGING: CXR 07/10/2021 showed "No acute cardiopulmonary process appreciated." PROGNOSIS: Good ACTIVITY: [As tolerated]. DIET: Diet as tolerated DISCHARGE PLAN AND INSTRUCTIONS: 1. Stop Lisinopril. Take other medications as prescribed 2. Ensure to have adequate oral hydration 3. Remain compliant with treatment plan and medications 4. Return to the ER if you experience any problems DISCHARGE CONDITION: [Stable]. TIME SPENT ON DISCHARGE: [38] minutes. Vital Signs/I&Os Vital Signs Date Time Temp Pulse Resp B/P (MAP) Pulse Ox O2 Delivery O2 Flow Rate FiO2 07/11/21 08:00 97.9 63 18 119/56 (77) 99 Room Air I&O- Last 24 Hours up to 6 AM 07/11/21 06:00 Intake Total 1840 ml Output Total 950 ml Balance 890 ml Laboratory Data Labs 24H Laboratory Tests 2 07/10/21 11:39: Coronavirus (COVID-19)(PCR) NEGATIVE, Influenza Type A (RT-PCR) NEGATIVE, Influenza Type B (RT-PCR) NEGATIVE, Respiratory Syncytial Virus (PCR) NEGATIVE 07/10/21 15:32: Lactic Acid Followup at 4 Hours 0.8, Total Creatine Kinase 133, Creatine Kinase MB 1.4, Creatine Kinase MB Relative Index 1.05, Troponin I < 0.02, Thyroid Stimulating Hormone (TSH) 120.000H, Free Thyroxine Index 1.0L, Thyroxine (T4) 3.3L, Total Triiodothyronine 26.2L, Triiodothyronine (T3) Uptake 29L, Cortisol Baseline 8.0, Thyroid Peroxidase Antibodies 39.7 07/11/21 05:42: 07/11/21 07:04: 07/11/21 07:53: 07/11/21 07:58: Nucleated Red Blood Cells % (auto) 0.0, Anion Gap 6L, Glomerular Filtration Rate 43.6, Calcium Level 8.5L, Magnesium Level 2.1 07/11/21 07:59: 07/11/21 09:21: Lactic Acid Level 1.1 CBC/BMP Laboratory Tests 07/11/21 07:58 Microbiology Microbiology 07/10/21 Blood Culture, Received Pending 07/10/21 Blood Culture, Received Pending Discharge Medications Scheduled Calcium Polycarbophil (Fibercon) 625 Mg Tablet, 625 MG PO DAILY, (Reported) Docusate Sodium (Colace) 100 Mg Capsule, 100 MG PO DAILY, (Reported) Duloxetine Hcl (Duloxetine HCl) 60 Mg Capsule.dr, 60 MG PO BID, (Reported) Ergocalciferol (Vitamin D2) (Vitamin D2) 50,000 Units Cap, 50,000 UNIT PO QWEEK, (Reported) SUNDAYS Iron,Fm,Ps/Folic/B,C18/L.casei (Fusion Plus Capsule) 1 Cap Cap, 4 CAP PO DAILY, (Reported) Levothyroxine Sodium (Levothyroxine Sodium) 112 Mcg Tablet, 224 MCG PO DAILY, (Reported) Omeprazole (Omeprazole) 40 Mg Capsule.dr, 40 MG PO BID, (Reported) Tizanidine HCl (Tizanidine HCl) 2 Mg Tablet, 4 MG PO BID, (Reported) Allergies Coded Allergies: bupivacaine (Verified Allergy, Mild, HIVES, 07/10/21) TAPE (Verified Allergy, Unknown, 05/14/20) nickel (Verified Allergy, Unknown, 05/14/20) dexamethasone (Verified Adverse Reaction, Intermediate, "PURPLE/HOT FACE" PER PT, 07/10/21) GME ATTESTATION GME ATTESTATION My faculty preceptor for this patient encounter was physically present during the encounter and was fully available. All aspects of the patient interview, examination, medical decision making process, and medical care plan development were reviewed and approved by the faculty preceptor. The faculty preceptor is aware and concurs with the plan as stated in the body of this note and will attest to such by his/her cosignature. ATTENDING NOTE I, Brooklynn Eli, have independently examined this patient and performed my own physical exam, as well as reviewed the documentation and edited where necessary with the resident. For medical students we have performed the physical exam together and discussed medical decision making and I have verified the history. I have discussed in detail with the resident / student the findings and plan of treatment as documented by the resident / student and edited their note. I agree with their findings and treatment plan and have edited their documentation. I will continue to follow the patient during this hospital stay. Time spent on discharge 20 minutes FLORINDA HALL DO Jul 11, 2021 11:16 BROOKLYNN ELI MD Jul 11, 2021 11:55
[2021-07-11 12:00] VITALS: BP 128/61
--- NOTE | 2021-07-11 14:52 | ECHO ---
ECHOCARDIOGRAM DATE OF PROCEDURE: 07/11/2021 Age: 75 Gender: Female Height: 62 inches Weight: 120 pounds Body surface area: 1.99 m2 PATIENT LOCATION: Inpatient, currently in the emergency room. REFERRING PHYSICIAN: Sujey Mccollum D.O. INDICATION: Abnormal EKG (marked sinus bradycardia with TSH of 160!) MEASUREMENTS: 2D Measurements: RV - 3.8 cm LV - 4.0 cm Septum 1.0 cm Posterior wall 1.0 cm Aortic root 3.2 cm LA - 4.3 cm LVEF 65% Doppler Measurements: AV - 1.15 m/sec LVOT - 1.0 m/sec LVOT diameter 1.7 cm MV-E 84, A 53, EA ratio 1.6 Early mitral deceleration time 253 msec E prime medial 8.6 A prime medial 6.5 E prime lateral 6.9 Average E/E prime ratio 10.8/PCWP 15.3 mmHg PV - 0.7 m/sec Pulmonary artery acceleration time 137 msec RVSP - 31 mmHg IVC - 1.7 cm COMMENTS: Sinus bradycardia at 42-25 beats per minute. No intraventricular conduction disturbance. Somewhat challenging study in light of the patient's body habitus, but diagnostically useful information was still obtained. M-mode and 2-dimensional cardiography was performed with pulse, continuous wave, color flow and tissue Doppler studies. Normal left ventricular size, wall thickness and wall motion. Mildly dilated left atrium with grade 2 left ventricular (LV) diastolic dysfunction, but currently normal estimated mean left atrial pressure. Normal right heart chamber sizes and wall motion with borderline pulmonary hypertension. Normal inferior vena cava (IVC) size and collapse against an elevated central venous pressure. Normal aortic dimensions. Mild aortic valvular sclerosis without functional abnormality. Mild degenerative changes of the mitral valvular apparatus with very mild insufficiency. Normal appearing tricuspid valve with mild insufficiency. No apparent intracardiac mass or pericardial effusion.
--- NOTE | 2021-07-12 07:53 | ECGEPIP ---
[facility] - ED Test Date: 2021-07-10 Pat Name: RUPERTO SUE Department: Room: - Gender: Female Hospital Nurse: SHAHLA : 1945 Requested By: Rowena Butler Order Number: [id number] Reading MD: Rowena Butler Measurements Intervals [place] Rate: 45 P: 48 DC: 156 QRS: 17 QRSD: 66 T: 68 QT: 448 QTc: 387 Interpretive Statements Sinus bradycardia Low voltage QRS Septal infarct , age undetermined NSTTW abnormalities decreased rate 08/04/16 Electronically Signed on 07-12-2021 7:52:46 EST by Rowena Butler
== END 2021-07-11 12:55 | disposition home or self-care (01) ==
LOC: M ED 10:31 → M ED INP 10:32 → ENRESERV 16:40 → M PCU 17:35
PROVIDERS: ADMIT Internal Medicine; ATTEND Internal Medicine
DX: R00.1 Bradycardia, unspecified (principal); I95.9 Hypotension, unspecified; N17.9 Acute kidney failure, unspecified; E86.0 Dehydration; E03.9 Hypothyroidism, unspecified; G35 Multiple sclerosis; I10 Essential (primary) hypertension; G47.33 Obstructive sleep apnea (adult) (pediatric); F32.9 Major depressive disorder, single episode, unspecified; Z79.899 Other long term (current) drug therapy; Z88.8 Allergy status to other drugs, medicaments and biological substances
CPT/HCPCS: 36415; 71045; 80048; 80076; 82024; 82533; 82550; 82553; 82803; 83605; 83690; 83735; 83880; 84436; 84443; 84445; 84479; 84480; 84484; 85025; 85027; 85610; 86376; 87040; 87631; 93005; 93041; 93306; 96361; 96372; 96374; 97116; 97161; 99285; G0378; J0834; J1650

== ENCOUNTER → 2021-07-22 | Outpatient (CLI) | payer MEDICARE ==
[~2021-07-22] MED LIST changes: +COLA100C5 PO; +FIBE625T PO; +LEVO112T2 PO; -LISI-898 PO; +LISI5TAB11 PO; -OMEP-221 PO; +OMEP40CA5 PO
[2021-07-22 16:20] LABS: ALBUMIN 3.7 GM/DL (3.2-5.2); BILIRUBIN,TOTAL 0.7 MG/DL (0.2-1.0); CALCIUM LEVEL 9.4 MG/DL (8.8-10.2); CREATININE FOR GFR 1.03 MG/DL (0.55-1.30); FREE T4 1.2 NG/DL (0.76-1.46); GLOMERULAR FILTRATION RATE 55.5 (>39); POTASSIUM SERUM 4.9 MEQ/L (3.5-5.1); THYROID STIMULATING HORMONE 8.84 uIU/ML (0.358-3.740); TOTAL PROTEIN 7.3 GM/DL (6.4-8.2)
== END ==
LOC: M PLALAB 12:00
PROVIDERS: ATTEND Family Medicine
DX: E03.9 Hypothyroidism, unspecified (principal); I11.9 Hypertensive heart disease without heart failure

== ENCOUNTER → 2021-08-27 | Outpatient (REF) | payer MEDICARE ==
[~2021-08-27] MED LIST changes: +LISI-898 PO; -LISI5TAB11 PO; +OMEP-221 PO; -OMEP40CA5 PO
== END ==
LOC: M LAB REF 17:34
PROVIDERS: ATTEND Family Medicine
DX: J06.9 Acute upper respiratory infection, unspecified (principal)

== ENCOUNTER → 2021-09-13 | Outpatient (CLI) | payer MEDICARE ==
[~2021-09-13] MED LIST changes: -LISI-898 PO; +LISI5TAB11 PO; -OMEP-221 PO; +OMEP40CA5 PO
[2021-09-13 12:25] LABS: FREE T4 1.79 NG/DL (0.76-1.46); THYROID STIMULATING HORMONE 0.049 uIU/ML (0.358-3.740)
== END ==
LOC: M LAB 11:01
PROVIDERS: ATTEND Internal Medicine Cardiovascular Disease
DX: R00.1 Bradycardia, unspecified (principal)

== ENCOUNTER → 2021-09-24 | Outpatient (CLI) | payer MEDICARE ==
[2021-09-24 16:22] LABS: ALBUMIN 3.6 GM/DL (3.2-5.2); CALCIUM LEVEL 9.3 MG/DL (8.8-10.2); CREATININE FOR GFR 0.97 MG/DL (0.55-1.30); GLOMERULAR FILTRATION RATE 59.4 (>39); PHOSPHORUS LEVEL 3.2 MG/DL (2.5-4.9); POTASSIUM SERUM 5.1 MEQ/L (3.5-5.1)
== END ==
LOC: M PLALAB 14:07
PROVIDERS: ATTEND Internal Medicine Cardiovascular Disease
DX: I11.9 Hypertensive heart disease without heart failure (principal)

== ENCOUNTER → 2021-11-04 | Outpatient (CLI) | payer MEDICARE ==
[2021-11-04 18:30] LABS: FREE T4 1.24 NG/DL (0.76-1.46); THYROID STIMULATING HORMONE 0.098 uIU/ML (0.358-3.740)
== END ==
LOC: M PLALAB 14:44
PROVIDERS: ATTEND Family Medicine
DX: E03.9 Hypothyroidism, unspecified (principal)

== ENCOUNTER → 2021-11-19 | Outpatient (CLI) | payer MEDICARE | LOC: M PLAIMG 13:58 | PROVIDERS: ATTEND Family Medicine | DX: M25.511 Pain in right shoulder (principal); M54.50 Low back pain, unspecified ==

== ENCOUNTER → 2021-11-19 | Outpatient (CLI) | payer MEDICARE ==
[2021-11-19 15:38] LABS: ALBUMIN 3.7 GM/DL (3.2-5.2); CALCIUM LEVEL 9.1 MG/DL (8.8-10.2); CREATININE FOR GFR 1.01 MG/DL (0.55-1.30); GLOMERULAR FILTRATION RATE 56.7 (>39); PHOSPHORUS LEVEL 3.5 MG/DL (2.5-4.9); POTASSIUM SERUM 4.3 MEQ/L (3.5-5.1)
== END ==
LOC: M PLALAB 13:56
PROVIDERS: ATTEND Pain Medicine Interventional Pain Medicine
DX: M54.50 Low back pain, unspecified (principal)

== ENCOUNTER → 2022-03-26 | Outpatient (CLI) | payer MEDICARE ==
[~2022-03-26] MED LIST changes: -TRIA37.53 PO; +TRIA37.577 PO
[2022-03-26 15:31] LABS: BASO # 0.1 10^3/uL (0.0-0.2); BASO % 0.7 % (0.0-1.0); EOS # 0.2 10^3/uL (0.0-0.5); EOS % 2.8 % (0.0-3.0); HEMATOCRIT 44.9 % (36.0-47.0); HEMOGLOBIN 14.6 g/dl (12.0-15.5); LYMPH # 1.9 10^3/uL (1.5-5.0); LYMPH % 27.3 % (24.0-44.0); MEAN CORPUSCULAR HEMOGLOBIN 32.1 pg (27.0-33.0); MEAN CORPUSCULAR HGB CONC 32.5 g/dl (32.0-36.5); MEAN CORPUSCULAR VOLUME 98.7 fl (80.0-96.0); MONO # 0.7 10^3/uL (0.0-0.8); MONO % 9.6 % (2.0-8.0); NEUTROPHILS # 4.2 10^3/uL (1.5-8.5); NEUTROPHILS % 59.2 % (36.0-66.0); PLATELET COUNT, AUTOMATED 270 10^3/uL (150-450); RED BLOOD COUNT 4.55 10^6/uL (4.00-5.40); WHITE BLOOD COUNT 7.1 10^3/uL (4.0-10.0)
[2022-03-26 21:55] LABS: ALBUMIN 3.7 GM/DL (3.2-5.2); BILIRUBIN,TOTAL 0.4 MG/DL (0.2-1.0); CALCIUM LEVEL 9.5 MG/DL (8.8-10.2); CHOLESTEROL RISK RATIO 2.513 (<5); CREATININE FOR GFR 1.02 MG/DL (0.55-1.30); FOLATE 7.3 NG/ML; FREE T4 0.93 NG/DL (0.76-1.46); GLOMERULAR FILTRATION RATE 55.9 (>39); PERCENT SATURATION 20.8 % (13.2-45.0); POTASSIUM SERUM 4.7 MEQ/L (3.5-5.1); THYROID STIMULATING HORMONE 18.9 uIU/ML (0.358-3.740); TOTAL 25(OH) VITAMIN D 36.3 NG/ML (30.0-100.0); TOTAL PROTEIN 7.1 GM/DL (6.4-8.2)
[2022-03-27 00:46] LABS: HEMOGLOBIN A1c 5.4 %
== END ==
LOC: M PLALAB 12:39
PROVIDERS: ATTEND Family Medicine
DX: E03.9 Hypothyroidism, unspecified (principal); I11.9 Hypertensive heart disease without heart failure; R73.01 Impaired fasting glucose; I27.81 Cor pulmonale (chronic); R60.0 Localized edema; Z98.84 Bariatric surgery status; Z79.899 Other long term (current) drug therapy

== ENCOUNTER → 2022-03-26 | Outpatient (CLI) | payer MEDICARE ==
[2022-03-26 20:51] LABS: ALBUMIN 3.8 GM/DL (3.2-5.2); BILIRUBIN,TOTAL 0.6 MG/DL (0.2-1.0); CALCIUM LEVEL 9.5 MG/DL (8.8-10.2); CREATININE FOR GFR 1.03 MG/DL (0.55-1.30); GLOMERULAR FILTRATION RATE 55.3 (>39); POTASSIUM SERUM 4.7 MEQ/L (3.5-5.1); TOTAL PROTEIN 7.1 GM/DL (6.4-8.2)
== END ==
LOC: M PLALAB 12:41
PROVIDERS: ATTEND Internal Medicine Cardiovascular Disease
DX: I11.9 Hypertensive heart disease without heart failure (principal); I27.81 Cor pulmonale (chronic); R60.0 Localized edema

== ENCOUNTER → 2022-05-11 | Outpatient (CLI) | payer MEDICARE | LOC: M SOG 08:18 | PROVIDERS: ATTEND Orthopaedic Surgery Adult Reconstructive Orthopaedic Surgery | DX: M25.561 Pain in right knee (principal); M25.761 Osteophyte, right knee ==

== ENCOUNTER → 2022-05-14 | Outpatient (CLI) | payer MEDICARE ==
[2022-05-14 12:03] LABS: BASO % 0.5 % (0.0-1.0); EOS # 0.1 10^3/uL (0.0-0.5); HEMATOCRIT 45.1 % (36.0-47.0); HEMOGLOBIN 14.4 g/dl (12.0-15.5); LYMPH % 25.6 % (24.0-44.0); MEAN CORPUSCULAR HEMOGLOBIN 32.6 pg (27.0-33.0); MEAN CORPUSCULAR HGB CONC 31.9 g/dl (32.0-36.5); MONO # 0.9 10^3/uL (0.0-0.8); NEUTROPHILS # 4.6 10^3/uL (1.5-8.5); NEUTROPHILS % 60.5 % (36.0-66.0); PLATELET COUNT, AUTOMATED 265 10^3/uL (150-450); RED BLOOD COUNT 4.42 10^6/uL (4.00-5.40); WHITE BLOOD COUNT 7.7 10^3/uL (4.0-10.0)
[2022-05-14 12:06] LABS: INR 0.89; PROTHROMBIN TIME 12.4 SECONDS (12.7-14.5)
[2022-05-14 12:07] LABS: PARTIAL THROMBOPLASTIN TIME 28.6 SECONDS (25.9-37.0)
[2022-05-14 12:51] LABS: ALBUMIN 3.7 GM/DL (3.2-5.2); BILIRUBIN,TOTAL 0.5 MG/DL (0.2-1.0); CALCIUM LEVEL 9.3 MG/DL (8.8-10.2); CREATININE FOR GFR 0.97 MG/DL (0.55-1.30); GLOMERULAR FILTRATION RATE 59.3 (>39); POTASSIUM SERUM 4.3 MEQ/L (3.5-5.1); TOTAL PROTEIN 6.8 GM/DL (6.4-8.2)
[2022-05-14 14:07] LABS: APPEARANCE, URINE MANUAL HAZY (CLEAR); COLOR, URINE MANUAL YELLOW (YELLOW); GLUCOSE, URINE (UA) MANUAL NEGATIVE (NEGATIVE); KETONE, URINE MANUAL NEGATIVE (NEGATIVE); PROTEIN, URINE MANUAL NEGATIVE (NEGATIVE); SPECIFIC GRAVITY,URINE MANUAL 1.005 (1.002-1.035)
[2022-05-14 14:08] LABS: BILIRUBIN, URINE MANUAL NEGATIVE (NEGATIVE); BLOOD URINE MANUAL NEGATIVE (NEGATIVE); LEUKOCYTE ESTERASE, URINE MAN NEGATIVE (NEGATIVE); NITRITE, URINE MANUAL NEGATIVE (NEGATIVE); UROBILINOGEN, URINE MANUAL NORMAL (NORMAL)
[2022-05-14 14:17] LABS: BACTERIA, URINE LARGE AMOUNT; MUCUS, URINE SMALL AMOUNT (NEGATIVE); RBC, URINE 0-1 /hpf (0-3); SQUAMOUS EPITHELIAL CELL URINE LARGE AMOUNT /hpf (SMALL AMT)
[2022-05-14 14:18] LABS: HYALINE CAST, URINE NONE SEEN /lpf (0-1); TRANSITIONAL EPI CELLS, URINE SMALL AMOUNT /hpf
== END ==
LOC: M PLALAB 08:45
PROVIDERS: ATTEND Nurse Practitioner Adult Health
DX: I11.9 Hypertensive heart disease without heart failure (principal); R73.01 Impaired fasting glucose; G35 Multiple sclerosis

== ENCOUNTER → 2022-05-21 | Outpatient (CLI) | payer MEDICARE | LOC: M LABSMTC 10:32 | PROVIDERS: ATTEND Orthopaedic Surgery Orthopaedic Surgery of the Spine | DX: Z01.812 Encounter for preprocedural laboratory examination (principal); Z20.822 Contact with and (suspected) exposure to COVID-19 ==

== ENCOUNTER → 2022-09-03 | Outpatient (CLI) | payer MEDICARE ==
[2022-09-03 10:48] LABS: BASO # 0.1 10^3/uL (0.0-0.2); BASO % 0.8 % (0.0-1.0); EOS # 0.2 10^3/uL (0.0-0.5); EOS % 2.7 % (0.0-3.0); HEMATOCRIT 44.3 % (36.0-47.0); HEMOGLOBIN 14.5 g/dl (12.0-15.5); LYMPH # 2.4 10^3/uL (1.5-5.0); LYMPH % 33.4 % (24.0-44.0); MEAN CORPUSCULAR HEMOGLOBIN 32.1 pg (27.0-33.0); MEAN CORPUSCULAR HGB CONC 32.7 g/dl (32.0-36.5); MONO # 0.7 10^3/uL (0.0-0.8); MONO % 9.3 % (2.0-8.0); NEUTROPHILS # 3.8 10^3/uL (1.5-8.5); NEUTROPHILS % 53.2 % (36.0-66.0); PLATELET COUNT, AUTOMATED 233 10^3/uL (150-450); RED BLOOD COUNT 4.52 10^6/uL (4.00-5.40); WHITE BLOOD COUNT 7.1 10^3/uL (4.0-10.0)
[2022-09-03 11:06] LABS: HEMOGLOBIN A1c 5.1 % (4.0-6.0)
[2022-09-03 11:17] LABS: ALBUMIN 3.9 G/DL (3.2-5.2); ALKALINE PHOSPHATASE 98 U/L (46-116); ALT/SGPT 21 U/L (7.0-40); AST/SGOT 23 U/L (<34); BILIRUBIN,TOTAL 0.5 MG/DL (0.3-1.2); BLOOD UREA NITROGEN 19 MG/DL (9-23); CALCIUM LEVEL 9.6 MG/DL (8.3-10.6); CARBON DIOXIDE LEVEL 31 MMOL/L (20-31); CHLORIDE LEVEL 102 MMOL/L (98-107); CHOLESTEROL LEVEL 202 MG/DL (<200); CHOLESTEROL RISK RATIO 2.43 (<5); CREATININE FOR GFR 0.91 MG/DL (0.55-1.30); GLOMERULAR FILTRATION RATE > 60.0 (>39); GLUCOSE, FASTING 86 MG/DL (74-106); HDL CHOLESTEROL 83.1 MG/DL (>40); LDL CHOLESTEROL 100.9 MG/DL (<100); NON-HDL-C 119 MG/DL; POTASSIUM SERUM 4.9 MMOL/L (3.5-5.1); SODIUM LEVEL 141 MMOL/L (136-145); TOTAL PROTEIN 6.9 G/DL (5.7-8.2); TRIGLYCERIDES LEVEL 90 MG/DL (<150)
[2022-09-03 11:18] LABS: FREE T4 1.03 NG/DL (0.89-1.76); THYROID STIMULATING HORMONE 9.065 uIU/ML (0.55-4.78)
== END ==
LOC: M PLALAB 08:30
PROVIDERS: ATTEND Nurse Practitioner Adult Health
DX: I11.9 Hypertensive heart disease without heart failure (principal); E03.9 Hypothyroidism, unspecified; R73.01 Impaired fasting glucose

== ENCOUNTER → 2022-10-02 | Outpatient (CLI) | payer MEDICARE ==
[2022-10-02 15:56] LABS: BLOOD UREA NITROGEN 19 MG/DL (9-23); GLOMERULAR FILTRATION RATE > 60.0 (>39)
== END ==
LOC: M PLALAB 12:50
PROVIDERS: ATTEND Pain Medicine Interventional Pain Medicine
DX: M54.50 Low back pain, unspecified (principal)

== ENCOUNTER → 2022-10-22 | Outpatient (CLI) | payer MEDICARE ==
[2022-10-22 16:36] LABS: FREE T4 1.11 NG/DL (0.89-1.76); THYROID STIMULATING HORMONE 0.911 uIU/ML (0.55-4.78)
== END ==
LOC: M PLALAB 12:49
PROVIDERS: ATTEND Family Medicine
DX: E03.9 Hypothyroidism, unspecified (principal)

== ENCOUNTER → 2023-02-15 | Outpatient (CLI) | payer MEDICARE ==
[2023-02-15 12:31] LABS: HEMATOCRIT 40.4 % (36.0-47.0); HEMOGLOBIN 13.1 g/dl (12.0-15.5); MEAN CORPUSCULAR HEMOGLOBIN 32.1 pg (27.0-33.0); MEAN CORPUSCULAR HGB CONC 32.4 g/dl (32.0-36.5); PLATELET COUNT, AUTOMATED 292 10^3/uL (150-450); RED BLOOD COUNT 4.08 10^6/uL (4.00-5.40); WHITE BLOOD COUNT 5.7 10^3/uL (4.0-10.0)
[2023-02-15 12:45] LABS: ERYTHROCYTE SEDIMENTATION RATE 27 mm/hr (0-30)
[2023-02-15 12:47] LABS: INR 0.99; PROTHROMBIN TIME 13.3 SECONDS (12.5-14.5)
[2023-02-15 12:57] LABS: ALBUMIN 3.6 G/DL (3.2-5.2); ALKALINE PHOSPHATASE 132 U/L (46-116); ALT/SGPT 14 U/L (7.0-40); AST/SGOT 14 U/L (<34); BILIRUBIN,TOTAL 0.5 MG/DL (0.3-1.2); BLOOD UREA NITROGEN 15 MG/DL (9-23); CALCIUM LEVEL 9.5 MG/DL (8.3-10.6); CARBON DIOXIDE LEVEL 28 MMOL/L (20-31); CHLORIDE LEVEL 105 MMOL/L (98-107); CREATININE FOR GFR 0.89 MG/DL (0.55-1.30); GLOMERULAR FILTRATION RATE > 60.0 (>39); GLUCOSE, FASTING 81 MG/DL (74-106); POTASSIUM SERUM 4.6 MMOL/L (3.5-5.1); SODIUM LEVEL 139 MMOL/L (136-145); TOTAL PROTEIN 6.4 G/DL (5.7-8.2)
== END ==
LOC: M RAD 11:19
PROVIDERS: ATTEND Orthopaedic Surgery
DX: Z01.818 Encounter for other preprocedural examination (principal); M17.11 Unilateral primary osteoarthritis, right knee; J84.10 Pulmonary fibrosis, unspecified; Z95.828 Presence of other vascular implants and grafts

== ENCOUNTER → 2023-10-25 | Outpatient (CLI) | payer MEDICARE ==
[~2023-10-25] MED LIST changes: -GABA-283 PO; +GABA-284 PO
[2023-10-25 13:22] LABS: THYROID STIMULATING HORMONE 8.549 uIU/ML (0.55-4.78)
[2023-10-25 13:23] LABS: FREE T4 0.96 NG/DL (0.89-1.76)
== END ==
LOC: M PLALAB 11:10
PROVIDERS: ATTEND Family Medicine
DX: E03.9 Hypothyroidism, unspecified (principal)

== ENCOUNTER → 2023-10-29 | Outpatient (CLI) | payer MEDICARE | LOC: M WHC 10:59 | PROVIDERS: ATTEND Family Medicine | DX: Z12.31 Encounter for screening mammogram for malignant neoplasm of breast (principal) ==

== ENCOUNTER → 2023-11-22 | Outpatient (CLI) | payer MEDICARE ==
[2023-11-22 13:35] LABS: THYROID STIMULATING HORMONE 0.15 uIU/ML (0.55-4.78)
[2023-11-22 13:37] LABS: FREE T4 1.59 NG/DL (0.89-1.76)
== END ==
LOC: M PLALAB 10:50
PROVIDERS: ATTEND Family Medicine
DX: E03.9 Hypothyroidism, unspecified (principal)

== ENCOUNTER → 2024-08-28 | Outpatient (CLI) | payer MEDICARE ==
[~2024-08-28] MED LIST changes: +GABA-1172 PO; -GABA-282 PO
[2024-08-28 10:45] LABS: BASO # 0.1 10^3/uL (0.0-0.2); BASO % 0.8 % (0.0-1.0); EOS # 0.2 10^3/uL (0.0-0.5); EOS % 3.6 % (0.0-3.0); HEMATOCRIT 44.1 % (36.0-47.0); HEMOGLOBIN 14.4 g/dl (12.0-15.5); LYMPH % 30.7 % (24.0-44.0); MEAN CORPUSCULAR HEMOGLOBIN 31.1 pg (27.0-33.0); MEAN CORPUSCULAR HGB CONC 32.7 g/dl (32.0-36.5); MEAN CORPUSCULAR VOLUME 95.2 fl (80.0-96.0); MONO # 0.8 10^3/uL (0.0-0.8); MONO % 12.4 % (2.0-8.0); NEUTROPHILS # 3.4 10^3/uL (1.5-8.5); NEUTROPHILS % 52.3 % (36.0-66.0); PLATELET COUNT, AUTOMATED 213 10^3/uL (150-450); RED BLOOD COUNT 4.63 10^6/uL (4.00-5.40); WHITE BLOOD COUNT 6.5 10^3/uL (4.0-10.0)
[2024-08-28 10:49] LABS: ALBUMIN 3.6 G/DL (3.2-5.2); ALKALINE PHOSPHATASE 111 U/L (35-104); ALT/SGPT 15 U/L (7.0-40); AST/SGOT 20 U/L (<34); BILIRUBIN,TOTAL 0.7 MG/DL (0.3-1.2); BLOOD UREA NITROGEN 18 MG/DL (9-23); CALCIUM LEVEL 9.9 MG/DL (8.3-10.6); CARBON DIOXIDE LEVEL 29 MMOL/L (20-31); CHLORIDE LEVEL 104 MMOL/L (98-107); CHOLESTEROL LEVEL 166 MG/DL (<200); CHOLESTEROL RISK RATIO 2.77 (<5); CREATININE FOR GFR 0.85 MG/DL (0.55-1.30); GLOMERULAR FILTRATION RATE > 60.0 (>39); GLUCOSE, FASTING 96 MG/DL (74-106); HDL CHOLESTEROL 59.8 MG/DL (>40); LDL CHOLESTEROL 89.4 MG/DL (<100); NON-HDL-C 106.2 MG/DL; POTASSIUM SERUM 4.4 MMOL/L (3.5-5.1); SODIUM LEVEL 140 MMOL/L (136-145); TOTAL PROTEIN 7.1 G/DL (5.7-8.2); TRIGLYCERIDES LEVEL 84 MG/DL (<150)
[2024-08-28 10:51] LABS: FREE T4 1.66 NG/DL (0.89-1.76); THYROID STIMULATING HORMONE 0.125 uIU/ML (0.55-4.78)
== END ==
LOC: M PLALAB 07:14
PROVIDERS: ATTEND Family Medicine
DX: E03.9 Hypothyroidism, unspecified (principal); I11.9 Hypertensive heart disease without heart failure

== ENCOUNTER → 2024-10-20 | Outpatient (CLI) | payer MEDICARE ==
[~2024-10-20] MED LIST changes: +BARIUM SULFATE 700 MG TABLET (E-Z-DISK) As Ordered ONE; +E-Z-PAQUE 96% w/w SUSP 176GM BTL As Ordered ONE; +VARIBAR NECTAR 40% w/v 240ML SUSP BTL As Ordered ONE; +VARIBAR PUDDING 40% w/v 230ML TUBE As Ordered ONE
== END ==
LOC: M RAD 12:50
PROVIDERS: ATTEND Otolaryngology
DX: R13.10 Dysphagia, unspecified (principal)

== ENCOUNTER 2024-12-18 12:30 | Outpatient (RCR) | payer MEDICARE ==
[~2024-12-18 12:30] MED LIST changes: -BARIUM SULFATE 700 MG TABLET (E-Z-DISK) As Ordered ONE; -E-Z-PAQUE 96% w/w SUSP 176GM BTL As Ordered ONE; -VARIBAR NECTAR 40% w/v 240ML SUSP BTL As Ordered ONE; -VARIBAR PUDDING 40% w/v 230ML TUBE As Ordered ONE
== END 2024-12-20 ==
LOC: M ST 12:30
PROVIDERS: ATTEND Otolaryngology
DX: R13.10 Dysphagia, unspecified (principal)